=== PATIENT | female | born 1940 | race Caucasian/White ===

== ENCOUNTER → 2019-03-04 | Outpatient (CLI) | payer SELFPAY ==
[~2019-03-04] MED LIST: ASPIRIN PO; COUM1TAB18 PO; PERC2.5T PO
--- NOTE | 2019-03-04 12:43 | REP ---
Two-view chest: 03/04/2019. Indication: Dyspnea. COPD. Comparison: 02/16/2013. Findings: There is no air space consolidation. There are no pleural effusions or pneumothoraces. The cardiomediastinal silhouette is unremarkable. Hyperinflation and chronic interstitial fibrotic changes are present. Impression: No acute cardiopulmonary process. Electronically Signed by Kin Urbina DO 03/04/2019 12:34 P
[2019-03-04 12:47] LABS: HEMOGLOBIN 13.3 g/dl (12.0-15.5); MEAN CORPUSCULAR HEMOGLOBIN 29.6 pg (27.0-33.0); MEAN CORPUSCULAR HGB CONC 31.7 g/dl (32.0-36.5); MEAN CORPUSCULAR VOLUME 93.3 fl (80.0-96.0); PLATELET COUNT, AUTOMATED 327 10^3/uL (150-450)
[2019-03-04 14:09] LABS: ALBUMIN 3.5 GM/DL (3.2-5.2); ALT/SGPT 20 U/L (12-78); BILIRUBIN,TOTAL 0.8 MG/DL (0.2-1.0); BLOOD UREA NITROGEN 17 MG/DL (7-18); CARBON DIOXIDE LEVEL 25 MEQ/L (21-32); CHLORIDE LEVEL 114 MEQ/L (98-107); CHOLESTEROL LEVEL 125 MG/DL (<200); CHOLESTEROL RISK RATIO 2.272 (<5); CREATININE FOR GFR 0.92 MG/DL (0.55-1.30); GLOMERULAR FILTRATION RATE > 60.0 (>39); GLUCOSE, FASTING 94 MG/DL (70-100); HDL CHOLESTEROL 55 MG/DL (>40); LDL CHOLESTEROL 55 MG/DL (<100); NON-HDL-C 70 MG/DL; POTASSIUM SERUM 4.5 MEQ/L (3.5-5.1); SODIUM LEVEL 147 MEQ/L (136-145); TOTAL PROTEIN 6.2 GM/DL (6.4-8.2); TRIGLYCERIDES LEVEL 75 MG/DL (<150)
--- NOTE | 2019-03-05 07:08 | ECGEPIP ---
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
== END ==
LOC: M LAB 11:18
PROVIDERS: ATTEND Family Medicine
DX: J44.9 Chronic obstructive pulmonary disease, unspecified (principal); E03.9 Hypothyroidism, unspecified

== ENCOUNTER 2019-07-30 16:37 | Inpatient (IN) | payer MEDICARE, SELFPAY ==
[~2019-07-30] VITALS: Ht 170.2 cm; Wt 74.6 kg
--- NOTE | 2019-07-30 18:42 | REPVR ---
PROCEDURE INFORMATION: Exam: CT Head Without Contrast Exam date and time: 07/30/2019 6:20 PM Age: 79 years old Clinical indication: Pain; Headache; Additional info: CVA - nursing interventions must not delay CT TECHNIQUE: Imaging protocol: Computed tomography of the head without contrast. Radiation optimization: All CT scans at this facility use at least one of these dose optimization techniques: automated exposure control; mA and/or kV adjustment per patient size (includes targeted exams where dose is matched to clinical indication); or iterative reconstruction. Other technique: STROKE PROTOCOL was implemented. COMPARISON: No relevant prior studies available. FINDINGS: Brain: No intracranial mass, focal mass effect or midline shift. No acute intracranial hemorrhage. Mild decreased attenuation in periventricular/centrum semiovale white matter. No focal effacement of cortical sulci to indicate acute cortical infarct. Remote right perisylvian infarct with chronic volume loss and compensatory right lateral ventricle dilatation. Ventricles: Prominent ventricles and CSF spaces suggest parenchymal volume loss. Bones/joints: No calvarial fracture or destructive process. Sinuses: Visualized paranasal sinuses are unremarkable. Mastoid air cells: Mastoid air cells are normally aerated. Orbits: Visualized globes and orbits are unremarkable. Soft tissues: No focal extracranial soft tissue swelling. IMPRESSION: 1. No acute intracranial abnormality. 2. Atrophy, remote right perisylvian infarct and chronic microangiopathic change in supratentorial white matter. ASSESSMENT: ASPECTS ([place] Stroke Program Early CT Score) is 10 Electronically signed by: Solomon Ronquillo On 07/30/2019 18:42:00 PM
--- NOTE | 2019-07-30 19:09 | ECGEPIP ---
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
[2019-07-30] MEDS ORDERED: POTASSIUM CHLORIDE 10 MEQ SR TABLET PO ONE (19:15)
[2019-07-30 19:29] LABS: BASO % 0.2 % (0.0-1.0); EOS % 0.2 % (0.0-3.0); LYMPH # 1.1 10^3/uL (1.5-5.0); LYMPH % 8.6 % (24.0-44.0); MEAN CORPUSCULAR HEMOGLOBIN 17.1 pg (27.0-33.0); MEAN CORPUSCULAR HGB CONC 25.4 g/dl (32.0-36.5); MEAN CORPUSCULAR VOLUME 67.3 fl (80.0-96.0); MONO % 8.3 % (0.0-5.0); NEUTROPHILS # 10.2 10^3/uL (1.5-8.5); PLATELET COUNT, AUTOMATED 372 10^3/uL (150-450); RED BLOOD COUNT 2.05 10^6/uL (4.00-5.40); WHITE BLOOD COUNT 12.4 10^3/uL (4.0-10.0)
[2019-07-30 19:31] LABS: HEMATOCRIT 13.8 % (36.0-47.0); HEMOGLOBIN 3.5 g/dl (12.0-15.5)
[2019-07-30 19:33] LABS: INR 2.44; PROTHROMBIN TIME 26.3 SECONDS (11.8-14.0)
[2019-07-30 19:34] LABS: PARTIAL THROMBOPLASTIN TIME 34.4 SECONDS (25.0-38.4)
[2019-07-30 19:42] LABS: CK-MB VALUE MASS < 1.0 NG/ML (<3.6); CPK CREATINE PHOSPHOKINASE 51 U/L (26-192); MB/CK RELATIVE INDEX 1.96 (< OR =4); TROPONIN I < 0.02 NG/ML (< 0.10)
[2019-07-30 20:43] VITALS: BP 129/57
[2019-07-30] MEDS ORDERED: ATOR40TA75 PO (20:47)
[2019-07-30] MEDS ORDERED: ACET-683 PO (20:47)
[2019-07-30] MEDS ORDERED: BACL10TA8 PO (20:47)
[2019-07-30] MEDS ORDERED: XARE15TA PO (20:47)
[2019-07-30 20:59] VITALS: BP 123/77
[2019-07-30] MEDS ORDERED: PANTOPRAZOLE 40MG VIAL (C9113 PER 1) IV SCH (21:00)
[2019-07-30 21:30] VITALS: BP 127/75
--- NOTE | 2019-07-30 21:44 | HPEPDOC ---
General Date of Admission Date of Service: July 30, 2019 Chief Complaint The patient is a 79-year-old female admitted with a reason for visit of Gen Illness. Source: Patient Exam Limitations: No limitations Timing/Duration: Other (weeks) Severity: Moderate Associated Symptoms: Other (, left-sided weakness) History of Present Illness This is a 79 years old white female with past medical history of benign neoplasm of the heart. 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 As follows up at January neurology. Patient has been going to physical therapy but she has a progressive weakness of her left side of her body, not improving and physical therapy and today her daughter made her to come to emergency room and she was unable to help her at home. Patient denies any chest pain or shortness of breath, nausea, vomiting, dark stool, etc. Patient also recently had a implantable loop recorder placed during her admission in July 2023 cryptogenic a stroke for further workup of a stroke Patient had a recent telemedicine follow with Dr. Bergman on 07/11/2009. He recommended to continue all the current medications. For unknown reason. Patient's medical records state she is on Xarelto but I was informed by the ED physician that actually she is taking Coumadin for unknown reason. When I asked patient, she explained that she takes Coumadin because of her heart problem, but her agricultural economist does not suggest that and he is also wondering why patient is on anticoagulation. Patient was also found to have a hemoglobin of 3.5 with negative, negative guaiac stools. Patient's only complaint is generalized weakness and worsening weakness on left side. 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, bilateral cataracts status post extraction, hypertension, tobacco dependence, CVA Surgical History Atrial myxomatous exacerbation, left hip and leg surgery for fracture, status post implantable loop recorder for further workup of stroke Family History Mother had a history of cancer and grandmother had a history of stroke Social History * Smoker: current smoker Alcohol: Denies Drugs: denies A-FIB/CHADSVASC A-FIB History Current/History of A-Fib/PAF?: No Current PO Anticoag Therapy: Yes Review of Systems Constitutional: Reports: Weakness Eyes: Denies: Pain, Vision change, Conjunctivae inflammation, Eyelid inflammation, Redness, Other ENT: Denies: Head Aches, Ear Pain, Dysphagia, Sinus Congestion, Post Nasal Drip, Sore Throat, Epistaxis, Other Symptoms Skin: Denies: Rash, Lesions, Jaundice, Bruising, Itching, Dry, Breakdown, Nail Changes, Other Pulmonary: Denies: Dyspnea, Cough, Pleuritic Chest Pain, Other Symptoms Cardiovascular: Denies: Chest Pain, Palpitations, Orthopnea, Paroxysmal Noc. Dyspnea, Edema, Lt Headedness, Other Symptoms Gastrointestinal: Denies: Nausea, Vomiting, Abdominal Pain, Diarrhea, Constipation, Melena, Hematochezia, Other Symptoms Genitourinary: Denies: Dysuria, Frequency, Incontinence, Hematuria, Retention, Other Symptoms Hematologic: Denies: Bruising, Bleeding Excessively, Petecchia, Purpura, Enlarged Lymph Nodes, Other Hematologic Endocrine: Denies: Polydipsia, Polyphagia, Polyuria, Heat Intolerance, Cold Intolerance, Other Endocrine Sx Musculoskeletal: Denies: Neck Pain, Back Pain, Shoulder Pain, Arm Pain, Hand Pain, Leg Pain, Foot Pain, Joint Pain, Muscle Pain, Spasms, Other Symptoms Neurological: Denies: Weakness, Numbness, Incoordination, Change in speech, Confusion, Seizures, Other Symptoms Psych: Denies: Mood Normal, Anxiety, Depression, Memory Issues, Thoughts of Self Harm, Anger, Thoughts of Harming Other, Other Psych Physical Examination General Exam: Positive: Alert Eye Exam: Positive: PERRLA, Conjunctiva & lids normal ENT Exam: Positive: Atraumatic, Mucous membr. moist/pink Neck Exam: Positive: Supple Chest Exam: Positive: Clear to auscultation, Normal air movement Heart Exam: Positive: Rate Normal, Normal S1, Normal S2 Abdomen Exam: Positive: Normal bowel sounds, Soft Extremity Exam: Positive: Normal pulses Skin Exam: Positive: Nl turgor and temperature Neuro Exam: Positive: Normal Gait, Other (, decreased motor strength left upper extremity and left lower extremity) Psych Exam: Positive: Memory Intact, Oriented x 3 Vital Signs Vital Signs Date Time Temp Pulse Resp B/P (MAP) Pulse Ox O2 Delivery O2 Flow Rate FiO2 07/30/19 20:59 97.9 99 18 123/77 99 Room Air Laboratory Data Labs 24H Laboratory Tests 2 07/30/19 18:42: Immature Granulocyte % (Auto) 0.7, Neutrophils (%) (Auto) 82.0H, Lymphocytes (%) (Auto) 8.6L, Monocytes (%) (Auto) 8.3H, Eosinophils (%) (Auto) 0.2, Basophils (%) (Auto) 0.2, Neutrophils # (Auto) 10.2H, Lymphocytes # (Auto) 1.1L, Monocytes # (Auto) 1.0H, Eosinophils # (Auto) 0.0, Basophils # (Auto) 0.0, Nucleated Red Blood Cells % (auto) 0.6H, Prothrombin Time 26.3H, Prothromb Time International Ratio 2.44, Activated Partial Thromboplast Time 34.4, POC Glucose (Misc Panel) 106H, POC Sodium (Misc Panel) 142, POC Potassium (Misc Panel) 3.3L, POC Chloride (Misc Panel) 108, POC Total CO2 (Misc Panel) 19.0L, POC Blood Urea Nitrogen (Misc Panel 22, POC Ionized Calcium (Misc Panel) 4.7, POC Creatinine (Misc Panel) 1.0, POC Hematocrit (Misc Panel) < 15.0L, Total Creatine Kinase 51, Creatine Kinase MB < 1.0, Creatine Kinase MB Relative Index 1.96, Troponin I < 0.02 07/30/19 18:43: POC Lactate (Misc Panel) 1.59 CBC/BMP Laboratory Tests 07/30/19 18:42 Problems (1) Anemia Status: Acute Problem Text: Most likely acute on chronic anemia FOBT of the stool is negative in ED, but cannot rule out a GI bleed, most likely secondary to anticoagulation Patient's hemoglobin is 3.5, hematocrit 13.8 2 units of PRBC for ordered from the ED, I will check hemoglobin again after the transfusion and possibly require more to bring her hemoglobin more than 7 Will keep patient on clear liquid diet Hold on her by mouth meds, especially anticoagulants which there is a confusion whether she takes Xarelto are Coumadin, as her medical records stated to his arrival to the ED physician mentioned Coumadin with INR of 2.44 Will order all her old medical records from her PCP, Dr. Erazo In any case, we will hold anticoagulation and follow INR daily Will start patient also on Protonix 40 mg IV every 24 hours patient will probably benefit from GI workup, please call GI consult in a.m. DVT prophylaxis with the bilateral anti-thrombotic stockings Diet is clear liquid diet Activity is bed rest with bathroom privileges (2) Left-sided weakness Status: Chronic Problem Text: History of cryptogenic's CVA recently in July 2019. Patient had a CT of the head done in EDwhich does not show any new stroke or hemorrhage MRI of the brain was ordered, but secondary to implantable loop recorder timber management technician will clear it with the radiologist before performing MRI of the brain Physical therapy and occupational therapy consults have been called Hold statins and anticoagulation till Anemia has resolved (3) HTN (hypertension) Status: Chronic Problem Text: Patient. Blood pressures under well control, 129/57 on admission Currently on on no medications . We will follow clinically and on her meds if needed Plan / VTE VTE Prophylaxis Ordered?: Yes DILCIA MCDOWELL MD July 30, 2019 21:44
[2019-07-30 22:13] VITALS: BP 131/95
[2019-07-30 23:38] VITALS: BP 120/64
[2019-07-31] VITALS (14 sets, daily range): BP systolic 106–157; BP diastolic 54–84
--- NOTE | 2019-07-31 01:33 | REP ---
PORTABLE CHEST X-RAY, SINGLE VIEW: HISTORY: CVA. COMPARISON CHEST X-RAY: 03/04/2019 FINDINGS: A loop recorder is seen projecting in the left precordium. The lungs are well inflated and clear. Cardiomediastinal silhouette is unremarkable. Pulmonary vasculature is not increased. No infiltrate is seen. IMPRESSION: No acute disease seen. Electronically Signed by Josiah James MD 07/31/2019 08:24 A
[2019-07-31 02:49] LABS: HEMATOCRIT 21.5 % (36.0-47.0)
[2019-07-31 02:51] LABS: HEMOGLOBIN 6.5 g/dl (12.0-15.5)
[2019-07-31] MEDS ORDERED: DEXTROSE 50% 50 ML SYRINGE IV PRN (09:00)
[2019-07-31] MEDS ORDERED: GLUCAGON INJ 1MG VIAL SC PRN (09:00)
[2019-07-31] MEDS ORDERED: GLUCOSE 4GM CHEW TABLET PO PRN (09:00)
[2019-07-31] MEDS: PANTOPRAZOLE SODIUM 40 MG in D5W 50 ML IV SCH ×3 (10:24→20:23)
[2019-07-31 11:30] LABS: HEMATOCRIT 30.3 % (36.0-47.0); MEAN CORPUSCULAR HEMOGLOBIN 24.9 pg (27.0-33.0); MEAN CORPUSCULAR VOLUME 77.9 fl (80.0-96.0); RED BLOOD COUNT 3.89 10^6/uL (4.00-5.40); WHITE BLOOD COUNT 9.5 10^3/uL (4.0-10.0)
[2019-07-31 11:37] LABS: HEMOGLOBIN 9.7 g/dl (12.0-15.5)
[2019-07-31 11:38] LABS: PLATELET COUNT, AUTOMATED 253 10^3/uL (150-450)
[2019-07-31 11:43] LABS: INR 1.56; PROTHROMBIN TIME 18.4 SECONDS (11.8-14.0)
[2019-07-31 11:58] LABS: ALBUMIN 2.9 GM/DL (3.2-5.2); ALT/SGPT 15 U/L (12-78); BLOOD UREA NITROGEN 15 MG/DL (7-18); CALCIUM LEVEL 8.4 MG/DL (8.8-10.2); CARBON DIOXIDE LEVEL 21 MEQ/L (21-32); CHLORIDE LEVEL 114 MEQ/L (98-107); CREATININE FOR GFR 0.69 MG/DL (0.55-1.30); GLOMERULAR FILTRATION RATE > 60.0 (>39); GLUCOSE, FASTING 101 MG/DL (70-100); MAGNESIUM LEVEL 2.1 MG/DL (1.8-2.4); POTASSIUM SERUM 3.7 MEQ/L (3.5-5.1); SODIUM LEVEL 142 MEQ/L (136-145); TOTAL PROTEIN 5.9 GM/DL (6.4-8.2)
[2019-07-31] MEDS ORDERED: MIRALAX *UNIT DOSE* 17GM PACKET PO PRN (13:30)
[2019-07-31] MEDS ORDERED: SENOKOT S TAB PO PRN (13:30)
[2019-07-31] MEDS: SUCRALFATE SUSP 1GM/10ML UD PO SCH ×2 (13:57→19:04)
--- NOTE | 2019-07-31 18:52 | REPVR ---
PROCEDURE INFORMATION: Exam: MR Head Without Contrast Exam date and time: 07/31/2019 6:44 PM Age: 79 years old Clinical indication: Weakness, extremity; Left; Patient HX: PT states weakness that has turned into total paralysis on lt side, ; additional info: Increase in left sided wkness x 3 wks TECHNIQUE: Imaging protocol: MR of the head without contrast. COMPARISON: CT Head without contrast 07/30/2019 6:16 PM FINDINGS: Brain: A chronic right MCA territory infarct is present. Chronic hemosiderin deposition is noted in the right basal ganglia. There is no acute intracranial hemorrhage, cerebral edema, or midline shift. No restricted diffusion is present to suggest acute infarction. Age-related cerebral and cerebellar volume loss is present. Scattered increased T2 and FLAIR signal within the periventricular and subcortical white matter is present. This is nonspecific but likely related to chronic microangiopathic ischemic change. Ventricles: Mild ex vacuo dilation of the right lateral ventricle is present. Bones/joints: Unremarkable. Sinuses: A small mucous retention cyst is noted in the right maxillary sinus. There is no acute sinusitis. Mastoid air cells: Normal as visualized. No mastoid effusion. Orbits: The patient is likely status post bilateral cataract surgery. Soft tissues: Unremarkable. IMPRESSION: 1. No acute abnormality. 2. Chronic findings as discussed above. Electronically signed by: Elvin White On 07/31/2019 18:52:47 PM
[2019-07-31 19:52] LABS: HEMATOCRIT 31.3 % (36.0-47.0); HEMOGLOBIN 10.2 g/dl (12.0-15.5)
[2019-08-01] MEDS: PANTOPRAZOLE SODIUM 40 MG in D5W 50 ML IV SCH ×3 (00:41→10:49)
[2019-08-01] MEDS: SUCRALFATE SUSP 1GM/10ML UD PO SCH ×5 (00:41→20:07)
[2019-08-01 02:00] VITALS: BP 133/61
[2019-08-01 06:00] VITALS: BP 114/59
[2019-08-01 08:10] LABS: HEMATOCRIT 30.8 % (36.0-47.0); HEMOGLOBIN 9.7 g/dl (12.0-15.5)
[2019-08-01 08:17] LABS: INR 1.22; PROTHROMBIN TIME 15.1 SECONDS (11.8-14.0)
[2019-08-01] MEDS ORDERED: MOM 30ML SUSPENSION UDC PO PRN (08:45)
[2019-08-01] MEDS ORDERED: SENOKOT S TAB PO PRN (08:45)
[2019-08-01] MEDS ORDERED: MIRALAX *UNIT DOSE* 17GM PACKET PO PRN (08:45)
[2019-08-01 10:00] VITALS: BP 109/76
--- NOTE | 2019-08-01 12:30 | IPNPDOC ---
Date Seen The patient was seen on 08/01/19. Progress Note Chronic Anemia -Per Dr. White, GI astronomy professor, no need to acutely evaluate now because it is chronic. may restart anticoagulation and monitor h&h. -if overt GI bleed, re-consult of endoscopy. -check hemoccult stool x 3 VS, I&O, 24H, Fishbone Vital Signs/I&O Vital Signs Date Time Temp Pulse Resp B/P (MAP) Pulse Ox O2 Delivery O2 Flow Rate FiO2 08/01/19 10:00 98.9 73 16 109/76 (87) 98 Room Air 07/30/19 21:30 98 I&O- Last 24 Hours up to 6 AM 08/01/19 06:00 Intake Total 2505 ml Output Total 200 ml Balance 2305 ml Laboratory Data 24H LABS Laboratory Tests 2 08/01/19 07:29: Prothrombin Time 15.1H, Prothromb Time International Ratio 1.22 CBC/BMP Laboratory Tests 07/31/19 19:25 08/01/19 07:29 NATHALIE CHARLTON MD August 01, 2019 12:30
[2019-08-01] MEDS: RIVAROXABAN 15 MG TAB (XARELTO) PO SCH (13:00)
[2019-08-01 14:00] VITALS: BP 137/89
[2019-08-01 18:00] VITALS: BP 132/72
[2019-08-01 18:34] LABS: HEMATOCRIT 35.9 % (36.0-47.0); HEMOGLOBIN 11.3 g/dl (12.0-15.5)
--- NOTE | 2019-08-01 19:31 | IPN ---
DATE: 07/31/2019 The patient has no complaints of chest pain, pressure, tightness, shortness of breath, weakness, palpitations, or lightheadedness. She has been transfused a total of 4 units red blood cells (RBCs) with increase in hemoglobin from 3.5 to 9.7, hematocrit of 13.8 to 30.3. Patient denies any bright red blood per rectum, melena, or black tarry stools. She is off anticoagulation, INR is 1.5 currently, and has not had any bowel movement this morning. Temperature 97.3, pulse 71, respiratory rate 16, blood pressure 110/58, 98% on room air. Generally: Patient is awake, alert, oriented to person, place and time. Anicteric sclerae, no jaundice, patient is pale. No jugular venous distention (JVD) or thyromegaly. Lungs: Clear to auscultation. No wheezing, rales, or rhonchi. Heart: S1, S2, sinus rhythm. Abdomen: Soft, nontender, nondistended, positive bowel sounds. Extremities: No cyanosis or clubbing. LABORATORY DATA: White count 9.5, hemoglobin 9.7, hematocrit 30, platelet count 253, sodium 142, potassium 3.7, chloride 114, bicarbonate 21, BUN 15, creatinine 0.69, glucose of 101. No hemoccult stool available. CT head: No acute CVA. Atrophy with chronic microangiopathic changes and supratentorial white matter. Chest x-ray: No acute disease. 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 Patient had been transfused 4 units of red blood cells (RBCs), on clears diet with no overt gastrointestinal (GI) bleed, no bowel movement currently. IMPRESSION: 1. Chronic anemia. Rule out gastrointestinal (GI) bleed. Patient is currently on Protonix IV drip and Carafate. Anticoagulation has been discontinued. Current INR is 1.5. She is currently on a clear liquid diet. Asymptomatic after 4 units of red blood cells (RBCs) has been transfused. 2. History of cryptogenic CVA in July 2019. CT head was negative. Anticoagulation has been held secondary to severe anemia. 3. Hypertension. Currently controlled. Pressure is well maintained at 106-138 systolic with no complaints. 4. Prior history of smoking. Unclear whether the patient had prior pulmonary function tests (PFTs) and a chronic obstructive pulmonary disease (COPD) diagnosis. Currently stable with no acute exacerbation. 5. Deep venous thrombosis (DVT) prophylaxis with compression stockings. 6. Hyperlipidemia. On chronic Lipitor. 7. Chronic back pain. On baclofen. MTDD
[2019-08-01] MEDS: PANTOPRAZOLE 40MG TAB (PROTONIX) PO SCH (20:07)
[2019-08-01 22:00] VITALS: BP 132/69
[2019-08-02 02:00] VITALS: BP 127/66
[2019-08-02 05:48] LABS: HEMATOCRIT 31.2 % (36.0-47.0); HEMOGLOBIN 9.8 g/dl (12.0-15.5)
[2019-08-02 05:57] LABS: INR 1.6; PROTHROMBIN TIME 18.8 SECONDS (11.8-14.0)
[2019-08-02 06:00] VITALS: BP 114/59
[2019-08-02] MEDS: SUCRALFATE SUSP 1GM/10ML UD PO SCH ×4 (08:37→20:59)
[2019-08-02] MEDS: PANTOPRAZOLE 40MG TAB (PROTONIX) PO SCH ×2 (08:37→20:59)
[2019-08-02] MEDS: RIVAROXABAN 15 MG TAB (XARELTO) PO SCH (08:37)
[2019-08-02 10:00] VITALS: BP 112/58
[2019-08-02 12:11] LABS: HEMATOCRIT 33.7 % (36.0-47.0); HEMOGLOBIN 10.2 g/dl (12.0-15.5)
[2019-08-02 14:00] VITALS: BP 112/59
--- NOTE | 2019-08-02 16:06 | IPNPDOC ---
Date Seen The patient was seen on 08/02/19. Progress Note no brbpr, hematemesis, or black tarry stools.denies sob, cp, pressure, dizziness. PE: VITALS: pls see below Generally: Patient is awake, alert, oriented to person, place and time. Anicteric sclerae, no jaundice, No jugular venous distention (JVD) or thyromegaly.no pallor. sitting at the bedside with walker, working with 2 physical therapist trying to put her slippers Lungs: Clear to auscultation. No wheezing, rales, or rhonchi. Heart: S1, S2, sinus rhythm. Abdomen: Soft, nontender, nondistended, positive bowel sounds. Extremities: No cyanosis or clubbing. LABORATORY DATA: pls see below MRI Brain: no CVA CT head: No acute CVA. Atrophy with chronic microangiopathic changes and supratentorial white matter. Chest x-ray: No acute disease. 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 Patient had been transfused 4 units of red blood cells (RBCs), on clears diet with no overt gastrointestinal (GI) bleed, no bowel movement currently. IMPRESSION: Chronic blood loss aanemia with black stools at homedue to gi bleed. AC held on admission s/p iv protonix gtt, carafate, and clear liquids diet Per GI, Dr. White, no need for acute endoscopy, restart AC, and monitor H&H. s/p 4u rbc transfused. HD stable. H&H stable. now diet advanced to solid diet and h&h still being monitored q6hrs. History of cryptogenic CVA in July 2019. CT head was negative. MRI brain negative. resumed on AC. Hypertension. Currently controlled. Prior history of smoking. Unclear whether the patient had prior pulmonary function tests (PFTs) and a chronic obstructive pulmonary disease (COPD) diagnosis. Currently stable with no acute exacerbation. Deep venous thrombosis (DVT) prophylaxis with compression stockings. resumed on AC. Hyperlipidemia. On chronic Lipitor. Chronic back pain. On baclofen. VS, I&O, 24H, Fishbone Vital Signs/I&O Vital Signs Date Time Temp Pulse Resp B/P (MAP) Pulse Ox O2 Delivery O2 Flow Rate FiO2 08/02/19 14:00 98.7 74 17 112/59 (76) 97 Room Air 07/30/19 21:30 98 I&O- Last 24 Hours up to 6 AM 08/02/19 06:00 Intake Total 736.1 ml Output Total 1120 ml Balance -383.9 ml Laboratory Data 24H LABS Laboratory Tests 2 08/02/19 05:35: Prothrombin Time 18.8H, Prothromb Time International Ratio 1.60 08/02/19 15:14: Lab Scanned Report Transfusion Record CBC/BMP Laboratory Tests 08/01/19 17:48 08/02/19 05:35 08/02/19 11:58 Microbiology Microbiology 08/01/19 Stool Occult Blood (CORINNA) - Final, Complete NATHALIE CHARLTON MD August 02, 2019 16:06
[2019-08-02 18:00] VITALS: BP 102/55
[2019-08-02 18:31] LABS: HEMATOCRIT 33.4 % (36.0-47.0); HEMOGLOBIN 10.5 g/dl (12.0-15.5)
[2019-08-02 22:00] VITALS: BP 131/68
[2019-08-03 02:00] VITALS: BP 128/66
[2019-08-03 05:45] LABS: HEMATOCRIT 31.9 % (36.0-47.0); HEMOGLOBIN 9.8 g/dl (12.0-15.5)
[2019-08-03 05:57] LABS: INR 1.25; PROTHROMBIN TIME 15.4 SECONDS (11.8-14.0)
[2019-08-03 06:00] VITALS: BP 135/74
[2019-08-03] MEDS: SUCRALFATE SUSP 1GM/10ML UD PO SCH ×4 (08:54→20:03)
[2019-08-03] MEDS: PANTOPRAZOLE 40MG TAB (PROTONIX) PO SCH ×2 (08:54→20:03)
[2019-08-03] MEDS: RIVAROXABAN 15 MG TAB (XARELTO) PO SCH (08:54)
--- NOTE | 2019-08-03 09:41 | IPN ---
DATE: 08/01/2019 Patient denies any lightheadedness or dizziness. Hemoglobin has increased to 9.7 from 6.5 after 4 units of red blood cell (RBC) transfusion. Denies any bright red blood per rectum, melena or black tarry stools, hematemesis or coffee-ground emesis. Per Family Physician, Dr. White, since the patient had chronic anemia, she did not require any emergent endoscopy and recommended resumption of her anticoagulant and monitoring for decrease in hemoglobin and hematocrit or overt gastrointestinal (GI) bleed. Patient had a bowel movement today. Hemoccult stool is still pending. Temperature 97.7, pulse 82, respiratory rate 19, blood pressure 137/89, 99% on room air. Generally, awake, alert, oriented to person, place and time, answering questions appropriately. Heart: S1, S2, sinus rhythm. Abdomen is soft, nontender, nondistended. Extremities: No cyanosis or clubbing. LABORATORY DATA: Hemoglobin of 9.7, hematocrit of 30. Sodium 142, potassium 3.7, chloride 114, creatinine 0.69. ASSESSMENT AND PLAN: This is a 79-year-old female with history of benign atrial myxoma diagnosed in 2010, status post removal of myxoma in July 2011 without any issues, presented to the emergency room with symptomatic anemia, found to have a hemoglobin of 3 while she is on anticoagulation, 3.5 with subsequent blood transfusion of 4 units with increase to 9.7. The patient has no overt GI bleed during the hospital stay and per GI, can be resumed back on her anticoagulation with monitoring of her hemoglobin. CURRENT ISSUES: 1. Symptomatic anemia, most likely due to chronic anemia. Patient had been transfused 4 units of blood. Per GI, no need for acute evaluation with esophagogastroduodenoscopy (EGD) or colonoscopy as the patient had chronic anemia. May be resumed back on her anticoagulation and monitor hemoglobin and hematocrit. If overt GI bleed, re-consult for endoscopy. Check Hemoccult stools times three and monitor hemoglobin and hematocrit every 12 hours. 2. History of atrial myxoma. On chronic anticoagulation. May be resumed on her home anticoagulant, Eliquis. 3. History of hip fracture, status post repair. 4. Disposition: Monitor for the next 24-48 hours while resumed on Eliquis. If patient has heme stool with overt bleeding and decrease in hemoglobin, will need endoscopy and colonoscopy during the hospital stay. MTDD
--- NOTE | 2019-08-03 10:18 | IPNPDOC ---
Date Seen The patient was seen on 08/03/19. Progress Note Subjecitve: no sob, palpitations, or other cardiac ischemic symptoms. afebrile no cough, or other issues per RN. no bloody bm. "I feel fine." Patient denies any lightheadedness or dizziness. Denies any bright red blood per rectum, melena or black tarry stools, hematemesis or coffee-ground emesis. Objective: PE: Vitals: pls see below Generally, awake, alert, oriented to person, place and time, answering questions appropriately. Heart: S1, S2, sinus rhythm. Abdomen is soft, nontender, nondistended. Extremities: No cyanosis or clubbing. LABORATORY DATA: pls see below ASSESSMENT AND PLAN: This is a 79-year-old female with history of benign atrial myxoma diagnosed in 2010, status post removal of myxoma in July 2011 without any issues, presented to the emergency room with symptomatic anemia, found to have a hemoglobin of 3 while she is on anticoagulation, 3.5 with subsequent blood transfusion of 4 units with increase to 9.7. The patient has no overt GI bleed during the hospital stay and per GI, can be resumed back on her anticoagulation with monitoring of her hemoglobin. CURRENT ISSUES: 1. Symptomatic anemia, most likely due to chronic anemia. Patient had been transfused 4 units of blood. Per GI, Dr. White, no need for acute evaluation with esophagogastroduodenoscopy (EGD) or colonoscopy as the patient had chronic anemia. on anticoagulation without decrease in Hgb or overt GI bleed. if stable, and cleared by PT, may go home today. 2. History of atrial myxoma. On chronic anticoagulation. May be resumed on her home anticoagulant, Eliquis. 3. History of hip fracture, status post repair. 4. Disposition: if stable, and cleared by PT, may go home today. VS, I&O, 24H, Coni Vital Signs/I&O Vital Signs Date Time Temp Pulse Resp B/P (MAP) Pulse Ox O2 Delivery O2 Flow Rate FiO2 08/03/19 06:00 98.9 78 17 135/74 (94) 97 Room Air 07/30/19 21:30 98 I&O- Last 24 Hours up to 6 AM 08/03/19 05:59 Intake Total 1460 ml Output Total 800 ml Balance 660 ml Laboratory Data 24H LABS Laboratory Tests 2 5/29/20 15:14: Lab Scanned Report Transfusion Record 08/03/19 05:24: Prothrombin Time 15.4H, Prothromb Time International Ratio 1.25 CBC/BMP Laboratory Tests 08/02/19 11:58 08/02/19 18:19 08/03/19 00:06 08/03/19 05:24 Microbiology Microbiology 08/03/19 Stool Occult Blood (CORINNA) - Final, Complete 08/01/19 Stool Occult Blood (CORINNA) - Final, Complete NATHALIE CHARLTON MD August 03, 2019 10:18
[2019-08-03 14:00] VITALS: BP 120/60
[2019-08-03 18:09] LABS: HEMATOCRIT 34.6 % (36.0-47.0); HEMOGLOBIN 10.5 g/dl (12.0-15.5)
[2019-08-03 22:00] VITALS: BP 137/89
[2019-08-04 05:52] LABS: HEMATOCRIT 28.9 % (36.0-47.0); HEMOGLOBIN 8.9 g/dl (12.0-15.5)
[2019-08-04 05:59] LABS: INR 1.29; PROTHROMBIN TIME 15.8 SECONDS (11.8-14.0)
[2019-08-04 06:00] VITALS: BP 135/90
[2019-08-04] MEDS: PANTOPRAZOLE 40MG TAB (PROTONIX) PO SCH ×2 (08:04→20:36)
[2019-08-04] MEDS: RIVAROXABAN 15 MG TAB (XARELTO) PO SCH (08:04)
[2019-08-04] MEDS: SUCRALFATE SUSP 1GM/10ML UD PO SCH ×4 (08:04→20:36)
[2019-08-04] MEDS ORDERED: TAMSULOSIN 0.4 MG CAP PO ONE (09:00)
--- NOTE | 2019-08-04 09:29 | IPNPDOC ---
Date Seen The patient was seen on 08/04/19. Progress Note c/o urine retention requiring catheterization by RN. no brbp hematemesis, black tarry stools. "I feel ok." not cleared by PT. no cp, pressure, sob. denies palpitations PE: VITALS: pls see below Generally: Patient is awake, alert, oriented to person, place and time. Anicteric sclerae, no jaundice, No jugular venous distention (JVD) or thyromegaly.no pallor. supine getting catheterization Lungs: Clear to auscultation. No wheezing, rales, or rhonchi. Heart: S1, S2, sinus rhythm. Abdomen: Soft, nontender, nondistended, positive bowel sounds. Extremities: No cyanosis or clubbing. LABORATORY DATA: pls see below MRI Brain: no CVA CT head: No acute CVA. Atrophy with chronic microangiopathic changes and supratentorial white matter. Chest x-ray: No acute disease. 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 Patient had been transfused 4 units of red blood cells (RBCs), on clears diet with no overt gastrointestinal (GI) bleed, no bowel movement currently. IMPRESSION: Chronic blood loss anemia with black stools at home due to gi bleed. back on oral AC without overt gi bleed. Per GI, Dr. White, no need for acute endoscopy s/p 4u rbc transfused. HD stable. H&H stable. History of cryptogenic CVA in July 2019. CT head was negative. MRI brain negative. on AC. Hypertension. Currently controlled. Prior history of smoking. Unclear whether the patient had prior pulmonary function tests (PFTs) and a chronic obstructive pulmonary disease (COPD) diagnosis. Currently stable with no acute exacerbation. Deep venous thrombosis (DVT) prophylaxis with compression stockings. resumed on AC. Hyperlipidemia. On chronic Lipitor. Chronic back pain. On baclofen. urine retention. prn catheterization. trial of flomax, disposition: 1-2 days awaiting PT clearance. VS, I&O, 24H, Fishbone Vital Signs/I&O Vital Signs Date Time Temp Pulse Resp B/P (MAP) Pulse Ox O2 Delivery O2 Flow Rate FiO2 08/04/19 06:00 100.2 84 18 135/90 (105) 93 Room Air 07/30/19 21:30 98 I&O- Last 24 Hours up to 6 AM 08/04/19 06:00 Intake Total 1300 ml Output Total 800 ml Balance 500 ml Laboratory Data 24H LABS Laboratory Tests 2 08/04/19 05:35: Prothrombin Time 15.8H, Prothromb Time International Ratio 1.29 CBC/BMP Laboratory Tests 08/03/19 12:14 08/03/19 17:52 08/03/19 23:58 08/04/19 05:35 Microbiology Microbiology 08/03/19 Stool Occult Blood (CORINNA) - Final, Complete 08/01/19 Stool Occult Blood (CORINNA) - Final, Complete NATHALIE CHARLTON MD August 04, 2019 07:54
[2019-08-04 10:00] VITALS: BP 133/73
[2019-08-04 14:00] VITALS: BP 127/59
[2019-08-04] MEDS ORDERED: ACETAMINOPHEN TAB 650MG DOSE (2X325MG) PO PRN (18:00)
[2019-08-04 18:12] LABS: HEMATOCRIT 31.8 % (36.0-47.0); HEMOGLOBIN 9.5 g/dl (12.0-15.5)
[2019-08-04] MEDS ORDERED: ACETAMINOPHEN 500 MG TAB PO ONE (18:15)
[2019-08-04 22:00] VITALS: BP 135/68
[2019-08-05 06:00] VITALS: BP 133/67
[2019-08-05 06:32] LABS: HEMATOCRIT 29.5 % (36.0-47.0); HEMOGLOBIN 9.1 g/dl (12.0-15.5)
[2019-08-05 06:45] LABS: INR 1.24; PROTHROMBIN TIME 15.3 SECONDS (11.8-14.0)
[2019-08-05] MEDS: RIVAROXABAN 15 MG TAB (XARELTO) PO SCH (08:33)
[2019-08-05] MEDS: PANTOPRAZOLE 40MG TAB (PROTONIX) PO SCH (08:33)
[2019-08-05] MEDS: SUCRALFATE SUSP 1GM/10ML UD PO SCH ×2 (08:33→13:28)
[2019-08-05] MEDS ORDERED: FLOM0.4C39 PO (08:49)
[2019-08-05] MEDS ORDERED: PANT40TA3 PO (08:49)
[2019-08-05] MEDS ORDERED: SUCR1ORA PO (08:49)
[2019-08-05] MEDS ORDERED: TAMSULOSIN 0.4 MG CAP PO SCH (09:00)
[2019-08-05 10:00] VITALS: BP 116/58
--- NOTE | 2019-08-05 12:48 | DS.PDOC ---
Discharge Summary General Date of Admission July 30, 2019 at 21:20 Date of Discharge 08/05/19 Discharge Summary DISCHARGE TO: ACUTE REHAB UNIT. DISCHARGE DIAGNOSES: Symptomatic Anemia Chronic GI Bleed Suspected Upper GI Bleed Atrial Myxoma Debility/Deconditioning Recent hip fracture DISCHARGE MEDICATIONS: pls see below DISCHARGE INSTRUCTIONS: pcp fu [address] White 1 wk for colonoscopy re: chronic GI bleed HOSPITAL COURSE: This is a 79-year-old female with history of benign atrial myxoma diagnosed in 2010, status post removal of myxoma in July 2011 without any issues, presented to the emergency room with symptomatic anemia, found to have a hemoglobin of 3 while she is on anticoagulation, 3.5 with subsequent blood transfusion of 4 units with increase to 9.7. The patient had no overt GI bleed during the hospital stay and per GI business communications instructor, Dr. White, can be resumed back on her anticoagulation with monitoring of her hemoglobin, with outpatient fu at hospital discharge for colonoscopy. Symptomatic anemia -due to suspected UGI bleed, and chronic blood loss anemia. Patient had been transfused 4 units of blood. Per GI business communications instructor, Dr. White, no need for acute evaluation with esophagogastroduodenoscopy (EGD) or colonoscopy as the patient had chronic anemia. no overt GI bleed since blood transfusion, and did not need further blood transfusion. resumed back on oral anticoagulation. Atrial myxoma, resected, but requiring chronic oral AC, resumed. Debility: requires ARU admission. unable to perform ADLs. History of hip fracture, status post repair. DISCHARGE PHYSICAL EXAMINATION: VITALS: see below Generally, awake, alert, oriented to person, place and time, answering questions appropriately. no pallor or cyanosis. no conversational dyspnea or use of respiratory accessory muscles. lungs: CTAB AEBE. no wheezing or rales. Heart: S1, S2, sinus rhythm. Abdomen is soft, nontender, nondistended. Extremities: No cyanosis or clubbing. LABORATORY DATA: pls see below TIME SPENT ON DISCharge: 30 min Vital Signs/I&Os Vital Signs Date Time Temp Pulse Resp B/P (MAP) Pulse Ox O2 Delivery O2 Flow Rate FiO2 08/05/19 10:00 98.7 58 16 116/58 (77) 98 Room Air 07/30/19 21:30 98 I&O- Last 24 Hours up to 6 AM 08/05/19 06:00 Intake Total 1200 ml Output Total 600 ml Balance 600 ml Laboratory Data Labs 24H Laboratory Tests 2 08/05/19 06:22: Prothrombin Time 15.3H, Prothromb Time International Ratio 1.24 CBC/BMP Laboratory Tests 08/04/19 17:48 08/05/19 06:22 Microbiology Microbiology 08/04/19 Stool Occult Blood (CORINNA) - Final, Complete 08/03/19 Stool Occult Blood (CORINNA) - Final, Complete 08/01/19 Stool Occult Blood (CORINNA) - Final, Complete Discharge Medications Scheduled Atorvastatin Calcium (Atorvastatin Calcium) 40 Mg Tablet, 40 MG PO DAILY, (Reported) Baclofen (Baclofen) 10 Mg Tablet, 5 MG PO BID, (Reported) Pantoprazole Sodium (Pantoprazole Sodium) 40 Mg Tablet.dr, 40 MG PO BID Rivaroxaban (Xarelto) 15 Mg Tablet, 15 MG PO DAILY, (Reported) Sucralfate (Sucralfate) 1 Gm/10 Ml Oral.susp, 1 GM PO ACHS Tamsulosin HCl (Flomax) 0.4 Mg Capsule, 0.4 MG PO DAILY Scheduled PRN Acetaminophen (Acetaminophen) 500 Mg Tablet, 1,000 MG PO Q6H PRN for PAIN, (Reported) Allergies Coded Allergies: Penicillins (Verified Allergy, Unknown, hives, 07/30/19) Protein Milk (Verified Adverse Reaction, Unknown, upset stomach , 07/30/19) NATHALIE CHARLTON MD Aug 05, 2019 12:37
[2019-08-05 14:00] VITALS: BP 122/68
== END 2019-08-05 15:11 | DRG 812 ==
LOC: EDBD 16:37 → M ED 16:37 → M ED INP 21:20 → ENRESERV 21:43 → M PCU 23:01 → M MSPAV 07-31 22:57
PROVIDERS: ADMIT Internal Medicine; ATTEND General Practice
PROC: 30233N1 Transfusion of Nonautologous Red Blood Cells into Peripheral Vein, Percutaneous Approach (ICD-10-PCS; principal; 2019-07-30)
DX: D50.0 Iron deficiency anemia secondary to blood loss (chronic) (principal); I69.354 Hemiplegia and hemiparesis following cerebral infarction affecting left non-dominant side; K92.2 Gastrointestinal hemorrhage, unspecified; I10 Essential (primary) hypertension; D15.1 Benign neoplasm of heart; E78.5 Hyperlipidemia, unspecified; R53.81 Other malaise; M54.9 Dorsalgia, unspecified; Z98.41 Cataract extraction status, right eye; Z98.42 Cataract extraction status, left eye; Z79.01 Long term (current) use of anticoagulants; Z79.899 Other long term (current) drug therapy; Z88.0 Allergy status to penicillin; Z87.891 Personal history of nicotine dependence; Z91.011 Allergy to milk products; Z87.81 Personal history of (healed) traumatic fracture

== ENCOUNTER 2019-08-05 13:39 | Inpatient (IN) | payer MEDICARE ==
[~2019-08-05] VITALS: Ht 170.2 cm; Wt 76.8 kg
[~2019-08-05 13:39] MED LIST changes: +ACET-683 PO; +ATOR40TA75 PO; +BACL10TA8 PO; +FLOM0.4C39 PO; +PANT40TA3 PO; +SUCR1ORA PO; +XARE15TA PO
[2019-08-05 15:15] VITALS: BP 127/57
[2019-08-05] MEDS ORDERED: ACETAMINOPHEN 500 MG TAB PO PRN (16:00)
[2019-08-05] MEDS ORDERED: BISACODYL 10 MG SUPP PR PRN (16:00)
[2019-08-05] MEDS: SUCRALFATE 1 GM TAB PO SCH ×2 (17:06→20:59)
[2019-08-05] MEDS: REMEDY PHYTOPLEX Z-GUARD PASTE 113GM TUBE (FROM STOREROOM PRODUCT) TOP SCH ×2 (17:06→21:00)
[2019-08-05] MEDS: ATORVASTATIN 20 MG TAB PO SCH (17:06)
[2019-08-05 20:57] VITALS: BP 103/51
[2019-08-05] MEDS: PANTOPRAZOLE 40MG TAB (PROTONIX) PO SCH (20:59)
[2019-08-05] MEDS: SENNA 8.6 MG TAB (SENOKOT) PO SCH (20:59)
[2019-08-05] MEDS: BACLOFEN 5MG PER 1/2 TABLET PO SCH (20:59)
[2019-08-05] MEDS: DOCUSATE SODIUM 100 MG CAP PO SCH (21:00)
[2019-08-06 06:00] VITALS: BP 139/63
[2019-08-06 06:56] LABS: BASO # 0.1 10^3/uL (0.0-0.2); BASO % 0.7 % (0.0-1.0); EOS # 0.6 10^3/uL (0.0-0.5); EOS % 5.4 % (0.0-3.0); HEMOGLOBIN 8.7 g/dl (12.0-15.5); LYMPH # 1.8 10^3/uL (1.5-5.0); LYMPH % 15.4 % (24.0-44.0); MEAN CORPUSCULAR HEMOGLOBIN 24.2 pg (27.0-33.0); MEAN CORPUSCULAR VOLUME 80.6 fl (80.0-96.0); MONO # 1.2 10^3/uL (0.0-0.8); MONO % 10.5 % (0.0-5.0); NEUTROPHILS # 7.7 10^3/uL (1.5-8.5); NEUTROPHILS % 67.3 % (36.0-66.0); PLATELET COUNT, AUTOMATED 283 10^3/uL (150-450); WHITE BLOOD COUNT 11.5 10^3/uL (4.0-10.0)
[2019-08-06 07:19] LABS: ALBUMIN 2.2 GM/DL (3.2-5.2); ALT/SGPT 16 U/L (12-78); BILIRUBIN,TOTAL 1.3 MG/DL (0.2-1.0); BLOOD UREA NITROGEN 11 MG/DL (7-18); CALCIUM LEVEL 7.9 MG/DL (8.8-10.2); CARBON DIOXIDE LEVEL 24 MEQ/L (21-32); CHLORIDE LEVEL 115 MEQ/L (98-107); CREATININE FOR GFR 0.73 MG/DL (0.55-1.30); GLOMERULAR FILTRATION RATE > 60.0 (>39); GLUCOSE, FASTING 94 MG/DL (70-100); POTASSIUM SERUM 3.3 MEQ/L (3.5-5.1); SODIUM LEVEL 147 MEQ/L (136-145); TOTAL PROTEIN 4.6 GM/DL (6.4-8.2)
[2019-08-06] MEDS ORDERED: RIVAROXABAN 20 MG TAB (XARELTO) PO SCH (08:00)
[2019-08-06] MEDS: PANTOPRAZOLE 40MG TAB (PROTONIX) PO SCH ×2 (08:51→20:59)
[2019-08-06] MEDS: TAMSULOSIN 0.4 MG CAP PO SCH (08:51)
[2019-08-06] MEDS: BACLOFEN 5MG PER 1/2 TABLET PO SCH ×2 (08:51→20:59)
[2019-08-06] MEDS: REMEDY PHYTOPLEX Z-GUARD PASTE 113GM TUBE (FROM STOREROOM PRODUCT) TOP SCH ×3 (08:52→21:00)
[2019-08-06] MEDS: ATORVASTATIN 20 MG TAB PO SCH (08:52)
[2019-08-06] MEDS: RIVAROXABAN 15 MG TAB (XARELTO) PO SCH (08:52)
[2019-08-06] MEDS: SUCRALFATE 1 GM TAB PO SCH ×4 (08:52→20:59)
[2019-08-06] MEDS: DOCUSATE SODIUM 100 MG CAP PO SCH ×2 (08:52→21:00)
--- NOTE | 2019-08-06 12:16 | HPEPDOC ---
Jewel Stringer Note DATE OF ADMISSION: 08/05/19 DATE OF SERVICE: 08/06/19 TIME OF ADMISSION: Please refer to physician's admission order. SOURCE OF ADMISSION INFORMATION: [facility] record and patient CHIEF COMPLAINT: stroke with GI bleed HISTORY OF PRESENT ILLNESS: 79F pmh HTN, benign cardiac neoplasm, CVA with left sided paresis July 2019 with worsening left sided weakness and presented to [facility] ED on 07-30-19 where she was found to have a hemoglobin on 3.5. Patient denied vomiting blood or dark stools at home, but did have positive FOBT x3. She was placed on a clear liquid diet and received multiple blood transfusions. CTH was negative for new bleed and brain MRI on 07-31-19 showed, chronic right MCA territory infarct is present. Chronic hemosiderin deposition is noted in the right basal ganglia. Her case was discuss with GI who did not recommend scoping while in-house. There was confusion as to why patient had been on Coumadin and ultimately she was disch arged on Xarelto to ARU on 08/05/19 with significant deficits in ADLs and mobility. REVIEW OF SYSTEMS: The following is a completed review of systems and has been reviewed. Review of systems otherwise unremarkable. PAIN: Patient self reports no pain EYES: No recent vision changes EARS, NOSE, & THROAT: No throat pain, or dysphagia, or rhinorrhea CARDIOVASCULAR: Denies chest pain or palpitations PULMONARY: Denies shortness of breath GASTROINTESTINAL: Denies constipation/diarrhea GENITOURINARY: +retention MUSCULOSKELETAL: left sided weakness NEUROLOGICAL:left sided paresis HEMATOLOGICAL: +anemia SKIN: denies rash PSYCHIATRIC: Unremarkable All other review of systems found to be negative. PAST MEDICAL HISTORY: as per HPI PAST SURGICAL HISTORY: +loop recorder, left hip surgery, atrial myxomatous removal? ALLERGIES: Please see below. MEDICATIONS: Please see below. FAMILY HISTORY: Cancer, stroke SOCIAL HISTORY: +smoker, no etoh/illicit drugs DIET: low sodium, fluid restrict PHYSICAL EXAMINATION: VITAL SIGNS: Please see below. GENERAL: Pleasant and cooperative. No acute distress, +left sided facial droop HEENT: PERRL. Extraocular movements intact. Clear conjunctiva CARDIOVASCULAR: Regular rate and rhythm. No murmurs, rubs, or gallops LUNGS: Clear to auscultation bilaterally. No wheezes. No rhonchi ABDOMEN: Soft, nontender, nondistended. Positive bowel sounds. Normal active bowel sounds NEUROLOGICAL: Alert and oriented times three. Cranial nerves II through XII grossly intact. Sensation grossly intact +babinksi on left EXTREMITIES: 5\5 strength right upper extremity, 3/5 LUE 5\5 strength right lower extremity. 4/5 strength in left hip flexors, knee extension, 0/5 ankle DF/EHL SKIN: intact LABORATORY DATA: Please see below. IMAGING:Imaging documentation personally reviewed by record FUNCTIONAL STATUS: Premorbid: Independent with all activities of daily life as well as mobility On Admission: Min assist bed mobility, functional transfers, ambulation x 20 feet, Max assist lower body dressing, Mod assist toileting GOALS: Mod-I household distances, functional transfers, stairs, dressing, bathing, toileting ASSESSMENT:79-year-old F with past medical history of atrial myxoma, HTN who presents status post GI bleed with worsening left sided weakness in setting of recent right MCA infarct PLAN: 1. Rehab- PT/OT- advance gait and ALD training, c/u AFO, strengthen/stretch/maintain ROM all 4limbs, multipodus while in bed COMPENSATION/BENEFITS SPECIALIST- cog and swallow eval 2. Neuro: s/p right MCA infarct July 2019 with residual left sided weakness that has gotten worse causing gait and ADL impairment -c/u statin -will start prozac for motor recovery -+Loop recorder for cryptogenic stroke -c/u baclofen BID for tone 3. Cardiac: hx of atrial myxoma, unclear if she was on AC, however was d/c to ARU on Xarelto, will call cylinder block mechanic/PMD to discuss and confirm -hx of chronic diastolic CHF, fluid restrict, daily weights, medicine consulted to assist in overall management 4. Resp: encourage incentive spirometry, Duonebs prn, given hx of smoking -monitor for infection 5. GI: patient with GI bleed s/p 4 units rbcs, c/u Protonix BID and sucralfate, transfuse if Hgb <8 or if symptomatic. patient scheduled to see GI as outpatient for endoscopy 6. DVT ppx: on Xarelto, TEDs 7. Pain: tylneol prn 8. : recent urinary retention, c/u Flomax, will order UA/Ucx as infection may be possible etiology 9. Dispo: TBD POST ADMISSION PHYSICIAN EVALUATION: Medical and functional status: Description of medical status, medical assessment: As above. Rehabilitation diagnosis and current and prior cold morbid medical conditions as above. Risk of complications and plans to mitigate them as above. Description of functional status current status is as above. Prior status as above. Status compared to preadmission: There are no clinically significant differences between the patient's current status and the information described on the preadmission screening document. Treatment plan anticipated: Treatment plan is as described above. Required disciplines including physical therapy, occupational therapy, others as noted above Intensity of services:3 hours a day, 6 days a week. Special considerations: There are no specific special or safety considerations that would likely preclude immediate implementation of an intensive rehabilitation program or subsequently influence the plan of care. ATTESTATION: Considering all the information above, it is my best judgment that this patient requires intensive rehabilitation therapy as described above and an inpatient hospital environment due to the complexity of nursing, medical, and rehabilitation needs required by the patient. Furthermore, this patient can reasonably be expected to participate in an benefit from an inpatient rehabili tation stay with an interdisciplinary team approach to the delivery of rehabilitation care under the direction and supervision of rehabilitation physician. PROGNOSIS: good ESTIMATED LENGTH OF STAY:14-18 days. PROJECTED DISCHARGE DESTINATION: Home with family support and any durable medical equipment required to increase functional safety and mobility TIME SPENT COUNSELING AND COORDINATING INITIAL CARE: Greater than 70 minutes. Vital Signs Vital Sign - Last 24 Hours 08/05/19 08/05/19 08/06/19 15:15 20:57 06:00 Temp 97.3 99.5 96.7 Pulse 64 95 88 Resp 17 18 18 B/P (MAP) 127/57 (80) 103/51 (68) 139/63 (88) Pulse Ox 98 95 96 O2 Delivery Room Air Room Air Room Air Laboratory Data CBC/BMP Laboratory Tests 08/06/19 06:34 Labs 24H Laboratory Tests 2 08/06/19 06:34: Immature Granulocyte % (Auto) 0.7, Neutrophils (%) (Auto) 67.3H, Lymphocytes (%) (Auto) 15.4L, Monocytes (%) (Auto) 10.5H, Eosinophils (%) (Auto) 5.4H, Basophils (%) (Auto) 0.7, Neutrophils # (Auto) 7.7, Lymphocytes # (Auto) 1.8, Monocytes # (Auto) 1.2H, Eosinophils # (Auto) 0.6H, Basophils # (Auto) 0.1, Nucleated Red Blood Cells % (auto) 0.0, Anion Gap 8, Glomerular Filtration Rate > 60.0, Calcium Level 7.9L, Total Bilirubin 1.3H, Aspartate Amino Transf (AST/SGOT) 9, Alanine Aminotransferase (ALT/SGPT) 16, Alkaline Phosphatase 79, Total Protein 4.6L, Albumin 2.2L, Albumin/Globulin Ratio 0.9L Home Medications Scheduled Atorvastatin Calcium (Atorvastatin Calcium) 40 Mg Tablet, 40 MG PO DAILY, (Reported) Baclofen (Baclofen) 10 Mg Tablet, 5 MG PO BID, (Reported) Pantoprazole Sodium (Pantoprazole Sodium) 40 Mg Tablet.dr, 40 MG PO BID Rivaroxaban (Xarelto) 15 Mg Tablet, 15 MG PO DAILY, (Reported) Sucralfate (Sucralfate) 1 Gm/10 Ml Oral.susp, 1 GM PO ACHS Tamsulosin HCl (Flomax) 0.4 Mg Capsule, 0.4 MG PO DAILY Scheduled PRN Acetaminophen (Acetaminophen) 500 Mg Tablet, 1,000 MG PO Q6H PRN for PAIN, (Reported) Allergies Coded Allergies: Penicillins (Verified Allergy, Unknown, hives, 07/30/19) Protein Milk (Verified Adverse Reaction, Unknown, upset stomach , 07/30/19) A-FIB/CHADSVASC A-FIB History Current/History of A-Fib/PAF?: No PADMINI VENEGAS MD Aug 06, 2019 12:16
[2019-08-06] MEDS: FLUoxetine 20 MG CAP PO SCH (12:46)
[2019-08-06] MEDS: POTASSIUM CHLORIDE 10 MEQ SR TABLET PO SCH ×2 (12:46→17:15)
[2019-08-06 14:00] VITALS: BP 138/86
--- NOTE | 2019-08-06 14:31 | IPNPDOC ---
Date Seen The patient was seen on 08/06/19. Progress Note SUBJECTIVE: 79-year-old female with past medical history of atrial myxoma, chronic GI bleed, CVA and hypertension was admitted to [facility] for acute on chronic GI bleed. Patient presented with a hemoglobin of 3.5, received a total of 4 units of packed red blood cells, subsequent hemoglobin greater than 9 and has remained stable throughout hospitalization. Patient was admitted by gastroenterology, no procedures were performed, cleared for discharge with outpatient follow-up and colonoscopy. Patient with a by physical therapy and acute rehabilitation was recommended and transferred to acute rehabilitation unit yesterday. Patient seen in the morning, agitated that she still in the hospital, no other complaints. She denies any shortness of breath, chest pain, nausea, vomiting, diarrhea or constipation. 10 point review of system is negative except for above PHYSICAL EXAMINATION: VITAL SIGNS: Please see below. GENERAL: No distress HEENT: Normocephalic, atraumatic, moist mucous membranes NECK: Supple CARDIOVASCULAR EXAMINATION: S1, S2, no murmurs RESPIRATORY EXAMINATION: Clear to auscultation, no wheezing ABDOMINAL EXAMINATION: Soft, nontender, nondistended, positive bowel sounds EXTREMITIES: Range of motion intact SKIN: No rash NEUROLOGICAL EXAMINATION: Alert and oriented 3, no focal deficits PSYCHIATRIC EXAMINATION: Calm and cooperative LABORATORY DATA, IMAGING STUDIES, MICROBIOLOGY: Please see below. ASSESSMENT AND PLAN: 79-year-old female with multiple medical comorbidities who was initially admitted for acute on chronic GI bleed is now admitted to acute rehabilitation unit for therapy. PROBLEMS: 1. Physical deconditioning: Management as per primary team. 2. Atrial myxoma: Status post resection in 2011, continue to correlation was Xarelto. 3. Acute on chronic blood loss anemia: Patient is stable, continue PPI and Carafate. 4. CVA: Continue atorvastatin DVT prophylaxis: Xarelto GI prophylaxis: PPI/Carafate VS, I&O, 24H, Coni Vital Signs/I&O Vital Signs Date Time Temp Pulse Resp B/P (MAP) Pulse Ox O2 Delivery O2 Flow Rate FiO2 08/06/19 06:00 96.7 88 18 139/63 (88) 96 Room Air I&O- Last 24 Hours up to 6 AM 08/06/19 05:59 Intake Total 240 ml Output Total 0 ml Balance 240 ml Laboratory Data 24H LABS Laboratory Tests 2 08/06/19 06:34: Immature Granulocyte % (Auto) 0.7, Neutrophils (%) (Auto) 67.3H, Lymphocytes (%) (Auto) 15.4L, Monocytes (%) (Auto) 10.5H, Eosinophils (%) (Auto) 5.4H, Basophils (%) (Auto) 0.7, Neutrophils # (Auto) 7.7, Lymphocytes # (Auto) 1.8, Monocytes # (Auto) 1.2H, Eosinophils # (Auto) 0.6H, Basophils # (Auto) 0.1, Nucleated Red Blood Cells % (auto) 0.0, Anion Gap 8, Glomerular Filtration Rate > 60.0, Calcium Level 7.9L, Total Bilirubin 1.3H, Aspartate Amino Transf (AST/SGOT) 9, Alanine Aminotransferase (ALT/SGPT) 16, Alkaline Phosphatase 79, Total Protein 4.6L, Albumin 2.2L, Albumin/Globulin Ratio 0.9L CBC/BMP Laboratory Tests 08/06/19 06:34 RUSSEL MARROQUIN MD Aug 06, 2019 14:31
[2019-08-06] MEDS: IPRATROPIUM 0.5MG/ALBUTEROL 2.5MG INH SOL UD 3ML (DUONEB) NEB SCH (17:16)
[2019-08-06 20:00] VITALS: BP 135/65
[2019-08-06] MEDS: SENNA 8.6 MG TAB (SENOKOT) PO SCH (20:59)
[2019-08-07 06:00] VITALS: BP_SYST 148; BP_SYST 178; BP_DIAS 84
[2019-08-07] MEDS: IPRATROPIUM 0.5MG/ALBUTEROL 2.5MG INH SOL UD 3ML (DUONEB) NEB SCH ×4 (07:15→20:15)
[2019-08-07 08:13] LABS: BASO # 0.1 10^3/uL (0.0-0.2); BASO % 0.9 % (0.0-1.0); EOS # 0.5 10^3/uL (0.0-0.5); EOS % 5.3 % (0.0-3.0); HEMATOCRIT 30.4 % (36.0-47.0); HEMOGLOBIN 8.9 g/dl (12.0-15.5); LYMPH % 21.4 % (24.0-44.0); MEAN CORPUSCULAR HEMOGLOBIN 24.1 pg (27.0-33.0); MEAN CORPUSCULAR HGB CONC 29.3 g/dl (32.0-36.5); MEAN CORPUSCULAR VOLUME 82.2 fl (80.0-96.0); MONO # 0.8 10^3/uL (0.0-0.8); MONO % 8.2 % (0.0-5.0); NEUTROPHILS # 5.9 10^3/uL (1.5-8.5); NEUTROPHILS % 63.7 % (36.0-66.0); PLATELET COUNT, AUTOMATED 291 10^3/uL (150-450); WHITE BLOOD COUNT 9.2 10^3/uL (4.0-10.0)
[2019-08-07] MEDS: PANTOPRAZOLE 40MG TAB (PROTONIX) PO SCH ×2 (08:25→20:04)
[2019-08-07] MEDS: DOCUSATE SODIUM 100 MG CAP PO SCH ×2 (08:25→20:03)
[2019-08-07] MEDS: TAMSULOSIN 0.4 MG CAP PO SCH (08:25)
[2019-08-07] MEDS: FLUoxetine 20 MG CAP PO SCH (08:25)
[2019-08-07] MEDS: RIVAROXABAN 15 MG TAB (XARELTO) PO SCH (08:25)
[2019-08-07] MEDS: ATORVASTATIN 20 MG TAB PO SCH (08:25)
[2019-08-07] MEDS: SUCRALFATE 1 GM TAB PO SCH ×4 (08:25→20:04)
[2019-08-07] MEDS: BACLOFEN 5MG PER 1/2 TABLET PO SCH ×2 (08:25→20:03)
[2019-08-07] MEDS: REMEDY PHYTOPLEX Z-GUARD PASTE 113GM TUBE (FROM STOREROOM PRODUCT) TOP SCH ×3 (08:26→20:04)
[2019-08-07 08:29] LABS: BLOOD UREA NITROGEN 13 MG/DL (7-18); CALCIUM LEVEL 8.6 MG/DL (8.8-10.2); CARBON DIOXIDE LEVEL 24 MEQ/L (21-32); CHLORIDE LEVEL 114 MEQ/L (98-107); CREATININE FOR GFR 0.74 MG/DL (0.55-1.30); GLOMERULAR FILTRATION RATE > 60.0 (>39); GLUCOSE, FASTING 125 MG/DL (70-100); POTASSIUM SERUM 3.8 MEQ/L (3.5-5.1); SODIUM LEVEL 144 MEQ/L (136-145)
[2019-08-07] MEDS ORDERED: traMADol 50 MG TAB PO PRN (10:45)
[2019-08-07] MEDS ORDERED: PILL CUTTER 1 EACH XX PRN (11:00)
[2019-08-07] MEDS: ACETAMINOPHEN 500 MG TAB PO SCH ×3 (11:24→20:03)
[2019-08-07 14:00] VITALS: BP 147/80
--- NOTE | 2019-08-07 14:27 | IPNPDOC ---
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 REVIEW OF SYSTEMS: The following is a completed review of systems and has been reviewed. Review of systems otherwise unremarkable. PAIN: Patient self reports no pain EYES: No recent vision changes EARS, NOSE, & THROAT: No throat pain, or dysphagia, or rhinorrhea CARDIOVASCULAR: Denies chest pain or palpitations PULMONARY: Denies shortness of breath GASTROINTESTINAL: Denies constipation/diarrhea GENITOURINARY: +retention MUSCULOSKELETAL: left sided weakness NEUROLOGICAL:left sided paresis HEMATOLOGICAL: +anemia SKIN: denies rash PSYCHIATRIC: Unremarkable All other review of systems found to be negative. PHYSICAL EXAMINATION: VITAL SIGNS: Please see below. GENERAL: Pleasant and cooperative. No acute distress, +left sided facial droop HEENT: PERRL. Extraocular movements intact. Clear conjunctiva CARDIOVASCULAR: Regular rate and rhythm. No murmurs, rubs, or gallops LUNGS: Clear to auscultation bilaterally. No wheezes. No rhonchi ABDOMEN: Soft, nontender, nondistended. Positive bowel sounds. Normal active bowel sounds NEUROLOGICAL: Alert and oriented times three. Cranial nerves II through XII grossly intact. Sensation grossly intact +babinksi on left EXTREMITIES: 5\5 strength right upper extremity, 3/5 LUE 5\5 strength right lower extremity. 4/5 strength in left hip flexors, knee extension, 0/5 ankle DF/EHL SKIN: intact ASSESSMENT:79-year-old F with past medical history of atrial myxoma, HTN who presents status post GI bleed with worsening left sided weakness in setting of recent right MCA infarct PLAN: 1. Rehab- PT/OT- advance gait and ALD training, c/u AFO, strengthen/stretch/maintain ROM all 4limbs, multipodus while in bed PUBLIC ADDRESS ANNOUNCER- cog and swallow eval 2. Neuro: s/p right MCA infarct July 2019 with residual left sided weakness that has gotten worse causing gait and ADL impairment -c/u statin -c/u prozac for motor recovery -+Loop recorder for cryptogenic stroke -c/u baclofen BID for tone 3. Cardiac: hx of atrial myxoma, unclear if she was on AC, however was d/c to ARU on Xarelto, called her offc spec Dr. Thomas in [place] who last saw patient in 2013, patient does not recall who her offc spec is, nor is there a record with her former PCP, will call her pharmacy to attempt to better track her AC history -hx of chronic diastolic CHF, fluid restrict, daily weights, medicine consulted to assist in overall management 4. Resp: encourage incentive spirometry, Duonebs prn, given hx of smoking -monitor for infection 5. GI: patient with GI bleed s/p 4 units rbcs, c/u Protonix BID and sucralfate, transfuse if Hgb <8 or if symptomatic. patient scheduled to see GI as outpatient for endoscopy 6. DVT ppx: on Xarelto, TEDs 7. Pain: tylneol prn 8. : recent urinary retention, c/u Flomax, UA + nitrites, will start 3 day course of Levaquin while awaiting Ucx, BAcid as well 9. Dispo: TBD Allergies Coded Allergies: Penicillins (Verified Allergy, Unknown, hives, 07/30/19) Protein Milk (Verified Adverse Reaction, Unknown, upset stomach , 07/30/19) Vital Signs Vital Signs Date Time Temp Pulse Resp B/P (MAP) Pulse Ox O2 Delivery O2 Flow Rate FiO2 08/07/19 14:00 97.4 88 18 147/80 (102) 95 Room Air Laboratory Data CBC/BMP Laboratory Tests 08/07/19 07:43 Labs 24H Laboratory Tests 2 08/07/19 02:54: Urine Color YELLOW, Urine Appearance HAZY, Urine pH 5.0, Urine Specific [place] 1.008, Urine Protein NEGATIVE, Urine Glucose (UA) NEGATIVE, Urine Ketones NEGATIVE, Urine Blood NEGATIVE, Urine Nitrite POSITIVEH, Urine Bilirubin NEGATIVE, Urine Urobilinogen 0.2, Urine Leukocyte Esterase 2+H, Urine WBC (Auto) 16H, Urine RBC (Auto) 3, Urine Hyaline Casts (Auto) 0, Urine Bacteria (Auto) 1+H, Urine Squamous Epithelial Cells 0, Urine Mucus (Auto) SMALL, Urine Sperm (Auto) 08/07/19 07:43: Immature Granulocyte % (Auto) 0.5, Neutrophils (%) (Auto) 63.7, Lymphocytes (%) (Auto) 21.4L, Monocytes (%) (Auto) 8.2H, Eosinophils (%) (Auto) 5.3H, Basophils (%) (Auto) 0.9, Neutrophils # (Auto) 5.9, Lymphocytes # (Auto) 2.0, Monocytes # (Auto) 0.8, Eosinophils # (Auto) 0.5, Basophils # (Auto) 0.1, Nucleated Red Blood Cells % (auto) 0.0, Anion Gap 6L, Glomerular Filtration Rate > 60.0, Calcium Level 8.6L Microbiology Microbiology 08/07/19 Urine Culture, Received Pending Current Medications Current Medications Current Medications Medications (Trade) Dose Ordered Sig/Odell Route PRN Reason Start Time Stop Time Status Last Admin Dose Admin Acetaminophen (Tylenol Tab) 1,000 mg Q6HP PRN PO MILD PAIN (PS 1-4) 08/05/19 16:00 08/07/19 10:42 DC 08/06/19 21:01 Acetaminophen (Tylenol Tab) 1,000 mg TID PO 08/07/19 10:45 08/07/19 11:24 Albuterol/ Ipratropium (Duoneb (Ipr 0.5mg/Alb 2.5mg)) 3 ml RTID NEB 08/06/19 14:00 08/07/19 07:15 Atorvastatin Calcium (Lipitor) 40 mg DAILY PO 08/05/19 09:00 08/07/19 08:25 Baclofen (Lioresal) 5 mg BID PO 08/05/19 21:00 08/07/19 08:25 Bisacodyl (Dulcolax Suppository) 10 mg DAILYPRN PRN [place] CONSTIPATION 08/05/19 16:00 Docusate Sodium (Colace) 100 mg BID PO 08/05/19 21:00 08/07/19 08:25 Fluoxetine HCl (PROzac) 20 mg DAILY PO 08/06/19 09:00 08/07/19 08:25 Pantoprazole Sodium (Protonix) 40 mg BID PO 08/05/19 21:00 08/07/19 08:25 Potassium Chloride (Micro-K Extencaps) 40 meq Q4H PO 08/06/19 10:00 08/06/19 17:00 DC 08/06/19 17:15 Rivaroxaban (Xarelto) 15 mg DAILY@0800 PO 08/06/19 08:00 08/05/19 16:25 DC Rivaroxaban (Xarelto) 15 mg DAILY@0800 PO 08/06/19 08:00 08/07/19 08:25 Senna (Senokot) 1 tab QHS PO 08/05/19 21:00 08/06/19 20:59 Sucralfate (Carafate) 1 gm ACHS PO 08/05/19 17:30 08/07/19 11:24 Tamsulosin HCl (Flomax) 0.4 mg DAILY PO 08/06/19 09:00 08/07/19 08:25 Tramadol HCl (Ultram) 25 mg Q6HP PRN PO MODERATE PAIN (PS 5-7) 08/07/19 10:45 PADMINI VENEGAS MD Aug 07, 2019 14:27
[2019-08-07] MEDS: LACTOBACILLUS ACIDOPHILUS CAP (BACID) PO SCH ×2 (15:14→20:04)
[2019-08-07] MEDS: LevoFLOXacin 250 MG TABLET PO SCH (15:14)
[2019-08-07 20:00] VITALS: BP 150/82
[2019-08-07] MEDS: SENNA 8.6 MG TAB (SENOKOT) PO SCH (20:03)
[2019-08-08 06:00] VITALS: BP 161/68
[2019-08-08] MEDS: LevoFLOXacin 250 MG TABLET PO SCH (06:04)
[2019-08-08] MEDS: IPRATROPIUM 0.5MG/ALBUTEROL 2.5MG INH SOL UD 3ML (DUONEB) NEB SCH ×3 (07:16→19:27)
[2019-08-08] MEDS: SUCRALFATE 1 GM TAB PO SCH ×4 (07:30→20:23)
[2019-08-08] MEDS: DOCUSATE SODIUM 100 MG CAP PO SCH ×2 (09:00→20:23)
[2019-08-08] MEDS: REMEDY PHYTOPLEX Z-GUARD PASTE 113GM TUBE (FROM STOREROOM PRODUCT) TOP SCH ×3 (09:00→20:24)
[2019-08-08] MEDS: ACETAMINOPHEN 500 MG TAB PO SCH ×3 (09:00→20:24)
[2019-08-08] MEDS: LACTOBACILLUS ACIDOPHILUS CAP (BACID) PO SCH ×3 (09:53→20:23)
[2019-08-08] MEDS: FLUoxetine 20 MG CAP PO SCH (09:53)
[2019-08-08] MEDS: ATORVASTATIN 20 MG TAB PO SCH (09:53)
[2019-08-08] MEDS: PANTOPRAZOLE 40MG TAB (PROTONIX) PO SCH ×2 (09:53→20:23)
[2019-08-08] MEDS: BACLOFEN 5MG PER 1/2 TABLET PO SCH ×2 (09:53→20:23)
[2019-08-08] MEDS: RIVAROXABAN 15 MG TAB (XARELTO) PO SCH (09:54)
[2019-08-08] MEDS: TAMSULOSIN 0.4 MG CAP PO SCH (09:54)
[2019-08-08 14:00] VITALS: BP 150/74
--- NOTE | 2019-08-08 16:54 | IPNPDOC ---
PM&R Progress Note DATE OF SERVICE: Aug 08, 2019 Lan Manager Progress Note Subjective: Patient seen in her room and tried to use her left hand to boxing promoter an eating utensil. She was given a hand-sponge to work on gripping. REVIEW OF SYSTEMS: The following is a completed review of systems and has been reviewed. Review of systems otherwise unremarkable. PAIN: Patient self reports no pain EYES: No recent vision changes EARS, NOSE, & THROAT: No throat pain, or dysphagia, or rhinorrhea CARDIOVASCULAR: Denies chest pain or palpitations PULMONARY: Denies shortness of breath GASTROINTESTINAL: Denies constipation/diarrhea GENITOURINARY: +retention (improving) MUSCULOSKELETAL: left sided weakness NEUROLOGICAL:left sided paresis HEMATOLOGICAL: +anemia (stable) SKIN: denies rash PSYCHIATRIC: Unremarkable All other review of systems found to be negative. PHYSICAL EXAMINATION: VITAL SIGNS: Please see below. GENERAL: Pleasant and cooperative. No acute distress, +left sided facial droop HEENT: PERRL. Extraocular movements intact. Clear conjunctiva CARDIOVASCULAR: Regular rate and rhythm. No murmurs, rubs, or gallops LUNGS: Clear to auscultation bilaterally. No wheezes. No rhonchi ABDOMEN: Soft, nontender, nondistended. Positive bowel sounds. Normal active bowel sounds NEUROLOGICAL: Alert and oriented times three. Cranial nerves II through XII rowan ssly intact. Sensation grossly intact +babinksi on left EXTREMITIES: 5\5 strength right upper extremity, 3/5 LUE 5\5 strength right lower extremity. 4/5 strength in left hip flexors, knee extension, 0/5 ankle DF/EHL SKIN: intact ASSESSMENT:79-year-old F with past medical history of atrial myxoma, HTN who presents status post GI bleed with worsening left sided weakness in setting of recent right MCA infarct PLAN: 1. Rehab- PT/OT- advance gait and ALD training, c/u AFO, strengthen/stretch/maintain ROM all 4limbs, multipodus while in bed, patient encourgaed to use soft hand-sponge to work on boxing promoter and dexterity PULP OPERATOR- cog and swallow eval 2. Neuro: s/p right MCA infarct July 2019 with residual left sided weakness that has gotten worse causing gait and ADL impairment -c/u statin -c/u prozac for motor recovery -+Loop recorder for cryptogenic stroke -c/u baclofen BID for tone 3. Cardiac: hx of atrial myxoma, unclear if she was on AC, however was d/c to ARU on Xarelto, called her dipper clock and watch hands Dr. Thomas in [place] who last saw patient in 2013, however confirmed with her pharmacist that Dr. Thomas did prescribe Xarelto 15mg recently -hx of chronic diastolic CHF, fluid restrict, daily weights, medicine consulted to assist in overall management 4. Resp: encourage incentive spirometry, Duonebs prn, given hx of smoking -monitor for infection 5. GI: patient with GI bleed s/p 4 units rbcs, c/u Protonix BID and sucralfate, transfuse if Hgb <8 or if symptomatic. patient scheduled to see GI as outpatient for endoscopy 6. DVT ppx: on Xarelto, TEDs 7. Pain: tylneol prn 8. : recent urinary retention, c/u Flomax, UA + nitrites, c/u 3 day course of Levaquin while awaiting Ucx, BAcid as well 9. Dispo: TBD Allergies Coded Allergies: Penicillins (Verified Allergy, Unknown, hives, 07/30/19) Protein Milk (Verified Adverse Reaction, Unknown, upset stomach , 07/30/19) Vital Signs Vital Signs Date Time Temp Pulse Resp B/P (MAP) Pulse Ox O2 Delivery O2 Flow Rate FiO2 08/08/19 14:00 97.5 95 18 150/74 (99) 100 Room Air Microbiology Microbiology 08/07/19 Urine Culture, Received Pending Current Medications Current Medications Current Medications Medications (Trade) Dose Ordered Sig/Odell Route PRN Reason Start Time Stop Time Status Last Admin Dose Admin Acetaminophen (Tylenol Tab) 1,000 mg Q6HP PRN PO MILD PAIN (PS 1-4) 08/05/19 16:00 08/07/19 10:42 DC 08/06/19 21:01 Acetaminophen (Tylenol Tab) 1,000 mg TID PO 08/07/19 10:45 08/07/19 20:03 Albuterol/ Ipratropium (Duoneb (Ipr 0.5mg/Alb 2.5mg)) 3 ml RTID NEB 08/06/19 14:00 08/08/19 13:25 Atorvastatin Calcium (Lipitor) 40 mg DAILY PO 08/05/19 09:00 08/08/19 09:53 Baclofen (Lioresal) 5 mg BID PO 08/05/19 21:00 08/08/19 09:53 Bisacodyl (Dulcolax Suppository) 10 mg DAILYPRN PRN [place] CONSTIPATION 08/05/19 16:00 Docusate Sodium (Colace) 100 mg BID PO 08/05/19 21:00 08/07/19 20:03 Fluoxetine HCl (PROzac) 20 mg DAILY PO 08/06/19 09:00 08/08/19 09:53 Lactobacillus Acidophilus (Bacid) 1 ea TID PO 08/07/19 16:00 08/08/19 09:53 Levofloxacin (Levaquin) 250 mg DAILY@06 PO 08/07/19 06:00 08/09/19 06:01 08/08/19 06:04 Pantoprazole Sodium (Protonix) 40 mg BID PO 08/05/19 21:00 08/08/19 09:53 Potassium Chloride (Micro-K Extencaps) 40 meq Q4H PO 08/06/19 10:00 08/06/19 17:00 DC 08/06/19 17:15 Rivaroxaban (Xarelto) 15 mg DAILY@0800 PO 08/06/19 08:00 08/05/19 16:25 DC Rivaroxaban (Xarelto) 15 mg DAILY@0800 PO 08/06/19 08:00 08/08/19 09:54 Senna (Senokot) 1 tab QHS PO 08/05/19 21:00 08/07/19 20:03 Sucralfate (Carafate) 1 gm ACHS PO 08/05/19 17:30 08/08/19 12:34 Tamsulosin HCl (Flomax) 0.4 mg DAILY PO 08/06/19 09:00 08/08/19 09:54 Tramadol HCl (Ultram) 25 mg Q6HP PRN PO MODERATE PAIN (PS 5-7) 08/07/19 10:45 PADMINI VENEGAS MD Aug 08, 2019 16:54
[2019-08-08 20:00] VITALS: BP 140/72
[2019-08-08] MEDS: SENNA 8.6 MG TAB (SENOKOT) PO SCH (20:24)
[2019-08-09 04:00] VITALS: BP 141/82
[2019-08-09] MEDS: LevoFLOXacin 250 MG TABLET PO SCH (05:35)
[2019-08-09 07:01] LABS: BASO # 0.1 10^3/uL (0.0-0.2); BASO % 0.8 % (0.0-1.0); EOS # 0.3 10^3/uL (0.0-0.5); EOS % 3.9 % (0.0-3.0); HEMATOCRIT 28.9 % (36.0-47.0); HEMOGLOBIN 8.3 g/dl (12.0-15.5); LYMPH # 1.2 10^3/uL (1.5-5.0); LYMPH % 13.9 % (24.0-44.0); MEAN CORPUSCULAR HEMOGLOBIN 23.6 pg (27.0-33.0); MEAN CORPUSCULAR HGB CONC 28.7 g/dl (32.0-36.5); MEAN CORPUSCULAR VOLUME 82.1 fl (80.0-96.0); MONO # 0.8 10^3/uL (0.0-0.8); MONO % 9.9 % (0.0-5.0); NEUTROPHILS % 70.8 % (36.0-66.0); PLATELET COUNT, AUTOMATED 357 10^3/uL (150-450); RED BLOOD COUNT 3.52 10^6/uL (4.00-5.40); WHITE BLOOD COUNT 8.4 10^3/uL (4.0-10.0)
[2019-08-09 07:22] LABS: BLOOD UREA NITROGEN 11 MG/DL (7-18); CALCIUM LEVEL 8.4 MG/DL (8.8-10.2); CARBON DIOXIDE LEVEL 25 MEQ/L (21-32); CHLORIDE LEVEL 113 MEQ/L (98-107); CREATININE FOR GFR 0.66 MG/DL (0.55-1.30); GLOMERULAR FILTRATION RATE > 60.0 (>39); GLUCOSE, FASTING 90 MG/DL (70-100); POTASSIUM SERUM 4.6 MEQ/L (3.5-5.1); SODIUM LEVEL 146 MEQ/L (136-145)
[2019-08-09] MEDS: IPRATROPIUM 0.5MG/ALBUTEROL 2.5MG INH SOL UD 3ML (DUONEB) NEB SCH (07:38)
[2019-08-09] MEDS: FLUoxetine 20 MG CAP PO SCH (08:31)
[2019-08-09] MEDS: DOCUSATE SODIUM 100 MG CAP PO SCH ×2 (08:31→20:53)
[2019-08-09] MEDS: RIVAROXABAN 15 MG TAB (XARELTO) PO SCH (08:31)
[2019-08-09] MEDS: TAMSULOSIN 0.4 MG CAP PO SCH (08:31)
[2019-08-09] MEDS: BACLOFEN 5MG PER 1/2 TABLET PO SCH ×2 (08:32→20:53)
[2019-08-09] MEDS: LACTOBACILLUS ACIDOPHILUS CAP (BACID) PO SCH ×3 (08:32→20:53)
[2019-08-09] MEDS: ATORVASTATIN 20 MG TAB PO SCH (08:32)
[2019-08-09] MEDS: PANTOPRAZOLE 40MG TAB (PROTONIX) PO SCH ×2 (08:32→20:53)
[2019-08-09] MEDS: ACETAMINOPHEN 500 MG TAB PO SCH ×3 (08:32→20:54)
[2019-08-09] MEDS: SUCRALFATE 1 GM TAB PO SCH ×4 (08:32→20:53)
[2019-08-09] MEDS: REMEDY PHYTOPLEX Z-GUARD PASTE 113GM TUBE (FROM STOREROOM PRODUCT) TOP SCH ×3 (08:33→20:54)
[2019-08-09] MEDS: FERROUS SULFATE 325MG TAB PO SCH ×2 (11:15→20:53)
[2019-08-09 14:00] VITALS: BP 132/61
--- NOTE | 2019-08-09 15:05 | IPNPDOC ---
PM&R Progress Note DATE OF SERVICE: Aug 09, 2019 Halver Machine Operator Progress Note Subjective: Patient reporting she no longer has urinary retention, but now has difficulty holding onto her urine and was told the recently started flomax would be discon tinued. REVIEW OF SYSTEMS: The following is a completed review of systems and has been reviewed. Review of systems otherwise unremarkable. PAIN: Patient self reports no pain EYES: No recent vision changes EARS, NOSE, & THROAT: No throat pain, or dysphagia, or rhinorrhea CARDIOVASCULAR: Denies chest pain or palpitations PULMONARY: Denies shortness of breath GASTROINTESTINAL: Denies constipation/diarrhea GENITOURINARY: +retention (resolved) MUSCULOSKELETAL: left sided weakness NEUROLOGICAL:left sided paresis HEMATOLOGICAL: +anemia (stable) SKIN: denies rash PSYCHIATRIC: Unremarkable All other review of systems found to be negative. PHYSICAL EXAMINATION: VITAL SIGNS: Please see below. GENERAL: Pleasant and cooperative. No acute distress, +left sided facial droop HEENT: PERRL. Extraocular movements intact. Clear conjunctiva CARDIOVASCULAR: Regular rate and rhythm. No murmurs, rubs, or gallops LUNGS: Clear to auscultation bilaterally. No wheezes. No rhonchi ABDOMEN: Soft, nontender, nondistended. Positive bowel sounds. Normal active bowel sounds NEUROLOGICAL: Alert and oriented times three. Cranial nerves II through XII grossly intact. Sensation grossly intact +babinksi on left EXTREMITIES: 5\5 strength right upper extremity, 3/5 LUE 5\5 strength right lower extremity. 4/5 strength in left hip flexors, knee extension, 0/5 ankle DF/EHL SKIN: intact ASSESSMENT:79-year-old F with past medical history of atrial myxoma, HTN who presents status post GI bleed with worsening left sided weakness in setting of recent right MCA infarct PLAN: 1. 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 Neuro: s/p right MCA infarct July 2019 with residual left sided weakness that has gotten worse causing gait and ADL impairment -c/u statin -c/u prozac for motor recovery -+Loop recorder for cryptogenic stroke -c/u baclofen BID for tone 3. Cardiac: hx of atrial myxoma, unclear if she was on AC, however was d/c to ARU on Xarelto, called her flexible babysitter Dr. Thomas in [place] who last saw patient in 2013, however confirmed with her pharmacist that Dr. Thomas did prescribe Xarelto 15mg recently -hx of chronic diastolic CHF, fluid restrict, daily weights, medicine consulted to assist in overall management 4. Resp: encourage incentive spirometry, Duonebs prn, given hx of smoking -monitor for infection 5. GI: patient with GI bleed s/p 4 units rbcs, c/u Protonix BID and sucralfate, transfuse if Hgb <8 or if symptomatic. patient scheduled to see GI as outpatient for endoscopy 6. DVT ppx: on Xarelto, TEDs 7. Pain: tylneol prn 8. : recent urinary retention, +E coli UTI, finishing up 3 day course of levaquin, patient now complaining of incontinence, will d/c flomax 9. Dispo: TBD Allergies Coded Allergies: Penicillins (Verified Allergy, Unknown, hives, 07/30/19) Protein Milk (Verified Adverse Reaction, Unknown, upset stomach , 07/30/19) Vital Signs Vital Signs Date Time Temp Pulse Resp B/P (MAP) Pulse Ox O2 Delivery O2 Flow Rate FiO2 08/09/19 04:00 89.9 96 18 141/82 (101) 99 Room Air Laboratory Data CBC/BMP Laboratory Tests 08/09/19 06:26 Labs 24H Laboratory Tests 2 08/09/19 06:26: Immature Granulocyte % (Auto) 0.7, Neutrophils (%) (Auto) 70.8H, Lymphocytes (%) (Auto) 13.9L, Monocytes (%) (Auto) 9.9H, Eosinophils (%) (Auto) 3.9H, Basophils (%) (Auto) 0.8, Neutrophils # (Auto) 6.0, Lymphocytes # (Auto) 1.2L, Monocytes # (Auto) 0.8, Eosinophils # (Auto) 0.3, Basophils # (Auto) 0.1, Nucleated Red Blood Cells % (auto) 0.0, Anion Gap 8, Glomerular Filtration Rate > 60.0, Calcium Level 8.4L Microbiology Microbiology 08/07/19 Urine Culture - Final, Complete Escherichia Coli Current Medications Current Medications Current Medications Medications (Trade) Dose Ordered Sig/Odell Route PRN Reason Start Time Stop Time Status Last Admin Dose Admin Acetaminophen (Tylenol Tab) 1,000 mg Q6HP PRN PO MILD PAIN (PS 1-4) 08/05/19 16:00 08/07/19 10:42 DC 08/06/19 21:01 Acetaminophen (Tylenol Tab) 1,000 mg TID PO 08/07/19 10:45 08/07/19 20:03 Albuterol/ Ipratropium (Duoneb (Ipr 0.5mg/Alb 2.5mg)) 3 ml RTID NEB 08/06/19 14:00 08/09/19 13:11 DC 08/09/19 07:38 Atorvastatin Calcium (Lipitor) 40 mg DAILY PO 08/05/19 09:00 08/09/19 08:32 Baclofen (Lioresal) 5 mg BID PO 08/05/19 21:00 08/09/19 08:32 Bisacodyl (Dulcolax Suppository) 10 mg DAILYPRN PRN [place] CONSTIPATION 08/05/19 16:00 Docusate Sodium (Colace) 100 mg BID PO 08/05/19 21:00 08/09/19 08:31 Ferrous Sulfate (Ferrous Sulfate) 325 mg BID PO 08/09/19 09:00 08/09/19 11:15 Fluoxetine HCl (PROzac) 20 mg DAILY PO 08/06/19 09:00 08/09/19 08:31 Lactobacillus Acidophilus (Bacid) 1 ea TID PO 08/07/19 16:00 08/09/19 08:32 Levofloxacin (Levaquin) 250 mg DAILY@06 PO 08/07/19 06:00 08/09/19 06:01 DC 08/09/19 05:35 Pantoprazole Sodium (Protonix) 40 mg BID PO 08/05/19 21:00 08/09/19 08:32 Potassium Chloride (Micro-K Extencaps) 40 meq Q4H PO 08/06/19 10:00 08/06/19 17:00 DC 08/06/19 17:15 Rivaroxaban (Xarelto) 15 mg DAILY@0800 PO 08/06/19 08:00 08/05/19 16:25 DC Rivaroxaban (Xarelto) 15 mg DAILY@0800 PO 08/06/19 08:00 08/09/19 08:31 Senna (Senokot) 1 tab QHS PO 08/05/19 21:00 08/08/19 20:24 Sucralfate (Carafate) 1 gm ACHS PO 08/05/19 17:30 08/09/19 11:15 Tamsulosin HCl (Flomax) 0.4 mg DAILY PO 08/06/19 09:00 08/09/19 13:11 DC 08/09/19 08:31 Tramadol HCl (Ultram) 25 mg Q6HP PRN PO MODERATE PAIN (PS 5-7) 08/07/19 10:45 08/09/19 13:11 PADMINI SALDIVAR MD Aug 09, 2019 15:05
[2019-08-09 20:00] VITALS: BP 140/63
[2019-08-09] MEDS: SENNA 8.6 MG TAB (SENOKOT) PO SCH (20:53)
[2019-08-10 06:00] VITALS: BP 147/93
[2019-08-10] MEDS: BACLOFEN 5MG PER 1/2 TABLET PO SCH ×2 (08:17→20:57)
[2019-08-10] MEDS: ATORVASTATIN 20 MG TAB PO SCH (08:17)
[2019-08-10] MEDS: PANTOPRAZOLE 40MG TAB (PROTONIX) PO SCH ×2 (08:17→20:57)
[2019-08-10] MEDS: LACTOBACILLUS ACIDOPHILUS CAP (BACID) PO SCH ×3 (08:17→20:57)
[2019-08-10] MEDS: RIVAROXABAN 15 MG TAB (XARELTO) PO SCH (08:17)
[2019-08-10] MEDS: ACETAMINOPHEN 500 MG TAB PO SCH ×4 (08:17→20:57)
[2019-08-10] MEDS: FLUoxetine 20 MG CAP PO SCH (08:17)
[2019-08-10] MEDS: FERROUS SULFATE 325MG TAB PO SCH ×2 (08:17→20:57)
[2019-08-10] MEDS: SUCRALFATE 1 GM TAB PO SCH ×4 (08:17→20:57)
[2019-08-10] MEDS: REMEDY PHYTOPLEX Z-GUARD PASTE 113GM TUBE (FROM STOREROOM PRODUCT) TOP SCH ×3 (08:18→20:57)
[2019-08-10] MEDS: DOCUSATE SODIUM 100 MG CAP PO SCH ×2 (08:18→20:57)
[2019-08-10 14:00] VITALS: BP 143/70
[2019-08-10 20:00] VITALS: BP 124/58
[2019-08-10] MEDS: SENNA 8.6 MG TAB (SENOKOT) PO SCH (20:57)
[2019-08-11 05:20] VITALS: BP 143/65
[2019-08-11] MEDS: ATORVASTATIN 20 MG TAB PO SCH (07:17)
[2019-08-11] MEDS: SUCRALFATE 1 GM TAB PO SCH ×4 (07:17→20:22)
[2019-08-11] MEDS: PANTOPRAZOLE 40MG TAB (PROTONIX) PO SCH ×2 (07:17→20:21)
[2019-08-11] MEDS: DOCUSATE SODIUM 100 MG CAP PO SCH ×2 (07:18→20:22)
[2019-08-11] MEDS: FLUoxetine 20 MG CAP PO SCH (07:18)
[2019-08-11] MEDS: ACETAMINOPHEN 500 MG TAB PO SCH ×3 (07:18→20:22)
[2019-08-11] MEDS: LACTOBACILLUS ACIDOPHILUS CAP (BACID) PO SCH ×3 (07:18→20:22)
[2019-08-11] MEDS: BACLOFEN 5MG PER 1/2 TABLET PO SCH ×2 (07:18→20:21)
[2019-08-11] MEDS: REMEDY PHYTOPLEX Z-GUARD PASTE 113GM TUBE (FROM STOREROOM PRODUCT) TOP SCH ×3 (07:18→20:22)
[2019-08-11] MEDS: RIVAROXABAN 15 MG TAB (XARELTO) PO SCH (07:18)
[2019-08-11] MEDS: FERROUS SULFATE 325MG TAB PO SCH ×2 (07:18→20:22)
[2019-08-11 12:40] VITALS: BP 132/61
[2019-08-11 14:00] VITALS: BP 137/75
[2019-08-11 19:58] VITALS: BP 155/68
[2019-08-11] MEDS: SENNA 8.6 MG TAB (SENOKOT) PO SCH (20:22)
[2019-08-12 06:00] VITALS: BP 162/70
[2019-08-12 06:50] LABS: BASO # 0.1 10^3/uL (0.0-0.2); BASO % 1.3 % (0.0-1.0); EOS # 0.4 10^3/uL (0.0-0.5); EOS % 4.2 % (0.0-3.0); HEMOGLOBIN 8.8 g/dl (12.0-15.5); LYMPH # 1.2 10^3/uL (1.5-5.0); LYMPH % 14.6 % (24.0-44.0); MEAN CORPUSCULAR HEMOGLOBIN 24.5 pg (27.0-33.0); MEAN CORPUSCULAR HGB CONC 29.3 g/dl (32.0-36.5); MEAN CORPUSCULAR VOLUME 83.6 fl (80.0-96.0); MONO # 1.1 10^3/uL (0.0-0.8); MONO % 13.1 % (0.0-5.0); NEUTROPHILS # 5.6 10^3/uL (1.5-8.5); NEUTROPHILS % 65.6 % (36.0-66.0); PLATELET COUNT, AUTOMATED 497 10^3/uL (150-450); RED BLOOD COUNT 3.59 10^6/uL (4.00-5.40); WHITE BLOOD COUNT 8.5 10^3/uL (4.0-10.0)
[2019-08-12 07:14] LABS: BLOOD UREA NITROGEN 12 MG/DL (7-18); CALCIUM LEVEL 8.6 MG/DL (8.8-10.2); CARBON DIOXIDE LEVEL 25 MEQ/L (21-32); CHLORIDE LEVEL 114 MEQ/L (98-107); CREATININE FOR GFR 0.82 MG/DL (0.55-1.30); GLOMERULAR FILTRATION RATE > 60.0 (>39); GLUCOSE, FASTING 91 MG/DL (70-100); POTASSIUM SERUM 4.5 MEQ/L (3.5-5.1); SODIUM LEVEL 144 MEQ/L (136-145)
[2019-08-12] MEDS: SUCRALFATE 1 GM TAB PO SCH ×4 (07:21→21:49)
[2019-08-12] MEDS: RIVAROXABAN 15 MG TAB (XARELTO) PO SCH (07:21)
[2019-08-12] MEDS: BACLOFEN 5MG PER 1/2 TABLET PO SCH ×2 (07:52→21:49)
[2019-08-12] MEDS: FLUoxetine 20 MG CAP PO SCH (07:53)
[2019-08-12] MEDS: ATORVASTATIN 20 MG TAB PO SCH (07:53)
[2019-08-12] MEDS: FERROUS SULFATE 325MG TAB PO SCH ×2 (07:53→21:49)
[2019-08-12] MEDS: DOCUSATE SODIUM 100 MG CAP PO SCH ×2 (07:53→21:49)
[2019-08-12] MEDS: LACTOBACILLUS ACIDOPHILUS CAP (BACID) PO SCH ×3 (07:53→21:49)
[2019-08-12] MEDS: ACETAMINOPHEN 500 MG TAB PO SCH ×3 (07:53→21:49)
[2019-08-12] MEDS: PANTOPRAZOLE 40MG TAB (PROTONIX) PO SCH ×2 (07:53→21:49)
[2019-08-12] MEDS: REMEDY PHYTOPLEX Z-GUARD PASTE 113GM TUBE (FROM STOREROOM PRODUCT) TOP SCH ×3 (07:55→21:53)
[2019-08-12] MEDS: METOPROLOL TART 25 MG TABLET PO SCH ×2 (11:07→21:52)
[2019-08-12 11:27] VITALS: BP 135/76
--- NOTE | 2019-08-12 12:13 | IPNPDOC ---
PM&R Progress Note DATE OF SERVICE: Aug 12, 2019 Driver Material Handler Progress Note Subjective: Patient seen in OT working on strenghtneing her left arm, reporting she is feeling well overall. REVIEW OF SYSTEMS: The following is a completed review of systems and has been reviewed. Review of systems otherwise unremarkable. PAIN: Patient self reports no pain EYES: No recent vision changes EARS, NOSE, & THROAT: No throat pain, or dysphagia, or rhinorrhea CARDIOVASCULAR: Denies chest pain or palpitations PULMONARY: Denies shortness of breath GASTROINTESTINAL: Denies constipation/diarrhea GENITOURINARY: +retention (resolved) MUSCULOSKELETAL: left sided weakness NEUROLOGICAL:left sided paresis HEMATOLOGICAL: +anemia (stable) SKIN: denies rash PSYCHIATRIC: Unremarkable All other review of systems found to be negative. PHYSICAL EXAMINATION: VITAL SIGNS: Please see below. GENERAL: Pleasant and cooperative. No acute distress, +left sided facial droop HEENT: PERRL. Extraocular movements intact. Clear conjunctiva CARDIOVASCULAR: Regular rate and rhythm. No murmurs, rubs, or gallops LUNGS: Clear to auscultation bilaterally. No wheezes. No rhonchi ABDOMEN: Soft, nontender, nondistended. Positive bowel sounds. Normal active bowel sounds NEUROLOGICAL: Alert and oriented times three. Cranial nerves II through XII grossly intact. Sensation grossly intact +babinksi on left EXTREMITIES: 5\5 strength right upper extremity, 3/5 LUE 5\5 strength right lower extremity. 4/5 strength in left hip flexors, knee extension, 0/5 ankle DF/EHL SKIN: intact ASSESSMENT:79-year-old F with past medical history of atrial myxoma, HTN who presents status post GI bleed with worsening left sided weakness in setting of recent right MCA infarct PLAN: 1. 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 Neuro: s/p right MCA infarct July 2019 with residual left sided weakness that has gotten worse causing gait and ADL impairment -c/u statin -c/u prozac for motor recovery -+Loop recorder for cryptogenic stroke -c/u baclofen BID for tone 3. Cardiac: hx of atrial myxoma, called her satellite dish installer Dr. Thomas in [place] who last saw patient in 2013, however confirmed with her pharmacist that Dr. Thomas did prescribe Xarelto 15mg recently -hx of chronic diastolic CHF, fluid restrict, daily weights, medicine consulted to assist in overall management 4. Resp: encourage incentive spirometry, Duonebs prn, given hx of smoking -monitor for infection 5. GI: patient with GI bleed s/p 4 units rbcs, c/u Protonix BID and sucralfate, transfuse if Hgb <8 or if symptomatic. patient scheduled to see GI as outpatient for endoscopy 6. DVT ppx: on Xarelto, TEDs 7. Pain: tylneol prn 8. : recent urinary retention, +E coli UTI, finishing up 3 day course of levaquin, d/c'd flomax 9. Dispo: TBD Allergies Coded Allergies: Penicillins (Verified Allergy, Unknown, hives, 07/30/19) Protein Milk (Verified Adverse Reaction, Unknown, upset stomach , 07/30/19) Vital Signs Vital Signs Date Time Temp Pulse Resp B/P (MAP) Pulse Ox O2 Delivery O2 Flow Rate FiO2 08/12/19 11:27 74 17 135/76 (95) 08/12/19 06:00 96.8 95 Room Air Laboratory Data CBC/BMP Laboratory Tests 08/12/19 06:24 Labs 24H Laboratory Tests 2 08/12/19 06:24: Immature Granulocyte % (Auto) 1.2, Neutrophils (%) (Auto) 65.6, Lymphocytes (%) (Auto) 14.6L, Monocytes (%) (Auto) 13.1H, Eosinophils (%) (Auto) 4.2H, Basophils (%) (Auto) 1.3H, Neutrophils # (Auto) 5.6, Lymphocytes # (Auto) 1.2L, Monocytes # (Auto) 1.1H, Eosinophils # (Auto) 0.4, Basophils # (Auto) 0.1, Nucleated Red Blood Cells % (auto) 0.0, Anion Gap 5L, Glomerular Filtration Rate > 60.0, Calcium Level 8.6L Microbiology Microbiology 08/07/19 Urine Culture - Final, Complete Escherichia Coli Current Medications Current Medications Current Medications Medications (Trade) Dose Ordered Sig/Odell Route PRN Reason Start Time Stop Time Status Last Admin Dose Admin Acetaminophen (Tylenol Tab) 1,000 mg Q6HP PRN PO MILD PAIN (PS 1-4) 08/05/19 16:00 08/07/19 10:42 DC 08/06/19 21:01 Acetaminophen (Tylenol Tab) 1,000 mg TID PO 08/07/19 10:45 08/12/19 07:53 Albuterol/ Ipratropium (Duoneb (Ipr 0.5mg/Alb 2.5mg)) 3 ml RTID NEB 08/06/19 14:00 08/09/19 13:11 DC 08/09/19 07:38 Atorvastatin Calcium (Lipitor) 40 mg DAILY PO 08/05/19 09:00 08/12/19 07:53 Baclofen (Lioresal) 5 mg BID PO 08/05/19 21:00 08/12/19 07:52 Bisacodyl (Dulcolax Suppository) 10 mg DAILYPRN PRN [place] CONSTIPATION 08/05/19 16:00 Docusate Sodium (Colace) 100 mg BID PO 08/05/19 21:00 08/12/19 07:53 Ferrous Sulfate (Ferrous Sulfate) 325 mg BID PO 08/09/19 09:00 08/12/19 07:53 Fluoxetine HCl (PROzac) 20 mg DAILY PO 08/06/19 09:00 08/12/19 07:53 Lactobacillus Acidophilus (Bacid) 1 ea TID PO 08/07/19 16:00 08/12/19 07:53 Levofloxacin (Levaquin) 250 mg DAILY@06 PO 08/07/19 06:00 08/09/19 06:01 DC 08/09/19 05:35 Metoprolol Tartrate (Lopressor) 25 mg BID PO 08/12/19 09:00 08/12/19 11:07 Pantoprazole Sodium (Protonix) 40 mg BID PO 08/05/19 21:00 08/12/19 07:53 Potassium Chloride (Micro-K Extencaps) 40 meq Q4H PO 08/06/19 10:00 08/06/19 17:00 DC 08/06/19 17:15 Rivaroxaban (Xarelto) 15 mg DAILY@0800 PO 08/06/19 08:00 08/05/19 16:25 DC Rivaroxaban (Xarelto) 15 mg DAILY@0800 PO 08/06/19 08:00 08/12/19 07:21 Senna (Senokot) 1 tab QHS PO 08/05/19 21:00 08/11/19 20:22 Sucralfate (Carafate) 1 gm ACHS PO 08/05/19 17:30 08/12/19 11:06 Tamsulosin HCl (Flomax) 0.4 mg DAILY PO 08/06/19 09:00 08/09/19 13:11 DC 08/09/19 08:31 Tramadol HCl (Ultram) 25 mg Q6HP PRN PO MODERATE PAIN (PS 5-7) 08/07/19 10:45 08/09/19 13:11 PADMINI SALDIVAR MD Aug 12, 2019 12:13
[2019-08-12 14:00] VITALS: BP 140/76
[2019-08-12 21:00] VITALS: BP 150/77
[2019-08-12] MEDS: SENNA 8.6 MG TAB (SENOKOT) PO SCH (21:49)
[2019-08-13 05:50] VITALS: BP 150/70
[2019-08-13] MEDS: ACETAMINOPHEN 500 MG TAB PO SCH ×3 (09:00→21:00)
[2019-08-13] MEDS: DOCUSATE SODIUM 100 MG CAP PO SCH ×2 (09:00→21:05)
[2019-08-13] MEDS: REMEDY PHYTOPLEX Z-GUARD PASTE 113GM TUBE (FROM STOREROOM PRODUCT) TOP SCH ×3 (09:00→21:06)
[2019-08-13] MEDS: SUCRALFATE 1 GM TAB PO SCH ×4 (09:35→21:05)
[2019-08-13] MEDS: PANTOPRAZOLE 40MG TAB (PROTONIX) PO SCH ×2 (09:35→21:05)
[2019-08-13] MEDS: FLUoxetine 20 MG CAP PO SCH (09:35)
[2019-08-13] MEDS: FERROUS SULFATE 325MG TAB PO SCH ×2 (09:35→21:05)
[2019-08-13] MEDS: BACLOFEN 5MG PER 1/2 TABLET PO SCH ×2 (09:35→21:04)
[2019-08-13] MEDS: LACTOBACILLUS ACIDOPHILUS CAP (BACID) PO SCH ×3 (09:35→21:05)
[2019-08-13] MEDS: RIVAROXABAN 15 MG TAB (XARELTO) PO SCH (09:36)
[2019-08-13] MEDS: METOPROLOL TART 25 MG TABLET PO SCH ×2 (09:36→21:04)
[2019-08-13] MEDS: ATORVASTATIN 20 MG TAB PO SCH (09:36)
[2019-08-13] MEDS: amLODIPine 5 MG TAB PO SCH (12:02)
[2019-08-13 14:00] VITALS: BP 119/57
--- NOTE | 2019-08-13 15:28 | IPNPDOC ---
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 Review of systems otherwise unremarkable. PAIN: Patient self reports no pain EYES: No recent vision changes EARS, NOSE, & THROAT: No throat pain, or dysphagia, or rhinorrhea CARDIOVASCULAR: Denies chest pain or palpitations PULMONARY: Denies shortness of breath GASTROINTESTINAL: Denies constipation/diarrhea GENITOURINARY: +retention (resolved) MUSCULOSKELETAL: left sided weakness NEUROLOGICAL:left sided paresis HEMATOLOGICAL: +anemia (stable) SKIN: denies rash PSYCHIATRIC: Unremarkable All other review of systems found to be negative. PHYSICAL EXAMINATION: VITAL SIGNS: Please see below. GENERAL: Pleasant and cooperative. No acute distress, +left sided facial droop HEENT: PERRL. Extraocular movements intact. Clear conjunctiva CARDIOVASCULAR: Regular rate and rhythm. No murmurs, rubs, or gallops LUNGS: Clear to auscultation bilaterally. No wheezes. No rhonchi ABDOMEN: Soft, nontender, nondistended. Positive bowel sounds. Normal active bowel sounds NEUROLOGICAL: Alert and oriented times three. Cranial nerves II through XII grossly intact. Sensation grossly intact +babinksi on left EXTREMITIES: 5\5 strength right upper extremity, 3/5 LUE 5\5 strength right lower extremity. 4/5 strength in left hip flexors, knee extension, 0/5 ankle DF/EHL SKIN: intact ASSESSMENT:79-year-old F with past medical history of atrial myxoma, HTN who presents status post GI bleed with worsening left sided weakness in setting of recent right MCA infarct PLAN: 1. 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 Neuro: s/p right MCA infarct July 2019 with residual left sided weakness that has gotten worse causing gait and ADL impairment -c/u statin -c/u prozac for motor recovery -+Loop recorder for cryptogenic stroke -c/u baclofen BID for tone 3. Cardiac: hx of atrial myxoma, called her data assistant Dr. Thomas in [place] who last saw patient in 2013, however confirmed with her pharmacist that Dr. Thomas did prescribe Xarelto 15mg recently -hx of chronic diastolic CHF, fluid restrict, daily weights, medicine consulted to assist in overall management -HTN will add amlodipine and c/u added metoprolol for elevate BPs 4. Resp: encourage incentive spirometry, Duonebs prn, given hx of smoking -monitor for infection 5. GI: patient with GI bleed s/p 4 units rbcs, c/u Protonix BID and sucralfate, transfuse if Hgb <8 or if symptomatic. patient scheduled to see GI as outpatient for endoscopy 6. DVT ppx: on Xarelto, TEDs 7. Pain: tylneol prn 8. : recent urinary retention, +E coli UTI, finishing up 3 day course of levaquin, d/c'd flomax 9. Dispo: TBD Allergies Coded Allergies: Penicillins (Verified Allergy, Unknown, hives, 07/30/19) Protein Milk (Verified Adverse Reaction, Unknown, upset stomach , 07/30/19) Vital Signs Vital Signs Date Time Temp Pulse Resp B/P (MAP) Pulse Ox O2 Delivery O2 Flow Rate FiO2 08/13/19 14:00 98.4 65 20 119/57 (77) 95 Room Air Microbiology Microbiology 08/07/19 Urine Culture - Final, Complete Escherichia Coli Current Medications Current Medications Current Medications Medications (Trade) Dose Ordered Sig/Odell Route PRN Reason Start Time Stop Time Status Last Admin Dose Admin Acetaminophen (Tylenol Tab) 1,000 mg Q6HP PRN PO MILD PAIN (PS 1-4) 08/05/19 16:00 08/07/19 10:42 DC 08/06/19 21:01 Acetaminophen (Tylenol Tab) 1,000 mg TID PO 08/07/19 10:45 08/12/19 21:49 Albuterol/ Ipratropium (Duoneb (Ipr 0.5mg/Alb 2.5mg)) 3 ml RTID NEB 08/06/19 14:00 08/09/19 13:11 DC 08/09/19 07:38 Amlodipine Besylate (Norvasc) 5 mg DAILY PO 08/13/19 11:00 08/13/19 12:02 Atorvastatin Calcium (Lipitor) 40 mg DAILY PO 08/05/19 09:00 08/13/19 09:36 Baclofen (Lioresal) 5 mg BID PO 08/05/19 21:00 08/13/19 09:35 Bisacodyl (Dulcolax Suppository) 10 mg DAILYPRN PRN [place] CONSTIPATION 08/05/19 16:00 Docusate Sodium (Colace) 100 mg BID PO 08/05/19 21:00 08/12/19 21:49 Ferrous Sulfate (Ferrous Sulfate) 325 mg BID PO 08/09/19 09:00 08/13/19 09:35 Fluoxetine HCl (PROzac) 20 mg DAILY PO 08/06/19 09:00 08/13/19 09:35 Lactobacillus Acidophilus (Bacid) 1 ea TID PO 08/07/19 16:00 08/13/19 09:35 Levofloxacin (Levaquin) 250 mg DAILY@06 PO 08/07/19 06:00 08/09/19 06:01 DC 08/09/19 05:35 Metoprolol Tartrate (Lopressor) 25 mg BID PO 08/12/19 09:00 08/13/19 09:36 Pantoprazole Sodium (Protonix) 40 mg BID PO 08/05/19 21:00 08/13/19 09:35 Potassium Chloride (Micro-K Extencaps) 40 meq Q4H PO 08/06/19 10:00 08/06/19 17:00 DC 08/06/19 17:15 Rivaroxaban (Xarelto) 15 mg DAILY@0800 PO 08/06/19 08:00 08/05/19 16:25 DC Rivaroxaban (Xarelto) 15 mg DAILY@0800 PO 08/06/19 08:00 08/13/19 09:36 Senna (Senokot) 1 tab QHS PO 08/05/19 21:00 08/12/19 21:49 Sucralfate (Carafate) 1 gm ACHS PO 08/05/19 17:30 08/13/19 12:00 Tamsulosin HCl (Flomax) 0.4 mg DAILY PO 08/06/19 09:00 08/09/19 13:11 DC 08/09/19 08:31 Tramadol HCl (Ultram) 25 mg Q6HP PRN PO MODERATE PAIN (PS 5-7) 08/07/19 10:45 08/09/19 13:11 PADMINI SALDIVAR MD Aug 13, 2019 15:28
[2019-08-13 21:00] VITALS: BP 150/73
[2019-08-13] MEDS: SENNA 8.6 MG TAB (SENOKOT) PO SCH (21:04)
[2019-08-14 06:00] VITALS: BP 130/63
[2019-08-14] MEDS: ACETAMINOPHEN 500 MG TAB PO SCH ×3 (09:00→21:00)
[2019-08-14] MEDS: REMEDY PHYTOPLEX Z-GUARD PASTE 113GM TUBE (FROM STOREROOM PRODUCT) TOP SCH ×3 (09:00→21:43)
[2019-08-14] MEDS: DOCUSATE SODIUM 100 MG CAP PO SCH ×2 (09:00→21:42)
[2019-08-14] MEDS: BACLOFEN 5MG PER 1/2 TABLET PO SCH ×2 (09:20→21:42)
[2019-08-14] MEDS: PANTOPRAZOLE 40MG TAB (PROTONIX) PO SCH ×2 (09:20→21:42)
[2019-08-14] MEDS: METOPROLOL TART 25 MG TABLET PO SCH ×2 (09:20→21:42)
[2019-08-14] MEDS: SUCRALFATE 1 GM TAB PO SCH ×4 (09:20→21:42)
[2019-08-14] MEDS: LACTOBACILLUS ACIDOPHILUS CAP (BACID) PO SCH ×3 (09:20→21:42)
[2019-08-14] MEDS: ATORVASTATIN 20 MG TAB PO SCH (09:21)
[2019-08-14] MEDS: FLUoxetine 20 MG CAP PO SCH (09:21)
[2019-08-14] MEDS: FERROUS SULFATE 325MG TAB PO SCH ×2 (09:21→21:42)
[2019-08-14] MEDS: amLODIPine 5 MG TAB PO SCH (09:21)
[2019-08-14] MEDS: RIVAROXABAN 15 MG TAB (XARELTO) PO SCH (09:21)
[2019-08-14 11:43] LABS: BASO # 0.1 10^3/uL (0.0-0.2); BASO % 1.1 % (0.0-1.0); EOS # 0.3 10^3/uL (0.0-0.5); EOS % 2.7 % (0.0-3.0); HEMATOCRIT 34.5 % (36.0-47.0); HEMOGLOBIN 10.1 g/dl (12.0-15.5); LYMPH # 1.6 10^3/uL (1.5-5.0); LYMPH % 13.3 % (24.0-44.0); MEAN CORPUSCULAR HEMOGLOBIN 24.7 pg (27.0-33.0); MEAN CORPUSCULAR HGB CONC 29.3 g/dl (32.0-36.5); MEAN CORPUSCULAR VOLUME 84.4 fl (80.0-96.0); MONO # 1.4 10^3/uL (0.0-0.8); MONO % 11.4 % (0.0-5.0); NEUTROPHILS # 8.6 10^3/uL (1.5-8.5); NEUTROPHILS % 70.4 % (36.0-66.0); PLATELET COUNT, AUTOMATED 706 10^3/uL (150-450); RED BLOOD COUNT 4.09 10^6/uL (4.00-5.40); WHITE BLOOD COUNT 12.2 10^3/uL (4.0-10.0)
[2019-08-14 12:22] LABS: BLOOD UREA NITROGEN 13 MG/DL (7-18); CALCIUM LEVEL 8.5 MG/DL (8.8-10.2); CARBON DIOXIDE LEVEL 22 MEQ/L (21-32); CHLORIDE LEVEL 111 MEQ/L (98-107); CREATININE FOR GFR 0.84 MG/DL (0.55-1.30); GLOMERULAR FILTRATION RATE > 60.0 (>39); GLUCOSE, FASTING 95 MG/DL (70-100); POTASSIUM SERUM 4.2 MEQ/L (3.5-5.1); SODIUM LEVEL 140 MEQ/L (136-145)
[2019-08-14 12:38] VITALS: BP 160/70
[2019-08-14 14:00] VITALS: BP 130/60
[2019-08-14] MEDS: SENNA 8.6 MG TAB (SENOKOT) PO SCH (21:42)
[2019-08-15 06:00] VITALS: BP 135/85
[2019-08-15] MEDS: REMEDY PHYTOPLEX Z-GUARD PASTE 113GM TUBE (FROM STOREROOM PRODUCT) TOP SCH ×3 (09:00→20:47)
[2019-08-15] MEDS: FERROUS SULFATE 325MG TAB PO SCH ×2 (09:29→20:52)
[2019-08-15] MEDS: PANTOPRAZOLE 40MG TAB (PROTONIX) PO SCH ×2 (09:29→20:52)
[2019-08-15] MEDS: RIVAROXABAN 15 MG TAB (XARELTO) PO SCH (09:29)
[2019-08-15] MEDS: SUCRALFATE 1 GM TAB PO SCH ×4 (09:29→20:52)
[2019-08-15] MEDS: LACTOBACILLUS ACIDOPHILUS CAP (BACID) PO SCH ×3 (09:29→20:51)
[2019-08-15] MEDS: ATORVASTATIN 20 MG TAB PO SCH (09:30)
[2019-08-15] MEDS: METOPROLOL TART 25 MG TABLET PO SCH ×2 (09:30→20:52)
[2019-08-15] MEDS: FLUoxetine 20 MG CAP PO SCH (09:30)
[2019-08-15] MEDS: amLODIPine 5 MG TAB PO SCH (09:30)
[2019-08-15] MEDS: BACLOFEN 5MG PER 1/2 TABLET PO SCH ×2 (09:31→20:52)
[2019-08-15] MEDS: DOCUSATE SODIUM 100 MG CAP PO SCH ×2 (09:31→20:52)
[2019-08-15] MEDS: ACETAMINOPHEN 500 MG TAB PO SCH ×3 (09:31→20:52)
[2019-08-15 14:00] VITALS: BP 113/55
[2019-08-15 20:00] VITALS: BP 130/70
[2019-08-15] MEDS: SENNA 8.6 MG TAB (SENOKOT) PO SCH (20:52)
[2019-08-16 06:00] VITALS: BP 140/60
[2019-08-16] MEDS: DOCUSATE SODIUM 100 MG CAP PO SCH ×2 (07:37→21:17)
[2019-08-16] MEDS: LACTOBACILLUS ACIDOPHILUS CAP (BACID) PO SCH ×3 (07:38→21:17)
[2019-08-16] MEDS: ACETAMINOPHEN 500 MG TAB PO SCH ×3 (07:38→21:17)
[2019-08-16] MEDS: ATORVASTATIN 20 MG TAB PO SCH (07:38)
[2019-08-16] MEDS: REMEDY PHYTOPLEX Z-GUARD PASTE 113GM TUBE (FROM STOREROOM PRODUCT) TOP SCH ×3 (07:38→21:18)
[2019-08-16] MEDS: amLODIPine 5 MG TAB PO SCH (07:38)
[2019-08-16] MEDS: SUCRALFATE 1 GM TAB PO SCH ×4 (07:39→21:17)
[2019-08-16] MEDS: PANTOPRAZOLE 40MG TAB (PROTONIX) PO SCH ×2 (07:39→21:16)
[2019-08-16] MEDS: FERROUS SULFATE 325MG TAB PO SCH ×2 (07:39→21:17)
[2019-08-16] MEDS: METOPROLOL TART 25 MG TABLET PO SCH ×2 (07:39→21:18)
[2019-08-16] MEDS: FLUoxetine 20 MG CAP PO SCH (07:39)
[2019-08-16] MEDS: RIVAROXABAN 15 MG TAB (XARELTO) PO SCH (07:39)
[2019-08-16] MEDS: BACLOFEN 5MG PER 1/2 TABLET PO SCH ×2 (07:39→21:17)
[2019-08-16 07:45] LABS: BASO # 0.1 10^3/uL (0.0-0.2); BASO % 1.1 % (0.0-1.0); EOS # 0.4 10^3/uL (0.0-0.5); EOS % 3.9 % (0.0-3.0); HEMOGLOBIN 10.1 g/dl (12.0-15.5); LYMPH # 1.8 10^3/uL (1.5-5.0); LYMPH % 16.8 % (24.0-44.0); MEAN CORPUSCULAR HEMOGLOBIN 24.6 pg (27.0-33.0); MEAN CORPUSCULAR HGB CONC 28.9 g/dl (32.0-36.5); MEAN CORPUSCULAR VOLUME 85.2 fl (80.0-96.0); MONO # 1.1 10^3/uL (0.0-0.8); MONO % 9.6 % (0.0-5.0); NEUTROPHILS # 7.4 10^3/uL (1.5-8.5); NEUTROPHILS % 67.6 % (36.0-66.0); PLATELET COUNT, AUTOMATED 730 10^3/uL (150-450); RED BLOOD COUNT 4.11 10^6/uL (4.00-5.40); WHITE BLOOD COUNT 10.9 10^3/uL (4.0-10.0)
[2019-08-16 08:04] LABS: BLOOD UREA NITROGEN 16 MG/DL (7-18); CALCIUM LEVEL 8.4 MG/DL (8.8-10.2); CARBON DIOXIDE LEVEL 23 MEQ/L (21-32); CHLORIDE LEVEL 116 MEQ/L (98-107); CREATININE FOR GFR 0.85 MG/DL (0.55-1.30); GLOMERULAR FILTRATION RATE > 60.0 (>39); GLUCOSE, FASTING 115 MG/DL (70-100); POTASSIUM SERUM 4.5 MEQ/L (3.5-5.1); SODIUM LEVEL 147 MEQ/L (136-145)
[2019-08-16 14:00] VITALS: BP 126/60
[2019-08-16 21:00] VITALS: BP 160/72
[2019-08-16] MEDS: SENNA 8.6 MG TAB (SENOKOT) PO SCH (21:17)
[2019-08-17 06:00] VITALS: BP 161/76
[2019-08-17] MEDS: PANTOPRAZOLE 40MG TAB (PROTONIX) PO SCH ×2 (08:05→20:46)
[2019-08-17] MEDS: SUCRALFATE 1 GM TAB PO SCH ×4 (08:05→20:45)
[2019-08-17] MEDS: RIVAROXABAN 15 MG TAB (XARELTO) PO SCH (08:05)
[2019-08-17] MEDS: ATORVASTATIN 20 MG TAB PO SCH (08:05)
[2019-08-17] MEDS: BACLOFEN 5MG PER 1/2 TABLET PO SCH ×2 (08:05→20:46)
[2019-08-17] MEDS: DOCUSATE SODIUM 100 MG CAP PO SCH ×2 (08:05→20:44)
[2019-08-17] MEDS: LACTOBACILLUS ACIDOPHILUS CAP (BACID) PO SCH ×3 (08:05→20:45)
[2019-08-17] MEDS: FERROUS SULFATE 325MG TAB PO SCH ×2 (08:05→20:46)
[2019-08-17] MEDS: FLUoxetine 20 MG CAP PO SCH (08:05)
[2019-08-17] MEDS: METOPROLOL TART 25 MG TABLET PO SCH ×2 (08:06→20:46)
[2019-08-17] MEDS: amLODIPine 5 MG TAB PO SCH (08:06)
[2019-08-17] MEDS: REMEDY PHYTOPLEX Z-GUARD PASTE 113GM TUBE (FROM STOREROOM PRODUCT) TOP SCH ×3 (08:06→20:46)
[2019-08-17] MEDS: ACETAMINOPHEN 500 MG TAB PO SCH ×3 (08:06→20:46)
[2019-08-17 14:00] VITALS: BP 110/61
[2019-08-17 20:30] VITALS: BP 144/70
[2019-08-17] MEDS: SENNA 8.6 MG TAB (SENOKOT) PO SCH (20:46)
[2019-08-18 06:00] VITALS: BP 146/69
[2019-08-18] MEDS: LACTOBACILLUS ACIDOPHILUS CAP (BACID) PO SCH ×3 (08:40→21:30)
[2019-08-18] MEDS: BACLOFEN 5MG PER 1/2 TABLET PO SCH ×2 (08:40→21:30)
[2019-08-18] MEDS: FLUoxetine 20 MG CAP PO SCH (08:40)
[2019-08-18] MEDS: ATORVASTATIN 20 MG TAB PO SCH (08:40)
[2019-08-18] MEDS: PANTOPRAZOLE 40MG TAB (PROTONIX) PO SCH ×2 (08:41→21:30)
[2019-08-18] MEDS: FERROUS SULFATE 325MG TAB PO SCH ×2 (08:41→21:30)
[2019-08-18] MEDS: DOCUSATE SODIUM 100 MG CAP PO SCH ×2 (08:41→21:30)
[2019-08-18] MEDS: METOPROLOL TART 25 MG TABLET PO SCH ×2 (08:41→21:30)
[2019-08-18] MEDS: ACETAMINOPHEN 500 MG TAB PO SCH ×3 (08:41→21:30)
[2019-08-18] MEDS: amLODIPine 5 MG TAB PO SCH (08:42)
[2019-08-18] MEDS: SUCRALFATE 1 GM TAB PO SCH ×4 (08:42→21:30)
[2019-08-18] MEDS: RIVAROXABAN 15 MG TAB (XARELTO) PO SCH (08:44)
[2019-08-18] MEDS: REMEDY PHYTOPLEX Z-GUARD PASTE 113GM TUBE (FROM STOREROOM PRODUCT) TOP SCH ×3 (08:48→21:30)
[2019-08-18 14:00] VITALS: BP 122/58
[2019-08-18 20:00] VITALS: BP 119/76
[2019-08-18] MEDS: SENNA 8.6 MG TAB (SENOKOT) PO SCH (21:30)
[2019-08-19 06:00] VITALS: BP 144/67
[2019-08-19] MEDS: ACETAMINOPHEN 500 MG TAB PO SCH ×3 (09:00→20:56)
[2019-08-19] MEDS: DOCUSATE SODIUM 100 MG CAP PO SCH ×2 (09:00→20:54)
[2019-08-19] MEDS: BACLOFEN 5MG PER 1/2 TABLET PO SCH ×2 (09:19→20:54)
[2019-08-19] MEDS: FERROUS SULFATE 325MG TAB PO SCH ×2 (09:19→20:55)
[2019-08-19] MEDS: FLUoxetine 20 MG CAP PO SCH (09:19)
[2019-08-19] MEDS: SUCRALFATE 1 GM TAB PO SCH ×4 (09:19→20:54)
[2019-08-19] MEDS: amLODIPine 5 MG TAB PO SCH (09:19)
[2019-08-19] MEDS: ATORVASTATIN 20 MG TAB PO SCH (09:19)
[2019-08-19] MEDS: METOPROLOL TART 25 MG TABLET PO SCH ×2 (09:19→20:55)
[2019-08-19] MEDS: LACTOBACILLUS ACIDOPHILUS CAP (BACID) PO SCH ×3 (09:20→20:54)
[2019-08-19] MEDS: PANTOPRAZOLE 40MG TAB (PROTONIX) PO SCH ×2 (09:20→20:54)
[2019-08-19] MEDS: RIVAROXABAN 15 MG TAB (XARELTO) PO SCH (09:22)
[2019-08-19] MEDS: REMEDY PHYTOPLEX Z-GUARD PASTE 113GM TUBE (FROM STOREROOM PRODUCT) TOP SCH ×3 (09:22→20:56)
[2019-08-19 12:47] LABS: BASO # 0.1 10^3/uL (0.0-0.2); BASO % 0.9 % (0.0-1.0); EOS # 0.4 10^3/uL (0.0-0.5); HEMATOCRIT 36.7 % (36.0-47.0); HEMOGLOBIN 10.5 g/dl (12.0-15.5); LYMPH # 1.5 10^3/uL (1.5-5.0); LYMPH % 11.9 % (24.0-44.0); MEAN CORPUSCULAR HEMOGLOBIN 25.3 pg (27.0-33.0); MEAN CORPUSCULAR HGB CONC 28.6 g/dl (32.0-36.5); MEAN CORPUSCULAR VOLUME 88.4 fl (80.0-96.0); MONO % 8.2 % (0.0-5.0); NEUTROPHILS # 9.6 10^3/uL (1.5-8.5); NEUTROPHILS % 75.1 % (36.0-66.0); PLATELET COUNT, AUTOMATED 729 10^3/uL (150-450); RED BLOOD COUNT 4.15 10^6/uL (4.00-5.40); WHITE BLOOD COUNT 12.7 10^3/uL (4.0-10.0)
[2019-08-19 13:11] LABS: BLOOD UREA NITROGEN 18 MG/DL (7-18); CARBON DIOXIDE LEVEL 23 MEQ/L (21-32); CHLORIDE LEVEL 111 MEQ/L (98-107); GLOMERULAR FILTRATION RATE > 60.0 (>39); GLUCOSE, FASTING 100 MG/DL (70-100); POTASSIUM SERUM 4.1 MEQ/L (3.5-5.1); SODIUM LEVEL 143 MEQ/L (136-145)
[2019-08-19 14:00] VITALS: BP 125/58
--- NOTE | 2019-08-19 15:44 | IPNPDOC ---
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 REVIEW OF SYSTEMS: The following is a completed review of systems and has been reviewed. Review of systems otherwise unremarkable. PAIN: Patient self reports no pain EYES: No recent vision changes EARS, NOSE, & THROAT: No throat pain, or dysphagia, or rhinorrhea CARDIOVASCULAR: Denies chest pain or palpitations PULMONARY: Denies shortness of breath GASTROINTESTINAL: Denies constipation/diarrhea GENITOURINARY: +retention (resolved) MUSCULOSKELETAL: left sided weakness NEUROLOGICAL:left sided paresis HEMATOLOGICAL: +anemia (stable) SKIN: denies rash PSYCHIATRIC: Unremarkable All other review of systems found to be negative. PHYSICAL EXAMINATION: VITAL SIGNS: Please see below. GENERAL: Pleasant and cooperative. No acute distress, +left sided facial droop HEENT: PERRL. Extraocular movements intact. Clear conjunctiva CARDIOVASCULAR: Regular rate and rhythm. No murmurs, rubs, or gallops LUNGS: Clear to auscultation bilaterally. No wheezes. No rhonchi ABDOMEN: Soft, nontender, nondistended. Positive bowel sounds. Normal active bowel sounds NEUROLOGICAL: Alert and oriented times three. Cranial nerves II through XII grossly intact. Sensation grossly intact +babinksi on left EXTREMITIES: 5\5 strength right upper extremity, 3/5 LUE 5\5 strength right lower extremity. 4/5 strength in left hip flexors, knee extension, 0/5 ankle DF/EHL SKIN: intact ASSESSMENT:79-year-old F with past medical history of atrial myxoma, HTN who presents status post GI bleed with worsening left sided weakness in setting of recent right MCA infarct PLAN: 1. 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 Neuro: s/p right MCA infarct July 2019 with residual left sided weakness that has gotten worse causing gait and ADL impairment -c/u statin -c/u prozac for motor recovery -+Loop recorder for cryptogenic stroke -c/u baclofen BID for tone 3. Cardiac: hx of atrial myxoma, called her vice president marketing & development Dr. Thomas in [place] who last saw patient in 2013, however confirmed with her pharmacist that Dr. Thomas did prescribe Xarelto 15mg recently -hx of chronic diastolic CHF, fluid restrict, daily weights, medicine consulted to assist in overall management -HTN , c/u amlodipine and metoprolol for elevate BPs 4. Resp: encourage incentive spirometry, Duonebs prn, given hx of smoking -monitor for infection 5. GI: patient with GI bleed s/p 4 units rbcs, c/u Protonix BID and sucralfate, transfuse if Hgb <8 or if symptomatic. patient scheduled to see GI as outpatient for endoscopy 6. DVT ppx: on Xarelto, TEDs 7. Pain: tylneol prn 8. : recent urinary retention, +E coli UTI, finishing up 3 day course of levaquin, d/c'd flomax 9. Dispo: TBD Allergies Coded Allergies: Penicillins (Verified Allergy, Unknown, hives, 07/30/19) Protein Milk (Verified Adverse Reaction, Unknown, upset stomach , 07/30/19) Vital Signs Vital Signs Date Time Temp Pulse Resp B/P (MAP) Pulse Ox O2 Delivery O2 Flow Rate FiO2 08/19/19 14:00 99.0 63 16 125/58 (80) 96 Room Air Laboratory Data CBC/BMP Laboratory Tests 08/19/19 12:31 Labs 24H Laboratory Tests 2 08/19/19 12:31: Immature Granulocyte % (Auto) 0.9, Neutrophils (%) (Auto) 75.1H, Lymphocytes (%) (Auto) 11.9L, Monocytes (%) (Auto) 8.2H, Eosinophils (%) (Auto) 3.0, Basophils (%) (Auto) 0.9, Neutrophils # (Auto) 9.6H, Lymphocytes # (Auto) 1.5, Monocytes # (Auto) 1.0H, Eosinophils # (Auto) 0.4, Basophils # (Auto) 0.1, Nucleated Red Blood Cells % (auto) 0.0, Anion Gap 9, Glomerular Filtration Rate > 60.0, Calcium Level 9.0 Current Medications Current Medications Current Medications Medications (Trade) Dose Ordered Sig/Odell Route PRN Reason Start Time Stop Time Status Last Admin Dose Admin Acetaminophen (Tylenol Tab) 1,000 mg Q6HP PRN PO MILD PAIN (PS 1-4) 08/05/19 16:00 08/07/19 10:42 DC 08/06/19 21:01 Acetaminophen (Tylenol Tab) 1,000 mg TID PO 08/07/19 10:45 08/19/19 15:33 Albuterol/ Ipratropium (Duoneb (Ipr 0.5mg/Alb 2.5mg)) 3 ml RTID NEB 08/06/19 14:00 08/09/19 13:11 DC 08/09/19 07:38 Amlodipine Besylate (Norvasc) 5 mg DAILY PO 08/13/19 11:00 08/19/19 09:19 Atorvastatin Calcium (Lipitor) 40 mg DAILY PO 08/05/19 09:00 08/19/19 09:19 Baclofen (Lioresal) 5 mg BID PO 08/05/19 21:00 08/19/19 09:19 Bisacodyl (Dulcolax Suppository) 10 mg DAILYPRN PRN [place] CONSTIPATION 08/05/19 16:00 Docusate Sodium (Colace) 100 mg BID PO 08/05/19 21:00 08/18/19 21:30 Ferrous Sulfate (Ferrous Sulfate) 325 mg BID PO 08/09/19 09:00 08/19/19 09:19 Fluoxetine HCl (PROzac) 20 mg DAILY PO 08/06/19 09:00 08/19/19 09:19 Lactobacillus Acidophilus (Bacid) 1 ea TID PO 08/07/19 16:00 08/19/19 15:32 Levofloxacin (Levaquin) 250 mg DAILY@06 PO 08/07/19 06:00 08/09/19 06:01 DC 08/09/19 05:35 Metoprolol Tartrate (Lopressor) 25 mg BID PO 08/12/19 09:00 08/19/19 09:19 Miscellaneous (Unresolved Clarification Entry) SEE LABEL COMMENTS DAILY XX 08/18/19 09:00 08/18/19 11:35 DC Pantoprazole Sodium (Protonix) 40 mg BID PO 08/05/19 21:00 08/19/19 09:20 Potassium Chloride (Micro-K Extencaps) 40 meq Q4H PO 08/06/19 10:00 08/06/19 17:00 DC 08/06/19 17:15 Rivaroxaban (Xarelto) 15 mg DAILY@0800 PO 08/06/19 08:00 08/05/19 16:25 DC Rivaroxaban (Xarelto) 15 mg DAILY@0800 PO 08/06/19 08:00 08/19/19 09:22 Senna (Senokot) 1 tab QHS PO 08/05/19 21:00 08/18/19 21:30 Sucralfate (Carafate) 1 gm ACHS PO 08/05/19 17:30 08/19/19 12:04 Tamsulosin HCl (Flomax) 0.4 mg DAILY PO 08/06/19 09:00 08/09/19 13:11 DC 08/09/19 08:31 Tramadol HCl (Ultram) 25 mg Q6HP PRN PO MODERATE PAIN (PS 5-7) 08/07/19 10:45 08/09/19 13:11 PADMINI SALDIVAR MD Aug 19, 2019 15:44
--- NOTE | 2019-08-19 15:46 | IPNPDOC ---
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 REVIEW OF SYSTEMS: The following is a completed review of systems and has been reviewed. Review of systems otherwise unremarkable. PAIN: Patient self reports no pain EYES: No recent vision changes EARS, NOSE, & THROAT: No throat pain, or dysphagia, or rhinorrhea CARDIOVASCULAR: Denies chest pain or palpitations PULMONARY: Denies shortness of breath GASTROINTESTINAL: Denies constipation/diarrhea GENITOURINARY: +retention (resolved) MUSCULOSKELETAL: left sided weakness NEUROLOGICAL:left sided paresis HEMATOLOGICAL: +anemia (stable) SKIN: denies rash PSYCHIATRIC: Unremarkable All other review of systems found to be negative. PHYSICAL EXAMINATION: VITAL SIGNS: Please see below. GENERAL: Pleasant and cooperative. No acute distress, +left sided facial droop HEENT: PERRL. Extraocular movements intact. Clear conjunctiva CARDIOVASCULAR: Regular rate and rhythm. No murmurs, rubs, or gallops LUNGS: Clear to auscultation bilaterally. No wheezes. No rhonchi ABDOMEN: Soft, nontender, nondistended. Positive bowel sounds. Normal active bowel sounds NEUROLOGICAL: Alert and oriented times three. Cranial nerves II through XII grossly intact. Sensation grossly intact +babinksi on left EXTREMITIES: 5\5 strength right upper extremity, 3/5 LUE 5\5 strength right lower extremity. 4/5 strength in left hip flexors, knee extension, 0/5 ankle DF/EHL SKIN: intact ASSESSMENT:79-year-old F with past medical history of atrial myxoma, HTN who presents status post GI bleed with worsening left sided weakness in setting of recent right MCA infarct PLAN: 1. 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 Neuro: s/p right MCA infarct July 2019 with residual left sided weakness that has gotten worse causing gait and ADL impairment -c/u statin -c/u prozac for motor recovery -+Loop recorder for cryptogenic stroke -c/u baclofen BID for tone 3. Cardiac: hx of atrial myxoma, called her green prize packer Dr. Thomas in [place] who last saw patient in 2013, however confirmed with her pharmacist that Dr. Thomas did prescribe Xarelto 15mg recently -hx of chronic diastolic CHF, fluid restrict, daily weights, medicine consulted to assist in overall management -HTN , c/u amlodipine and metoprolol for elevate BPs 4. Resp: encourage incentive spirometry, Duonebs prn, given hx of smoking -monitor for infection 5. GI: patient with GI bleed s/p 4 units rbcs, c/u Protonix BID and sucralfate, transfuse if Hgb <8 or if symptomatic. patient scheduled to see GI as outpatient for endoscopy 6. DVT ppx: on Xarelto, TEDs 7. Pain: tylneol prn 8. : recent urinary retention, +E coli UTI, s/p day course of levaquin and repeat UA negative, d/c'd flomax 9. Leukocytosis- repeat UA negative, no cough, no fever, patient clinically appears well 10. Dispo: 08-20-19 to home, progressing towards goals, family training today Allergies Coded Allergies: Penicillins (Verified Allergy, Unknown, hives, 07/30/19) Protein Milk (Verified Adverse Reaction, Unknown, upset stomach , 07/30/19) Vital Signs Vital Signs Date Time Temp Pulse Resp B/P (MAP) Pulse Ox O2 Delivery O2 Flow Rate FiO2 08/19/19 14:00 99.0 63 16 125/58 (80) 96 Room Air Laboratory Data CBC/BMP Laboratory Tests 08/19/19 12:31 Labs 24H Laboratory Tests 2 08/19/19 12:31: Immature Granulocyte % (Auto) 0.9, Neutrophils (%) (Auto) 75.1H, Lymphocytes (%) (Auto) 11.9L, Monocytes (%) (Auto) 8.2H, Eosinophils (%) (Auto) 3.0, Basophils (%) (Auto) 0.9, Neutrophils # (Auto) 9.6H, Lymphocytes # (Auto) 1.5, Monocytes # (Auto) 1.0H, Eosinophils # (Auto) 0.4, Basophils # (Auto) 0.1, Nucleated Red Blood Cells % (auto) 0.0, Anion Gap 9, Glomerular Filtration Rate > 60.0, C alcium Level 9.0 Current Medications Current Medications Current Medications Medications (Trade) Dose Ordered Sig/Odell Route PRN Reason Start Time Stop Time Status Last Admin Dose Admin Acetaminophen (Tylenol Tab) 1,000 mg Q6HP PRN PO MILD PAIN (PS 1-4) 08/05/19 16:00 08/07/19 10:42 DC 08/06/19 21:01 Acetaminophen (Tylenol Tab) 1,000 mg TID PO 08/07/19 10:45 08/19/19 15:33 Albuterol/ Ipratropium (Duoneb (Ipr 0.5mg/Alb 2.5mg)) 3 ml RTID NEB 08/06/19 14:00 08/09/19 13:11 DC 08/09/19 07:38 Amlodipine Besylate (Norvasc) 5 mg DAILY PO 08/13/19 11:00 08/19/19 09:19 Atorvastatin Calcium (Lipitor) 40 mg DAILY PO 08/05/19 09:00 08/19/19 09:19 Baclofen (Lioresal) 5 mg BID PO 08/05/19 21:00 08/19/19 09:19 Bisacodyl (Dulcolax Suppository) 10 mg DAILYPRN PRN [place] CONSTIPATION 08/05/19 16:00 Docusate Sodium (Colace) 100 mg BID PO 08/05/19 21:00 08/18/19 21:30 Ferrous Sulfate (Ferrous Sulfate) 325 mg BID PO 08/09/19 09:00 08/19/19 09:19 Fluoxetine HCl (PROzac) 20 mg DAILY PO 08/06/19 09:00 08/19/19 09:19 Lactobacillus Acidophilus (Bacid) 1 ea TID PO 08/07/19 16:00 08/19/19 15:32 Levofloxacin (Levaquin) 250 mg DAILY@06 PO 08/07/19 06:00 08/09/19 06:01 DC 08/09/19 05:35 Metoprolol Tartrate (Lopressor) 25 mg BID PO 08/12/19 09:00 08/19/19 09:19 Miscellaneous (Unresolved Clarification Entry) SEE LABEL COMMENTS DAILY XX 08/18/19 09:00 08/18/19 11:35 DC Pantoprazole Sodium (Protonix) 40 mg BID PO 08/05/19 21:00 08/19/19 09:20 Potassium Chloride (Micro-K Extencaps) 40 meq Q4H PO 08/06/19 10:00 08/06/19 17:00 DC 08/06/19 17:15 Rivaroxaban (Xarelto) 15 mg DAILY@0800 PO 08/06/19 08:00 08/05/19 16:25 DC Rivaroxaban (Xarelto) 15 mg DAILY@0800 PO 08/06/19 08:00 08/19/19 09:22 Senna (Senokot) 1 tab QHS PO 08/05/19 21:00 08/18/19 21:30 Sucralfate (Carafate) 1 gm ACHS PO 08/05/19 17:30 08/19/19 12:04 Tamsulosin HCl (Flomax) 0.4 mg DAILY PO 08/06/19 09:00 08/09/19 13:11 DC 08/09/19 08:31 Tramadol HCl (Ultram) 25 mg Q6HP PRN PO MODERATE PAIN (PS 5-7) 08/07/19 10:45 08/09/19 13:11 PADMINI SALDIVAR MD Aug 19, 2019 15:46
[2019-08-19 20:00] VITALS: BP 135/77
[2019-08-19] MEDS: SENNA 8.6 MG TAB (SENOKOT) PO SCH (20:56)
[2019-08-20 06:00] VITALS: BP 133/64
[2019-08-20] MEDS: ACETAMINOPHEN 500 MG TAB PO SCH (08:25)
[2019-08-20] MEDS: SUCRALFATE 1 GM TAB PO SCH (08:25)
[2019-08-20] MEDS: FLUoxetine 20 MG CAP PO SCH (08:25)
[2019-08-20] MEDS: FERROUS SULFATE 325MG TAB PO SCH (08:25)
[2019-08-20] MEDS: RIVAROXABAN 15 MG TAB (XARELTO) PO SCH (08:25)
[2019-08-20] MEDS: ATORVASTATIN 20 MG TAB PO SCH (08:25)
[2019-08-20] MEDS: DOCUSATE SODIUM 100 MG CAP PO SCH (08:25)
[2019-08-20 08:26] VITALS: BP 112/66
[2019-08-20] MEDS: PANTOPRAZOLE 40MG TAB (PROTONIX) PO SCH (08:26)
[2019-08-20] MEDS: BACLOFEN 5MG PER 1/2 TABLET PO SCH (08:26)
[2019-08-20] MEDS: LACTOBACILLUS ACIDOPHILUS CAP (BACID) PO SCH (08:26)
[2019-08-20] MEDS: METOPROLOL TART 25 MG TABLET PO SCH (08:26)
[2019-08-20] MEDS: amLODIPine 5 MG TAB PO SCH (08:26)
[2019-08-20] MEDS: REMEDY PHYTOPLEX Z-GUARD PASTE 113GM TUBE (FROM STOREROOM PRODUCT) TOP SCH (08:27)
[2019-08-20] MEDS ORDERED: ATOR40TA75 PO (10:30)
[2019-08-20] MEDS ORDERED: FLUO20CA22 PO (10:30)
[2019-08-20] MEDS ORDERED: METO1TAB87 PO (10:30)
[2019-08-20] MEDS ORDERED: BACL10TA8 PO (10:30)
[2019-08-20] MEDS ORDERED: SUCR1TA PO (10:30)
[2019-08-20] MEDS ORDERED: RISATAB3 PO (10:30)
[2019-08-20] MEDS ORDERED: AMLO5TAB6 PO (10:30)
[2019-08-20] MEDS ORDERED: FERR325T18 PO (10:30)
[2019-08-20] MEDS ORDERED: XARE15TA PO (10:30)
[2019-08-20] MEDS ORDERED: PANT40TA3 PO (10:30)
== END 2019-08-20 11:30 | disposition home health service (06) | DRG 57 ==
LOC: M PM&R 15:15
PROVIDERS: ADMIT Physical Medicine & Rehabilitation; ATTEND Physical Medicine & Rehabilitation
DX: I69.354 Hemiplegia and hemiparesis following cerebral infarction affecting left non-dominant side (principal); I50.32 Chronic diastolic (congestive) heart failure; N39.0 Urinary tract infection, site not specified; D64.9 Anemia, unspecified; I11.0 Hypertensive heart disease with heart failure; R33.9 Retention of urine, unspecified; B96.20 Unspecified Escherichia coli [E. coli] as the cause of diseases classified elsewhere; F17.200 Nicotine dependence, unspecified, uncomplicated; R26.89 Other abnormalities of gait and mobility; D15.1 Benign neoplasm of heart; Z66 Do not resuscitate; Z74.09 Other reduced mobility; Z79.01 Long term (current) use of anticoagulants; Z79.899 Other long term (current) drug therapy; Z88.0 Allergy status to penicillin; Z91.011 Allergy to milk products

== ENCOUNTER → 2019-10-07 | Outpatient (CLI) | payer MEDICARE ==
[~2019-10-07] MED LIST changes: +AMLO1TAB24 PO; +BACL10TA2 PO; +D31000TA2 PO; +FERR325T18 PO; +FLUO20CA22 PO; +MACR100C43 PO; +METO1TAB87 PO; +OS-CTAB3 PO; +PANT40TA29 PO; -PANT40TA3 PO; +RISATAB3 PO; +SUCR1TA PO; +VITA50005 PO
[2019-11-10 03:14] LABS: BASO # 0.1 10^3/uL (0.0-0.2); BASO % 0.8 % (0.0-1.0); EOS # 0.1 10^3/uL (0.0-0.5); EOS % 2.1 % (0.0-3.0); HEMATOCRIT 38.5 % (36.0-47.0); HEMOGLOBIN 11.8 g/dl (12.0-15.5); LYMPH # 1.3 10^3/uL (1.5-5.0); LYMPH % 21.4 % (24.0-44.0); MEAN CORPUSCULAR HEMOGLOBIN 28.1 pg (27.0-33.0); MEAN CORPUSCULAR HGB CONC 30.6 g/dl (32.0-36.5); MEAN CORPUSCULAR VOLUME 91.7 fl (80.0-96.0); MONO # 0.7 10^3/uL (0.0-0.8); NEUTROPHILS % 64.4 % (36.0-66.0); PLATELET COUNT, AUTOMATED 350 10^3/uL (150-450); WHITE BLOOD COUNT 6.2 10^3/uL (4.0-10.0)
[2019-11-26 12:45] LABS: PERCENT SATURATION 16.5 % (13.2-45.0)
== END ==
LOC: M LAB 13:40
PROVIDERS: ATTEND Physician Assistant Medical
DX: D50.9 Iron deficiency anemia, unspecified (principal)

== ENCOUNTER → 2019-12-23 | Outpatient (CLI) | payer MEDICARE ==
[2019-12-23 12:23] LABS: BLOOD UREA NITROGEN 22 MG/DL (7-18); CALCIUM LEVEL 9.2 MG/DL (8.8-10.2); CARBON DIOXIDE LEVEL 25 MEQ/L (21-32); CHLORIDE LEVEL 115 MEQ/L (98-107); CREATININE FOR GFR 0.84 MG/DL (0.55-1.30); GLOMERULAR FILTRATION RATE > 60.0 (>39); GLUCOSE, FASTING 93 MG/DL (70-100); POTASSIUM SERUM 4.1 MEQ/L (3.5-5.1); SODIUM LEVEL 144 MEQ/L (136-145); TOTAL 25(OH) VITAMIN D 10.9 NG/ML (30.0-100.0)
== END ==
LOC: M LAB 10:53
PROVIDERS: ATTEND Internal Medicine Endocrinology, Diabetes & Metabolism
DX: M81.0 Age-related osteoporosis without current pathological fracture (principal); E55.9 Vitamin D deficiency, unspecified

== ENCOUNTER → 2019-12-30 | Outpatient (REF) | payer MEDICARE | LOC: M LAB REF 16:53 | PROVIDERS: ATTEND Physician Assistant Medical | DX: R32 Unspecified urinary incontinence (principal); N39.0 Urinary tract infection, site not specified ==

== ENCOUNTER → 2020-01-08 | Outpatient (CLI) | payer MEDICARE | LOC: M LABSMTC 10:16 | PROVIDERS: ATTEND Anesthesiology | DX: Z01.818 Encounter for other preprocedural examination (principal) | CPT/HCPCS: C9803; U0003 ==

== ENCOUNTER 2020-01-13 08:47 | Day surgery (SDC) | payer MEDICARE ==
[~2020-01-13] VITALS: Ht 162.6 cm; Wt 74.4 kg
[~2020-01-13 08:47] MED LIST changes: +NS 1,000 ML IV ONE
[2020-01-13] MEDS ORDERED: propofoL 500 MG/50 ML VIAL As Ordered ONE (09:28)
[2020-01-13] MEDS ORDERED: LIDOCAINE 2% 100MG/5ML SDV (FOR ANES.) As Ordered ONE (09:30)
--- NOTE | 2020-01-13 10:46 | ROOR ---
Patient Name: Laura Oquendo Procedure Date: 01/13/2020 9:52 AM Date of : 1940 Age: 79 Room: [facility] Gender: Female Note Status: Finalized Procedure: Colonoscopy Indications: Gastrointestinal occult blood loss, Acute post hemorrhagic anemia Providers: David Mayorga MD Referring MD: Betty Armstrong MD Requesting Provider: Medicines: Monitored Anesthesia Care Complications: No immediate complications. Procedure: Pre-Anesthesia Assessment: - Prior to the procedure, a History and Physical was performed, and patient medications and allergies were reviewed. The patient is competent. The risks and benefits of the procedure and the sedation options and risks were discussed with the patient. All questions were answered and informed consent was obtained. Patient identification and proposed procedure were verified by the physician, the nurse and the anesthesiologist in the procedure room. Mental Status Examination: alert and oriented. Airway Examination: normal oropharyngeal airway and neck mobility. Respiratory Examination: clear to auscultation. CV Examination: normal. Prophylactic Antibiotics: The patient does not require prophylactic antibiotics. Prior Anticoagulants: The patient has taken Xarelto (rivaroxaban), last dose was 1 day prior to procedure. ASA Grade Assessment: II - A patient with mild systemic disease. After reviewing the risks and benefits, the patient was deemed in satisfactory condition to undergo the procedure. The anesthesia plan was to use monitored anesthesia care (MAC). Immediately prior to administration of medications, the patient was re-assessed for adequacy to receive sedatives. The heart rate, respiratory rate, oxygen saturations, blood pressure, adequacy of pulmonary ventilation, and response to care were monitored throughout the procedure. The physical status of the patient was re-assessed after the procedure. The Colonoscope was introduced through the anus and advanced to the terminal ileum, with identification of the appendiceal orifice and IC valve. The colonoscopy was performed without difficulty. The patient tolerated the procedure well. The quality of the bowel preparation was good. The terminal ileum, ileocecal valve, appendiceal orifice, and rectum were photographed. Scope insertion time was 3 minutes. Scope withdrawal time was 9 minutes. The total duration of the procedure was 12 minutes. Findings: The perianal and digital rectal examinations were normal. The terminal ileum appeared normal. A frond-like/villous, infiltrative and ulcerated partially obstructing large mass was found in the ascending colon. The mass was partially circumferential (involving two-thirds of the lumen circumference). The mass measured five cm in length. No bleeding was present. This was biopsied with a cold forceps for histology. Verification of patient identification for the specimen was done by the physician and nurse using the patient's name, date and medical record number. Estimated blood loss was minimal. Three sessile polyps were found in the recto-sigmoid colon, descending colon and transverse colon. The polyps were 5 to 10 mm in size. These polyps were removed with a hot snare. Resection and retrieval were complete. A few small and large-mouthed diverticula were found from sigmoid to transverse colon. There was no evidence of diverticular bleeding. Non-bleeding external and internal hemorrhoids were found during retroflexion. The hemorrhoids were medium-sized. Impression: - The examined portion of the ileum was normal. 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 Biopsied. - Three 5 to 10 mm polyps at the recto-sigmoid colon, in the descending colon and in the transverse colon, removed with a hot snare. Resected and retrieved. - Moderate diverticulosis from sigmoid to transverse colon. There was no evidence of diverticular bleeding. - Non-bleeding external and internal hemorrhoids. Recommendation: - Patient has a contact number available for emergencies. The signs and symptoms of potential delayed complications were discussed with the patient. Return to normal activities tomorrow. Written discharge instructions were provided to the patient. - High fiber diet. - Continue present medications. - Await pathology results. - Resume Xarelto (rivaroxaban) at prior dose tomorrow. Refer to primary physician for further adjustment of therapy. - Await pathology results. - Refer to an oncologist at the next available appointment. - Perform a CT scan (computed tomography) of chest with contrast, abdomen with contrast and pelvis with contrast at appointment to be scheduled. - Telephone GI clinic for pathology results in 2 weeks. - Return to primary care physician. David Mayorga MD David Mayorga MD 01/13/2020 10:45:24 AM Electronically signed by David Mayorga MD Number of Addenda: 0 Note Initiated On: 01/13/2020 9:52 AM Estimated Blood Loss: Estimated blood loss was minimal.
[2020-01-13 11:10] VITALS: BP 128/60
--- NOTE | 2020-01-13 11:11 | ROOR ---
Patient Name: Laura Oquendo Procedure Date: 01/13/2020 9:52 AM Date of : 1940 Age: 79 Room: [facility] Gender: Female Note Status: Finalized Procedure: Upper GI endoscopy Indications: Acute post hemorrhagic anemia Providers: David Mayorga MD Referring MD: Betty Armstrong MD Requesting Provider: Medicines: Monitored Anesthesia Care Complications: No immediate complications. Procedure: Pre-Anesthesia Assessment: - Prior to the procedure, a History and Physical was performed, and patient medications and allergies were reviewed. The patient is competent. The risks and benefits of the procedure and the sedation options and risks were discussed with the patient. All questions were answered and informed consent was obtained. Patient identification and proposed procedure were verified by the physician, the nurse and the anesthesiologist in the procedure room. Mental Status Examination: alert and oriented. Airway Examination: normal oropharyngeal airway and neck mobility. Respiratory Examination: clear to auscultation. CV Examination: normal. Prophylactic Antibiotics: The patient does not require prophylactic antibiotics. Prior Anticoagulants: The patient has taken Xarelto (rivaroxaban), last dose was 1 day prior to procedure. ASA Grade Assessment: II - A patient with mild systemic disease. After reviewing the risks and benefits, the patient was deemed in satisfactory condition to undergo the procedure. The anesthesia plan was to use monitored anesthesia care (MAC). Immediately prior to administration of medications, the patient was re-assessed for adequacy to receive sedatives. The heart rate, respiratory rate, oxygen saturations, blood pressure, adequacy of pulmonary ventilation, and response to care were monitored throughout the procedure. The physical status of the patient was re-assessed after the procedure. The Endoscope was introduced through the mouth, and advanced to the third part of duodenum. The upper GI endoscopy was accomplished without difficulty. The patient tolerated the procedure well. Findings: The Z-line was regular and was found 38 cm from the incisors. A small hiatal hernia was present. Scattered mild inflammation characterized by erythema and granularity was found in the gastric antrum. Biopsies were taken with a cold forceps for histology. Biopsies were taken with a cold forceps for Helicobacter pylori testing. Verification of patient identification for the specimen was done by the physician and nurse using the patient's name, date and medical record number. Estimated blood loss was minimal. The ampulla, duodenal bulb, second portion of the duodenum and third portion of the duodenum were normal. Impression: - Z-line regular, 38 cm from the incisors. - Small hiatal hernia. - Gastritis. Biopsied. - Normal ampulla, duodenal bulb, second portion of the duodenum and third portion of the duodenum. Recommendation: - Patient has a contact number available for emergencies. The signs and symptoms of potential delayed complications were discussed with the patient. Return to normal activities tomorrow. Written discharge instructions were provided to the patient. - High fiber diet. - Continue present medications. - Follow an antireflux regimen. - Await pathology results. - Telephone GI clinic for pathology results in 2 weeks. - Follow the recommendations as per the other procedure note. - Return to primary care physician. David Mayorga MD David Mayorga MD 01/13/2020 11:10:52 AM Electronically signed by David Mayorga MD Number of Addenda: 0 Note Initiated On: 01/13/2020 9:52 AM Estimated Blood Loss: Estimated blood loss was minimal.
== END 2020-01-13 11:17 | disposition home or self-care (01) ==
LOC: M OPP 08:47
PROVIDERS: ATTEND Internal Medicine Gastroenterology
DX: D49.0 Neoplasm of unspecified behavior of digestive system (principal); K63.5 Polyp of colon; K64.8 Other hemorrhoids; K56.690 Other partial intestinal obstruction; C18.9 Malignant neoplasm of colon, unspecified; R19.5 Other fecal abnormalities; D62 Acute posthemorrhagic anemia; K57.30 Diverticulosis of large intestine without perforation or abscess without bleeding; K44.9 Diaphragmatic hernia without obstruction or gangrene; K29.70 Gastritis, unspecified, without bleeding; Z79.899 Other long term (current) drug therapy; Z88.0 Allergy status to penicillin; Z91.011 Allergy to milk products; Z86.018 Personal history of other benign neoplasm; Z86.73 Personal history of transient ischemic attack (TIA), and cerebral infarction without residual deficits; Z87.891 Personal history of nicotine dependence

== ENCOUNTER → 2020-01-22 | Outpatient (CLI) | payer MEDICARE ==
[~2020-01-22] MED LIST changes: +GASTROGRAFIN SOLUTION 30ML (Q9963) As Ordered ONE; +ISOVUE-370 76% 100ML VIAL As Ordered ONE; -NS 1,000 ML IV ONE
[2020-01-22 13:47] LABS: BASO # 0.1 10^3/uL (0.0-0.2); BASO % 0.4 % (0.0-1.0); EOS # 0.1 10^3/uL (0.0-0.5); EOS % 0.6 % (0.0-3.0); HEMOGLOBIN 12.1 g/dl (12.0-15.5); LYMPH # 1.4 10^3/uL (1.5-5.0); LYMPH % 11.8 % (24.0-44.0); MEAN CORPUSCULAR HEMOGLOBIN 28.6 pg (27.0-33.0); MEAN CORPUSCULAR VOLUME 92.2 fl (80.0-96.0); MONO # 0.8 10^3/uL (0.0-0.8); MONO % 6.5 % (0.0-5.0); NEUTROPHILS # 9.4 10^3/uL (1.5-8.5); NEUTROPHILS % 80.1 % (36.0-66.0); PLATELET COUNT, AUTOMATED 339 10^3/uL (150-450); RED BLOOD COUNT 4.23 10^6/uL (4.00-5.40); WHITE BLOOD COUNT 11.8 10^3/uL (4.0-10.0)
[2020-01-22 14:10] LABS: ALBUMIN 3.3 GM/DL (3.2-5.2); BILIRUBIN,DIRECT 0.2 MG/DL (0.0-0.2); CREATININE FOR GFR 1.24 MG/DL (0.55-1.30); GLOMERULAR FILTRATION RATE 44.7 (>39)
--- NOTE | 2020-01-22 14:55 | REP ---
INDICATION: MALIGNANT NEOPLASM OF ASCENDING COLON. COMPARISON: None TECHNIQUE: 100 cc Isovue 370 and oral bowel preparatory contrast administration FINDINGS: The liver, spleen, pancreas, adrenal glands, and right kidney are within normal limits. There is left renal cortical scarring. The abdominal aorta and para-aortic regions are within normal limits. There is no free fluid or free air. There is no evidence of an intraabdominal mass or adenopathy. There is cholelithiasis. There is abnormal air density within the uterus, probably endometrial cavity. An endometrial cavitary lesion cannot be ruled out. Bone window technique throughout the examination shows bones of a demineralized with chronic spinal, hip, sacroiliac joint degenerative changes. IMPRESSION: 1. Chronic left renal scarring. 2. Abnormal appearing uterus, as described above, and for which pelvic ultrasonography is recommended. 3. Cholelithiasis <Electronically signed by Escobar Fair > 01/22/20 [id number]
--- NOTE | 2020-01-22 15:12 | REP ---
INDICATION: MALIGNANT NEOPLASM OF ASCENDING COLON. COMPARISON: 01/31/2013 the latest prior TECHNIQUE: 100 cc Isovue 370 FINDINGS: There is no mediastinal or hilar adenopathy. There are no pleural or pericardial effusions. The imaged osseous structures are within normal limits for the patient's age. Evaluation of the lung osman shows a new ground-glass opacity in the left lower lobe which measures 1.1 cm. There are no other significant changes from the prior exam. There is biapical pleuroparenchymal scarring status quo and there is cylindrical bronchiectasis also unchanged. IMPRESSION: 1. New left lower lobe ground-glass opacity, as described above. According to the revised Fleischner society criteria this is most consistent with a category 4A lesion and for which a 3 month follow-up is recommended. This is due to the fact the patient has a history of a malignant colonic neoplasm. 2. Other findings and chronic lung field changes as described above. <Electronically signed by Escobar Fair > 01/22/20 [id number]
== END ==
LOC: M RAD 12:32
PROVIDERS: ATTEND Internal Medicine Gastroenterology
DX: C18.2 Malignant neoplasm of ascending colon (principal); R91.8 Other nonspecific abnormal finding of lung field; K80.20 Calculus of gallbladder without cholecystitis without obstruction
CPT/HCPCS: 36415; 71260; 74177; 80076; 82378; 82565; 84520; 85025; Q9963; Q9967

== ENCOUNTER → 2020-01-28 | Outpatient (CLI) | payer MEDICARE ==
[~2020-01-28] MED LIST changes: -GASTROGRAFIN SOLUTION 30ML (Q9963) As Ordered ONE; -ISOVUE-370 76% 100ML VIAL As Ordered ONE
[2020-01-28 15:40] LABS: BLOOD UREA NITROGEN 14 MG/DL (7-18); CALCIUM LEVEL 9.3 MG/DL (8.8-10.2); CARBON DIOXIDE LEVEL 28 MEQ/L (21-32); CHLORIDE LEVEL 110 MEQ/L (98-107); CREATININE FOR GFR 0.86 MG/DL (0.55-1.30); GLOMERULAR FILTRATION RATE > 60.0 (>39); GLUCOSE, FASTING 92 MG/DL (70-100); POTASSIUM SERUM 3.3 MEQ/L (3.5-5.1); SODIUM LEVEL 144 MEQ/L (136-145)
[2020-01-28 15:50] LABS: TOTAL 25(OH) VITAMIN D 33.7 NG/ML (30.0-100.0)
== END ==
LOC: M LAB 14:00
PROVIDERS: ATTEND Internal Medicine Endocrinology, Diabetes & Metabolism
DX: M81.0 Age-related osteoporosis without current pathological fracture (principal); E55.9 Vitamin D deficiency, unspecified

== ENCOUNTER 2020-02-03 15:36 | Outpatient (CLI) | payer MEDICARE ==
[~2020-02-03] VITALS: Ht 162.6 cm; Wt 74.8 kg
[~2020-02-03 15:36] MED LIST changes: +ZOLEDRONIC ACID 5 MG in IV 1 EA IV ONE
[2020-02-03 16:26] VITALS: BP 116/57
[2020-02-05] MEDS ORDERED: SUCR1TAB56 PO (09:24)
== END 2020-02-03 16:30 | disposition home or self-care (01) ==
LOC: M INFU 15:36
PROVIDERS: ATTEND Internal Medicine Endocrinology, Diabetes & Metabolism
DX: M81.0 Age-related osteoporosis without current pathological fracture (principal); Z88.0 Allergy status to penicillin
CPT/HCPCS: 96365; J3489

== ENCOUNTER → 2020-02-07 | Outpatient (CLI) | payer MEDICARE ==
[~2020-02-07] MED LIST changes: +SUCR1TAB56 PO; -ZOLEDRONIC ACID 5 MG in IV 1 EA IV ONE
== END ==
LOC: M LABSMTC 12:30
PROVIDERS: ATTEND Anesthesiology
DX: Z20.828 Contact with and (suspected) exposure to other viral communicable diseases (principal)

== ENCOUNTER 2020-02-12 08:15 | Inpatient (IN) | payer MEDICARE ==
[~2020-02-12] VITALS: Ht 170.2 cm; Wt 70.2 kg
[2020-02-12] VITALS (8 sets, daily range): BP systolic 115–128; BP diastolic 61–81; O2SAT 98
[~2020-02-12 08:15] MED LIST changes: +ALVIMOPAN 12 MG CAPSULE (ENTEREG) PO ONE; +HEPARIN SOD (PORCINE) 5000UNITS/ML 1ML VIAL/SYRINGE SQ ONE; +LR 1,000 ML IV ONE; +LevoFLOXacin IV 500 MG in IV 1 EA IV ONE; +metroNIDAZOLE 500 MG in IV 1 EA IV ONE
[2020-02-12] MEDS ORDERED: BUPIVACAINE HCL 0.25% 30ML VIAL As Ordered ONE (09:57)
[2020-02-12] MEDS ORDERED: BUPIVACAINE LIPOSOME/PF 1.3% 20ML VIAL (13.3MG/ML)(EXPAREL)(C9290 PER1MG) As Ordered ONE (09:57)
[2020-02-12] MEDS ORDERED: LIDOCAINE 1% SDV 30ML VIAL As Ordered ONE (09:57)
[2020-02-12] MEDS ORDERED: BUPIVACAINE HCL 0.25% 10ML VIAL As Ordered ONE ×2 (09:57→09:58)
[2020-02-12] MEDS ORDERED: MIDAZOLAM INJ 2MG/2ML VIAL (J2250 PER 1MG) As Ordered ONE (10:30)
[2020-02-12] MEDS ORDERED: dexameTHASONE 4 MG/ML 1ML VIAL (J1100 PER 1MG) As Ordered ONE (10:30)
[2020-02-12] MEDS ORDERED: ROCURONIUM BROMIDE 50 MG/5 ML VIAL As Ordered ONE (10:30)
[2020-02-12] MEDS ORDERED: ONDANSETRON 4MG/2ML VIAL As Ordered ONE (10:30)
[2020-02-12] MEDS ORDERED: METOCLOPRAMIDE INJ 10MG/2ML VIAL (J2765 PER 1) As Ordered ONE (10:30)
[2020-02-12] MEDS ORDERED: SUGAMMADEX SODIUM 500 MG/5 ML VIAL (BRIDION) As Ordered ONE (10:30)
[2020-02-12] MEDS ORDERED: fentaNYL 250 MCG/5 ML INJECTION (J3010) As Ordered ONE (10:30)
[2020-02-12] MEDS ORDERED: propofoL 200 MG/20 ML VIAL As Ordered ONE (10:30)
[2020-02-12] MEDS ORDERED: LIDOCAINE 2% 100MG/5ML SDV (FOR ANES.) As Ordered ONE (10:30)
[2020-02-12] MEDS ORDERED: METOPROLOL 5 MG/5 ML VIAL As Ordered ONE (10:33)
[2020-02-12] MEDS ORDERED: ACETAMINOPHEN 1000MG 100ML IV BTL (OFIRMEV) (J0131 PER 10MG) As Ordered ONE (10:57)
[2020-02-12] MEDS ORDERED: HYDROmorphone HCL 2 MG/ML 1ML VIAL (J1170) As Ordered ONE (12:50)
[2020-02-12] MEDS: LR 1,000 ML IV SCH (14:41)
[2020-02-12] MEDS ORDERED: KETOROLAC 30 MG/ML 1ML VIAL IV PRN (14:45)
[2020-02-12] MEDS ORDERED: ONDANSETRON 4MG/2ML VIAL IV PRN (14:45)
[2020-02-12] MEDS ORDERED: PERCOCET 5MG/325MG TAB PO PRN (14:45)
[2020-02-12] MEDS ORDERED: MORPHINE 2 MG/ML 1ML VIAL (J2270) IV PRN (14:45)
--- NOTE | 2020-02-12 15:44 | ROOPDOC ---
[facility] Report Of Operation Report of Operation DATE OF PROCEDURE: 02/12/20 PREPROCEDURE DIAGNOSES: ascending colon malignancy. POSTPROCEDURE DIAGNOSES: ascending colon malignancy. PROCEDURE: Robotic assisted Laparoscopic Right hemicolectomy. SURGEON: Virgil Barajas MD RAGS LABORER: Marifer Montana NP assisted me with placement of ports, management of the instruments and robotic arms on the field when I was at the surgeon's console, extraction of the specimen and closure of all ports. ANESTHESIA: Gen. endotracheal anesthesia. ESTIMATED BLOOD LOSS: Approximately 40 mL. COMPLICATIONS: None. SPECIMEN: right colon. PROCEDURE NOTE: Patient is a 79-year-old female with iron deficiency anemia found to have adenocarcinoma on her descending colon, here today for right colectomy after negative metastatic workup DESCRIPTION OF PROCEDURE: The patient was brought to the operating room and placed supine on the operating table. Levaquin 500 mg IV and metronidazole 500 mg IV were administered prior to incision for prophylaxis. After induction of general endotracheal anesthesia, she was placed supine with both arms tucked on her sides with the pressure points padded. She received 5000 units of heparin preoperatively subcutaneously for DVT prophylaxis as well as compression boots and SHARITA stockings in both lower extremities. A Yancey catheter was inserted.Time- outs were performed using both preinduction and pre-incision safety checklists to verify correct patient, procedure, site, and additional critical information prior to beginning the procedure. A Veress needle was introduced into the abdominal cavity at the patient's lperiumbilical area. Intra-abdominal placement confirmed with saline drop technique . and pneumoperitoneum to a pressure of 15 mmHg was achieved. Under direct visualization with the laparoscope an 8 mm robotic trocar was placed at the infraumbilical area. The area underneath the insertion point was inspected for injury, none was found. She was positioned on a 10 Trendelenburg position, tilted towards the left side to create space over the right lower and right upper quadrant area. 3 other working ports were arranged in a oblique configuration from the left upper quadrant area to the suprapubic area with a 12 mm stapler port position at the suprapubic area at about her prior Pfannenstiel incision. A 5 mm assist port was placed at the LLQ area. The [employer] robot tower was maneuvered in place over the patient's right side. The trochars were docked onto the robot arms. A 30 8 mm robotic laparoscopic port was used for the procedure along with a forced bipolar forceps, tips up fenestrated forceps and a Synchroseal energy device.. I scrubbed and perform the surgery at the surgeon's console while my orthodontic assistant remained on the field to manage the robot arms and instruments. The right colon looks distended. The location of the tumors noted just above the cecum with puckering and thickening of the wall and slight adhesion to the small bowel/terminal ileal mesentery. There are a few omental adhesions to the right side of the colon. The liver appears smooth contour, no noticeable masses found. The peritoneum likewise has no nodularities or peritoneal studding. The mesentery is bulky. The small bowel was retracted away from the center and right side of the abdomen. I started with a medial to lateral approach opening up the peritoneum along the anticipated line of the ileocecal vessels by tenting the cecum anteriorly to locate the ileocecal vessels. I then went underneath the ileocecal vessels to lift the right colon mesentery off the duodenum proceeding superiorly and to the right upper quadrant towards the hepatic flexure. The ileocolic vessel was circumferentially dissected sweeping the fat and mesentery centrally. This was clipped 3 times and then divided. I then continued blunt dissection lifting the right colon mesentery away from the duodenum and retroperitoneal structures. Once I reached underneath the transverse colon and hepatic flexure, a piece of cottonoid was left in place for later identification. The omentum was dissected free of the transverse colon starting at the midline going towards the hepatic flexure. With the colon being pulled inferiorly the gastrocolic ligament as well as the attachments of the transverse colon and hepatic flexure to the retroperitoneum was divided to release the hepatic flexure aided by and identification of the cottonoid that was left in place. I then proceeded laterally freeing up the attachments of the hepatic flexure and ascending colon and cecum to the lateral abdominal wall along the white line of Toldt. Also proceeded freeing up the lateral as well as the retroperitoneal attachments of the terminal ileum. I then came back from the divided ileocolic vessels and proceeded taking the mesentery towards the terminal ileum. The chosen site roughly about 7 or 8 cm from the terminal ileum and clear to mesentery of this. This was then divided with a 45 mm taper over the blue load. I then came back towards the mesenteriy towards the transverse colon dividing this with the Synchroseal proceeding to the transverse colon. The rest of the omental attachments, gastrocolic attachments of the mesentery of the transverse colon was cleared off and this was divided with another 45 mm stapler with blue load. I used ICG given intravenously to check for adequate perfusion at the site of resection of the transverse colon. The edge of the staple load was reinforced with a single stitch of 3-0 Vicryl. The left over attachments of the right colon to the retroperitoneum and the right upper quadrant was then released. The right colon was placed temporarily above the liver. Area of dissection was then irrigated and checked for hemostasis. I had to free up further the distal ileum from the lateral and retroperi toneal attachments to get it to reach over the lower epigastric area and aligned this with the transverse colon. The attachments of the omentum was further released along were the anastomosis is going to occur. The stump of the distal ileum and the transverse colon was aligned for an isoperistaltic [id number] anastomosis. A single stitch of 3-0 silk was used the left of the transverse colon and distal ileum together. Enterotomies were made with a pair of laparoscopic scissors. A 45 mm stapler was then used to create the [id number] anastomosis. The anastomoses were checked for bleeding and adequacy. This appears healthy. The enteral colotomy was then closed with a 12 inch to hold the lump which I ran from the inferior most portion of the anastomosis going towards the superior most portion of the anastomosis in a continuous Jhonatan fashion and coming back inferiorly for second layer of anastomosis in a continuous Lembert fashion. The closure of the enteral colotomy was checked under water seems to be adequate. I evaluated the mesenteric defect and this is quite wide and not amenable to closure. I scrubbed back in. The 12 mm port was removed and then sewn incision roughly about 4 cm was created along the suprapubic port for extraction. An Edenilson wound protector was placed. The right colon was retrieved and extracted without difficulty. The incision was then closed in 2 layers with 2-0 Vicryl at the level of the peritoneum and posterior sheath and 0 stratafix to close the anterior fascia. The abdomen was deflated. The ports were removed. Rest of the incisions was closed with 4-0 Monocryl in subsequent fashion. The skin incision over the extraction site was closed with 4-0 Monocryl in a running subcuticular fashion. Dermabond was used for postoperative dressing. Patient tolerated the procedure well. She was promptly awakened, extubated and brought to recovery room in stable condition. VIRGIL BARAJAS MD Feb 12, 2020 15:44
[2020-02-12] MEDS ORDERED: NALOXONE INJ 0.4MG/1ML VIAL (J2310 PER 1MG) IV STA ×2 (16:49→16:58)
[2020-02-12] MEDS: HEPARIN SOD (PORCINE) 5000UNITS/ML 1ML VIAL/SYRINGE SC SCH (21:17)
[2020-02-12] MEDS: FERROUS SULFATE 325MG TAB PO SCH (21:17)
[2020-02-12] MEDS: ALVIMOPAN 12 MG CAPSULE (ENTEREG) PO SCH (21:18)
[2020-02-12] MEDS: CALCIUM/VITAMIN D 500 MG TAB PO SCH (21:18)
[2020-02-12] MEDS: PANTOPRAZOLE 40MG TAB (PROTONIX) PO SCH (21:18)
[2020-02-12] MEDS: BACLOFEN 10 MG TAB PO SCH (21:19)
[2020-02-12] MEDS: METOPROLOL TART 25 MG TABLET PO SCH (21:20)
[2020-02-13] MEDS: LR 1,000 ML IV SCH ×2 (01:26→08:48)
[2020-02-13 02:00] VITALS: BP 124/69
[2020-02-13] MEDS: HEPARIN SOD (PORCINE) 5000UNITS/ML 1ML VIAL/SYRINGE SC SCH ×3 (05:22→22:32)
[2020-02-13 06:00] VITALS: BP 117/68; O2SAT 95
[2020-02-13 06:30] LABS: BASO % 0.3 % (0.0-1.0); HEMATOCRIT 31.9 % (36.0-47.0); HEMOGLOBIN 9.2 g/dl (12.0-15.5); LYMPH # 1.6 10^3/uL (1.5-5.0); MEAN CORPUSCULAR HEMOGLOBIN 26.8 pg (27.0-33.0); MEAN CORPUSCULAR HGB CONC 28.8 g/dl (32.0-36.5); MONO % 10.5 % (0.0-5.0); NEUTROPHILS # 6.6 10^3/uL (1.5-8.5); NEUTROPHILS % 71.6 % (36.0-66.0); PLATELET COUNT, AUTOMATED 428 10^3/uL (150-450); RED BLOOD COUNT 3.43 10^6/uL (4.00-5.40); WHITE BLOOD COUNT 9.3 10^3/uL (4.0-10.0)
[2020-02-13 06:58] LABS: BLOOD UREA NITROGEN 9 MG/DL (7-18); CALCIUM LEVEL 7.8 MG/DL (8.8-10.2); CARBON DIOXIDE LEVEL 22 MEQ/L (21-32); CHLORIDE LEVEL 117 MEQ/L (98-107); CREATININE FOR GFR 0.78 MG/DL (0.55-1.30); GLOMERULAR FILTRATION RATE > 60.0 (>39); GLUCOSE, FASTING 94 MG/DL (70-100); POTASSIUM SERUM 4.3 MEQ/L (3.5-5.1); SODIUM LEVEL 145 MEQ/L (136-145)
[2020-02-13] MEDS: FERROUS SULFATE 325MG TAB PO SCH ×2 (08:47→22:33)
[2020-02-13] MEDS: ATORVASTATIN 20 MG TAB PO SCH (08:47)
[2020-02-13] MEDS: ALVIMOPAN 12 MG CAPSULE (ENTEREG) PO SCH ×2 (08:47→22:32)
[2020-02-13] MEDS: PANTOPRAZOLE 40MG TAB (PROTONIX) PO SCH ×2 (08:47→22:32)
[2020-02-13] MEDS: CALCIUM/VITAMIN D 500 MG TAB PO SCH ×2 (08:47→22:32)
[2020-02-13] MEDS: VITAMIN D 1,000 INTERNATIONAL UNITS TABLET PO SCH (08:47)
[2020-02-13] MEDS: amLODIPine 5 MG TAB PO SCH (08:48)
[2020-02-13] MEDS: FLUoxetine 20 MG CAP PO SCH (08:48)
[2020-02-13] MEDS: METOPROLOL TART 25 MG TABLET PO SCH ×2 (08:48→22:34)
[2020-02-13] MEDS: BACLOFEN 10 MG TAB PO SCH ×2 (08:48→22:33)
[2020-02-13] MEDS ORDERED: PREVNAR 13 VACCINE SYRINGE IM ONE (09:00)
--- NOTE | 2020-02-13 09:07 | IPNPDOC ---
Text Note Date of Service The patient was seen on 02/13/20. NOTE Patient is postop day 1 following robotic-assisted laparoscopic right colectomy for ascending colon malignancy. Perioperatively she was slow to wake up and needed a couple doses of Narcan after she got into the room for decreased respiratory rate to about 8 which woke her up. Overnight she was stable. She was wide awake this morning when I saw her. She reports minimal discomfort over the right side of her abdomen. She denies any nausea, vomiting, bloating. No flatus yet. No other events postoperatively. Vital signs stable. MAXIMUM TEMPERATURE 99 80 15 117/68 95% at 2 L nasal cannula 1 On examination Patient sitting up on the bed, awake, alert, oriented Looks comfortable No jugular venous distention Lung sounds clear anteriorly, slightly decreased both basal areas, no wheezing Heart rate 80s Abdomen is mildly distended, soft. Port site incisions are clean dry and intact. Extraction site with mild bruising. Minimally tender on palpation at the incision also at the right lower quadrant, no guarding Impression and plan Postop day 1 robotic-assisted laparoscopic right colectomy for ascending colon malignancy Overall doing well. I'll advance her diet. Saline lock IV fluid. We will engage physical therapy early to get her mobilized. PHIL Yancey today. Continue to hold her Xarelto for now Heparin 5000 units every 8 hours for DVT prophylaxis VS,Kiranbone, I+O VS, Fishbone, I+O Laboratory Tests 02/13/20 05:20 Vital Signs Date Time Temp Pulse Resp B/P (MAP) Pulse Ox O2 Delivery O2 Flow Rate FiO2 02/13/20 06:00 99.0 80 15 117/68 (84) 94 Nasal Cannula 2.0 I&O- Last 24 Hours up to 6 AM 02/13/20 06:00 Intake Total 6950 ml Output Total 740 ml Balance 6210 ml MYLES DUNBAR MD Feb 13, 2020 09:07
[2020-02-13 10:00] VITALS: BP 110/66
[2020-02-13] MEDS: ACETAMINOPHEN TAB 650MG DOSE (2X325MG) PO PRN (10:05)
[2020-02-13 14:00] VITALS: BP 103/63
[2020-02-13 18:00] VITALS: BP 126/78
[2020-02-13 22:00] VITALS: BP 137/68
[2020-02-14] VITALS (7 sets, daily range): BP systolic 94–142; BP diastolic 54–68; O2SAT 92
[2020-02-14] MEDS: HEPARIN SOD (PORCINE) 5000UNITS/ML 1ML VIAL/SYRINGE SC SCH ×3 (05:02→21:01)
[2020-02-14 06:14] LABS: BASO % 0.5 % (0.0-1.0); EOS # 0.1 10^3/uL (0.0-0.5); EOS % 1.1 % (0.0-3.0); HEMATOCRIT 31.2 % (36.0-47.0); HEMOGLOBIN 9.4 g/dl (12.0-15.5); LYMPH % 25.2 % (24.0-44.0); MEAN CORPUSCULAR HEMOGLOBIN 27.3 pg (27.0-33.0); MEAN CORPUSCULAR HGB CONC 30.1 g/dl (32.0-36.5); MEAN CORPUSCULAR VOLUME 90.7 fl (80.0-96.0); MONO # 0.9 10^3/uL (0.0-0.8); MONO % 11.5 % (0.0-5.0); NEUTROPHILS # 4.9 10^3/uL (1.5-8.5); NEUTROPHILS % 61.4 % (36.0-66.0); PLATELET COUNT, AUTOMATED 398 10^3/uL (150-450); RED BLOOD COUNT 3.44 10^6/uL (4.00-5.40); WHITE BLOOD COUNT 7.9 10^3/uL (4.0-10.0)
[2020-02-14 06:37] LABS: BLOOD UREA NITROGEN 7 MG/DL (7-18); CALCIUM LEVEL 8.5 MG/DL (8.8-10.2); CARBON DIOXIDE LEVEL 25 MEQ/L (21-32); CHLORIDE LEVEL 113 MEQ/L (98-107); CREATININE FOR GFR 0.92 MG/DL (0.55-1.30); GLOMERULAR FILTRATION RATE > 60.0 (>39); GLUCOSE, FASTING 90 MG/DL (70-100); POTASSIUM SERUM 3.7 MEQ/L (3.5-5.1); SODIUM LEVEL 143 MEQ/L (136-145)
[2020-02-14] MEDS: PANTOPRAZOLE 40MG TAB (PROTONIX) PO SCH ×2 (07:58→21:00)
[2020-02-14] MEDS: ALVIMOPAN 12 MG CAPSULE (ENTEREG) PO SCH ×2 (07:58→21:01)
[2020-02-14] MEDS: BACLOFEN 10 MG TAB PO SCH ×2 (07:59→21:00)
[2020-02-14] MEDS: VITAMIN D 1,000 INTERNATIONAL UNITS TABLET PO SCH (07:59)
[2020-02-14] MEDS: CALCIUM/VITAMIN D 500 MG TAB PO SCH ×2 (07:59→21:00)
[2020-02-14] MEDS: FLUoxetine 20 MG CAP PO SCH (07:59)
[2020-02-14] MEDS: ATORVASTATIN 20 MG TAB PO SCH (07:59)
[2020-02-14] MEDS: FERROUS SULFATE 325MG TAB PO SCH ×2 (07:59→21:00)
[2020-02-14] MEDS: amLODIPine 5 MG TAB PO SCH (08:00)
[2020-02-14] MEDS: METOPROLOL TART 25 MG TABLET PO SCH ×2 (08:00→21:00)
[2020-02-14] MEDS: ACETAMINOPHEN TAB 650MG DOSE (2X325MG) PO PRN (08:00)
--- NOTE | 2020-02-14 11:08 | IPNPDOC ---
Text Note Date of Service The patient was seen on 02/14/20. NOTE No acute events overnight. Patient reports she slept well. She has been tole rating solid food since yesterday. She does not report a lot of flatus but this had documented at least 2 small bowel movements. She denies any nausea, vomiting or bloating. She worked with physical therapy yesterday. She has had low-grade fever being documented intermittently. Last one was 100 at 6:00 this morning. She denies any shortness of breath though she does drop to 87% on room air and comes up accordingly above 92% when she takes deep breaths. She denies any severe abdominal discomfort. Vital signs MAXIMUM TEMPERATURE 100.3 at 10 AM yesterday 100 at 6 AM today 55 21 142/68 90% at 2 L nasal cannula On examination She was laying in the bed, had recurrent pain when I entered her room and was eating some Cheerios. She appears comfortable. In no acute distress. No obvious jugular venous distention Lung sounds are clear to auscultation bilaterally mildly decreased both basal areas without wheezing or crackles Regular heart rate and rhythm Abdomen does not appear to be distended. Port site incisions are covered with Dermabond and clean dry and intact including the extraction site at the suprapubic area. No active drainage. Mild tenderness over the right lower quadrant area without rebound or guarding. No significant extremity edema Impression and plan She is now postop day 2 following robotic assisted right colectomy for ascending colon malignancy. 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 We will continue to watch her especially given the 2 episodes that her temperature was noted to be done 100 or slightly above this. Most likely secondary to atelectasis. Her sats drops which is regular breathing and increases appropriately with deep breathing. Instructed her to continue and persist on doing incentive spirometers. She will continue to work with physical therapy and they recommended outpatient physical therapy. 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 I'll continue to hold her Xarelto and keep her on heparin subcutaneous for DVT prophylaxis. VS,Fishbone, I+O VS, Fishbone, I+O Laboratory Tests 02/14/20 05:22 Vital Signs Date Time Temp Pulse Resp B/P (MAP) Pulse Ox O2 Delivery O2 Flow Rate FiO2 02/14/20 10:00 97.6 77 14 94/63 (73) 95 Room Air 02/14/20 06:00 2.0 I&O- Last 24 Hours up to 6 AM 02/14/20 06:00 Intake Total 820 ml Output Total 450 ml Balance 370 ml MYLES DUNBAR MD Feb 14, 2020 11:08
[2020-02-15 02:00] VITALS: BP 115/65
[2020-02-15] MEDS: HEPARIN SOD (PORCINE) 5000UNITS/ML 1ML VIAL/SYRINGE SC SCH (05:49)
[2020-02-15 06:00] VITALS: BP 116/65
[2020-02-15 07:09] LABS: BASO % 0.4 % (0.0-1.0); EOS # 0.3 10^3/uL (0.0-0.5); EOS % 3.2 % (0.0-3.0); HEMATOCRIT 32.1 % (36.0-47.0); HEMOGLOBIN 9.9 g/dl (12.0-15.5); MEAN CORPUSCULAR HEMOGLOBIN 27.9 pg (27.0-33.0); MEAN CORPUSCULAR HGB CONC 30.8 g/dl (32.0-36.5); MEAN CORPUSCULAR VOLUME 90.4 fl (80.0-96.0); MONO % 12.8 % (0.0-5.0); NEUTROPHILS # 4.4 10^3/uL (1.5-8.5); NEUTROPHILS % 57.1 % (36.0-66.0); PLATELET COUNT, AUTOMATED 347 10^3/uL (150-450); RED BLOOD COUNT 3.55 10^6/uL (4.00-5.40); WHITE BLOOD COUNT 7.7 10^3/uL (4.0-10.0)
[2020-02-15 07:28] LABS: BLOOD UREA NITROGEN 7 MG/DL (7-18); CALCIUM LEVEL 8.8 MG/DL (8.8-10.2); CARBON DIOXIDE LEVEL 25 MEQ/L (21-32); CHLORIDE LEVEL 114 MEQ/L (98-107); CREATININE FOR GFR 0.78 MG/DL (0.55-1.30); GLOMERULAR FILTRATION RATE > 60.0 (>39); GLUCOSE, FASTING 89 MG/DL (70-100); POTASSIUM SERUM 3.4 MEQ/L (3.5-5.1); SODIUM LEVEL 146 MEQ/L (136-145)
[2020-02-15] MEDS: ALVIMOPAN 12 MG CAPSULE (ENTEREG) PO SCH (09:54)
[2020-02-15] MEDS: VITAMIN D 1,000 INTERNATIONAL UNITS TABLET PO SCH (09:54)
[2020-02-15] MEDS: FLUoxetine 20 MG CAP PO SCH (09:55)
[2020-02-15] MEDS: PANTOPRAZOLE 40MG TAB (PROTONIX) PO SCH ×2 (09:55→21:47)
[2020-02-15] MEDS: amLODIPine 5 MG TAB PO SCH (09:55)
[2020-02-15] MEDS: FERROUS SULFATE 325MG TAB PO SCH ×2 (09:55→21:48)
[2020-02-15] MEDS: CALCIUM/VITAMIN D 500 MG TAB PO SCH ×2 (09:55→21:47)
[2020-02-15] MEDS: METOPROLOL TART 25 MG TABLET PO SCH ×2 (09:55→21:00)
[2020-02-15] MEDS: ATORVASTATIN 20 MG TAB PO SCH (09:56)
[2020-02-15] MEDS: BACLOFEN 10 MG TAB PO SCH ×2 (09:56→21:47)
[2020-02-15 10:00] VITALS: BP 113/63
--- NOTE | 2020-02-15 13:37 | IPN ---
PROGRESS NOTE DATE: 02/15/2020 HISTORY: Patient is now postoperative day #3 from a robotic-assisted right hemicolectomy by Dr. Barajas for a right colon cancer. She has been doing well and is tolerating a low-residue diet without difficulty. She denies any significant pain and has no nausea or vomiting. Vital signs show that she has been afebrile over the past 24 hours. Pulse is in the 60s and 70s, and her blood pressure is normal. Room air oxygen saturations are normal. Intake and output show that yesterday she had 720 mL recorded in with several incontinent voids and several bowel movements recorded. PHYSICAL EXAMINATION: Patient is lying quietly in the hospital bed. She is alert and seems oriented. Skin is warm and dry. Abdomen is mildly obese. She has several healing trocar sites sealed with skin glue. There is a larger incision in the suprapubic area, which also appears to be healing well. She has bowel sounds present, and there is no undue tenderness. LABORATORY STUDIES: Today show a white count of 8, hemoglobin 10, hematocrit 32, and a platelet count of 347,000. Differential count is normal. Chemistries show a sodium 146, potassium 3.4, chloride 114, CO2 of 25, BUN of 7, creatinine 0.8, and a glucose of 89. IMPRESSION: Patient is doing very well now, 3 days postoperative from her right hemicolectomy. I reviewed the physical therapy note from yesterday, and this would suggest that the therapist felt she was somewhat unsteady on her feet ad that further therapy would be appropriate. PLAN: I will wait to see how the therapist interprets her activity level today. She can continue her regular diet. She will continue her medications, though I have stopped several that were not apparently needed at this point, including Entereg, morphine, and Toradol. I will also stop her subcutaneous heparin in anticipation of restarting her Xarelto as early as tomorrow. BUDDY
[2020-02-15 18:00] VITALS: BP 114/59
[2020-02-15 21:33] VITALS: BP 124/64
[2020-02-15 23:13] VITALS: O2SAT 94
[2020-02-16] VITALS (7 sets, daily range): BP systolic 114–126; BP diastolic 53–64; O2SAT 95
[2020-02-16] MEDS: FERROUS SULFATE 325MG TAB PO SCH ×2 (08:41→20:50)
[2020-02-16] MEDS: FLUoxetine 20 MG CAP PO SCH (08:41)
[2020-02-16] MEDS: CALCIUM/VITAMIN D 500 MG TAB PO SCH ×2 (08:41→20:50)
[2020-02-16] MEDS: VITAMIN D 1,000 INTERNATIONAL UNITS TABLET PO SCH (08:41)
[2020-02-16] MEDS: ATORVASTATIN 20 MG TAB PO SCH (08:42)
[2020-02-16] MEDS: amLODIPine 5 MG TAB PO SCH (08:42)
[2020-02-16] MEDS: PANTOPRAZOLE 40MG TAB (PROTONIX) PO SCH ×2 (08:42→20:50)
[2020-02-16] MEDS: METOPROLOL TART 25 MG TABLET PO SCH ×2 (08:42→20:49)
[2020-02-16] MEDS: BACLOFEN 10 MG TAB PO SCH ×2 (08:42→20:49)
--- NOTE | 2020-02-16 20:45 | IPN ---
PROGRESS NOTE DATE: 02/16/2020 HISTORY: Patient is now postoperative day #4 from a robotic assisted right hemicolectomy for carcinoma. She has been tolerating a diet well and reports bowel function. She denies any significant abdominal pain currently. Physical therapy apparently did not see her yesterday. On Monday, they had thought she was somewhat unsteady. VITAL SIGNS: Show that the patient has been afebrile over the past 24 hours. Her pulse is in the 60s generally. Blood pressure is good and her room air oxygen saturation is in the mid 90s. Intake and output shows 2300 in yesterday with 125 of urine recorded but several incontinent voids and several bowel movements. PHYSICAL EXAMINATION: Patient is lying quietly in the hospital bed. She is alert and appears oriented. She seems comfortable. Heart exam shows a regular rate and rhythm. Lungs are clear. The abdomen is flat. She has bowel sounds present. Her incisions are sealed with Dermabond and her wounds look clean and appear to be healing. The abdomen is soft without any undue tenderness. IMPRESSION: Patient is doing very well postoperative day #4 from her right hemicolectomy. PLAN: I discussed with the patient when she thinks she would feel comfortable going home and when the resources would be available and she thinks tomorrow. I will request a home safety evaluation from physical therapy today in anticipation of possible discharge tomorrow. She will continue with her regular diet.
[2020-02-17] MEDS: ACETAMINOPHEN TAB 650MG DOSE (2X325MG) PO PRN (00:22)
[2020-02-17 02:00] VITALS: BP 120/60
[2020-02-17 06:00] VITALS: BP 121/62
[2020-02-17] MEDS: BACLOFEN 10 MG TAB PO SCH (08:49)
[2020-02-17] MEDS: CALCIUM/VITAMIN D 500 MG TAB PO SCH (08:49)
[2020-02-17] MEDS: FERROUS SULFATE 325MG TAB PO SCH (08:49)
[2020-02-17] MEDS: FLUoxetine 20 MG CAP PO SCH (08:49)
[2020-02-17] MEDS: PANTOPRAZOLE 40MG TAB (PROTONIX) PO SCH (08:49)
[2020-02-17] MEDS: VITAMIN D 1,000 INTERNATIONAL UNITS TABLET PO SCH (08:50)
[2020-02-17] MEDS: ATORVASTATIN 20 MG TAB PO SCH (08:52)
[2020-02-17] MEDS: METOPROLOL TART 25 MG TABLET PO SCH (09:00)
[2020-02-17 09:18] VITALS: BP 120/74
[2020-02-17] MEDS: amLODIPine 5 MG TAB PO SCH (09:18)
--- NOTE | 2020-02-17 09:46 | DS.PDOC ---
Discharge Summary General Date of Admission Feb 12, 2020 at 08:15 Date of Discharge 02/17/2020 Attending Physician: MYLES DUNBAR MD Discharge Summary PROCEDURES PERFORMED DURING STAY: Robotic-assisted laparoscopic right hemicolectomy. ADMITTING DIAGNOSES: 1. Ascending colon malignancy 2. History of CVA, mild residual right sided weakness. DISCHARGE DIAGNOSES: 1. Moderately differentiated adenocarcinoma, ascending colon ([id number]) 2. History of CVA, mild residual right-sided weakness. COMPLICATIONS/CHIEF COMPLAINT: Ascending Colon Cancer. HISTORY OF PRESENT ILLNESS: Patient is brought in for a planned right colectomy with robotic and laparoscopic assistance. She was found to have a mass at the ascending colon on colonoscopy as workup for her anemia. She has never had a prior colonoscopy done.. HOSPITAL COURSE: Patient underwent robotic-assisted laparoscopic right hemicolectomy. She was stable intraoperatively. Perioperatively she was slow to wake up from general anesthesia. When she reached the floor she had to be given 2 doses of Narcan when her respiratory rate was dropping down to 6 or 8 which she responded appropriately. She was started on clear liquids the night and was advanced to a low residue diet the following day. Her perioperative course was relatively uneventful. She did have a low-grade fever at postoperative day 1 which went away by itself. The engage physical therapy to help her get back to baseline. This. PT is cleared to go home at postoperative day 4. He was tolerating regular diet and has been having bowel function. She denies any severe pain nausea or vomiting in the immediate perioperative period. Her pathology came out as T3 N1a. Her Xarelto was resumed the day prior to discharge. DISCHARGE MEDICATIONS: Please see below. ALLERGIES: Please see below. PHYSICAL EXAMINATION ON DISCHARGE: VITAL SIGNS: Please see below. GENERAL: Patient sitting up on the chair and looks very comfortable HEENT: Mild pale palpebral conjunctiva. No slurred speech. Lips and mucosa are moist. NECK: Supple, no jugular venous distention CARDIOVASCULAR EXAMINATION: Regular heart rate and rhythm without murmurs RESPIRATORY EXAMINATION: Clear breath sounds auscultation bilaterally, normal respirations ABDOMINAL EXAMINATION: Soft, nondistended. Port sites are covered with Dermabond. Extraction site is is short and so incision also covered with Dermabond. No drainage or erythema. Nontender on palpation EXTREMITIES: No significant extremity edema SKIN: Warm and dry NEUROLOGICAL EXAMINATION: Awake, alert and oriented, slight weakness over the right side of her upper and lower extremity which is baseline LABORATORY DATA: Please see below. IMAGING: None PROGNOSIS: Good ACTIVITY: As tolerated. DIET: As tolerated DISCHARGE PLAN: Patient will follow-up with me in a couple weeks. I will arrange for an outpatient referral to the [facility] given her pathology which puts her at stage IIIa for moderately differentiated adenocarcinoma of her descending colon. Metastatic workup is negative. Patient also instructed to ar range follow-up with her primary care doctor for possible adjustment of her BP medications DISPOSITION: . DISCHARGE INSTRUCTIONS: 1. As above 2. Follow-up with me in 2 weeks 3. Referral to [facility]. ITEMS TO FOLLOWUP ON ON OUTPATIENT: 1. Referral to [facility]. DISCHARGE CONDITION: Stable. TIME SPENT ON DISCHARGE: Greater than 30 minutes. Vital Signs/I&Os Vital Signs Date Time Temp Pulse Resp B/P (MAP) Pulse Ox O2 Delivery O2 Flow Rate FiO2 02/17/20 09:18 55 120/74 02/17/20 06:00 98.0 20 94 02/16/20 20:52 Room Air 02/14/20 06:00 2.0 I&O- Last 24 Hours up to 6 AM 02/17/20 05:59 Intake Total 810 ml Output Total 0 ml Balance 810 ml Discharge Medications Scheduled Amlodipine Besylate (Amlodipine Besylate) 5 Mg Tablet, 5 MG PO DAILY Atorvastatin Calcium (Atorvastatin Calcium) 40 Mg Tablet, 40 MG PO DAILY Baclofen (Baclofen) 10 Mg Tablet, 10 MG PO BID, (Reported) Calcium Carbonate/Vitamin D3 (Os-Jean [place] 500-Vit D3 200 Caplet) 1 Each Tablet, 1 TAB PO BID, (Reported) Cholecalciferol (Vitamin D3) (Vitamin D3) 1,000 Unit Tablet, 5,000 UNITS PO DAILY, (Reported) Ergocalciferol (Vitamin D2) (Vitamin D2) 50,000 Units Cap, 50,000 UNITS PO QWEEK, (Reported) Ferrous Sulfate (Ferrous Sulfate) 325 Mg Tablet, 325 MG PO BID Fluoxetine Hcl (Fluoxetine HCl) 20 Mg Capsule, 20 MG PO DAILY Metoprolol Tartrate (Metoprolol Tartrate) 25 Mg Tablet, 25 MG PO BID Pantoprazole Sodium (Pantoprazole Sodium) 40 Mg Tablet.dr, 40 MG PO BID Rivaroxaban (Xarelto) 15 Mg Tablet, 15 MG PO DAILY Scheduled PRN Acetaminophen (Acetaminophen) 500 Mg Tablet, 1,000 MG PO Q6H PRN for PAIN, (Reported) Allergies Coded Allergies: Penicillins (Verified Allergy, Unknown, hives, 02/12/20) Protein Milk (Verified Adverse Reaction, Unknown, upset stomach , 02/12/20) MYLES DUNBAR MD Feb 17, 2020 09:46
[2020-02-17 10:00] VITALS: BP 120/65
[2020-02-17] MEDS ORDERED: RIVAROXABAN 15 MG TAB (XARELTO) PO SCH (18:00)
== END 2020-02-17 14:00 | disposition home or self-care (01) | DRG 330 ==
LOC: M OR 08:15 → M MSPAV 16:24
PROVIDERS: ADMIT Surgery; ATTEND Surgery
PROC: 07B Lymphatic and Hemic Systems, Excision (ICD-10-PCS; 2020-02-12)
PROC: 8E0W4CZ Robotic Assisted Procedure of Trunk Region, Percutaneous Endoscopic Approach (ICD-10-PCS; 2020-02-12)
PROC: 0DBF4ZZ Excision of Right Large Intestine, Percutaneous Endoscopic Approach (ICD-10-PCS; principal; 2020-02-12 09:45)
DX: C18.2 Malignant neoplasm of ascending colon (principal); C77.2 Secondary and unspecified malignant neoplasm of intra-abdominal lymph nodes; I69.351 Hemiplegia and hemiparesis following cerebral infarction affecting right dominant side; Z79.01 Long term (current) use of anticoagulants; Z79.899 Other long term (current) drug therapy; Z88.0 Allergy status to penicillin; Z91.011 Allergy to milk products

== ENCOUNTER → 2020-04-01 | Outpatient (CLI) | payer MEDICARE ==
[~2020-04-01] MED LIST changes: -ALVIMOPAN 12 MG CAPSULE (ENTEREG) PO ONE; -HEPARIN SOD (PORCINE) 5000UNITS/ML 1ML VIAL/SYRINGE SQ ONE; +LIDOCAINE 1% MDV 20ML VIAL As Ordered ONE; -LR 1,000 ML IV ONE; -LevoFLOXacin IV 500 MG in IV 1 EA IV ONE; +MIDAZOLAM INJ 2MG/2ML VIAL (J2250 PER 1MG) As Ordered ONE; +VANCOMYCIN 500MG/10ML VIAL As Ordered ONE; +diphenhydrAMINE 50MG/ML VIAL (J1200) As Ordered ONE; +fentaNYL 100 MCG/2 ML INJECTION (J3010) As Ordered ONE; -metroNIDAZOLE 500 MG in IV 1 EA IV ONE
--- NOTE | 2020-04-01 14:50 | IRHP ---
[facility] IR Pre-Procedure H & P General Date of Service: Apr 01, 2020 Procedure: Same Day Surgery Interval History and Physical I have seen the patient and reviewed last H & P performed within 30 days. There is no significant interval change. History of Present Illness Chief Complaint The patient is a 79-year-old female admitted with a reason for visit of Colon Ca. PRE-PROCEDURE DIAGNOSIS: colon cancer HEART: normal rate LUNGS: normal breathing at rest ASA Classification ASA Classification: III-Severe systemic dis. Mallampati Score: II NPO: Yes Problems with prior sedation: No Obstructive Sleep Apnea: No Plan moderate sedation Allergies Coded Allergies: Penicillins (Verified Allergy, Unknown, hives, 02/12/20) Protein Milk (Verified Adverse Reaction, Unknown, upset stomach , 02/12/20) Home Medications Scheduled Amlodipine Besylate (Amlodipine Besylate), 5 MG PO DAILY Atorvastatin Calcium (Atorvastatin Calcium), 40 MG PO DAILY Baclofen (Baclofen), 10 MG PO BID, (Reported) Calcium Carbonate/Vitamin D3 (Os-Jean [place] 500-Vit D3 200 Caplet), 1 TAB PO BID, (Reported) Cholecalciferol (Vitamin D3) (Vitamin D3), 5,000 UNITS PO DAILY, (Reported) Ferrous Sulfate (Ferrous Sulfate), 325 MG PO BID Fluoxetine Hcl (Fluoxetine HCl), 20 MG PO DAILY Metoprolol Tartrate (Metoprolol Tartrate), 25 MG PO BID Pantoprazole Sodium (Pantoprazole Sodium), 40 MG PO BID Rivaroxaban (Xarelto), 15 MG PO DAILY Scheduled PRN Acetaminophen (Acetaminophen), 1,000 MG PO Q6H PRN for PAIN, (Reported) VS, I&O, 24H, Fishbone Vital Signs/I&O Vital Signs Date Time Temp Pulse Resp B/P (MAP) Pulse Ox O2 Delivery O2 Flow Rate FiO2 04/01/20 13:40 98.8 48 18 98 Room Air JESICA MORA MD Apr 01, 2020 14:50
[2020-04-01 15:50] VITALS: BP 164/77
--- NOTE | 2020-04-02 14:33 | POST-OPPD ---
Postoperative Procedure Note Date Of Procedure: Apr 01, 2020 Time Of Procedure: 16:00 IR Ultrasound and fluoroscopy guided port placement. IR Ultrasound of the neck. IR Moderate sedation. Clinical indication: Colon cancer. Physician: Dr. Quan. Procedure: The patient was advised of the benefits, risks, and alternatives of the procedure and informed consent was obtained. A time-out was performed with verification of the patient's name, MRN, site of procedure and type of procedure to be performed. The patient was positioned in the supine position on the angiographic table. The site was prepped and draped in the usual sterile fashion. Moderate sedation was not required. The physician spent 45 minutes of continuous face to face time with the patient. Ultrasound of the neck reveals a patent and compressible right internal jugular vein. A central sterile tech radiograph reveals a device. Patient states she has a loop recorder. The neck and anterior chest wall were anesthetized with lidocaine. The right internal jugular vein was accessed using a microintroducer needle under ultrasound guidance, via a lateral approach. An 018 wire was advanced into the superior vena cava, the needle was removed and a microsheath was placed. An Amplatz wire was then passed into the inferior vena cava. An incision at the internal jugular vein access site and anterior chest wall were made using a scalpel. An incision was made at the anterior chest wall. A small pocket was created using a combination of blunt and sharp dissection. A tunneling device was then used to pass the catheter from the pocket to the neck puncture site. An 8- Yi Angio dynamics Smart power port was then positioned in the pocket. The catheter was then measured and cut. The introducer sheath was exchanged for a peel-away sheath. The catheter was passed through the peel-away sheath into the internal jugular vein and the peel-away sheath was removed. The port tip was positioned at the cavoatrial junction. The port was then accessed with a Ga needle. The port flushes and aspirates well. The puncture site in the neck was closed. The chest wall incision was then closed with 2-0 Vicryl and 4-0 Monocryl. Glue and Steri- Strips were applied. A sterile dressing was then applied. The patient tolerated the procedure well and was returned to the PRU in stable condition. Estimated blood loss: <5 ml. Complications: None. Conclusion: 1. Successful placement of an 8-Yi Angio dynamics Smart power port via the right internal jugular vein. The port is ready for immediate use. 2. Patient to follow up in IR clinic in 2 weeks. Thank you for this referral. JESICA QUAN MD Apr 02, 2020 14:33
== END ==
LOC: M IRPRO 12:26
PROVIDERS: ATTEND Radiology Diagnostic Radiology
DX: C18.9 Malignant neoplasm of colon, unspecified (principal)
CPT/HCPCS: 36561; C1769; C1788; C1894; J1642; J1644; J2250; J3010; J3370

== ENCOUNTER → 2020-04-14 | Outpatient (POV) | payer MEDICARE ==
[~2020-04-14] MED LIST changes: -LIDOCAINE 1% MDV 20ML VIAL As Ordered ONE; -MIDAZOLAM INJ 2MG/2ML VIAL (J2250 PER 1MG) As Ordered ONE; -VANCOMYCIN 500MG/10ML VIAL As Ordered ONE; -diphenhydrAMINE 50MG/ML VIAL (J1200) As Ordered ONE; -fentaNYL 100 MCG/2 ML INJECTION (J3010) As Ordered ONE
--- NOTE | 2020-04-15 12:17 | IRPN ---
[facility] IR Progress Note IR Progress Note DATE: Apr 14, 2020 Patient agreed to this telephone follow-up. I spent 5 minutes talking to the patient. FOLLOW-UP: Status post port placement. Patient states no issues with the port site. No pain, swelling, redness or discharge. The port has not been used yet. ON EXAMINATION: No video on patient side. IMPRESSION: Doing well status post port placement. No further follow-up scheduled unless initiated by patient and/or referring provider. Thank you for this referral Allergies Coded Allergies: Penicillins (Verified Allergy, Unknown, hives, 02/12/20) Protein Milk (Verified Adverse Reaction, Unknown, upset stomach , 02/12/20) JESICA MORA MD Apr 15, 2020 12:17
== END ==
LOC: M TMIRPOV 09:16
PROVIDERS: ATTEND Radiology Diagnostic Radiology
DX: Z45.2 Encounter for adjustment and management of vascular access device (principal)

== ENCOUNTER 2020-04-24 13:51 | Emergency (ER) | payer MEDICARE ==
[~2020-04-24] VITALS: Ht 170.2 cm; Wt 69.5 kg
[2020-04-24] MEDS ORDERED: NS 1,000 ML IV ONE (14:30)
--- OUTSIDE RECORDS SUMMARY | 2020-04-24 14:32 | CCD | Continuity of Care Document ---
Author Author Laura OLIVAS M.D. Organization Unknown Address [address] [place] [address] Phone [phone] Care Team Providers Care Preflight Inspector Name Role Phone [facility] G[facility] - Gastroenterology AUTM [facility] AUTM [phone] Jaye Beck MD AUTM [phone] David Mayorga AUTM [phone] Ben Harrison AUTM [phone] Virgil Barajas MD AUTM [phone] Problems Description No Information Available Social History Type Date Description Comments Sex Unknown Tobacco Use Start: Unknown Never Used Smokeless Tobacco ETOH Use Denies alcohol use Tobacco Use Start: Unknown End: Patient is a former smoker 20+ years 1/4- 1/2 ppd Recreational Drug Use Denies Drug Use Smoking Status Reviewed: 02/20/20 Patient is a former smoker 20 + years 1/4- 1/2 ppd Exercise Type/Frequency Exercises regularly Tattoo/Piercing None Sun Exposure Minimum amount of sun exposure Sun Exposure Has experienced blistering from sunburns Sun Exposure History of sunburns during child [place] Sun Exposure Does not use sunscreen Seat Belt/Car Seat Always uses seat belt Smoke Alarms Yes Smoke Alarms Carbon Monoxide Detector: Yes Allergies, Adverse Reactions, Alerts Active Allergies Reaction Severity Comments Date Penicillins Hives 09/05/2019 Lactose Abdominal pain 09/05/2019 Medications Active Medications SIG Qnty Indications Ordering Provide r Date Tylenol Extra Strength 500mg Table ts two tabs by mouth every 6 hours as needed for pain/fever Unknown 02/17/2020 Fluoxetine HCL 20mg Capsules 1 by mouth every day 90caps Betty Olivas M.D. 020 Amlodipine Besylate 5mg Tablets take one tablet by mouth every day for blood pressure 90tabs Betty Morton M.D. Ferrous Sulfate 325(65Fe) mg Table ts Take One Tablet By Mouth Twice A Day 180tabs Betty Olivas M.D. Metoprolol Tartrate 25mg Tablets take one tablet by mouth twice a day 180tabs Betty Olivas M.D. Atorvastatin Calcium 40mg Tablets take one tablet by mouth every day for cholesterol 90tabs Betty Lerner ms, M.D. Baclofen 10mg Tablets take 1 tablet by mouth twice a day 60tabs Betty Olivas M.D. Pantoprazole Sodium 40mg Tablets D R take one tablet by mouth twice a day 180tabs Betty Olivas M.D. Xarelto 15mg Tablets 1 by mouth every day 90tabs Betty Olivas M.D. Vitamin D3 5000Unit Tablets 1 by mouth every day Unknown Vitamin D3 Ultra Potency 1.25mg (58441 Ut) Tablets take one capsule by mouth once a week x 12 weeks Jaye Beck MD Calcium 500 MG one po bid Unknown History Medications Macrobid 100mg Capsules 1 by mouth twice a day 14caps N39.0 Betty Olivas M.D. 020 - 02/05/2020 Immunizations CPT Code Status Date Vaccine Lot # [id number] Given 12/09/2019 Influenza Virus Vaccine, Quadrivalent,age 3 and up,multidose vial [id number] Given 12/09/2019 Influenza Virus Vaccine, Quadrivalent,age 3 and up,multidose vial [id number] Vital Signs Date Vital Result Comment 02/20/2020 2:01pm BP Systolic 138 mmHg BP Diastolic 75 mmHg Heart Rate 55 /min Body Temperature 96.5 F Respiratory Rate 15 /min Height 67.0 inches 5'7" Weight 163.38 lb O2 % BldC Oximetry 97 % Peak Expiratory Flow Rate 338 Estimated Peak Flow Rate Tatums Body Weight 135 lb BMI (Body Mass Index) 25.6 kg/m2 02/05/2020 2:43pm BP Systolic 80 mmHg BP Diastolic 40 mmHg BP Systolic Recheck 90 mmHg BP Diastolic Recheck 43 mmHg Heart Rate 69 /min Body Temperature 97.6 F Respiratory Rate 17 /min Height 67.0 inches 5'7" Weight 164.00 lb stated wt O2 % BldC Oximetry 95 % Peak Expiratory Flow Rate 338 Estimated Peak Flow Rate Tatums Body Weight 135 lb BMI (Body Mass Index) 25.7 kg/m2 Results Test Acquired Date Facility Test Result H/L Range Note CBC With Differential 04/16/2020 [place] [address] [phone] White Blood Count 6.9 10 Normal 4.0-10.0 Red Blood Count 4.99 10 Normal 4.00-5.40 Hemoglobin 14.0 g/dL Normal 12.0-15.5 Hematocrit 43.8 % Normal 36.0-47.0 Mean Corpuscular Volume 87.8 fl Normal 80.0-96.0 Mean Corpuscular Hemoglobin 28.1 pg Normal 27.0-33.0 Mean Corpuscular HGB Conc 32.0 g/dL Normal 32.0-36.5 Red Cell Distribution Width 14.4 % Normal 11.5-14.5 Platelet Count, Automated 255 10 Normal 150-450 Neutrophils % 59.8 % Normal 36.0-66.0 Lymph % 27.1 % Normal 24.0-44.0 Routt % 7.1 % High 0.0-5.0 Eos % 5.1 % High 0.0-3.0 Baso % 0.6 % Normal 0.0-1.0 Immature Granulocyte % 0.3 % Normal 0-3.0 Nucleated Red Blood Cell % 0.0 % Normal 0-0 Neutrophils # 4.1 10 Normal 1.5-8.5 Lymph # 1.9 10 Normal 1.5-5.0 Routt # 0.5 10 Normal 0.0-0.8 Eos # 0.4 10 Normal 0.0-0.5 Baso # 0.0 10 Normal 0.0-0.2 Comprehensive Metabolic Profil 04/16/[address] [place], [place] [id number] [phone] Glucose, Fasting 135 mg/dL High 70-100 Blood Urea Nitrogen 18 mg/dL Normal 7-18 Creatinine For GFR 0.88 mg/dL Normal 0.55-1.30 Glomerular Filtration Rate > 60.0 Normal >39 1 Sodium Level 143 mEq/L Normal 136-145 Potassium Serum 3.4 mEq/L Low 3.5-5.1 Chloride Level 110 mEq/L High 98-107 Carbon Dioxide Level 26 mEq/L Normal 21-32 Anion Gap 7 mEq/L Low 8-16 Calcium Level 8.6 mg/dL Low 8.8-10.2 Ast/Sgot 22 U/L Normal 7-37 Alt/SGPT 53 U/L Normal 12-78 Alkaline Phosphatase 85 U/L Normal 45-117 Bilirubin,Total 1.0 mg/dL Normal 0.2-1.0 Total Protein 6.4 GM/DL Normal 6.4-8.2 Albumin 3.3 GM/DL Normal 3.2-5.2 Albumin/Globulin Ratio 1.1 Low 1.2-2.2 CBC With Differential 04/09/2020 [place] [address] [phone] White Blood Count 6.8 10 Normal 4.0-10.0 Red Blood Count 5.08 10 Normal 4.00-5.40 Hemoglobin 14.0 g/dL Normal 12.0-15.5 Hematocrit 45.1 % Normal 36.0-47.0 Mean Corpuscular Volume 88.8 fl Normal 80.0-96.0 Mean Corpuscular Hemoglobin 27.6 pg Normal 27.0-33.0 Mean Corpuscular HGB Conc 31.0 g/dL Low 32.0-36.5 Red Cell Distribution Width 14.6 % High 11.5-14.5 Platelet Count, Automated 262 10 Normal 150-450 Neutrophils % 59.3 % Normal 36.0-66.0 Lymph % 27.6 % Normal 24.0-44.0 Routt % 8.3 % High 0.0-5.0 Eos % 3.7 % High 0.0-3.0 Baso % 0.7 % Normal 0.0-1.0 Immature Granulocyte % 0.4 % Normal 0-3.0 Nucleated Red Blood Cell % 0.0 % Normal 0-0 Neutrophils # 4.1 10 Normal 1.5-8.5 Lymph # 1.9 10 Normal 1.5-5.0 Routt # 0.6 10 Normal 0.0-0.8 Eos # 0.3 10 Normal 0.0-0.5 Baso # 0.1 10 Normal 0.0-0.2 Comprehensive Metabolic Profil 04/09/2020 Patient [facility] [place] [address] [phone] Glucose, Fasting 90 mg/dL Normal 70-100 Blood Urea Nitrogen 16 mg/dL Normal 7-18 Creatinine For GFR 0.81 mg/dL Normal 0.55-1.30 Glomerular Filtration Rate > 60.0 Normal >39 2 Sodium Level 143 mEq/L Normal 136-145 Potassium Serum 3.9 mEq/L Normal 3.5-5.1 Chloride Level 110 mEq/L High 98-107 Carbon Dioxide Level 27 mEq/L Normal 21-32 Anion Gap 6 mEq/L Low 8-16 Calcium Level 9.4 mg/dL Normal 8.8-10.2 Ast/Sgot 13 U/L Normal 7-37 Alt/SGPT 27 U/L Normal 12-78 Alkaline Phosphatase 75 U/L Normal 45-117 Bilirubin,Total 1.0 mg/dL Normal 0.2-1.0 Total Protein 6.5 GM/DL Normal 6.4-8.2 Albumin 3.4 GM/DL Normal 3.2-5.2 Albumin/Globulin Ratio 1.1 Low 1.2-2.2 Laboratory test finding 04/09/2020 [place] [address] [phone] Carcinoembryonic Antigen 1.9 NG/ML Normal <2.5 3 PT & Aptt 03/20/2020 [place] [address] [phone] Prothrombin Time 20.0 seconds High 12.5-14.3 Inr 1.66 Normal 4 Partial Thromboplastin Time 38.6 seconds High 24.2-38.5 CBC With Differential 03/20/2020 [place] [address] [phone] White Blood Count 6.5 10 Normal 4.0-10.0 Red Blood Count 4.88 10 Normal 4.00-5.40 Hemoglobin 13.3 g/dL Normal 12.0-15.5 Hematocrit 43.6 % Normal 36.0-47.0 Mean Corpuscular Volume 89.3 fl Normal 80.0-96.0 Mean Corpuscular Hemoglobin 27.3 pg Normal 27.0-33.0 Mean Corpuscular HGB Conc 30.5 g/dL Low 32.0-36.5 Red Cell Distribution Width 14.3 % Normal 11.5-14.5 Platelet Count, Automated 272 10 Normal 150-450 Neutrophils % 50.9 % Normal 36.0-66.0 Lymph % 30.7 % Normal 24.0-44.0 Routt % 13.4 % High 0.0-5.0 Eos % 3.5 % High 0.0-3.0 Baso % 0.9 % Normal 0.0-1.0 Immature Granulocyte % 0.6 % Normal 0-3.0 Nucleated Red Blood Cell % 0.6 % High 0-0 Neutrophils # 3.3 10 Normal 1.5-8.5 Lymph # 2.0 10 Normal 1.5-5.0 Routt # 0.9 10 High 0.0-0.8 Eos # 0.2 10 Normal 0.0-0.5 Baso # 0.1 10 Normal 0.0-0.2 Comprehensive Metabolic Profil 03/20/2020 Patient S [place] [id number] [phone] Glucose, Fasting 87 mg/dL Normal 70-100 Blood Urea Nitrogen 15 mg/dL Normal 7-18 Creatinine For GFR 1.00 mg/dL Normal 0.55-1.30 Glomerular Filtration Rate 57.2 Normal >39 5 Sodium Level 144 mEq/L Normal 136-145 Potassium Serum 4.0 mEq/L Normal 3.5-5.1 Chloride Level 110 mEq/L High 98-107 Carbon Dioxide Level 30 mEq/L Normal 21-32 Anion Gap 4 mEq/L Low 8-16 Calcium Level 8.9 mg/dL Normal 8.8-10.2 Ast/Sgot 16 U/L Normal 7-37 Alt/SGPT 25 U/L Normal 12-78 Alkaline Phosphatase 92 U/L Normal 45-117 Bilirubin,Total 1.1 mg/dL High 0.2-1.0 Total Protein 6.2 GM/DL Low 6.4-8.2 Albumin 3.4 GM/DL Normal 3.2-5.2 Albumin/Globulin Ratio 1.2 Normal 1.2-2.2 Total Iron Binding Capacit 03/20/2020 [place] [address] [phone] Iron (Fe) 57 g/dL Normal 50-170 Total Iron Binding Capacity 301 g/dL Normal 250-450 Percent Saturation 18.9 % Normal 13.2-45.0 Laboratory test finding 03/20/2020 [place] [address] [phone] Carcinoembryonic Antigen 1.6 NG/ML Normal <2.5 6 Vitamin B12 & Folate 03/20/2020 [place] [address] [phone] Vitamin B12 Level 415 pg/mL Normal 7 Folate 10.9 NG/ML Normal 8 Laboratory test finding 03/20/2020 Patient Service Center [place] [id number] [phone] Ferritin 24 NG/ML Normal 8-252 Laboratory test finding 01/28/2020 [place] [address] [phone] Total 25(Oh) Vitamin D 33.7 NG/ML Normal 30.0-100. 0 Basic Metabolic Profile 01/28/2020 [place] [address] [phone] Glucose, Fasting 92 mg/dL Normal 70-100 Blood Urea Nitrogen 14 mg/dL Normal 7-18 Creatinine For GFR 0.86 mg/dL Normal 0.55-1.30 Glomerular Filtration Rate > 60.0 Normal >39 9 Sodium Level 144 mEq/L Normal 136-145 Potassium Serum 3.3 mEq/L Low 3.5-5.1 Chloride Level 110 mEq/L High 98-107 Carbon Dioxide Level 28 mEq/L Normal 21-32 Anion Gap 6 mEq/L Low 8-16 Calcium Level 9.3 mg/dL Normal 8.8-10.2 CBC With Differential 01/22/2020 [place] [address] [phone] White Blood Count 11.8 10 High 4.0-10.0 Red Blood Count 4.23 10 Normal 4.00-5.40 Hemoglobin 12.1 g/dL Normal 12.0-15.5 Hematocrit 39.0 % Normal 36.0-47.0 Mean Corpuscular Volume 92.2 fl Normal 80.0-96.0 Mean Corpuscular Hemoglobin 28.6 pg Normal 27.0-33.0 Mean Corpuscular HGB Conc 31.0 g/dL Low 32.0-36.5 Red Cell Distribution Width 13.8 % Normal 11.5-14.5 Platelet Count, Automated 339 10 Normal 150-450 Neutrophils % 80.1 % High 36.0-66.0 Lymph % 11.8 % Low 24.0-44.0 Routt % 6.5 % High 0.0-5.0 Eos % 0.6 % Normal 0.0-3.0 Baso % 0.4 % Normal 0.0-1.0 Immature Granulocyte % 0.6 % Normal 0-3.0 Nucleated Red Blood Cell % 0.0 % Normal 0-0 Neutrophils # 9.4 10 High 1.5-8.5 Lymph # 1.4 10 Low 1.5-5.0 Routt # 0.8 10 Normal 0.0-0.8 Eos # 0.1 10 Normal 0.0-0.5 Baso # 0.1 10 Normal 0.0-0.2 Liver Profile 01/22/2020 [place] [address] [phone] Ast/Sgot 13 U/L Normal 7-37 Alt/SGPT 19 U/L Normal 12-78 Alkaline Phosphatase 100 U/L Normal 45-117 Bilirubin,Total 1.0 mg/dL Normal 0.2-1.0 Bilirubin,Direct 0.2 mg/dL Normal 0.0-0.2 Total Protein 6.0 GM/DL Low 6.4-8.2 Albumin 3.3 GM/DL Normal 3.2-5.2 Albumin/Globulin Ratio 1.2 Normal 1.2-2.2 Laboratory test finding 01/22/2020 [place] [address] [phone] Blood Urea Nitrogen 18 mg/dL Normal 7-18 Creatinine With GFR 01/22/2020 [place] [address] [phone] Creatinine For GFR 1.24 mg/dL Normal 0.55-1.30 Glomerular Filtration Rate 44.7 Normal >39 1 0 Laboratory test finding 01/22/2020 [place] [address] [phone] Carcinoembryonic Antigen 1.4 NG/ML Normal <2.5 11 Laboratory test finding 12/30/2019 [facility] [phone] Urine Culture FULL REPORT IN L <SEE NOTE> Normal 12 Ua Routine 12/30/2019 [facility] [address] [place] [address] [phone] Ua Specific [place] 1.030 Ua PH 5 Ua Color yellow Ua Appera hazy Ua WBC 2+ Ua Protein 1+ Ua Glucose neg. Ua Ketones neg. Ua Bilirubin 1+ Ua Urobilinogen trace Ua Nitrite positive Ua Occult Blood neg. Basic Metabolic Profile 12/23/2019 [place] [address] [phone] Glucose, Fasting 93 mg/dL Normal 70-100 Blood Urea Nitrogen 22 mg/dL High 7-18 Creatinine For GFR 0.84 mg/dL Normal 0.55-1.30 Glomerular Filtration Rate > 60.0 Normal >39 1 3 Sodium Level 144 mEq/L Normal 136-145 Potassium Serum 4.1 mEq/L Normal 3.5-5.1 Chloride Level 115 mEq/L High 98-107 Carbon Dioxide Level 25 mEq/L Normal 21-32 Anion Gap 4 mEq/L Low 8-16 Calcium Level 9.2 mg/dL Normal 8.8-10.2 Laboratory test finding 12/23/2019 [place] [address] [phone] Total 25(Oh) Vitamin D 10.9 NG/ML Low 30.0-100. 0 1 Units are mL/min/1.73 m2 Chronic Kidney Disease Staging per NKF: Stage I & II GFR >=60 Normal to Mildly Decreased Stage III GFR 30-59 Moderately Decreased Stage IV GFR 15-29 Severely Decreased Stage V GFR <15 Very Little GFR Left ESRD GFR <15 on PROCESS VALIDATION ENGINEER 2 Units are mL/min/1.73 m2 Chronic Kidney Disease Staging per NKF: Stage I & II GFR >=60 Normal to Mildly Decreased Stage III GFR 30-59 Moderately Decreased Stage IV GFR 15-29 Severely Decreased Stage V GFR <15 Very Little GFR Left ESRD GFR <15 on PROCESS VALIDATION ENGINEER 3 THE CEA ASSAY IS PERFORMED O N THE [employer] BY CHEMILUMINESCENCE AND SHOULD NOT BE COMPARED INTERCHANGEABLY WITH OTHER METHODS. IT SHOULD NOT BE USED ALONE A SCREENING TEST OR DIAGNOSIS FOR THE PRESENCE OR ABSENCE OF MALIGNANT DISEASE. PREDICTIONS OF DISEASE RECURRENCE SHOULD NOT BE BASED SOLELY ON VALUES OBTAINED FROM SERIAL PATIENT SERUM VALUES. 4 THERAPUTIC HUMAN INR VALUES INDICATIONS NORMAL RANGES PROPHYLAXIS/TREATMENT OF: VENOUS THROMBOSIS 2.0-3.0 PULMONARY EMBOLISM 2.0-3.0 PREVENTION OF SYSTEMIC EMBOLISM FROM: TISSUE HEART VALVES 2.0-3.0 ACUTE MYOCARDIAL INFARCTION 2.0-3.0 VALVULAR HEART DISEASE 2.0-3.0 ATRIAL FIBRILLATION 2.0-3.0 MECHANICAL VALVES(HIGH RISK) 2.5-3.5 RECURRENT MYOCARDIAL INFARCTION 2.5-3.5 5 Units are mL/min/1.73 m2 Chronic Kidney Disease Staging per NKF: Stage I & II GFR >=60 Normal to Mildly Decreased Stage III GFR 30-59 Moderately Decreased Stage IV GFR 15-29 Severely Decreased Stage V GFR <15 Very Little GFR Left ESRD GFR <15 on PROCESS VALIDATION ENGINEER 6 THE CEA ASSAY IS PERFORMED O N THE [employer] BY CHEMILUMINESCENCE AND SHOULD NOT BE COMPARED INTERCHANGEABLY WITH OTHER METHODS. IT SHOULD NOT BE USED ALONE A SCREENING TEST OR DIAGNOSIS FOR THE PRESENCE OR ABSENCE OF MALIGNANT DISEASE. PREDICTIONS OF DISEASE RECURRENCE SHOULD NOT BE BASED SOLELY ON VALUES OBTAINED FROM SERIAL PATIENT SERUM VALUES. 7 VITAMIN B12 NORMAL RANGE NORMAL 247 - 911 PG/ML INDETERMINATE 211 - 246 PG/ML DEFICIENT LESS THAN 211 PG/ML 8 FOLATE NORMAL RANGE NORMAL GREATER THAN 5.4 NG/ML INDETERMINATE 3.4-5.4 NG/ML DEFICIENT LESS THAN 3.4 NG/ML 9 Units are mL/min/1.73 m2 Chronic Kidney Disease Staging per NKF: Stage I & II GFR >=60 Normal to Mildly Decreased Stage III GFR 30-59 Moderately Decreased Stage IV GFR 15-29 Severely Decreased Stage V GFR <15 Very Little GFR Left ESRD GFR <15 on PROCESS VALIDATION ENGINEER 10 Units are mL/min/1.73 m2 Chronic Kidney Disease Staging per NKF: Stage I & II GFR >=60 Normal to Mildly Decreased Stage III GFR 30-59 Moderately Decreased Stage IV GFR 15-29 Severely Decreased Stage V GFR <15 Very Little GFR Left ESRD GFR <15 on PROCESS VALIDATION ENGINEER 11 THE CEA ASSAY IS PERFORMED O N THE [employer] BY CHEMILUMINESCENCE AND SHOULD NOT BE COMPARED INTERCHANGEABLY WITH OTHER METHODS. IT SHOULD NOT BE USED ALONE A SCREENING TEST OR DIAGNOSIS FOR THE PRESENCE OR ABSENCE OF MALIGNANT DISEASE. PREDICTIONS OF DISEASE RECURRENCE SHOULD NOT BE BASED SOLELY ON VALUES OBTAINED FROM SERIAL PATIENT SERUM VALUES. 12 FULL REPORT IN LAB NOTES (eC W and [facility]). SPECIMEN APPEARS CONTAMINATED 13 Units are mL/min/1.73 m2 Chronic Kidney Disease Staging per NKF: Stage I & II GFR >=60 Normal to Mildly Decreased Stage III GFR 30-59 Moderately Decreased Stage IV GFR 15-29 Severely Decreased Stage V GFR <15 Very Little GFR Left ESRD GFR <15 on PROCESS VALIDATION ENGINEER Procedures Description No Information Available Medical Devices Description No Information Available Encounters Type Date Location Provider Dx Diagnosis Office Visit 02/20/2020 1:45p Main Office Bruna Koroma PA C18.2 Malignant neoplasm of ascending colon I10 Essential (primary) hyperten angel E78.2 Mixed hyperlipidemia D50.9 Iron deficiency anemia, unsp ecified Office Visit 02/05/2020 2:15p Main Office Bruna Koroma PA Z01.818 Encounter for other preprocedural examination C18.2 Malignant neoplasm of ascend ing colon D50.9 Iron deficiency anemia, unsp ecified I10 Essential (primary) hyperten angel E78.2 Mixed hyperlipidemia K21.9 Gastro-esophageal reflux dis ease without esophagitis Office Visit 12/30/2019 3:15p Main Office Bruna Koroma PA N39.0 Urinary tract infection, site not specified M72.2 Plantar fascial fibromatosis Office Visit 12/09/2019 1:15p Main Office Bruna Koroma PA Z00.00 Encntr for general adult medical exam w/o abnormal findings I10 Essential (primary) hyperten angel I63.9 Cerebral infarction, unspeci fied E78.2 Mixed hyperlipidemia D50.9 Iron deficiency anemia, unsp ecified M81.8 Other osteoporosis without c urrent pathological fracture Assessments Date Code Description Provider 02/20/2020 C18.2 Malignant neoplasm of ascending colon Petrancosta Bruna Derick, PA 02/20/2020 I10 Essential (primary) hypertension Petrancosta, Bruna [place], PA 02/20/2020 E78.2 Mixed hyperlipidemia Petrancosta , Bruna [place], PA 02/20/2020 D50.9 Iron deficiency anemia, unspecif ied Petrancosta, Bruna Derick, PA 02/05/2020 Z01.818 Encounter for other preprocedura l examination Petrancosta Bruna Derick, PA 02/05/2020 C18.2 Malignant neoplasm of ascending colon Petrancosta, Bruna [place], PA 02/05/2020 D50.9 Iron deficiency anemia, unspecif ied Petrancosta, Bruna [place], PA 02/05/2020 I10 Essential (primary) hypertension Petrancosta, Bruna [place], PA 02/05/2020 E78.2 Mixed hyperlipidemia Petrancosta , Bruna [place], PA 02/05/2020 K21.9 Gastro-esophageal reflux disease without esophagitis Petrancosta Bruna [place], PA 12/30/2019 N39.0 Urinary tract infection, site no t specified Petrancosta, Bruna [place], PA 12/30/2019 M72.2 Plantar fascial fibromatosis Pet rancosta, Bruna [place], PA 12/09/2019 Z00.00 Encounter for genera l adult medical examination without abnormal findings Betty Olivas M.D. 12/09/2019 Z00.00 Encounter for genera l adult medical examination without abnormal findings Petrancosta, Bruna [place], PA 12/09/2019 I10 Essential (primary) hypertension Betty Olivas M.D. 12/09/2019 I10 Essential (primary) hypertension Petrancosta, Bruna Derick, PA 12/09/2019 I63.9 Cerebral infarction, unspecified Betty Olivas M.D. 12/09/2019 I63.9 Cerebral infarction, unspecified Petrancosta, Bruna Derick, PA 12/09/2019 E78.2 Mixed hyperlipidemia Forrest Olivas M.D. 12/09/2019 E78.2 Mixed hyperlipidemia Bruna Koroma PA 12/09/2019 D50.9 Iron deficiency anemia, unspecif ied Betty Olivas M.D. 12/09/2019 D50.9 Iron deficiency anemia, unspecif ied Bruna Koroma PA 12/09/2019 M81.8 Other osteoporosis without curre nt pathological fracture Betty Olivas M.D. 12/09/2019 M81.8 Other osteoporosis without curre nt pathological fracture Bruna Koroma PA 12/09/2019 Z23 Encounter for immunization Betty Mullins ams, M.D. Plan of Treatment Future Appointment(s):* 08/26/2020 10:45 am - Bruna Koroma PA at Main Office Functional Status Functional Condition Comment Date Status Partial upper dentures Active Requires assistance with dressing Active Standard walker is used to ambulate Active Requires assistance with bathing Active Manual wheelchair is used to ambulate uses only to get in and ou t of house Active Independent with ambulating Acti ve Loop recorder Active Independent with feeding Active Independent with grooming Active Independent with standing Active Independent with toileting Activ e Dependent with all IADL's Active Mental Status Mental Condition Comment Date Status None Active Referrals Refer to Reason for Referral Status Appt Virgil Barajas MD pt had colectomy w/dr keyla ma in hosp recently but needs official referral for insurance purposes to continue follow up Closed 03/10/2020 [address] [facility] [address] [place] [address] [phone] Ben Harrison fascitis Closed 02/10/2020 [address] [place] [address] [phone] Jaye Beck MD treatment of osteoporosis. oral meds contraindicated due to hx of GI bleed Closed 12/30/2019 [facility] [address] [place] [address] [phone]
--- OUTSIDE RECORDS SUMMARY | 2020-04-24 14:32 | CCD | Continuity of Care Document ---
Author Author Laura OLIVAS M.D. Organization Unknown Address [address] [place] [address] Phone [phone] Care Team Providers Care Club Waiter/Waitress Name Role Phone [facility] Gastro - Gastroenterology AUTM [facility] AUTM [phone] Jaye Beck MD AUTM [phone] David Mayorga AUTM [phone] Ben Harrison AUTM [phone] Virgil Barajas MD AUTM [phone] Problems Description No Information Available Social History [...] by mouth every day for cholesterol 90tabs Betyt Lerner ms, M.D. Baclofen 10mg Tablets take 1 tablet by mouth twice a day 60tabs Betty Olivas M.D. Pantoprazole Sodium 40mg Tablets D R take one tablet by mouth twice a day 180tabs Betty Olivas M.D. Xarelto 15mg Tablets 1 by mouth every day 90tabs Betty Olivas M.D. Vitamin D3 5000Unit Tablets 1 by mouth every day Unknown Vitamin D3 Ultra Potency 1.25mg (77963 Ut) Tablets take one capsule by mouth once a week x 12 weeks Jaye Beck MD Calcium 500 MG one po bid Unknown History Medications Macrobid 100mg Capsules 1 by mouth twice a day 14caps N39.0 Betty Olivas M.D. 020 - 02/05/2020 Immunizations CPT Code Status Date Vaccine Lot # [id number] Given 12/09/2019 Influenza Virus Vaccine, Quadrivalent,age 3 and up,multidose vial [id number] Given 12/09/2019 Influenza Virus Vaccine, Quadrivalent,age 3 and up,multidose vial [id number] Vital Signs Date Vital Result Comment 02/20/2020 2:01pm BP Systolic 138 mmHg BP Diastolic 75 mmHg Heart Rate 55 /min Body Temperature 96.5 F Respiratory Rate 15 /min Height 67.0 inches 5'7" Weight 163.38 lb O2 % BldC Oximetry 97 % Peak Expiratory Flow Rate 338 Estimated Peak Flow Rate [place] Body Weight 135 lb BMI (Body Mass [...] Flow Rate 338 Estimated Peak Flow Rate [place] Body Weight 135 lb BMI (Body Mass Index) 25.7 kg/m2 Results Test Acquired Date Facility Test Result H/L Range Note CBC With Differential 04/16/2020 [place] [address] [phone] White Blood Count 6.9 10 Normal 4.0-10.0 [...] 36.0-66.0 Lymph % 27.1 % Normal 24.0-44.0 Callaway % 7.1 % High 0.0-5.0 Eos % 5.1 % High 0.0-3.0 Baso % 0.6 % Normal 0.0-1.0 Immature Granulocyte % 0.3 % Normal 0-3.0 Nucleated Red Blood Cell % 0.0 % Normal 0-0 Neutrophils # 4.1 10 Normal 1.5-8.5 Lymph # 1.9 10 Normal 1.5-5.0 Callaway # 0.5 10 Normal 0.0-0.8 Eos # 0.4 10 Normal 0.0-0.5 Baso # 0.0 10 Normal 0.0-0.2 Comprehensive Metabolic Profil 04/16/2020 Patient [address] [place], [place] [id number] [phone] Glucose, Fasting 135 mg/dL High 70-100 Blood [...] CBC With Differential 04/09/2020 [place] [address] [phone] White Blood Count 6.8 10 Normal 4.0-10.0 [...] 36.0-66.0 Lymph % 27.6 % Normal 24.0-44.0 Callaway % 8.3 % High 0.0-5.0 Eos % 3.7 % High 0.0-3.0 Baso % 0.7 % Normal 0.0-1.0 Immature Granulocyte % 0.4 % Normal 0-3.0 Nucleated Red Blood Cell % 0.0 % Normal 0-0 Neutrophils # 4.1 10 Normal 1.5-8.5 Lymph # 1.9 10 Normal 1.5-5.0 Callaway # 0.6 10 Normal 0.0-0.8 Eos # 0.3 10 Normal 0.0-0.5 Baso # 0.1 10 Normal 0.0-0.2 Comprehensive Metabolic Profil 04/09/2020 [facility] [place] [address] [phone] Glucose, Fasting 90 mg/dL Normal 70-100 Blood [...] 1.2-2.2 Laboratory test finding 04/09/2020 [place] [address] [phone] Carcinoembryonic Antigen 1.9 NG/ML Normal <2.5 3 PT & Aptt 03/20/2020 [place] [address] [phone] Prothrombin Time 20.0 seconds High 12.5-14.3 Inr 1.66 Normal 4 Partial Thromboplastin Time 38.6 seconds High 24.2-38.5 CBC With Differential 03/20/2020 [place] [address] [phone] White Blood Count 6.5 10 Normal 4.0-10.0 [...] 36.0-66.0 Lymph % 30.7 % Normal 24.0-44.0 Callaway % 13.4 % High 0.0-5.0 Eos % 3.5 % High 0.0-3.0 Baso % 0.9 % Normal 0.0-1.0 Immature Granulocyte % 0.6 % Normal 0-3.0 Nucleated Red Blood Cell % 0.6 % High 0-0 Neutrophils # 3.3 10 Normal 1.5-8.5 Lymph # 2.0 10 Normal 1.5-5.0 Callaway # 0.9 10 High 0.0-0.8 Eos # 0.2 10 Normal 0.0-0.5 Baso # 0.1 10 Normal 0.0-0.2 Comprehensive Metabolic Profil 03/20/2020 Patient S [place] [id number] [phone] Glucose, Fasting 87 mg/dL Normal 70-100 Blood [...] Binding Capacit 03/20/2020 [place] [address] [phone] Iron (Fe) 57 g/dL Normal 50-170 Total Iron Binding Capacity 301 g/dL Normal 250-450 Percent Saturation 18.9 % Normal 13.2-45.0 Laboratory test finding 03/20/2020 [place] [address] [phone] Carcinoembryonic Antigen 1.6 NG/ML Normal <2.5 6 Vitamin B12 & Folate 03/20/2020 [place] [address] [phone] Vitamin B12 Level 415 pg/mL Normal 7 Folate 10.9 NG/ML Normal 8 Laboratory test finding 03/20/2020 Patient Service Center [place] [id number] [phone] Ferritin 24 NG/ML Normal 8-252 Laboratory test finding 01/28/2020 [place] [address] [phone] Total 25(Oh) Vitamin D 33.7 NG/ML Normal 30.0-100. 0 Basic Metabolic Profile 01/28/2020 [place] [address] [phone] Glucose, Fasting 92 mg/dL Normal 70-100 Blood [...] With Differential 01/22/2020 [place] [address] [phone] White Blood Count 11.8 10 High 4.0-10.0 [...] 36.0-66.0 Lymph % 11.8 % Low 24.0-44.0 Callaway % 6.5 % High 0.0-5.0 Eos % 0.6 % Normal 0.0-3.0 Baso % 0.4 % Normal 0.0-1.0 Immature Granulocyte % 0.6 % Normal 0-3.0 Nucleated Red Blood Cell % 0.0 % Normal 0-0 Neutrophils # 9.4 10 High 1.5-8.5 Lymph # 1.4 10 Low 1.5-5.0 Callaway # 0.8 10 Normal 0.0-0.8 Eos # 0.1 10 Normal 0.0-0.5 Baso # 0.1 10 Normal 0.0-0.2 Liver Profile 01/22/2020 [place] [address] [phone] Ast/Sgot 13 U/L Normal 7-37 Alt/SGPT 19 U/L Normal 12-78 Alkaline Phosphatase 100 U/L Normal 45-117 Bilirubin,Total 1.0 mg/dL Normal 0.2-1.0 Bilirubin,Direct 0.2 mg/dL Normal 0.0-0.2 Total Protein 6.0 GM/DL Low 6.4-8.2 Albumin 3.3 GM/DL Normal 3.2-5.2 Albumin/Globulin Ratio 1.2 Normal 1.2-2.2 Laboratory test finding 01/22/2020 [place] [address] [phone] Blood Urea Nitrogen 18 mg/dL Normal 7-18 Creatinine With GFR 01/22/2020 [place] [address] [phone] Creatinine For GFR 1.24 mg/dL Normal 0.55-1.30 Glomerular Filtration Rate 44.7 Normal >39 1 0 Laboratory test finding 01/22/2020 [place] [address] [phone] Carcinoembryonic Antigen 1.4 NG/ML Normal <2.5 11 Laboratory test finding 12/30/2019 [facility] [phone] Urine Culture FULL REPORT IN L <SEE NOTE> Normal 12 Ua Routine 12/30/2019 [facility] [address] [place] [address] [phone] Ua Specific [place] 1.030 Ua PH 5 Ua Color yellow Ua Appera hazy Ua WBC 2+ Ua Protein 1+ Ua Glucose neg. Ua Ketones neg. Ua Bilirubin 1+ Ua Urobilinogen trace Ua Nitrite positive Ua Occult Blood neg. Basic Metabolic Profile 12/23/2019 [place] [address] [phone] Glucose, Fasting 93 mg/dL Normal 70-100 Blood [...] 8.8-10.2 Laboratory test finding 12/23/2019 [place] [address] [phone] Total 25(Oh) Vitamin D 10.9 NG/ML Low 30.0-100. 0 1 Units are mL/min/1.73 m2 Chronic Kidney Disease Staging per NKF: Stage I & II GFR >=60 Normal to Mildly Decreased Stage III GFR 30-59 Moderately Decreased Stage IV GFR 15-29 Severely Decreased Stage V GFR <15 Very Little GFR Left ESRD GFR <15 on MECHANIC 2 Units are mL/min/1.73 m2 Chronic Kidney Disease Staging per NKF: Stage I & II GFR >=60 Normal to Mildly Decreased Stage III GFR 30-59 Moderately Decreased Stage IV GFR 15-29 Severely Decreased Stage V GFR <15 Very Little GFR Left ESRD GFR <15 on MECHANIC 3 THE CEA ASSAY IS PERFORMED O N THE VideologyAUR BY CHEMILUMINESCENCE AND SHOULD NOT BE COMPARED [...] Little GFR Left ESRD GFR <15 on MECHANIC 6 THE CEA ASSAY IS PERFORMED O N THE [employer] CENTAUR BY CHEMILUMINESCENCE AND SHOULD NOT BE [...] Little GFR Left ESRD GFR <15 on MECHANIC 10 Units are mL/min/1.73 m2 Chronic Kidney Disease Staging per NKF: Stage I & II GFR >=60 Normal to Mildly Decreased Stage III GFR 30-59 Moderately Decreased Stage IV GFR 15-29 Severely Decreased Stage V GFR <15 Very Little GFR Left ESRD GFR <15 on MECHANIC 11 THE CEA ASSAY IS PERFORMED O N THE VideologyAUR BY CHEMILUMINESCENCE AND SHOULD NOT BE COMPARED [...] Little GFR Left ESRD GFR <15 on MECHANIC Procedures Description No Information Available Medical Devices [...] 02/20/2020 I10 Essential (primary) hypertension Petrancosta, Bruna [place], [place] 02/20/2020 E78.2 Mixed hyperlipidemia Petrancosta , [place]una [place], [place] 02/20/2020 D50.9 Iron deficiency anemia, unspecif ied Petrancosta, Bruna [place], [place] 02/05/2020 Z01.818 Encounter for other preprocedura l examination Petrancosta Bruna [place]ick, PA 02/05/2020 C18.2 Malignant neoplasm of ascending colon Petrancosta, Bruna [place], [place] 02/05/2020 D50.9 Iron deficiency anemia, unspecif ied Petrancosta, [place]una [place], [place] 02/05/2020 I10 Essential (primary) hypertension Petrancosta, Bruna [place], PA 02/05/2020 E78.2 Mixed hyperlipidemia Petrancosta , [place]una [place], [place] 02/05/2020 K21.9 Gastro-esophageal reflux disease without esophagitis Petrancosta [place]una [place], [place] 12/30/2019 N39.0 Urinary tract infection, site no t specified Petrancosta, Bruna [place], [place] 12/30/2019 M72.2 Plantar fascial fibromatosis Pet rancosta, Bruna [place], PA 12/09/2019 Z00.00 Encounter for genera l adult medical examination without abnormal findings Betty Olivas M.D. 12/09/2019 Z00.00 Encounter for genera l adult medical examination without abnormal findings Petrancosta, Bruna [place], PA 12/09/2019 I10 Essential (primary) hypertension Betty [...] to continue follow up Closed 03/10/2020 [address] [facility] [address] [place] [address] [phone] Ben Harrison fascitis Closed 02/10/2020 [address] [place] [address] [phone] Jaye Beck MD treatment of osteoporosis. oral meds contraindicated due to hx of GI bleed Closed 12/30/2019 [facility] [address] [place] [address] [phone]
--- OUTSIDE RECORDS SUMMARY | 2020-04-24 14:33 | CCD | Continuity of Care Document ---
Author Author Laura EVERETT PA Organization Unknown Address [address] [place] [address] Phone [phone] Care Team Providers Care Sound Installation Worker Name Role Phone [facility] Gastro - Gastroenterology AUTM [facility] AUTM [phone] Jaye Beck MD AUTM [phone] David Mayorga AUTM [phone] Ben Harrison AUTM [phone] Virgil Barajas MD AUTM [phone] Problems Description No Information Available Social History [...] 1 by mouth every day 90caps Betty Armstrong M.D. 020 Amlodipine Besylate 5mg Tablets take one tablet by mouth every day for blood pressure 90tabs Betty Morton M.D. Ferrous Sulfate 325(65Fe) mg Table ts 1 by mouth twice a day 180tabs Betty Armstrong M.D. Metoprolol Tartrate 25mg Tablets take one tablet by mouth twice a day 180tabs Betty Armstrong M.D. Atorvastatin Calcium 40mg Tablets take one tablet by mouth every day for cholesterol 90tabs Betty Lerner ms, M.D. Baclofen 10mg Tablets take 1 tablet by mouth twice a day 60tabs Betty Armstrong M.D. Pantoprazole Sodium 40mg Tablets D R take one tablet by mouth twice a day 180tabs Betty Armstrong M.D. Xarelto 15mg Tablets 1 by mouth every day 90tabs Betty Armstrong M.D. Vitamin D3 5000Unit Tablets 1 by mouth every day Unknown Vitamin D3 Ultra Potency 1.25mg (83826 Ut) Tablets take one capsule by mouth once a week x 12 weeks Jaye Beck MD Calcium 500 MG one po bid Unknown History Medications Macrobid 100mg Capsules 1 by mouth twice a day 14caps N39.0 Betty Armstrong M.D. 020 - 02/05/2020 Immunizations CPT Code Status Date Vaccine Lot # [id number] Given 12/09/2019 Influenza Virus Vaccine, Quadrivalent,age 3 and up,multidose vial [id number] Given 12/09/2019 Influenza Virus Vaccine, Quadrivalent,age 3 and up,multidose vial [id number] Vital Signs Date Vital Result Comment 02/20/2020 2:01pm BP Systolic 138 mmHg BP Diastolic 75 mmHg Heart Rate 55 /min Body Temperature 96.5 F Respiratory Rate 15 /min Height 67.0 inches 5'7" Weight 163.38 lb O2 % BldC Oximetry 97 % Peak Expiratory Flow Rate 338 Estimated Peak Flow Rate [place] Body Weight 135 lb BMI (Body Mass [...] Flow Rate 338 Estimated Peak Flow Rate [place] Body Weight 135 lb BMI (Body Mass Index) 25.7 kg/m2 Results Test Acquired Date Facility Test Result H/L Range Note Basic Metabolic Profile 01/28/2020 [place] [address] [phone] Glucose, Fasting 92 mg/dL Normal 70-100 Blood Urea Nitrogen 14 mg/dL Normal 7-18 Creatinine For GFR 0.86 mg/dL Normal 0.55-1.30 Glomerular Filtration Rate > 60.0 Normal >39 1 Sodium Level 144 mEq/L Normal 136-145 Potassium Serum 3.3 mEq/L Low 3.5-5.1 Chloride Level 110 mEq/L High 98-107 Carbon Dioxide Level 28 mEq/L Normal 21-32 Anion Gap 6 mEq/L Low 8-16 Calcium Level 9.3 mg/dL Normal 8.8-10.2 Laboratory test finding 01/28/2020 Patient Service [place], [place] [id number] [phone] Total 25(Oh) Vitamin D 33.7 NG/ML Normal 30.0-100. 0 CBC With Differential 01/22/2020 Patient Service nter [place], [place] [id number] [phone] White Blood Count 11.8 10 High 4.0-10.0 [...] 36.0-66.0 Lymph % 11.8 % Low 24.0-44.0 Hunt % 6.5 % High 0.0-5.0 Eos % 0.6 % Normal 0.0-3.0 Baso % 0.4 % Normal 0.0-1.0 Immature Granulocyte % 0.6 % Normal 0-3.0 Nucleated Red Blood Cell % 0.0 % Normal 0-0 Neutrophils # 9.4 10 High 1.5-8.5 Lymph # 1.4 10 Low 1.5-5.0 Hunt # 0.8 10 Normal 0.0-0.8 Eos # 0.1 10 Normal 0.0-0.5 Baso # 0.1 10 Normal 0.0-0.2 Liver Profile 01/22/2020 [place] [address] [phone] Ast/Sgot 13 U/L Normal 7-37 Alt/SGPT 19 U/L Normal 12-78 Alkaline Phosphatase 100 U/L Normal 45-117 Bilirubin,Total 1.0 mg/dL Normal 0.2-1.0 Bilirubin,Direct 0.2 mg/dL Normal 0.0-0.2 Total Protein 6.0 GM/DL Low 6.4-8.2 Albumin 3.3 GM/DL Normal 3.2-5.2 Albumin/Globulin Ratio 1.2 Normal 1.2-2.2 Laboratory test finding 01/22/2020 [place] [address] [phone] Blood Urea Nitrogen 18 mg/dL Normal 7-18 Creatinine With GFR 01/22/2020 [place] [address] [phone] Creatinine For GFR 1.24 mg/dL Normal 0.55-1.30 Glomerular Filtration Rate 44.7 Normal >39 2 Laboratory test finding 01/22/2020 [place] [address] [phone] Carcinoembryonic Antigen 1.4 NG/ML Normal <2.5 3 Laboratory test finding 12/30/2019 [facility] [phone] Urine Culture FULL REPORT IN L <SEE NOTE> Normal 4 Ua Routine 12/30/2019 [facility] [address] [place] [address] [phone] Ua Specific [place] 1.030 Ua PH 5 Ua Color yellow Ua Appera hazy Ua WBC 2+ Ua Protein 1+ Ua Glucose neg. Ua Ketones neg. Ua Bilirubin 1+ Ua Urobilinogen trace Ua Nitrite positive Ua Occult Blood neg. Basic Metabolic Profile 12/23/2019 [place] [address] [phone] Glucose, Fasting 93 mg/dL Normal 70-100 Blood Urea Nitrogen 22 mg/dL High 7-18 Creatinine For GFR 0.84 mg/dL Normal 0.55-1.30 Glomerular Filtration Rate > 60.0 Normal >39 5 Sodium Level 144 mEq/L Normal 136-145 Potassium Serum 4.1 mEq/L Normal 3.5-5.1 Chloride Level 115 mEq/L High 98-107 Carbon Dioxide Level 25 mEq/L Normal 21-32 Anion Gap 4 mEq/L Low 8-16 Calcium Level 9.2 mg/dL Normal 8.8-10.2 Laboratory test finding 12/23/2019 [place] [address] [phone] Total 25(Oh) Vitamin D 10.9 NG/ML Low 30.0-100. 0 Total Iron Binding Capacit 10/07/2019 [place] [address] [phone] Iron (Fe) 42 g/dL Low 50-170 Total Iron Binding Capacity 255 g/dL Normal 250-450 Percent Saturation 16.5 % Normal 13.2-45.0 Laboratory test finding 10/07/2019 [place] [address] [phone] Ferritin 18 NG/ML Normal 8-252 CBC With Differential 10/07/2019 [facility] [phone] White Blood Count 6.2 10 Normal 4.0-10.0 Red Blood Count 4.20 10 Normal 4.00-5.40 Hemoglobin 11.8 g/dL Low 12.0-15.5 Hematocrit 38.5 % Normal 36.0-47.0 Mean Corpuscular Volume 91.7 fl Normal 80.0-96.0 Mean Corpuscular Hemoglobin 28.1 pg Normal 27.0-33.0 Mean Corpuscular HGB Conc 30.6 g/dL Low 32.0-36.5 Red Cell Distribution Width 15.1 % High 11.5-14.5 Platelet Count, Automated 350 10 Normal 150-450 Neutrophils % 64.4 % Normal 36.0-66.0 Lymph % 21.4 % Low 24.0-44.0 Hunt % 11.0 % High 0.0-5.0 Eos % 2.1 % Normal 0.0-3.0 Baso % 0.8 % Normal 0.0-1.0 Immature Granulocyte % 0.3 % Normal 0-3.0 Nucleated Red Blood Cell % 0.0 % Normal 0-0 Neutrophils # 4.0 10 Normal 1.5-8.5 Lymph # 1.3 10 Low 1.5-5.0 Hunt # 0.7 10 Normal 0.0-0.8 Eos # 0.1 10 Normal 0.0-0.5 Baso # 0.1 10 Normal 0.0-0.2 1 Units are mL/min/1.73 m2 Chronic Kidney Disease Staging per NKF: Stage I & II GFR >=60 Normal to Mildly Decreased Stage III GFR 30-59 Moderately Decreased Stage IV GFR 15-29 Severely Decreased Stage V GFR <15 Very Little GFR Left ESRD GFR <15 on EQUIPMENT MAINTENANCE ENGINEER 2 Units are mL/min/1.73 m2 Chronic Kidney Disease Staging per NKF: Stage I & II GFR >=60 Normal to Mildly Decreased Stage III GFR 30-59 Moderately Decreased Stage IV GFR 15-29 Severely Decreased Stage V GFR <15 Very Little GFR Left ESRD GFR <15 on EQUIPMENT MAINTENANCE ENGINEER 3 THE CEA ASSAY IS PERFORMED O N THE Embrace+AUR BY CHEMILUMINESCENCE AND SHOULD NOT BE COMPARED INTERCHANGEABLY WITH OTHER METHODS. IT SHOULD NOT BE USED ALONE A SCREENING TEST OR DIAGNOSIS FOR THE PRESENCE OR ABSENCE OF MALIGNANT DISEASE. PREDICTIONS OF DISEASE RECURRENCE SHOULD NOT BE BASED SOLELY ON VALUES OBTAINED FROM SERIAL PATIENT SERUM VALUES. 4 FULL REPORT IN LAB NOTES (eC W and Med[facility]). SPECIMEN APPEARS CONTAMINATED 5 Units are mL/min/1.73 m2 Chronic Kidney Disease Staging per NKF: Stage I & II GFR >=60 Normal to Mildly Decreased Stage III GFR 30-59 Moderately Decreased Stage IV GFR 15-29 Severely Decreased Stage V GFR <15 Very Little GFR Left ESRD GFR <15 on EQUIPMENT MAINTENANCE ENGINEER Procedures Description No Information Available Medical Devices Description No Information Available Encounters Type Date Location Provider Dx Diagnosis Office Visit 02/20/2020 1:45p Main Office Bruna Everett PA C18.2 Malignant neoplasm of ascending colon I10 Essential (primary) hyperten angel E78.2 Mixed hyperlipidemia D50.9 Iron deficiency anemia, unsp ecified Office Visit 02/05/2020 2:15p Main Office Bruna Everett PA Z01.818 Encounter for other preprocedural examination C18.2 Malignant neoplasm of ascend ing colon D50.9 Iron deficiency anemia, unsp ecified I10 Essential (primary) hyperten angel E78.2 Mixed hyperlipidemia K21.9 Gastro-esophageal reflux dis ease without esophagitis Office Visit 12/30/2019 3:15p Main Office Bruna Everett PA N39.0 Urinary tract infection, site not specified M72.2 Plantar fascial fibromatosis Office Visit 12/09/2019 1:15p Main Office Bruna Everett PA Z00.00 Encntr for general adult medical exam w/o abnormal findings I10 Essential (primary) hyperten angel I63.9 Cerebral infarction, unspeci fied E78.2 Mixed hyperlipidemia D50.9 Iron deficiency anemia, unsp ecified M81.8 Other osteoporosis without c urrent pathological fracture Office Visit 09/05/2019 2:30p Main Office Bruna Everett PA I10 Essential (primary) hypertension I63.9 Cerebral infarction, unspeci fied E78.2 Mixed hyperlipidemia D50.9 Iron deficiency anemia, unsp ecified N95.8 Other specified menopausal a nd perimenopausal disorders F43.23 Adjustment disorder with mix ed anxiety and depressed mood Z13.89 Encounter for screening for other disorder Assessments Date Code Description Provider 02/20/2020 C18.2 Malignant neoplasm of ascending colon Bruna Everett PA 02/20/2020 I10 Essential (primary) hypertension Bruna Everett PA 02/20/2020 E78.2 Mixed hyperlipidemia Bruna Everett PA 02/20/2020 D50.9 Iron deficiency anemia, unspecif ied Petrancosta, Bruna [place], PA 02/05/2020 Z01.818 Encounter for other preprocedura l examination Petrancosta, Bruna [place], PA 02/05/2020 C18.2 Malignant neoplasm of ascending colon Petrancosta, Bruna [place], PA 02/05/2020 D50.9 Iron deficiency anemia, unspecif ied Petrancosta, Bruna [place], PA 02/05/2020 I10 Essential (primary) hypertension Petrancosta, Bruna [place], PA 02/05/2020 E78.2 Mixed hyperlipidemia Petrancosta , Bruna [place], PA 02/05/2020 K21.9 Gastro-esophageal reflux disease without esophagitis Petrjaylynosta, Bruna [place], PA 12/30/2019 N39.0 Urinary tract infection, site no t specified Petrjaylynosta, Bruna [place], PA 12/30/2019 M72.2 Plantar fascial fibromatosis Pet rancosta Bruna [place], PA 12/09/2019 Z00.00 Encounter for genera l adult medical examination without abnormal findings Betty Armstrong M.D. 12/09/2019 Z00.00 Encounter for genera l adult medical examination without abnormal findings Marnieosta, Bruna [place], PA 12/09/2019 I10 Essential (primary) hypertension Betty Armstrong M.D. 12/09/2019 I10 Essential (primary) hypertension Petrancosta, Bruna [place], PA 12/09/2019 I63.9 Cerebral infarction, unspecified Betty Armstrong M.D. 12/09/2019 I63.9 Cerebral infarction, unspecified Petrancosta, Bruna [place], PA 12/09/2019 E78.2 Mixed hyperlipidemia Forrest Armstrong M.D. 12/09/2019 E78.2 Mixed hyperlipidemia Petrancosta , Bruna [place], PA 12/09/2019 D50.9 Iron deficiency anemia, unspecif ied Betty Armstrong M.D. 12/09/2019 D50.9 Iron deficiency anemia, unspecif ied Petrancosta, Bruna [place], PA 12/09/2019 M81.8 Other osteoporosis without curre nt pathological fracture Betty Armstrong M.D. 12/09/2019 M81.8 Other osteoporosis without curre nt pathological fracture Bruna Everett PA 12/09/2019 Z23 Encounter for immunization Betty Mullins ams, M.D. 09/05/2019 I10 Essential (primary) hypertension Bruna Everett PA 09/05/2019 I63.9 Cerebral infarction, unspecified Bruna Everett PA 09/05/2019 E78.2 Mixed hyperlipidemia Bruna Everett PA 09/05/2019 D50.9 Iron deficiency anemia, unspecif ied Bruna Everett PA 09/05/2019 N95.8 Other specified menopausal and p erimenopausal disorders Bruna Everett PA 09/05/2019 F43.23 Adjustment disorder with mixed a nxiety and depressed mood Bruna Everett PA 09/05/2019 Z13.89 Encounter for screening for othe r disorder Bruna Everett PA Plan of Treatment Future Appointment(s):* 08/26/2020 10:45 am - Bruna Everett PA at Main Office Functional Status Functional [...] Refer to Reason for Referral Status Appt Date Virgil Barajas MD pt had colectomy w/dr keyla ma in hosp recently but needs official referral for insurance purposes to continue follow up [address] [place] [address] [phone] Ben Harrison fascitis Closed 02/10/2020 [address] [place] [address] [phone] Jaye Beck MD treatment of osteoporosis. oral meds contraindicated due to hx of GI bleed Closed 12/30/2019 [facility] [address] [facility] [address] [phone] [facility] abrupt onset anemia post hospital admission Cl osed 10/25/2019 [address] [place] [address] [phone]
--- OUTSIDE RECORDS SUMMARY | 2020-04-24 14:33 | CCD | Continuity of Care Document ---
Author Author Laura OLIVAS M.D. Organization Unknown Address [address] [place] [address] Phone [phone] Care Team Providers Care Paper Hanger Name Role Phone [facility] Gastro - Gastroenterology AUTM [facility] AUTM [phone] Jaye Beck MD AUTM [phone] David Mayorga AUTM [phone] Ben Harrison AUTM [phone] Virgil Barajas MD AUTM [phone] Problems Description No Information Available Social History [...] day Unknown Vitamin D3 Ultra Potency 1.25mg (08998 Ut) Tablets take one capsule by mouth once a week x 12 weeks Jaye Beck MD Calcium 500 MG one po bid Unknown History Medications Macrobid 100mg Capsules 1 by mouth twice a day 14caps N39.0 Betty Olivas M.D. 020 - 02/05/2020 Immunizations CPT Code Status Date Vaccine Lot # [id number] Given 12/09/2019 Influenza Virus Vaccine, Quadrivalent,age 3 and up,multidose vial [id number] Given 12/09/2019 Influenza Virus Vaccine, Quadrivalent,age 3 and up,multidose vial [id number] Vital Signs Date Vital Result Comment 02/20/2020 2:01pm BP Systolic 138 mmHg BP Diastolic 75 mmHg Heart Rate 55 /min Body Temperature 96.5 F Respiratory Rate 15 /min Height 67.0 inches 5'7" Weight 163.38 lb O2 % BldC Oximetry 97 % Peak Expiratory Flow Rate 338 Estimated Peak Flow Rate [place] Body Weight 135 lb BMI (Body Mass [...] Flow Rate 338 Estimated Peak Flow Rate [place] Body Weight 135 lb BMI (Body Mass Index) 25.7 kg/m2 Results Test Acquired Date Facility Test Result H/L Range Note CBC With Differential 04/09/2020 [place] [address] [phone] White Blood Count 6.8 10 Normal 4.0-10.0 [...] 36.0-66.0 Lymph % 27.6 % Normal 24.0-44.0 [place] % 8.3 % High 0.0-5.0 Eos % 3.7 % High 0.0-3.0 Baso % 0.7 % Normal 0.0-1.0 Immature Granulocyte % 0.4 % Normal 0-3.0 Nucleated Red Blood Cell % 0.0 % Normal 0-0 Neutrophils # 4.1 10 Normal 1.5-8.5 Lymph # 1.9 10 Normal 1.5-5.0 [place] # 0.6 10 Normal 0.0-0.8 Eos # 0.3 10 Normal 0.0-0.5 Baso # 0.1 10 Normal 0.0-0.2 Comprehensive Metabolic Profil 04/09/2020 Patient S ervice [place], [place] [id number] [phone] Glucose, Fasting 90 mg/dL Normal 70-100 Blood [...] 1.2-2.2 Laboratory test finding 04/09/2020 [place] [address] [phone] Carcinoembryonic Antigen 1.9 NG/ML Normal <2.5 2 PT & Aptt 03/20/2020 [place] [address] [phone] Prothrombin Time 20.0 seconds High 12.5-14.3 Inr 1.66 Normal 3 Partial Thromboplastin Time 38.6 seconds High 24.2-38.5 CBC With Differential 03/20/2020 [place] [address] [phone] White Blood Count 6.5 10 Normal 4.0-10.0 [...] 36.0-66.0 Lymph % 30.7 % Normal 24.0-44.0 [place] % 13.4 % High 0.0-5.0 Eos % 3.5 % High 0.0-3.0 Baso % 0.9 % Normal 0.0-1.0 Immature Granulocyte % 0.6 % Normal 0-3.0 Nucleated Red Blood Cell % 0.6 % High 0-0 Neutrophils # 3.3 10 Normal 1.5-8.5 Lymph # 2.0 10 Normal 1.5-5.0 [place] # 0.9 10 High 0.0-0.8 Eos # 0.2 10 Normal 0.0-0.5 Baso # 0.1 10 Normal 0.0-0.2 Comprehensive Metabolic Profil 03/20/2020 [place] [address] [phone] Glucose, Fasting 87 mg/dL Normal 70-100 Blood Urea Nitrogen 15 mg/dL Normal 7-18 Creatinine For GFR 1.00 mg/dL Normal 0.55-1.30 Glomerular Filtration Rate 57.2 Normal >39 4 Sodium Level 144 mEq/L Normal 136-145 Potassium [...] 1.2-2.2 Total Iron Binding Capacit 03/20/2020 [place] [address] [phone] Iron (Fe) 57 g/dL Normal 50-170 Total Iron Binding Capacity 301 g/dL Normal 250-450 Percent Saturation 18.9 % Normal 13.2-45.0 Laboratory test finding 03/20/2020 [place] [address] [phone] Carcinoembryonic Antigen 1.6 NG/ML Normal <2.5 5 Vitamin B12 & Folate 03/20/[address] [facility] [place] [address] [phone] Vitamin B12 Level 415 pg/mL Normal 6 Folate 10.9 NG/ML Normal 7 Laboratory test finding 03/20/2020 [place] [address] [phone] Ferritin 24 NG/ML Normal 8-252 Laboratory test finding 01/28/2020 [place] [address] [phone] Total 25(Oh) Vitamin D 33.7 NG/ML Normal 30.0-100. 0 Basic Metabolic Profile 01/28/2020 Patient Service [place] [id number] [phone] Glucose, Fasting 92 mg/dL Normal 70-100 Blood Urea Nitrogen 14 mg/dL Normal 7-18 Creatinine For GFR 0.86 mg/dL Normal 0.55-1.30 Glomerular Filtration Rate > 60.0 Normal >39 8 Sodium Level 144 mEq/L Normal 136-145 Potassium Serum 3.3 mEq/L Low 3.5-5.1 Chloride Level 110 mEq/L High 98-107 Carbon Dioxide Level 28 mEq/L Normal 21-32 Anion Gap 6 mEq/L Low 8-16 Calcium Level 9.3 mg/dL Normal 8.8-10.2 CBC With Differential 01/22/2020 [place] [address] [phone] White Blood Count 11.8 10 High 4.0-10.0 [...] 36.0-66.0 Lymph % 11.8 % Low 24.0-44.0 [place] % 6.5 % High 0.0-5.0 Eos % 0.6 % Normal 0.0-3.0 Baso % 0.4 % Normal 0.0-1.0 Immature Granulocyte % 0.6 % Normal 0-3.0 Nucleated Red Blood Cell % 0.0 % Normal 0-0 Neutrophils # 9.4 10 High 1.5-8.5 Lymph # 1.4 10 Low 1.5-5.0 [place] # 0.8 10 Normal 0.0-0.8 Eos # 0.1 10 Normal 0.0-0.5 Baso # 0.1 10 Normal 0.0-0.2 Liver Profile 01/22/2020 [place] [address] [phone] Ast/Sgot 13 U/L Normal 7-37 Alt/SGPT 19 U/L Normal 12-78 Alkaline Phosphatase 100 U/L Normal 45-117 Bilirubin,Total 1.0 mg/dL Normal 0.2-1.0 Bilirubin,Direct 0.2 mg/dL Normal 0.0-0.2 Total Protein 6.0 GM/DL Low 6.4-8.2 Albumin 3.3 GM/DL Normal 3.2-5.2 Albumin/Globulin Ratio 1.2 Normal 1.2-2.2 Laboratory test finding 01/22/2020 [place] [address] [phone] Blood Urea Nitrogen 18 mg/dL Normal 7-18 Creatinine With GFR 01/22/2020 [place] [address] [phone] Creatinine For GFR 1.24 mg/dL Normal 0.55-1.30 Glomerular Filtration Rate 44.7 Normal >39 9 Laboratory test finding 01/22/2020 [place] [address] [phone] Carcinoembryonic Antigen 1.4 NG/ML Normal <2.5 10 Laboratory test finding 12/30/2019 [facility] [phone] Urine Culture FULL REPORT IN L <SEE NOTE> Normal 11 Ua Routine 12/30/2019 [facility] [address] [place] [address] [phone] Ua Specific [place] 1.030 Ua PH 5 Ua Color yellow Ua Appera hazy Ua WBC 2+ Ua Protein 1+ Ua Glucose neg. Ua Ketones neg. Ua Bilirubin 1+ Ua Urobilinogen trace Ua Nitrite positive Ua Occult Blood neg. Basic Metabolic Profile 12/23/2019 [place] [address] [phone] Glucose, Fasting 93 mg/dL Normal 70-100 Blood Urea Nitrogen 22 mg/dL High 7-18 Creatinine For GFR 0.84 mg/dL Normal 0.55-1.30 Glomerular Filtration Rate > 60.0 Normal >39 1 2 Sodium Level 144 mEq/L Normal 136-145 Potassium Serum 4.1 mEq/L Normal 3.5-5.1 Chloride Level 115 mEq/L High 98-107 Carbon Dioxide Level 25 mEq/L Normal 21-32 Anion Gap 4 mEq/L Low 8-16 Calcium Level 9.2 mg/dL Normal 8.8-10.2 Laboratory test finding 12/23/2019 [place] [address] [phone] Total 25(Oh) Vitamin D 10.9 NG/ML Low 30.0-100. 0 1 Units are mL/min/1.73 m2 Chronic Kidney Disease Staging per NKF: Stage I & II GFR >=60 Normal to Mildly Decreased Stage III GFR 30-59 Moderately Decreased Stage IV GFR 15-29 Severely Decreased Stage V GFR <15 Very Little GFR Left ESRD GFR <15 on PUMP ROOM OPERATOR 2 THE CEA ASSAY IS PERFORMED O N THE [employer] BY CHEMILUMINESCENCE AND SHOULD NOT BE COMPARED INTERCHANGEABLY WITH OTHER METHODS. IT SHOULD NOT BE USED ALONE A SCREENING TEST OR DIAGNOSIS FOR THE PRESENCE OR ABSENCE OF MALIGNANT DISEASE. PREDICTIONS OF DISEASE RECURRENCE SHOULD NOT BE BASED SOLELY ON VALUES OBTAINED FROM SERIAL PATIENT SERUM VALUES. 3 THERAPUTIC HUMAN INR VALUES INDICATIONS NORMAL RANGES PROPHYLAXIS/TREATMENT OF: VENOUS THROMBOSIS 2.0-3.0 PULMONARY EMBOLISM 2.0-3.0 PREVENTION OF SYSTEMIC EMBOLISM FROM: TISSUE HEART VALVES 2.0-3.0 ACUTE MYOCARDIAL INFARCTION 2.0-3.0 VALVULAR HEART DISEASE 2.0-3.0 ATRIAL FIBRILLATION 2.0-3.0 MECHANICAL VALVES(HIGH RISK) 2.5-3.5 RECURRENT MYOCARDIAL INFARCTION 2.5-3.5 4 Units are mL/min/1.73 m2 Chronic Kidney Disease Staging per NKF: Stage I & II GFR >=60 Normal to Mildly Decreased Stage III GFR 30-59 Moderately Decreased Stage IV GFR 15-29 Severely Decreased Stage V GFR <15 Very Little GFR Left ESRD GFR <15 on PUMP ROOM OPERATOR 5 THE CEA ASSAY IS PERFORMED O N THE [employer] BY CHEMILUMINESCENCE AND SHOULD NOT BE COMPARED INTERCHANGEABLY WITH OTHER METHODS. IT SHOULD NOT BE USED ALONE A SCREENING TEST OR DIAGNOSIS FOR THE PRESENCE OR ABSENCE OF MALIGNANT DISEASE. PREDICTIONS OF DISEASE RECURRENCE SHOULD NOT BE BASED SOLELY ON VALUES OBTAINED FROM SERIAL PATIENT SERUM VALUES. 6 VITAMIN B12 NORMAL RANGE NORMAL 247 - 911 PG/ML INDETERMINATE 211 - 246 PG/ML DEFICIENT LESS THAN 211 PG/ML 7 FOLATE NORMAL RANGE NORMAL GREATER THAN 5.4 NG/ML INDETERMINATE 3.4-5.4 NG/ML DEFICIENT LESS THAN 3.4 NG/ML 8 Units are mL/min/1.73 m2 Chronic Kidney Disease Staging per NKF: Stage I & II GFR >=60 Normal to Mildly Decreased Stage III GFR 30-59 Moderately Decreased Stage IV GFR 15-29 Severely Decreased Stage V GFR <15 Very Little GFR Left ESRD GFR <15 on PUMP ROOM OPERATOR 9 Units are mL/min/1.73 m2 Chronic Kidney Disease Staging per NKF: Stage I & II GFR >=60 Normal to Mildly Decreased Stage III GFR 30-59 Moderately Decreased Stage IV GFR 15-29 Severely Decreased Stage V GFR <15 Very Little GFR Left ESRD GFR <15 on PUMP ROOM OPERATOR 10 THE CEA ASSAY IS PERFORMED O N THE [employer] CENT[employer]UR BY CHEMILUMINESCENCE AND SHOULD NOT BE COMPARED INTERCHANGEABLY WITH OTHER METHODS. IT SHOULD NOT BE USED ALONE A SCREENING TEST OR DIAGNOSIS FOR THE PRESENCE OR ABSENCE OF MALIGNANT DISEASE. PREDICTIONS OF DISEASE RECURRENCE SHOULD NOT BE BASED SOLELY ON VALUES OBTAINED FROM SERIAL PATIENT SERUM VALUES. 11 FULL REPORT IN LAB NOTES (eC W and Med[facility]). SPECIMEN APPEARS CONTAMINATED 12 Units are mL/min/1.73 m2 Chronic Kidney Disease Staging per NKF: Stage I & II GFR >=60 Normal to Mildly Decreased Stage III GFR 30-59 Moderately Decreased Stage IV GFR 15-29 Severely Decreased Stage V GFR <15 Very Little GFR Left ESRD GFR <15 on PUMP ROOM OPERATOR Procedures Description No Information Available Medical Devices [...] C18.2 Malignant neoplasm of ascending colon Bruna Koroma PA 02/20/2020 I10 Essential (primary) hypertension Bruna Koroma PA 02/20/2020 E78.2 Mixed hyperlipidemia Bruna Koroma PA 02/20/2020 D50.9 Iron deficiency anemia, unspecif ied Bruna Koroma PA 02/05/2020 Z01.818 Encounter for other preprocedura l examination Bruna Koroma PA 02/05/2020 C18.2 Malignant neoplasm of ascending colon Bruna Koroma PA 02/05/2020 D50.9 Iron deficiency anemia, unspecif ied Petrancosta, Bruna Derick, PA 02/05/2020 I10 Essential (primary) hypertension Petrancosta, Bruna Derick, PA 02/05/2020 E78.2 Mixed hyperlipidemia Petrancosta , Bruna Derick, PA 02/05/2020 K21.9 Gastro-esophageal reflux disease without esophagitis Marnieosta Bruna Derick, PA 12/30/2019 N39.0 Urinary tract infection, site no t specified Marnieosta Bruna Derick, PA 12/30/2019 M72.2 Plantar fascial fibromatosis Pet rancosta Bruna Derick, PA 12/09/2019 Z00.00 Encounter for genera l adult medical examination without abnormal findings Betty Olivas M.D. 12/09/2019 Z00.00 Encounter for genera l adult medical examination without abnormal findings Bruna Koroma PA 12/09/2019 I10 Essential (primary) hypertension Betty Olivas M.D. 12/09/2019 I10 Essential (primary) hypertension MarnieostBruna olvera PA 12/09/2019 I63.9 Cerebral infarction, unspecified Betty Olivas M.D. 12/09/2019 I63.9 Cerebral infarction, unspecified Bruna Koroma PA 12/09/2019 E78.2 Mixed hyperlipidemia Forrest Olivas [...] to continue follow up Closed 03/10/2020 [address] [facility] 1 [facility] [address] [phone] Ben Harrison fascitis Closed 02/10/2020 [address] [place] [address] [phone] Jaye Beck MD treatment of osteoporosis. oral meds contraindicated due to hx of GI bleed Closed 12/30/2019 [facility] [address] [facility] [address] [phone]
--- OUTSIDE RECORDS SUMMARY | 2020-04-24 14:33 | CCD | Continuity of Care Document ---
Author Author Laura HARRISON DPM Organization Unknown Address [address] [place] [address], [address] [place] [address] Phone [phone] Care Team Providers Care Engraving Operator Name Role Phone Bruna Koroma AUTM Problems Description No Information Available Social History Type Date Description Comments Sex Unknown ETOH Use Denies alcohol use Tobacco Use Start: Unknown End: Unknown Patient is a former smoker smoked 1/2ppd for 20 years quit July 2018 when had the stroke Allergies, Adverse Reactions, Alerts Active Allergies Reaction Severity Comments Date Penicillin V 02/10/2020 Lactose 02/10/2020 Medications Active Medications SIG Qnty Indications Ordering Provide r Date Baclofen 10mg Tablets Take One Tablet By Mouth Twice A Day as Needed Unknown Nitrofurantoin Monohydrate/Macrocrystals 100mg Capsules Take One Capsule By Mouth Twice A Day Unk nown Vitamin D (Ergocalciferol) 1.25mg (49160 Ut) Capsules Take One Capsule By Mouth Once Weekly With Dinner For 12 Weeks Unknown Pantoprazole Sodium 40mg Tablets D R Take One Tablet By Mouth Twice A Day Unknown Xarelto 15mg Tablets Take One Tablet By Mouth Every Day Unknown Atorvastatin Calcium 40mg Tablets Take One Tablet By Mouth Every Day For Cholesterol Unknow n Fluoxetine HCL 20mg Capsules Take One Capsule By Mouth Every Day Unknown Amlodipine Besylate 5mg Tablets Take One Tablet By Mouth Every Day For Blood Pressure Unk nown Ferrous Sulfate 325(65Fe) mg Table ts Take One Tablet By Mouth Twice A Day Unknown Metoprolol Tartrate 25mg Tablets Take One Tablet By Mouth Twice A Day Unknown Paroxetine HCL 20mg Tablets Take One Tablet By Mouth Every Day Unknown Baclofen 5mg Tablets Take One Tablet By Mouth Twice A Day Unknown Immunizations Description No Information Available Vital Signs Date Vital Result Comment 02/10/2020 8:05am Height 67 inches 5'7" Weight 163.00 lb BP Systolic 111 mmHg BP Diastolic 65 mmHg Heart Rate 53 /min BMI (Body Mass Index) 25.5 kg/m2 Results Description No Information Available Procedures Date Code Description Status 02/10/2020 22812 Debridement 6-10 Nails Electric Completed Medical Devices Description No Information Available Encounters Type Date Location Provider Dx Diagnosis Office Visit 02/10/2020 9:15a [place] [facility] Ben Harrison DPM M21.272 Flexion deformity, left ankle and toes I73.89 Other specified peripheral v ascular diseases B35.1 Tinea unguium Assessments Date Code Description Provider 02/10/2020 M21.272 Flexion deformity, left ankle an d toes Bne Harrison DPM 02/10/2020 I73.89 Other specified peripheral vascu lar diseases Ben Harrison DPM 02/10/2020 B35.1 Tinea unguium Ben Harrison DPM Plan of Treatment Future Appointment(s):* 04/20/2020 10:00 am - Ben Harrison DPM at [facility] Functional Status Description No Information Available Mental Status Description No Information Available Referrals Description No Information Available
--- OUTSIDE RECORDS SUMMARY | 2020-04-24 14:33 | CCD ---
Continuity of Care Document (CCD) Created on: 04/10/2020 Laura Oquendo External Reference #: [id number] : [id number] Sex: Female Author Author Laura OLIVAS M.D. Organization Unknown Address [address] [place] [address] Phone [phone] Care Team Providers Care Sample Maker Name Role Phone [facility] Gastro - Gastroenterology AUTM [facility] AUTM [phone] Jaye Beck MD AUTM [phone] David Mayorga AUTM [phone] Ben Harrsion AUTM [phone] Virgil Barajas MD AUTM [phone] Problems Description No Information Available Social History [...] day Unknown Vitamin D3 Ultra Potency 1.25mg (09863 Ut) Tablets take one capsule by mouth once a week x 12 weeks Jaye Beck MD Calcium 500 MG one po bid Unknown History Medications Macrobid 100mg Capsules 1 by mouth twice a day 14caps N39.0 Betty Olivas M.D. 020 - 02/05/2020 Immunizations CPT Code Status Date Vaccine Lot # [id number] Given 12/09/2019 Influenza Virus Vaccine, Quadrivalent,age 3 and up,multidose vial [id number] Given 12/09/2019 Influenza Virus Vaccine, Quadrivalent,age 3 and up,multidose vial [id number] Vital Signs Date Vital Result Comment 02/20/2020 2:01pm BP Systolic 138 mmHg BP Diastolic 75 mmHg Heart Rate 55 /min Body Temperature 96.5 F Respiratory Rate 15 /min Height 67.0 inches 5'7" Weight 163.38 lb O2 % BldC Oximetry 97 % Peak Expiratory Flow Rate 338 Estimated Peak Flow Rate [place] Body Weight 135 lb BMI (Body Mass [...] Flow Rate 338 Estimated Peak Flow Rate [place] Body Weight 135 lb BMI (Body Mass Index) 25.7 kg/m2 Results Test Acquired Date Facility Test Result H/L Range Note CBC With Differential 04/09/2020 [place] [address] [phone] White Blood Count 6.8 10 Normal 4.0-10.0 [...] 36.0-66.0 Lymph % 27.6 % Normal 24.0-44.0 Wallace % 8.3 % High 0.0-5.0 Eos % 3.7 % High 0.0-3.0 Baso % 0.7 % Normal 0.0-1.0 Immature Granulocyte % 0.4 % Normal 0-3.0 Nucleated Red Blood Cell % 0.0 % Normal 0-0 Neutrophils # 4.1 10 Normal 1.5-8.5 Lymph # 1.9 10 Normal 1.5-5.0 Wallace # 0.6 10 Normal 0.0-0.8 Eos # 0.3 10 Normal 0.0-0.5 Baso # 0.1 10 Normal 0.0-0.2 Comprehensive Metabolic Profil 04/09/2020 Patient S ervice [place], [place] [id number] [phone] Glucose, Fasting 90 mg/dL Normal 70-100 Blood [...] 1.2-2.2 Laboratory test finding 04/09/2020 [place] [address] [phone] Carcinoembryonic Antigen 1.9 NG/ML Normal <2.5 2 PT & Aptt 03/20/2020 [place] [address] [phone] Prothrombin Time 20.0 seconds High 12.5-14.3 Inr 1.66 Normal 3 Partial Thromboplastin Time 38.6 seconds High 24.2-38.5 CBC With Differential 03/20/2020 Patient [place] [address] [phone] White Blood Count 6.5 10 Normal 4.0-10.0 [...] 36.0-66.0 Lymph % 30.7 % Normal 24.0-44.0 Wallace % 13.4 % High 0.0-5.0 Eos % 3.5 % High 0.0-3.0 Baso % 0.9 % Normal 0.0-1.0 Immature Granulocyte % 0.6 % Normal 0-3.0 Nucleated Red Blood Cell % 0.6 % High 0-0 Neutrophils # 3.3 10 Normal 1.5-8.5 Lymph # 2.0 10 Normal 1.5-5.0 Wallace # 0.9 10 High 0.0-0.8 Eos # 0.2 10 Normal 0.0-0.5 Baso # 0.1 10 Normal 0.0-0.2 Comprehensive Metabolic Profil 03/20/[address] [place] [address] [phone] Glucose, Fasting 87 mg/dL Normal 70-100 Blood [...] 1.2-2.2 Total Iron Binding Capacit 03/20/2020 [place] [address] [phone] Iron (Fe) 57 g/dL Normal 50-170 Total Iron Binding Capacity 301 g/dL Normal 250-450 Percent Saturation 18.9 % Normal 13.2-45.0 Laboratory test finding 03/20/2020 [place] [address] [phone] Carcinoembryonic Antigen 1.6 NG/ML Normal <2.5 5 Vitamin B12 & Folate 03/20/2020 Patient Service [facility] [place] [address] [phone] Vitamin B12 Level 415 pg/mL Normal 6 Folate 10.9 NG/ML Normal 7 Laboratory test finding 03/20/2020 [place] [address] [phone] Ferritin 24 NG/ML Normal 8-252 Laboratory test finding 01/28/2020 [place] [address] [phone] Total 25(Oh) Vitamin D 33.7 NG/ML Normal 30.0-100. 0 Basic Metabolic Profile 01/28/2020 Patient Service [place] [id number] [phone] Glucose, Fasting 92 mg/dL Normal 70-100 Blood [...] With Differential 01/22/2020 [place] [address] [phone] White Blood Count 11.8 10 High 4.0-10.0 [...] 36.0-66.0 Lymph % 11.8 % Low 24.0-44.0 Wallace % 6.5 % High 0.0-5.0 Eos % 0.6 % Normal 0.0-3.0 Baso % 0.4 % Normal 0.0-1.0 Immature Granulocyte % 0.6 % Normal 0-3.0 Nucleated Red Blood Cell % 0.0 % Normal 0-0 Neutrophils # 9.4 10 High 1.5-8.5 Lymph # 1.4 10 Low 1.5-5.0 Wallace # 0.8 10 Normal 0.0-0.8 Eos # 0.1 10 Normal 0.0-0.5 Baso # 0.1 10 Normal 0.0-0.2 Liver Profile 01/22/2020 [place] [address] [phone] Ast/Sgot 13 U/L Normal 7-37 Alt/SGPT 19 U/L Normal 12-78 Alkaline Phosphatase 100 U/L Normal 45-117 Bilirubin,Total 1.0 mg/dL Normal 0.2-1.0 Bilirubin,Direct 0.2 mg/dL Normal 0.0-0.2 Total Protein 6.0 GM/DL Low 6.4-8.2 Albumin 3.3 GM/DL Normal 3.2-5.2 Albumin/Globulin Ratio 1.2 Normal 1.2-2.2 Laboratory test finding 01/22/2020 [place] [address] [phone] Blood Urea Nitrogen 18 mg/dL Normal 7-18 Creatinine With GFR 01/22/2020 [place] [address] [phone] Creatinine For GFR 1.24 mg/dL Normal 0.55-1.30 Glomerular Filtration Rate 44.7 Normal >39 9 Laboratory test finding 01/22/2020 [place] [address] [phone] Carcinoembryonic Antigen 1.4 NG/ML Normal <2.5 10 Laboratory test finding 12/30/2019 [facility] [phone] Urine Culture FULL REPORT IN L <SEE NOTE> Normal 11 Ua Routine 12/30/2019 [facility] [address] [place] [address] [phone] Ua Specific [place] 1.030 Ua PH 5 Ua Color yellow Ua Appera hazy Ua WBC 2+ Ua Protein 1+ Ua Glucose neg. Ua Ketones neg. Ua Bilirubin 1+ Ua Urobilinogen trace Ua Nitrite positive Ua Occult Blood neg. Basic Metabolic Profile 12/23/2019 [place] [address] [phone] Glucose, Fasting 93 mg/dL Normal 70-100 Blood [...] 8.8-10.2 Laboratory test finding 12/23/2019 [place] [address] [phone] Total 25(Oh) Vitamin D 10.9 NG/ML Low 30.0-100. 0 1 Units are mL/min/1.73 m2 Chronic Kidney Disease Staging per NKF: Stage I & II GFR >=60 Normal to Mildly Decreased Stage III GFR 30-59 Moderately Decreased Stage IV GFR 15-29 Severely Decreased Stage V GFR <15 Very Little GFR Left ESRD GFR <15 on PROJECT RESERVOIR ENGINEER 2 THE CEA ASSAY IS PERFORMED O N THE [employer] BY CHEMILUMINESCENCE AND SHOULD NOT BE COMPARED [...] Little GFR Left ESRD GFR <15 on PROJECT RESERVOIR ENGINEER 5 THE CEA ASSAY IS PERFORMED O N THE [employer] CENT[place]UR BY CHEMILUMINESCENCE AND SHOULD NOT BE [...] Little GFR Left ESRD GFR <15 on PROJECT RESERVOIR ENGINEER 9 Units are mL/min/1.73 m2 Chronic Kidney Disease Staging per NKF: Stage I & II GFR >=60 Normal to Mildly Decreased Stage III GFR 30-59 Moderately Decreased Stage IV GFR 15-29 Severely Decreased Stage V GFR <15 Very Little GFR Left ESRD GFR <15 on PROJECT RESERVOIR ENGINEER 10 THE CEA ASSAY IS PERFORMED O N THE [employer] [place]ENT[place] BY CHEMILUMINESCENCE AND SHOULD NOT BE [...] Little GFR Left ESRD GFR <15 on PROJECT RESERVOIR ENGINEER Procedures Description No Information Available Medical [...] Bruna Koroma PA 12/09/2019 E78.2 Mixed hyperlipidemia Forerst Olivas M.D. 12/09/2019 E78.2 Mixed hyperlipidemia Bruna [...] to continue follow up Closed 03/10/2020 [address] [facility] 1 [facility] [address] [phone] Ben Harrison fascitis Closed 02/10/2020 [address] [place] [address] [phone] Jaye Beck MD treatment of osteoporosis. oral meds contraindicated due to hx of GI bleed Closed 12/30/2019 [facility] [address] [facility] [address] [phone]
--- OUTSIDE RECORDS SUMMARY | 2020-04-24 14:33 | CCD | Continuity of Care Document ---
Author Author BETTINA AMADO, Laura BUENO Organization Unknown Address [address] [place] [address] [address] [place] [address] Phone [phone] Care Team Providers Care Histology Tech Name Role Phone Bruna Koroma AUTM Betty Armstrong M.D. AUTM [phone] David Mayorga M.D. AUTM Problems Active Problems Provider Date Essential hypertension David Mayorga M.D. Onset: 10/05 Social History Type Date Description Comments Sex Unknown ETOH Use Denies alcohol use Tobacco Use Start: Unknown End: Unknown Patient is a former smoker 10 a day x40 50 years Recreational Drug Use Denies Drug Use Allergies, Adverse Reactions, Alerts Active Allergies Reaction Severity Comments Date Penicillin V 10/25/2019 Milk Nausea 01/23/2020 Medications Active Medications SIG Qnty Indications Ordering Provide r Date Acidophilus Probiotic 0.5mg Tablet s 1 three times a day Unknown OS-Jean Paul [id number] Chewtabs 1 twice a day Unknown Fluoxetine HCL 20mg Capsules 1 every day 90caps Unknown Vitamin D 125mcg (5000 Ut) Capsule s 1 every day Unknown Vitamin D (Ergocalciferol) 1.25mg (59411 Ut) Capsules Take One Capsule By Mouth Once Weekly With Dinner For 12 Weeks Unknown Tylenol 325mg Tablets 1tab po prn Unknown Sucralfate 1gm Tablets 1tab p o qid Unknown Xarelto 15mg Tablets 1tab po qd Unknown Pantoprazole Sodium 40mg Tablets D R 1tab po bid Unknown Atorvastatin Calcium 40mg Tablets 1tab po qd Unknown Metoprolol Tartrate 25mg Tablets 1tab po qd Unknown Ferrous Sulfate 325(65Fe) mg Table ts 1tab po bid Unknown Amlodipine Besylate 5mg Tablets 1tab po qd Unknown Baclofen 10mg Tablets 1tab po bid Unknown History Medications Neomycin Sulfate 500mg Tablets 2 by mouth @ 2 & 10p day before surgery, 2 by mouth @ 6am morning of surgery 6tabs Virgil Barajas MD 02/05/2020 - 03/10/2020 Flagyl 500mg Tablets 1 tab by mouth @ 2p & 10p day before surg 1 tab by mouth @ 6am morning of surg 3tabs Virgil Barajas MD 02/05/2020 - 03/10/2020 Clenpiq 10-3.5-12mg-GM -GM/160ML S olution follow pre-procedure instructions. start day before procedure. (if not covered by insurance please fill gavilyte script). 320ml Beto Mayorga M.D. 12/10/2019 - 01/23/2020 Gavilyte-N With Flavor Pack 420gm Solution Rec drink the liquid as per the pre-procedur e instructions. ( fill this script only if clenpiq is not covered by insurance). 4000ml David Mayorga M.D. 12/10/2019 - 01/28/[address] take 4 tablets together as per bowel preparation instructions. 4tabs David Mayorga M.D. 12/10/2019 - 01/23/2020 Immunizations Description No Information Available Vital Signs Date Vital Result Comment 03/10/2020 10:41am BP Systolic 125 mmHg BP Diastolic 58 mmHg Height 67 inches 5'7" Weight 163.38 lb BMI (Body Mass Index) 25.6 kg/m2 [place] Body Weight 135 lb Weight 74.107 kg BSA (Body Surface Area) 1.86 m2 01/28/2020 2:48pm BP Systolic 120 mmHg BP Diastolic 58 mmHg Height 67 inches 5'7" Weight 164.00 lb BMI (Body Mass Index) 25.7 kg/m2 [place] Body Weight 135 lb Weight 74.390 kg BSA (Body Surface Area) 1.86 m2 Results Test Acquired Date Facility Test Result H/L Range Note CBC With Differential 01/22/2020 [facility] Main Lab [address], [place] [id number] [phone] White Blood Count 11.8 10 High 4.0-10.0 [...] 36.0-66.0 Lymph % 11.8 % Low 24.0-44.0 [place] % 6.5 % High 0.0-5.0 Eos % 0.6 % Normal 0.0-3.0 Baso % 0.4 % Normal 0.0-1.0 Immature Granulocyte % 0.6 % Normal 0-3.0 Nucleated Red Blood Cell % 0.0 % Normal 0-0 Neutrophils # 9.4 10 High 1.5-8.5 Lymph # 1.4 10 Low 1.5-5.0 [place] # 0.8 10 Normal 0.0-0.8 Eos # 0.1 10 Normal 0.0-0.5 Baso # 0.1 10 Normal 0.0-0.2 Laboratory test finding 01/22/2020 [facility] Main Lab [address] [place] [address] [phone] Carcinoembryonic Antigen 1.4 NG/ML Normal <2.5 1 BUN & Creatinine ([facility]) 01/22/2020 [facility] Main Lab [address] [place] [address] [phone] Blood Urea Nitrogen 18 mg/dL Normal 7-18 Creatinine With GFR 01/22/2020 [facility] Main Lab [address] [place] [address] [phone] Creatinine For GFR 1.24 mg/dL Normal 0.55-1.30 Glomerular Filtration Rate 44.7 Normal >39 2 Liver Profile 01/22/2020 [facility] Main Lab [address] [place] [address] [phone] Ast/Sgot 13 U/L Normal 7-37 Alt/SGPT 19 U/L Normal 12-78 Alkaline Phosphatase 100 U/L Normal 45-117 Bilirubin,Total 1.0 mg/dL Normal 0.2-1.0 Bilirubin,Direct 0.2 mg/dL Normal 0.0-0.2 Total Protein 6.0 GM/DL Low 6.4-8.2 Albumin 3.3 GM/DL Normal 3.2-5.2 Albumin/Globulin Ratio 1.2 Normal 1.2-2.2 Laboratory test finding 01/13/2020 [facility] Main Lab [address] [place] [address] [phone] Pathology Request For Service (SEE NOTE) 3 1 THE CEA ASSAY IS PERFORMED O N THE [employer] BY CHEMILUMINESCENCE AND SHOULD NOT BE COMPARED INTERCHANGEABLY WITH OTHER METHODS. IT SHOULD NOT BE USED ALONE A SCREENING TEST OR DIAGNOSIS FOR THE PRESENCE OR ABSENCE OF MALIGNANT DISEASE. PREDICTIONS OF DISEASE RECURRENCE SHOULD NOT BE BASED SOLELY ON VALUES OBTAINED FROM SERIAL PATIENT SERUM VALUES. 2 Units are mL/min/1.73 m2 Chronic Kidney Disease Staging per NKF: Stage I & II GFR >=60 Normal to Mildly Decreased Stage III GFR 30-59 Moderately Decreased Stage IV GFR 15-29 Severely Decreased Stage V GFR <15 Very Little GFR Left ESRD GFR <15 on [employer] AP[employer]ISER 3 FINAL DIAGNOSIS A - Stomach, biopsy: Fragments of gastric mucosa with reactive gastropathy. No evidence for H. pylori-like organisms on H&E stain. B - Colon, ascending mass, biopsy: Adenocarcinoma, moderately differentiated. -4/TR C - Colon, polyps, snare polypectomy: Fragments of tubular adenoma. 01/15/2020726 CLINICAL DIAGNOSIS New onset anemia, blood in stool 01/14/2020 - 716 GROSS DIAGNOSIS A - Received in formalin labeled "gastric biopsy R/O H. pylori" is one fragment of mccormick tissue 0.2 x 0.2 x 0.2 cm. All in one. B - Received in formalin labeled "ascending colon mass" and are multiple fragments of mccormick tissue 0.5 x 0.5 x 0.3 cm. in aggregate. All in one. C - Received in formalin labeled "snare colon polyps" and are multiple fragments of mccormick tissue 0.6 x 0.5 x 0.3 cm. in aggregate. All in one. -SV 01/14/2020 - 0717 Signed INÉS PERKINS MD 01/15/2020 1405 Procedures Date Code Description Status 02/12/2020 44432 Laparoscopic Hemicolectomy W/ An astomosis Completed 01/13/2020 02124 Colonoscopy W/ Poly Completed 01/13/2020 42364 Colonoscopy Flexible Proximal To Splenic Flexure W/Biopsy Single/ Completed 01/13/2020 71774 Endoscopy Upper GI Biopsy Comple david Medical Devices Description No Information Available Encounters Type Date Location Provider Dx Diagnosis Office Visit 01/28/2020 3:00p [facility] Patrick Barajas MD C18.2 Malignant neoplasm of ascend ing colon Office Visit 01/23/2020 9:45a [facility] Patrick Barajas MD C18.2 Malignant neoplasm of ascend ing colon Office Visit 10/25/2019 8:30a [facility] Wayne Mayorga M.D. D62 Acute posthemorrhagic anemia K62.5 Hemorrhage of anus and rectu m Assessments Date Code Description Provider 03/10/2020 C18.2 Malignant neoplasm of ascending colon Virgil Barajas MD 02/12/2020 C18.2 Malignant neoplasm of ascending colon Virgil Barajas MD 01/28/2020 C18.2 Malignant neoplasm of ascending colon Virgil Barajas MD 01/23/2020 C18.2 Malignant neoplasm of ascending colon Virgil Barajas MD 01/17/2020 C18.2 Malignant neoplasm of ascending colon David Mayorga M.D. 01/13/2020 C18.2 Malignant neoplasm of ascending colon David Mayorga M.D. 01/13/2020 D62 Acute posthemorrhagic anemia Ashleigh Mayorga M.D. 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 01/13/2020 K29.70 Gastritis, unspecified, without bleeding David Mayorga M.D. 01/13/2020 K44.9 Diaphragmatic hernia without obs truction or gangrene David Mayorga M.D. 01/13/2020 K57.30 Diverticulosis of la rge intestine without perforation or abscess without bleeding David Mayorga M.D. 01/13/2020 K64.8 Other hemorrhoids David alcaraz M.D. 01/13/2020 D12.3 Benign neoplasm of transverse co jairon Mayorga M.D. 01/13/2020 D12.4 Benign neoplasm of descending co jairon Mayorga M.D. 10/25/2019 D62 Acute posthemorrhagic anemia Ashleigh Mayorga M.D. 10/25/2019 K62.5 Hemorrhage of anus and rectum Kim Mayorga M.D. Plan of Treatment No Information Available Functional Status Description No Information Available Mental Status Description No Information Available Referrals Refer to Dr Reason for Referral Status Appt Date Virgil Barajas MD ASCEDNDING COLON CANCER Closed 1 03/24/[address] [place] [address] [phone] [facility] M.D. 79 year old female patient w ith Ascending colon cancer. Please evaluate for further management ( Staging CT scans and CEA level are ordered from GI clinic). thank you. Created [facility] [address] [place] [address] [phone] Virgil Barajas MD 79 year old female patient w ith Ascending colon cancer. Please evaluate for further management ( Staging CT scans and CEA level are ordered from GI clinic). thank you. Closed [address] [place] [address] [phone] David Mayorga M.D. abrupt onset anemia post hospital admission Scheduled 10/25/[address] [place] [address] [phone]
--- OUTSIDE RECORDS SUMMARY | 2020-04-24 14:33 | CCD | Continuity of Care Document ---
Author Author Laura OLIVAS M.D. Organization Unknown Address [address] [place] [address] Phone [phone] Care Team Providers Care Carpenter'S Assistant Name Role Phone [facility] - Gastroenterology AUTM [phone] [facility] AUTM [phone] Jaye Beck MD AUTM [phone] David Mayorga AUTM [phone] Ben Harrison AUTM [phone] Virgil Barajas MD AUTM [phone] Problems Description No Information Available Social History [...] day Unknown Vitamin D3 Ultra Potency 1.25mg (44209 Ut) Tablets take one capsule by mouth once a week x 12 weeks Jaye Beck MD Calcium 500 MG one po bid Unknown History Medications Macrobid 100mg Capsules 1 by mouth twice a day 14caps N39.0 Betty Olivas M.D. 020 - 02/05/2020 Immunizations CPT Code Status Date Vaccine Lot # [id number] Given 12/09/2019 Influenza Virus Vaccine, Quadrivalent,age 3 and up,multidose vial [id number] Given 12/09/2019 Influenza Virus Vaccine, Quadrivalent,age 3 and up,multidose vial [id number] Vital Signs Date Vital Result Comment 02/20/2020 2:01pm BP Systolic 138 mmHg BP Diastolic 75 mmHg Heart Rate 55 /min Body Temperature 96.5 F Respiratory Rate 15 /min Height 67.0 inches 5'7" Weight 163.38 lb O2 % BldC Oximetry 97 % Peak Expiratory Flow Rate 338 Estimated Peak Flow Rate [place] Body Weight 135 lb BMI (Body Mass [...] Flow Rate 338 Estimated Peak Flow Rate [place] Body Weight 135 lb BMI (Body Mass Index) 25.7 kg/m2 Results Test Acquired Date Facility Test Result H/L Range Note PT & Aptt 03/20/2020 [facility] [place] [address] [phone] Prothrombin Time 20.0 seconds High 12.5-14.3 Inr 1.66 Normal 1 Partial Thromboplastin Time 38.6 seconds High 24.2-38.5 CBC With Differential 03/20/2020 Patient [facility] Ce [facility]ter [facility] [place] [address] [phone] White Blood Count 6.5 10 Normal 4.0-10.0 [...] 36.0-66.0 Lymph % 30.7 % Normal 24.0-44.0 [place] % 13.4 % High 0.0-5.0 Eos % 3.5 % High 0.0-3.0 Baso % 0.9 % Normal 0.0-1.0 Immature Granulocyte % 0.6 % Normal 0-3.0 Nucleated Red Blood Cell % 0.6 % High 0-0 Neutrophils # 3.3 10 Normal 1.5-8.5 Lymph # 2.0 10 Normal 1.5-5.0 [place] # 0.9 10 High 0.0-0.8 Eos # 0.2 10 Normal 0.0-0.5 Baso # 0.1 10 Normal 0.0-0.2 Comprehensive Metabolic Profil 03/20/2020 [place] [address] [phone] Glucose, Fasting 87 mg/dL Normal 70-100 Blood Urea Nitrogen 15 mg/dL Normal 7-18 Creatinine For GFR 1.00 mg/dL Normal 0.55-1.30 Glomerular Filtration Rate 57.2 Normal >39 2 Sodium Level 144 mEq/L Normal 136-145 [...] Binding Capacit 03/20/2020 [place] [address] [phone] Iron (Fe) 57 g/dL Normal 50-170 Total Iron Binding Capacity 301 g/dL Normal 250-450 Percent Saturation 18.9 % Normal 13.2-45.0 Laboratory test finding 03/20/2020 [place] [address] [phone] Carcinoembryonic Antigen 1.6 NG/ML Normal <2.5 3 Vitamin B12 & Folate 03/20/2020 [place] [address] [phone] Vitamin B12 Level 415 pg/mL Normal 4 Folate 10.9 NG/ML Normal 5 Laboratory test finding 03/20/2020 [facility] [place] [address] [phone] Ferritin 24 NG/ML Normal 8-252 Basic Metabolic Profile 01/28/2020 [place] [address] [phone] Glucose, Fasting 92 mg/dL Normal 70-100 Blood Urea Nitrogen 14 mg/dL Normal 7-18 Creatinine For GFR 0.86 mg/dL Normal 0.55-1.30 Glomerular Filtration Rate > 60.0 Normal >39 6 Sodium Level 144 mEq/L Normal 136-145 Potassium Serum 3.3 mEq/L Low 3.5-5.1 Chloride Level 110 mEq/L High 98-107 Carbon Dioxide Level 28 mEq/L Normal 21-32 Anion Gap 6 mEq/L Low 8-16 Calcium Level 9.3 mg/dL Normal 8.8-10.2 Laboratory test finding 01/28/2020 [place] [address] [phone] Total 25(Oh) Vitamin D 33.7 NG/ML Normal 30.0-100. 0 Laboratory test finding 01/22/2020 Patient Service [place] [id number] [phone] Carcinoembryonic Antigen 1.4 NG/ML Normal <2.5 7 Creatinine With GFR 01/22/2020 [place] [address] [phone] Creatinine For GFR 1.24 mg/dL Normal 0.55-1.30 Glomerular Filtration Rate 44.7 Normal >39 8 Laboratory test finding 01/22/2020 Patient Service [place] [id number] [phone] Blood Urea Nitrogen 18 mg/dL Normal 7-18 Liver Profile 01/22/2020 [place] [address] [phone] Ast/Sgot 13 U/L Normal 7-37 Alt/SGPT 19 U/L Normal 12-78 Alkaline Phosphatase 100 U/L Normal 45-117 Bilirubin,Total 1.0 mg/dL Normal 0.2-1.0 Bilirubin,Direct 0.2 mg/dL Normal 0.0-0.2 Total Protein 6.0 GM/DL Low 6.4-8.2 Albumin 3.3 GM/DL Normal 3.2-5.2 Albumin/Globulin Ratio 1.2 Normal 1.2-2.2 CBC With Differential 01/22/2020 Patient Service [place], [place] [id number] [phone] White Blood Count 11.8 10 High 4.0-10.0 [...] 36.0-66.0 Lymph % 11.8 % Low 24.0-44.0 [place] % 6.5 % High 0.0-5.0 Eos % 0.6 % Normal 0.0-3.0 Baso % 0.4 % Normal 0.0-1.0 Immature Granulocyte % 0.6 % Normal 0-3.0 Nucleated Red Blood Cell % 0.0 % Normal 0-0 Neutrophils # 9.4 10 High 1.5-8.5 Lymph # 1.4 10 Low 1.5-5.0 [place] # 0.8 10 Normal 0.0-0.8 Eos # 0.1 10 Normal 0.0-0.5 Baso # 0.1 10 Normal 0.0-0.2 Laboratory test finding 12/30/2019 [facility] [phone] Urine Culture FULL REPORT IN L <SEE NOTE> Normal 9 Ua Routine 12/30/2019 [facility] [address] [place], [place] [address] [phone] Ua Specific [place] 1.030 Ua PH 5 Ua Color yellow Ua Appera hazy Ua WBC 2+ Ua Protein 1+ Ua Glucose neg. Ua Ketones neg. Ua Bilirubin 1+ Ua Urobilinogen trace Ua Nitrite positive Ua Occult Blood neg. Basic Metabolic Profile 12/23/2019 [place] [address] [phone] Glucose, Fasting 93 mg/dL Normal 70-100 Blood Urea Nitrogen 22 mg/dL High 7-18 Creatinine For GFR 0.84 mg/dL Normal 0.55-1.30 Glomerular Filtration Rate > 60.0 Normal >39 1 0 Sodium Level 144 mEq/L Normal 136-145 Potassium Serum 4.1 mEq/L Normal 3.5-5.1 Chloride Level 115 mEq/L High 98-107 Carbon Dioxide Level 25 mEq/L Normal 21-32 Anion Gap 4 mEq/L Low 8-16 Calcium Level 9.2 mg/dL Normal 8.8-10.2 Laboratory test finding 12/23/2019 [facility] [place] [address] [phone] Total 25(Oh) Vitamin D 10.9 NG/ML Low 30.0-100. 0 Total Iron Binding Capacit 10/07/2019 [place] [address] [phone] Iron (Fe) 42 g/dL Low 50-170 Total Iron Binding Capacity 255 g/dL Normal 250-450 Percent Saturation 16.5 % Normal 13.2-45.0 Laboratory test finding 10/07/2019 [facility] [place] [address] [phone] Ferritin 18 NG/ML Normal 8-252 CBC With Differential 10/07/2019 [facility] [phone] White Blood Count 6.2 10 Normal 4.0-10.0 [...] 36.0-66.0 Lymph % 21.4 % Low 24.0-44.0 [place] % 11.0 % High 0.0-5.0 Eos % 2.1 % Normal 0.0-3.0 Baso % 0.8 % Normal 0.0-1.0 Immature Granulocyte % 0.3 % Normal 0-3.0 Nucleated Red Blood Cell % 0.0 % Normal 0-0 Neutrophils # 4.0 10 Normal 1.5-8.5 Lymph # 1.3 10 Low 1.5-5.0 [place] # 0.7 10 Normal 0.0-0.8 Eos # 0.1 10 Normal 0.0-0.5 Baso # 0.1 10 Normal 0.0-0.2 1 THERAPUTIC HUMAN INR VALUES INDICATIONS NORMAL RANGES PROPHYLAXIS/TREATMENT OF: VENOUS THROMBOSIS 2.0-3.0 PULMONARY EMBOLISM 2.0-3.0 PREVENTION OF SYSTEMIC EMBOLISM FROM: TISSUE HEART VALVES 2.0-3.0 ACUTE MYOCARDIAL INFARCTION 2.0-3.0 VALVULAR HEART DISEASE 2.0-3.0 ATRIAL FIBRILLATION 2.0-3.0 MECHANICAL VALVES(HIGH RISK) 2.5-3.5 RECURRENT MYOCARDIAL INFARCTION 2.5-3.5 2 Units are mL/min/1.73 m2 Chronic Kidney Disease Staging per NKF: Stage I & II GFR >=60 Normal to Mildly Decreased Stage III GFR 30-59 Moderately Decreased Stage IV GFR 15-29 Severely Decreased Stage V GFR <15 Very Little GFR Left ESRD GFR <15 on [employer]GER 3 THE CEA ASSAY IS PERFORMED O N THE [employer] BY CHEMILUMINESCENCE AND SHOULD NOT BE COMPARED INTERCHANGEABLY WITH OTHER METHODS. IT SHOULD NOT BE USED ALONE A SCREENING TEST OR DIAGNOSIS FOR THE PRESENCE OR ABSENCE OF MALIGNANT DISEASE. PREDICTIONS OF DISEASE RECURRENCE SHOULD NOT BE BASED SOLELY ON VALUES OBTAINED FROM SERIAL PATIENT SERUM VALUES. 4 VITAMIN B12 NORMAL RANGE NORMAL 247 - 911 PG/ML INDETERMINATE 211 - 246 PG/ML DEFICIENT LESS THAN 211 PG/ML 5 FOLATE NORMAL RANGE NORMAL GREATER THAN 5.4 NG/ML INDETERMINATE 3.4-5.4 NG/ML DEFICIENT LESS THAN 3.4 NG/ML 6 Units are mL/min/1.73 m2 Chronic Kidney Disease Staging per NKF: Stage I & II GFR >=60 Normal to Mildly Decreased Stage III GFR 30-59 Moderately Decreased Stage IV GFR 15-29 Severely Decreased Stage V GFR <15 Very Little GFR Left ESRD GFR <15 on [employer]GER 7 THE CEA ASSAY IS PERFORMED O N THE [employer] BY CHEMILUMINESCENCE AND SHOULD NOT BE COMPARED INTERCHANGEABLY WITH OTHER METHODS. IT SHOULD NOT BE USED ALONE A SCREENING TEST OR DIAGNOSIS FOR THE PRESENCE OR ABSENCE OF MALIGNANT DISEASE. PREDICTIONS OF DISEASE RECURRENCE SHOULD NOT BE BASED SOLELY ON VALUES OBTAINED FROM SERIAL PATIENT SERUM VALUES. 8 Units are mL/min/1.73 m2 Chronic Kidney Disease Staging per NKF: Stage I & II GFR >=60 Normal to Mildly Decreased Stage III GFR 30-59 Moderately Decreased Stage IV GFR 15-29 Severely Decreased Stage V GFR <15 Very Little GFR Left ESRD GFR <15 on [employer]GER 9 FULL REPORT IN LAB NOTES (eC W and Medent). SPECIMEN APPEARS CONTAMINATED 10 Units are mL/min/1.73 m2 Chronic Kidney Disease Staging per NKF: Stage I & II GFR >=60 Normal to Mildly Decreased Stage III GFR 30-59 Moderately Decreased Stage IV GFR 15-29 Severely Decreased Stage V GFR <15 Very Little GFR Left ESRD GFR <15 on [employer] MANAGER Procedures Description No Information Available Medical Devices [...] 02/20/2020 C18.2 Malignant neoplasm of ascending colon Petrancosta, Bruna [place], PA 02/20/2020 I10 Essential (primary) hypertension Petrancosta, Bruna [place], [place] 02/20/2020 E78.2 Mixed hyperlipidemia Petrancosta , Bruna [place], [place] 02/20/2020 D50.9 Iron deficiency anemia, unspecif ied Petrancosta, Bruna [place], [place] 02/05/2020 Z01.818 Encounter for other preprocedura l examination Petrjaylynosta, Bruna [place], PA 02/05/2020 C18.2 Malignant neoplasm of ascending colon Petrancosta, Bruna [place], PA 02/05/2020 D50.9 Iron deficiency anemia, unspecif ied Petrancosta, Bruna [place], PA 02/05/2020 I10 Essential (primary) hypertension Petrancosta, Bruna [place], PA 02/05/2020 E78.2 Mixed hyperlipidemia Petrancosta , Bruna [place], PA 02/05/2020 K21.9 Gastro-esophageal reflux disease without esophagitis Petrancosta Bruna [place], PA 12/30/2019 N39.0 Urinary tract infection, site no t specified Petrancosta, Bruna [place], PA 12/30/2019 M72.2 Plantar fascial fibromatosis Pet rancosta, Bruna [place], [place] 12/09/2019 Z00.00 Encounter for genera l adult medical examination without abnormal findings Betty Olivas M.D. 12/09/2019 Z00.00 Encounter for genera l adult medical examination without abnormal findings Petrancosta, Bruna [place], PA 12/09/2019 I10 Essential (primary) hypertension Betty Olivas M.D. 12/09/2019 I10 Essential (primary) hypertension Petrancosta, Bruna [place], PA 12/09/2019 I63.9 Cerebral infarction, unspecified Betty Olivas M.D. 12/09/2019 I63.9 Cerebral infarction, unspecified Petrancosta, Bruna Derick PA 12/09/2019 E78.2 Mixed hyperlipidemia Forrest Olivas [...] for insurance purposes to continue follow up Scheduled 03/10/2020 826 [facility] [address] [phone] Ben Harrison fascitis Closed 02/10/2020 [address] [place] [address] [phone] Jaye Beck MD treatment of osteoporosis. oral meds contraindicated due to hx of GI bleed Closed 12/30/2019 [facility] [address] [facility] [address] [phone]
--- OUTSIDE RECORDS SUMMARY | 2020-04-24 14:33 | CCD ---
Continuity of Care Document (CCD) Created on: 03/25/2020 Laura Oquendo External Reference #: [id number] : [id number] Sex: Female Author Author Laura OLIVAS M.D. Organization Unknown Address [address] [place] [address] Phone [phone] Care Team Providers Care Acquisition Professional Name Role Phone [facility] AUTM [facility] AUTM [phone] Jaye Beck MD AUTM [phone] David Mayorga AUTM [phone] Ben Harrison AUTM [phone] Virgil Barajas MD AUTM [phone] Problems Description No Information Available Social History [...] day Unknown Vitamin D3 Ultra Potency 1.25mg (15190 Ut) Tablets take one capsule by mouth once a week x 12 weeks Jaye Beck MD Calcium 500 MG one po bid Unknown History Medications Macrobid 100mg Capsules 1 by mouth twice a day 14caps N39.0 Betty Olivas M.D. 020 - 02/05/2020 Immunizations CPT Code Status Date Vaccine Lot # [id number] Given 12/09/2019 Influenza Virus Vaccine, Quadrivalent,age 3 and up,multidose vial [id number] Given 12/09/2019 Influenza Virus Vaccine, Quadrivalent,age 3 and up,multidose vial [id number] Vital Signs Date Vital Result Comment 02/20/2020 2:01pm BP Systolic 138 mmHg BP Diastolic 75 mmHg Heart Rate 55 /min Body Temperature 96.5 F Respiratory Rate 15 /min Height 67.0 inches 5'7" Weight 163.38 lb O2 % BldC Oximetry 97 % Peak Expiratory Flow Rate 338 Estimated Peak Flow Rate [place] Body Weight 135 lb BMI (Body Mass [...] Flow Rate 338 Estimated Peak Flow Rate [place] Body Weight 135 lb BMI (Body Mass Index) 25.7 kg/m2 Results Test Acquired Date Facility Test Result H/L Range Note PT & Aptt 03/20/[address] [facility] [place] [address] [phone] Prothrombin Time 20.0 seconds High 12.5-14.3 Inr 1.66 Normal 1 Partial Thromboplastin Time 38.6 seconds High 24.2-38.5 CBC With Differential 03/20/[address] [facility] [place] [address] [phone] White Blood Count 6.5 10 Normal 4.0-10.0 [...] 36.0-66.0 Lymph % 30.7 % Normal 24.0-44.0 [place] % 13.4 % High 0.0-5.0 Eos % 3.5 % High 0.0-3.0 Baso % 0.9 % Normal 0.0-1.0 Immature Granulocyte % 0.6 % Normal 0-3.0 Nucleated Red Blood Cell % 0.6 % High 0-0 Neutrophils # 3.3 10 Normal 1.5-8.5 Lymph # 2.0 10 Normal 1.5-5.0 [place] # 0.9 10 High 0.0-0.8 Eos # 0.2 10 Normal 0.0-0.5 Baso # 0.1 10 Normal 0.0-0.2 Comprehensive Metabolic Profil 03/20/2020 [place] [address] [phone] Glucose, Fasting 87 mg/dL Normal 70-100 Blood [...] Binding Capacit 03/20/2020 [place] [address] [phone] Iron (Fe) 57 g/dL Normal 50-170 Total Iron Binding Capacity 301 g/dL Normal 250-450 Percent Saturation 18.9 % Normal 13.2-45.0 Laboratory test finding 03/20/2020 [place] [address] [phone] Carcinoembryonic Antigen 1.6 NG/ML Normal <2.5 3 Vitamin B12 & Folate 03/20/2020 [place] [address] [phone] Vitamin B12 Level 415 pg/mL Normal 4 Folate 10.9 NG/ML Normal 5 Laboratory test finding 03/20/2020 [place] [address] [phone] Ferritin 24 NG/ML Normal 8-252 Basic Metabolic Profile 01/28/2020 [place] [address] [phone] Glucose, Fasting 92 mg/dL Normal 70-100 Blood [...] 8.8-10.2 Laboratory test finding 01/28/2020 [place] [address] [phone] Total 25(Oh) Vitamin D 33.7 NG/ML Normal 30.0-100. 0 Laboratory test finding 01/22/2020 Patient Service [place] [id number] [phone] Carcinoembryonic Antigen 1.4 NG/ML Normal <2.5 7 Creatinine With GFR 01/22/2020 [place] [address] [phone] Creatinine For GFR 1.24 mg/dL Normal 0.55-1.30 Glomerular Filtration Rate 44.7 Normal >39 8 Laboratory test finding 01/22/2020 Patient Service [place] [id number] [phone] Blood Urea Nitrogen 18 mg/dL Normal 7-18 Liver Profile 01/22/2020 [place] [address] [phone] Ast/Sgot 13 U/L Normal 7-37 Alt/SGPT 19 U/L Normal 12-78 Alkaline Phosphatase 100 U/L Normal 45-117 Bilirubin,Total 1.0 mg/dL Normal 0.2-1.0 Bilirubin,Direct 0.2 mg/dL Normal 0.0-0.2 Total Protein 6.0 GM/DL Low 6.4-8.2 Albumin 3.3 GM/DL Normal 3.2-5.2 Albumin/Globulin Ratio 1.2 Normal 1.2-2.2 CBC With Differential 01/22/2020 Patient Service [place], [place] [address] [phone] White Blood Count 11.8 10 High 4.0-10.0 [...] 36.0-66.0 Lymph % 11.8 % Low 24.0-44.0 [place] % 6.5 % High 0.0-5.0 Eos % 0.6 % Normal 0.0-3.0 Baso % 0.4 % Normal 0.0-1.0 Immature Granulocyte % 0.6 % Normal 0-3.0 Nucleated Red Blood Cell % 0.0 % Normal 0-0 Neutrophils # 9.4 10 High 1.5-8.5 Lymph # 1.4 10 Low 1.5-5.0 [place] # 0.8 10 Normal 0.0-0.8 Eos # 0.1 10 Normal 0.0-0.5 Baso # 0.1 10 Normal 0.0-0.2 Laboratory test finding [facility] [phone] Urine Culture FULL REPORT IN L <SEE NOTE> Normal 9 Ua Routine 12/30/2019 [facility] [address] [place], [place] [address] [phone] Ua Specific [place] 1.030 Ua PH 5 Ua Color yellow Ua Appera hazy Ua WBC 2+ Ua Protein 1+ Ua Glucose neg. Ua Ketones neg. Ua Bilirubin 1+ Ua Urobilinogen trace Ua Nitrite positive Ua Occult Blood neg. Basic Metabolic Profile 12/23/2019 [place] [address] [phone] Glucose, Fasting 93 mg/dL Normal 70-100 Blood [...] Laboratory test finding 12/23/2019 [place] [address] [phone] Total 25(Oh) Vitamin D 10.9 NG/ML Low 30.0-100. 0 Total Iron Binding Capacit 10/07/2019 [place] [address] [phone] Iron (Fe) 42 g/dL Low 50-170 Total Iron Binding Capacity 255 g/dL Normal 250-450 Percent Saturation 16.5 % Normal 13.2-45.0 Laboratory test finding 10/07/2019 [place] [address] [phone] Ferritin 18 NG/ML Normal 8-252 CBC With Differential 10/07/2019 [facility] [phone] White Blood Count 6.2 10 Normal 4.0-10.0 [...] 36.0-66.0 Lymph % 21.4 % Low 24.0-44.0 [place] % 11.0 % High 0.0-5.0 Eos % 2.1 % Normal 0.0-3.0 Baso % 0.8 % Normal 0.0-1.0 Immature Granulocyte % 0.3 % Normal 0-3.0 Nucleated Red Blood Cell % 0.0 % Normal 0-0 Neutrophils # 4.0 10 Normal 1.5-8.5 Lymph # 1.3 10 Low 1.5-5.0 [place] # 0.7 10 Normal 0.0-0.8 Eos # [...] Little GFR Left ESRD GFR <15 on FINANCIAL PROJECT MANAGER 3 THE CEA ASSAY IS PERFORMED O N THE [employer] BY CHEMILUMINESCENCE AND SHOULD NOT BE COMPARED [...] Little GFR Left ESRD GFR <15 on FINANCIAL PROJECT MANAGER 7 THE CEA ASSAY IS PERFORMED O N THE [place] [employer] BY CHEMILUMINESCENCE AND SHOULD NOT BE COMPARED [...] Little GFR Left ESRD GFR <15 on FINANCIAL PROJECT MANAGER 9 FULL REPORT IN LAB NOTES (eC W and Medent). SPECIMEN APPEARS CONTAMINATED 10 Units are mL/min/1.73 m2 Chronic Kidney Disease Staging per NKF: Stage I & II GFR >=60 Normal to Mildly Decreased Stage III GFR 30-59 Moderately Decreased Stage IV GFR 15-29 Severely Decreased Stage V GFR <15 Very Little GFR Left ESRD GFR <15 on FINANCIAL PROJECT MANAGER Procedures Description No Information Available Medical [...] 02/20/2020 I10 Essential (primary) hypertension Petrancosta, Bruna Harper, PA 02/20/2020 E78.2 Mixed hyperlipidemia Petrancosta , Bruna Harper, PA 02/20/2020 D50.9 Iron deficiency anemia, unspecif ied Petrancosta, Bruna Harper, PA 02/05/2020 Z01.818 Encounter for other preprocedura l examination Petrjaylynosta, Bruna Derick, PA 02/05/2020 C18.2 Malignant neoplasm of ascending colon Petrancosta, Bruna Harper, PA 02/05/2020 D50.9 Iron deficiency anemia, unspecif ied Petrancosta, Bruna Harper, PA 02/05/2020 I10 Essential (primary) hypertension Petrancosta, Bruna Derick, PA 02/05/2020 E78.2 Mixed hyperlipidemia Petrancosta , Bruna Harper, PA 02/05/2020 K21.9 Gastro-esophageal reflux disease without esophagitis Petrancosta Bruna Harper, PA 12/30/2019 N39.0 Urinary tract infection, site no t specified Petrancosta, Bruna Harper, PA 12/30/2019 M72.2 Plantar fascial fibromatosis Pet rancosta, Bruna Harper, PA 12/09/2019 Z00.00 Encounter for genera l adult medical examination without abnormal findings Betty Olivas M.D. 12/09/2019 Z00.00 Encounter for genera l adult medical examination without abnormal findings Petrancosta, Bruna Harper, PA 12/09/2019 I10 Essential (primary) hypertension Betty [...] to continue follow up Scheduled 03/10/2020 [address] [facility] [address] [phone] Ben Harrison fascitis Closed 02/10/2020 [address] [place] [address] [phone] Jaye Beck MD treatment of osteoporosis. oral meds contraindicated due to hx of GI bleed Closed 12/30/2019 [facility] [address] [facility] [address] [phone]
--- OUTSIDE RECORDS SUMMARY | 2020-04-24 14:34 | CCD | Continuity of Care Document ---
Author Author Laura EVERETT PA Organization Unknown Address [address] [place] [address] Phone [phone] Care Team Providers Care Refinery Operator Name Role Phone [facility] AUTM [phone] [facility] AUTM [phone] Jaye Beck MD AUTM [phone] David Mayorga AUTM [phone] Ben Harrison AUTM [phone] Problems Description No Information Available Social History Type Date Description Comments Sex Unknown Tobacco Use Start: Unknown Never Used Smokeless Tobacco ETOH Use Denies alcohol use Tobacco Use Start: Unknown End: Patient is a former smoker 20+ years 1/4- 1/2 ppd Recreational Drug Use Denies Drug Use Smoking Status Reviewed: 02/05/20 Patient is a former smoker 20 + [...] SIG Qnty Indications Ordering Provide r Date Fluoxetine HCL 20mg Capsules 1 by mouth every day 90esdrass Betty Armstrong M.D. 020 Amlodipine Besylate 5mg [...] mouth every day 90tabs Betty Armstrong M.D. Tylenol 325mg Capsules one tabs by mouth every 4-6 hour daily as needed for pain Unknown Vitamin D3 5000Unit Tablets 1 by mouth every day Unknown Vitamin D3 Ultra Potency 1.25mg (27880 Ut) Tablets take one capsule by mouth once a week x 12 weeks Jaye Beck MD Calcium 500 MG one po bid Unknown History Medications Macrobid 100mg Capsules 1 by mouth twice a day 14caps N39.0 Betty Armstrong M.D. 020 - 02/05/2020 Immunizations CPT Code Status Date Vaccine Lot # [id number] Given 12/09/2019 Influenza Virus Vaccine, Quadrivalent,age 3 and up,multidose vial [id number] Given 12/09/2019 Influenza Virus Vaccine, Quadrivalent,age 3 and up,multidose vial [id number] Vital Signs Date Vital Result Comment 02/05/2020 2:43pm BP Systolic 80 mmHg BP Diastolic 40 mmHg BP Systolic Recheck 90 mmHg BP Diastolic Recheck 43 mmHg Heart Rate 69 /min Body Temperature 97.6 F Respiratory Rate 17 /min Height 67.0 inches 5'7" Weight 164.00 lb stated wt O2 % BldC Oximetry 95 % Peak Expiratory Flow Rate 338 Estimated Peak Flow Rate [place] Body Weight 135 lb BMI (Body Mass Index) 25.7 kg/m2 12/30/2019 3:07pm BP Systolic 111 mmHg BP Diastolic 65 mmHg Heart Rate 53 /min Body Temperature 97.3 F Respiratory Rate 16 /min Height 67.0 inches 5'7" Weight 163.00 lb Peak Expiratory Flow Rate 338 Estimated Peak Flow Rate [place] Body Weight 135 lb BMI (Body Mass Index) 25.5 kg/m2 Results Test Acquired Date Facility Test Result H/L Range Note Basic Metabolic Profile 01/28/2020 Patient Service [place], [place] [id number] [phone] Glucose, Fasting 92 mg/dL Normal 70-100 Blood [...] 8.8-10.2 Laboratory test finding 01/28/2020 Patient Service [place], [place] [address]11 [phone] Total 25(Oh) Vitamin D 33.7 NG/ML Normal 30.0-100. 0 CBC With Differential 01/22/2020 Patient Service nter [place], [place] [address] [phone] White Blood Count 11.8 10 High 4.0-10.0 [...] 36.0-66.0 Lymph % 11.8 % Low 24.0-44.0 Mineral % 6.5 % High 0.0-5.0 Eos % 0.6 % Normal 0.0-3.0 Baso % 0.4 % Normal 0.0-1.0 Immature Granulocyte % 0.6 % Normal 0-3.0 Nucleated Red Blood Cell % 0.0 % Normal 0-0 Neutrophils # 9.4 10 High 1.5-8.5 Lymph # 1.4 10 Low 1.5-5.0 Mineral # 0.8 10 Normal 0.0-0.8 Eos # 0.1 10 Normal 0.0-0.5 Baso # 0.1 10 Normal 0.0-0.2 Liver Profile 01/22/2020 [place] [address] [phone] Ast/Sgot 13 U/L Normal 7-37 Alt/SGPT 19 U/L Normal 12-78 Alkaline Phosphatase 100 U/L Normal 45-117 Bilirubin,Total 1.0 mg/dL Normal 0.2-1.0 Bilirubin,Direct 0.2 mg/dL Normal 0.0-0.2 Total Protein 6.0 GM/DL Low 6.4-8.2 Albumin 3.3 GM/DL Normal 3.2-5.2 Albumin/Globulin Ratio 1.2 Normal 1.2-2.2 Laboratory test finding 01/22/2020 Patient Service [place] [id number] [phone] Blood Urea Nitrogen 18 mg/dL Normal 7-18 Creatinine With GFR 01/22/2020 [place] [address] [phone] Creatinine For GFR 1.24 mg/dL Normal 0.55-1.30 Glomerular Filtration Rate 44.7 Normal >39 2 Laboratory test finding 01/22/2020 [place] [address] [phone] Carcinoembryonic Antigen 1.4 NG/ML Normal <2.5 3 Laboratory test finding [facility]30[facility] [phone] Urine Culture FULL REPORT IN L <SEE NOTE> Normal 4 Ua Routine 12/30/2019 [facility] [address] [place] [address] [phone] Ua Specific [place] 1.030 Ua PH 5 Ua Color yellow Ua Appera hazy Ua WBC 2+ Ua Protein 1+ Ua Glucose neg. Ua Ketones neg. Ua Bilirubin 1+ Ua Urobilinogen trace Ua Nitrite positive Ua Occult Blood neg. Basic Metabolic Profile 12/23/2019 [place] [address] [phone] Glucose, Fasting 93 mg/dL Normal 70-100 Blood [...] Laboratory test finding 12/23/2019 [place] [address] [phone] Total 25(Oh) Vitamin D 10.9 NG/ML Low 30.0-100. 0 Total Iron Binding Capacit 10/07/2019 Patient Servi ce Center [place], [place] [address] [phone] Iron (Fe) 42 g/dL Low 50-170 Total Iron Binding Capacity 255 g/dL Normal 250-450 Percent Saturation 16.5 % Normal 13.2-45.0 Laboratory test finding 10/07/2019 [place] [address] [phone] Ferritin 18 NG/ML Normal 8-252 CBC With Differential 10/07/2019 [facility] [phone] White Blood Count 6.2 10 Normal 4.0-10.0 [...] 36.0-66.0 Lymph % 21.4 % Low 24.0-44.0 Mineral % 11.0 % High 0.0-5.0 Eos % 2.1 % Normal 0.0-3.0 Baso % 0.8 % Normal 0.0-1.0 Immature Granulocyte % 0.3 % Normal 0-3.0 Nucleated Red Blood Cell % 0.0 % Normal 0-0 Neutrophils # 4.0 10 Normal 1.5-8.5 Lymph # 1.3 10 Low 1.5-5.0 Mineral # 0.7 10 Normal 0.0-0.8 Eos # 0.1 10 Normal 0.0-0.5 Baso # 0.1 10 Normal 0.0-0.2 1 Units are mL/min/1.73 m2 Chronic Kidney Disease Staging per NKF: Stage I & II GFR >=60 Normal to Mildly Decreased Stage III GFR 30-59 Moderately Decreased Stage IV GFR 15-29 Severely Decreased Stage V GFR <15 Very Little GFR Left ESRD GFR <15 on ASSISTANT WOMEN'S SOCCER COACH 2 Units are mL/min/1.73 m2 Chronic Kidney Disease Staging per NKF: Stage I & II GFR >=60 Normal to Mildly Decreased Stage III GFR 30-59 Moderately Decreased Stage IV GFR 15-29 Severely Decreased Stage V GFR <15 Very Little GFR Left ESRD GFR <15 on ASSISTANT WOMEN'S SOCCER COACH 3 THE CEA ASSAY IS PERFORMED O N THE [employer] BY CHEMILUMINESCENCE AND SHOULD NOT BE COMPARED [...] Little GFR Left ESRD GFR <15 on ASSISTANT WOMEN'S SOCCER COACH Procedures Description No Information Available Medical Devices Description No Information Available Encounters Type Date Location Provider Dx Diagnosis Office Visit 02/05/2020 2:15p Main Office Bruna [...] other disorder Assessments Date Code Description Provider 02/05/2020 Z01.818 Encounter for other preprocedura l examination Bruna Everett PA 02/05/2020 C18.2 Malignant neoplasm of ascending colon Bruna Everett PA 02/05/2020 D50.9 Iron deficiency anemia, unspecif ied Bruna Everett PA 02/05/2020 I10 Essential (primary) hypertension Bruna Everett PA 02/05/2020 E78.2 Mixed hyperlipidemia Bruna Everett PA 02/05/2020 K21.9 Gastro-esophageal reflux disease without esophagitis Bruna Everett PA 12/30/2019 N39.0 Urinary tract infection, site no t specified Petrancosta Bruna Derick, PA 12/30/2019 M72.2 Plantar fascial fibromatosis Pet rancostaBruna, PA 12/09/2019 Z00.00 Encounter for genera l adult medical examination without abnormal findings Betty Armstrong M.D. 12/09/2019 Z00.00 Encounter for genera l adult medical examination without abnormal findings Petrancsarbjita, Brunaaaron Sepulveda, PA 12/09/2019 I10 Essential (primary) hypertension Betty Armstrong M.D. 12/09/2019 I10 Essential (primary) hypertension Petrancosta Brunaaaron Sepulveda PA 12/09/2019 I63.9 Cerebral infarction, unspecified Betty Armstrong M.D. 12/09/2019 I63.9 Cerebral infarction, unspecified Petrjaylynosta, Bruna Derick PA 12/09/2019 E78.2 Mixed hyperlipidemia Forrest Armstrong M.D. 12/09/2019 E78.2 Mixed hyperlipidemia Petrancosta , Bruna Derick, PA 12/09/2019 D50.9 Iron deficiency anemia, unspecif ied Betty Armstrong M.D. 12/09/2019 D50.9 Iron deficiency anemia, unspecif ied Sanchezancosta, Bruna Derick PA 12/09/2019 M81.8 Other osteoporosis without curre nt pathological fracture Betty Armstrong M.D. 12/09/2019 M81.8 Other osteoporosis without curre nt pathological fracture Dontrella Bruna Derick PA 12/09/2019 Z23 Encounter for immunization Betty Mullins ams, M.D. 09/05/2019 I10 Essential (primary) hypertension Petrancosta, Bruna Derick, PA 09/05/2019 I63.9 Cerebral infarction, unspecified Petrancosta, Bruna Wharton, PA 09/05/2019 E78.2 Mixed hyperlipidemia Petrancosta , Bruna Derick, PA 09/05/2019 D50.9 Iron deficiency anemia, unspecif ied Petrancosta, Bruna DerickSOUMYA 09/05/2019 N95.8 Other specified menopausal and p erimenopausal disorders Bruna Everett PA 09/05/2019 F43.23 Adjustment disorder with mixed a nxiety and depressed mood Bruna Everett PA 09/05/2019 Z13.89 Encounter for screening for othe r disorder Bruna Everett PA Plan of Treatment 02/05/2020 - Bruna Everett PA* Z01.818 Encounter for other preprocedural examination* Comments:* 79 yo with history of hyperlipidiemia, GERD, hypertension and iron deficiency anemia secondary to neoplasm of the ascending colonEKG attempted today but we were unable to get an accurate tracing. Will call cardiology office to get most recent EKG. No acute cardiopulmonary symptomsShe was given instructions for holding the xarelto prior to surgeryIn overall good health and cleared to proceed with planned procedure * C18.2 Malignant neoplasm of ascending colon * D50.9 Iron deficiency anemia, unspecified* Comments:* continue iron daily * I10 Essential (primary) hypertension* Comments:* low BP today, asymptomaticmonitor at home, adequate hydration encouraged * E78.2 Mixed hyperlipidemia* Comments:* continue lipitor * K21.9 Gastro-esophageal reflux disease without esophagitis* Comments:* continue protonixok to stop sucralfateEGD reviewed Functional Status Functional Condition Comment Date Status [...] to Reason for Referral Status Appt Date Ben Harrison Closed 02/10/2020 [address] [place] [address] [phone] Jaye Beck MD treatment of osteoporosis. oral meds contraindicated due to hx of GI bleed Closed 12/30/2019 [facility] [address] [facility] [address] [phone] [facility] abrupt onset anemia post hospital admission Cl osed 10/25/2019 [address] [place] [address] [phone]
--- OUTSIDE RECORDS SUMMARY | 2020-04-24 14:34 | CCD | Continuity of Care Document ---
Author Author Laura EVERETT PA Organization Unknown Address [address] [place] [address] Phone [phone] Care Team Providers Care Saw Operator Name Role Phone Religion Gastro - Gastroenterology AUTM [facility] AUTM [phone] Jaye Beck MD AUTM [phone] David Mayorga AUTM [phone] Ben Harrison AUTM [phone] Problems Description No Information Available Social History [...] day Unknown Vitamin D3 Ultra Potency 1.25mg (02677 Ut) Tablets take one capsule by mouth once a week x 12 weeks Jaye Beck MD Calcium 500 MG one po bid Unknown History Medications Macrobid 100mg Capsules 1 by mouth twice a day 14caps N39.0 Betty Armstrong M.D. 020 - 02/05/2020 Immunizations CPT Code Status Date Vaccine Lot # [id number] Given 12/09/2019 Influenza Virus Vaccine, Quadrivalent,age 3 and up,multidose vial [id number] Given 12/09/2019 Influenza Virus Vaccine, Quadrivalent,age 3 and up,multidose vial [id number] Vital Signs Date Vital Result Comment 02/05/2020 2:43pm BP Systolic 80 mmHg BP Diastolic 40 mmHg BP Systolic Recheck 90 mmHg BP Diastolic Recheck 43 mmHg Heart Rate 69 /min Body Temperature 97.6 F Respiratory Rate 17 /min Height 67.0 inches 5'7" Weight 164.00 lb stated wt O2 % BldC Oximetry 95 % Peak Expiratory Flow Rate 338 Estimated Peak Flow Rate [place] Body Weight 135 lb BMI (Body Mass Index) 25.7 kg/m2 12/30/2019 3:07pm BP Systolic 111 mmHg BP Diastolic 65 mmHg Heart Rate 53 /min Body Temperature 97.3 F Respiratory Rate 16 /min Height 67.0 inches 5'7" Weight 163.00 lb Peak Expiratory Flow Rate 338 Estimated Peak Flow Rate [place] Body Weight 135 lb BMI (Body Mass Index) 25.5 kg/m2 Results Test Acquired Date Facility Test Result H/L Range Note Basic Metabolic Profile 01/28/2020 Patient Service [place], [place] [id number] [phone] Glucose, Fasting 92 mg/dL Normal 70-100 Blood [...] 8.8-10.2 Laboratory test finding 01/28/2020 Patient Service [place], [place] [id number] [phone] Total 25(Oh) Vitamin D 33.7 NG/ML Normal 30.0-100. 0 CBC With Differential 01/22/2020 Patient Service nter [place], [place] [address]2569 [phone] White Blood Count 11.8 10 High 4.0-10.0 [...] 36.0-66.0 Lymph % 11.8 % Low 24.0-44.0 [place] % 6.5 % High 0.0-5.0 Eos % 0.6 % Normal 0.0-3.0 Baso % 0.4 % Normal 0.0-1.0 Immature Granulocyte % 0.6 % Normal 0-3.0 Nucleated Red Blood Cell % 0.0 % Normal 0-0 Neutrophils # 9.4 10 High 1.5-8.5 Lymph # 1.4 10 Low 1.5-5.0 [place] # 0.8 10 Normal 0.0-0.8 Eos # 0.1 10 Normal 0.0-0.5 Baso # 0.1 10 Normal 0.0-0.2 Liver Profile 01/22/2020 [place] [address] [phone] Ast/Sgot 13 U/L Normal 7-37 Alt/SGPT 19 U/L Normal 12-78 Alkaline Phosphatase 100 U/L Normal 45-117 Bilirubin,Total 1.0 mg/dL Normal 0.2-1.0 Bilirubin,Direct 0.2 mg/dL Normal 0.0-0.2 Total Protein 6.0 GM/DL Low 6.4-8.2 Albumin 3.3 GM/DL Normal 3.2-5.2 Albumin/Globulin Ratio 1.2 Normal 1.2-2.2 Laboratory test finding 01/22/2020 Patient Service [place] [id number] [phone] Blood Urea Nitrogen 18 mg/dL Normal 7-18 Creatinine With GFR 01/22/2020 [place] [address] [phone] Creatinine For GFR 1.24 mg/dL Normal 0.55-1.30 Glomerular Filtration Rate 44.7 Normal >39 2 Laboratory test finding 01/22/2020 [place] [address] [phone] Carcinoembryonic Antigen 1.4 NG/ML Normal <2.5 3 Laboratory test finding 12/30[facility] [phone] Urine Culture FULL REPORT IN L <SEE NOTE> Normal 4 Ua Routine 12/30/2019 [facility] [address] [place] [address] [phone] Ua Specific [place] 1.030 Ua PH 5 Ua Color yellow Ua Appera hazy Ua WBC 2+ Ua Protein 1+ Ua Glucose neg. Ua Ketones neg. Ua Bilirubin 1+ Ua Urobilinogen trace Ua Nitrite positive Ua Occult Blood neg. Basic Metabolic Profile 12/23/2019 [place] [address] [phone] Glucose, Fasting 93 mg/dL Normal 70-100 Blood [...] Laboratory test finding 12/23/2019 [place] [address] [phone] Total 25(Oh) Vitamin D 10.9 NG/ML Low 30.0-100. 0 Total Iron Binding Capacit 10/07/2019 Patient Servi ce Center [place], [place] [address]68 [phone] Iron (Fe) 42 g/dL Low 50-170 Total Iron Binding Capacity 255 g/dL Normal 250-450 Percent Saturation 16.5 % Normal 13.2-45.0 Laboratory test finding 10/07/2019 [place] [address] [phone] Ferritin 18 NG/ML Normal 8-252 CBC With Differential 10/07/2019 [facility] [phone] White Blood Count 6.2 10 Normal 4.0-10.0 [...] 36.0-66.0 Lymph % 21.4 % Low 24.0-44.0 [place] % 11.0 % High 0.0-5.0 Eos % 2.1 % Normal 0.0-3.0 Baso % 0.8 % Normal 0.0-1.0 Immature Granulocyte % 0.3 % Normal 0-3.0 Nucleated Red Blood Cell % 0.0 % Normal 0-0 Neutrophils # 4.0 10 Normal 1.5-8.5 Lymph # 1.3 10 Low 1.5-5.0 [place] # 0.7 10 Normal 0.0-0.8 Eos # 0.1 10 Normal 0.0-0.5 Baso # 0.1 10 Normal 0.0-0.2 1 Units are mL/min/1.73 m2 Chronic Kidney Disease Staging per NKF: Stage I & II GFR >=60 Normal to Mildly Decreased Stage III GFR 30-59 Moderately Decreased Stage IV GFR 15-29 Severely Decreased Stage V GFR <15 Very Little GFR Left ESRD GFR <15 on SURGEON CHIEF 2 Units are mL/min/1.73 m2 Chronic Kidney Disease Staging per NKF: Stage I & II GFR >=60 Normal to Mildly Decreased Stage III GFR 30-59 Moderately Decreased Stage IV GFR 15-29 Severely Decreased Stage V GFR <15 Very Little GFR Left ESRD GFR <15 on SURGEON CHIEF 3 THE CEA ASSAY IS PERFORMED O N THE [place] BY CHEMILUMINESCENCE AND SHOULD NOT BE COMPARED [...] Little GFR Left ESRD GFR <15 on SURGEON CHIEF Procedures Description No Information Available Medical Devices [...] 09/05/2019 I63.9 Cerebral infarction, unspecified Petrancosta, Bruna [place], PA 09/05/2019 E78.2 Mixed hyperlipidemia Petrancosta , [...] for Referral Status Appt Date Ben Harrison Scheduled 02/10/2020 [address] [place] [address] [phone] Jaye Beck MD treatment of osteoporosis. oral meds contraindicated due to hx of GI bleed Closed 12/30/2019 [facility] [address] [facility] [address] [phone] Religion Gastro abrupt onset anemia post hospital admission Cl osed 10/25/2019 [address] [place] [address] [phone]
--- OUTSIDE RECORDS SUMMARY | 2020-04-24 14:34 | CCD ---
Continuity of Care Document (CCD) Created on: 02/10/2020 Laura Oquendo External Reference #: [id number] : [id number] Sex: Female Author Author Laura HARRISON DPM Organization Unknown Address [address] [place] [address], [address] [place] [address] Phone [phone] Care Team Providers Care Medical Claims Assistant Name Role Phone Bruna Koroma AUTM [phone] Problems Description No Information Available Social History [...] Day Unk nown Vitamin D (Ergocalciferol) 1.25mg (00708 Ut) Capsules Take One Capsule By Mouth [...] kg/m2 Results Description No Information Available Procedures Description No Information Available Medical Devices Description No Information Available Encounters Description No Information Available Assessments Description No Information Available Plan of Treatment Future Appointment(s):* 04/20/2020 10:00 am - Ben Harrison DPM at [facility] Functional Status Description No Information Available Mental Status Description No Information Available Referrals Description No Information Available
--- OUTSIDE RECORDS SUMMARY | 2020-04-24 14:34 | CCD | Summary of Care ---
Author Author [facility] Organization [facility] Address Unknown Phone Unavailable Care Team Providers Care Rock Climbing Instructor Name Role Phone Rowena Erazo MD PCP Encounter Details Care Team Description Date Type Department 02/17/2020 [facility] Anatomical Encounter Pathology at [place] [address] [place] [address] Allergies Comments Active Allergy Reactions Severity Noted Date Latex Rash Low 07/04/2018 No Fluid Milk Nausea And High 07/09/2018 Vomiting Penicillins 07/04/2018 documented as of this encounter (statuses as of 02/18/2020) Medications End Date Status Medication Sig Dispensed Refills Start Date Active Sennosides (SENNA) 8.6 MG Take 2 60 each 0 TABS tablet tablets by 9 mouth nightly Active Rivaroxaban 15 MG Oral Take 15 mg by 0 Tablet (Xarelto) mouth daily Active Baclofen 10 MG Oral Take 5 mg by 0 Tablet (LIORESAL) mouth Three times daily Active Aspirin 81 MG Oral Tablet Take 81 mg by 0 mouth daily documented as of this encounter (statuses as of 02/18/2020) Active Problems Problem Noted Date 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 Status post placement of implantable loop recorder 0 07/12/2019 Other skin changes 07/19/2018 Erythema 07/19/2018 Impaired mobility and ADLs 07/10/2018 Urinary and bowel incontinence 07/10/2018 Oropharyngeal dysphagia 07/10/2018 Spasticity 07/10/2018 Left-sided neglect 07/10/2018 Cigarette smoker 07/10/2018 Acute left hemiparesis 07/09/2018 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 07/04/2018 Benign essential hypertension 04/21/2011 documented as of this encounter (statuses as of 02/18/2020) Resolved Problems Problem Noted Date Resolved Date 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 Never 07/04/2018 How many drinks containing alcohol do you have on No t asked a typical day when you are drinking? How often do you have six or more drinks on one Not asked occasion? Sex Assigned at Date Recorded Not on file documented as of this encounter Last Filed Vital Signs Not on filedocumented in this encounter Plan of Treatment Care Team Description Date Type Specialty Keira Bergman MD [address] [address] 03/03/2020 Office Visit Cardiology Date/Time Name Type Priority Associated Diag noses 02/17/2020 9:30 AM EST Surgical pathology Pathology and Routine consult Cytology Order Schedule Name Type Priority Associated Diag noses Once for 1 Occurrences starting 02/17/20 20 until 02/17/2020 Surgical pathology Pathology and Routine consult Cytology Health Maintenance Due Date Last Done Comments MMR Vaccines (1 of - 1943 Standard series) Varicella Vaccines (1 of 1941 2 - 2-dose childhood series) DTaP,Tdap,and Td Vaccines 1949 (1 - Tdap) Zoster Vaccines (1 of 2) 1992 Osteoporosis Screening 2 2007 yr Pneumococcal Vaccine: 65+ 2007 Years (1 of 1 - PPSV23) Influenza Vaccine Completed 12/09/2019 HIB Vaccines Aged Out No longer eligible based on patient's age to complete this topic Hepatitis A Vaccines Aged Out No longer eligibl e based on patient's age to complete this topic Hepatitis B Vaccines Aged Out No longer eligibl e based on patient's age to complete this topic IPV Vaccines Aged Out No longer eligible based on patient's age to complete this topic Pneumococcal Vaccine: Aged Out No longer eligib le based on patient's age to Pediatrics (0 to 5 Years) complete this topic and At-Risk Patients (6 to 64 Years) documented as of this encounter Implants Device Identifier Shelf Expiration Date Model / Serial / L ot Implanted Type Area Manufactur er 2019 [id number] / / [id number] Recorder Loop Reveal Linqlinqsys - Loop Left: Chest [employer] [id number] Recorder Wall VASCULAR Implanted: Qty: 1 on 07/09/2018 by Keira Bergman MD at OR [facility] documented as of this encounter Results Not on filedocumented in this encounter
--- OUTSIDE RECORDS SUMMARY | 2020-04-24 14:34 | CCD | Continuity of Care Document ---
Author Author Laura EVERETT PA Organization Unknown Address [address] [place] [address] Phone [phone] Care Team Providers Care Pipe Line Repairer Name Role Phone Pentecostal Gastro - Gastroenterology AUTM [facility] AUTM [phone] Jaye Beck MD AUTM [phone] David Mayorga AUTM [phone] Ben Harrison AUTM [phone] Problems Description No Information Available Social History [...] 20mg Capsules 1 by mouth every day Betty Ring M.D. 020 Amlodipine Besylate 5mg Tablets take [...] day Unknown Vitamin D3 Ultra Potency 1.25mg (15204 Ut) Tablets take one capsule by mouth once a week x 12 weeks Jaye Beck MD Calcium 500 MG one po bid Unknown History Medications Macrobid 100mg Capsules 1 by mouth twice a day 14caps N39.0 Betty Armstrong M.D. 020 - 02/05/2020 Immunizations CPT Code Status Date Vaccine Lot # [id number] Given 12/09/2019 Influenza Virus Vaccine, Quadrivalent,age 3 and up,multidose vial [id number] Given 12/09/2019 Influenza Virus Vaccine, Quadrivalent,age 3 and up,multidose vial [id number] Vital Signs Date Vital Result Comment 02/20/2020 2:01pm BP Systolic 138 mmHg BP Diastolic 75 mmHg Heart Rate 55 /min Body Temperature 96.5 F Respiratory Rate 15 /min Height 67.0 inches 5'7" Weight 163.38 lb O2 % BldC Oximetry 97 % Peak Expiratory Flow Rate 338 Estimated Peak Flow Rate [place] Body Weight 135 lb BMI (Body Mass [...] Flow Rate 338 Estimated Peak Flow Rate [place] Body Weight 135 lb BMI (Body Mass Index) 25.7 kg/m2 Results Test Acquired Date Facility Test Result H/L Range Note Basic Metabolic Profile 01/28/2020 [place] [address] [phone] Glucose, Fasting 92 mg/dL Normal 70-100 Blood [...] 8.8-10.2 Laboratory test finding 01/28/2020 [place] [address] [phone] Total 25(Oh) Vitamin D 33.7 NG/ML Normal 30.0-100. 0 CBC With Differential 01/22/2020 [place] [address] [phone] White Blood Count 11.8 10 High 4.0-10.0 [...] 36.0-66.0 Lymph % 11.8 % Low 24.0-44.0 [place] % 6.5 % High 0.0-5.0 Eos % 0.6 % Normal 0.0-3.0 Baso % 0.4 % Normal 0.0-1.0 Immature Granulocyte % 0.6 % Normal 0-3.0 Nucleated Red Blood Cell % 0.0 % Normal 0-0 Neutrophils # 9.4 10 High 1.5-8.5 Lymph # 1.4 10 Low 1.5-5.0 [place] # 0.8 10 Normal 0.0-0.8 Eos # 0.1 10 Normal 0.0-0.5 Baso # 0.1 10 Normal 0.0-0.2 Liver Profile 01/22/2020 [place] [address] [phone] Ast/Sgot 13 U/L Normal 7-37 Alt/SGPT 19 U/L Normal 12-78 Alkaline Phosphatase 100 U/L Normal 45-117 Bilirubin,Total 1.0 mg/dL Normal 0.2-1.0 Bilirubin,Direct 0.2 mg/dL Normal 0.0-0.2 Total Protein 6.0 GM/DL Low 6.4-8.2 Albumin 3.3 GM/DL Normal 3.2-5.2 Albumin/Globulin Ratio 1.2 Normal 1.2-2.2 Laboratory test finding 01/22/2020 [place] [address] [phone] Blood Urea Nitrogen 18 mg/dL Normal 7-18 Creatinine With GFR 01/22/2020 [place] [address] [phone] Creatinine For GFR 1.24 mg/dL Normal 0.55-1.30 Glomerular Filtration Rate 44.7 Normal >39 2 Laboratory test finding 01/22/2020 [place] [address] [phone] Carcinoembryonic Antigen 1.4 NG/ML Normal <2.5 3 Laboratory test finding 12/30/2019 [facility] [phone] Urine Culture FULL REPORT IN L <SEE NOTE> Normal 4 Ua Routine 12/30/2019 [facility] [address] [place] [address] [phone] Ua Specific [place] 1.030 Ua PH 5 Ua Color yellow Ua Appera hazy Ua WBC 2+ Ua Protein 1+ Ua Glucose neg. Ua Ketones neg. Ua Bilirubin 1+ Ua Urobilinogen trace Ua Nitrite positive Ua Occult Blood neg. Basic Metabolic Profile 12/23/2019 [place] [address] [phone] Glucose, Fasting 93 mg/dL Normal 70-100 Blood [...] Laboratory test finding 12/23/2019 [place] [address] [phone] Total 25(Oh) Vitamin D 10.9 NG/ML Low 30.0-100. 0 Total Iron Binding Capacit 10/07/2019 [facility] [place], [place] [address] [phone] Iron (Fe) 42 g/dL Low 50-170 Total Iron Binding Capacity 255 g/dL Normal 250-450 Percent Saturation 16.5 % Normal 13.2-45.0 Laboratory test finding 10/07/2019 [place] [address] [phone] Ferritin 18 NG/ML Normal 8-252 CBC With Differential 10/07/2019 [facility] [phone] White Blood Count 6.2 10 Normal 4.0-10.0 [...] 36.0-66.0 Lymph % 21.4 % Low 24.0-44.0 [place] % 11.0 % High 0.0-5.0 Eos % 2.1 % Normal 0.0-3.0 Baso % 0.8 % Normal 0.0-1.0 Immature Granulocyte % 0.3 % Normal 0-3.0 Nucleated Red Blood Cell % 0.0 % Normal 0-0 Neutrophils # 4.0 10 Normal 1.5-8.5 Lymph # 1.3 10 Low 1.5-5.0 [place] # 0.7 10 Normal 0.0-0.8 Eos # 0.1 10 Normal 0.0-0.5 Baso # 0.1 10 Normal 0.0-0.2 1 Units are mL/min/1.73 m2 Chronic Kidney Disease Staging per NKF: Stage I & II GFR >=60 Normal to Mildly Decreased Stage III GFR 30-59 Moderately Decreased Stage IV GFR 15-29 Severely Decreased Stage V GFR <15 Very Little GFR Left ESRD GFR <15 on TRAVELING SALES REPRESENTATIVE 2 Units are mL/min/1.73 m2 Chronic Kidney Disease Staging per NKF: Stage I & II GFR >=60 Normal to Mildly Decreased Stage III GFR 30-59 Moderately Decreased Stage IV GFR 15-29 Severely Decreased Stage V GFR <15 Very Little GFR Left ESRD GFR <15 on TRAVELING SALES REPRESENTATIVE 3 THE CEA ASSAY IS PERFORMED O N THE [place] BY CHEMILUMINESCENCE AND SHOULD NOT BE COMPARED [...] Little GFR Left ESRD GFR <15 on TRAVELING SALES REPRESENTATIVE Procedures Description No Information Available Medical Devices [...] 02/20/2020 D50.9 Iron deficiency anemia, unspecif ied Clemencia Everetta Derick, PA 02/05/2020 Z01.818 Encounter for other preprocedura l examination Petrancosta Bruna [place], PA 02/05/2020 C18.2 Malignant neoplasm of ascending colon Petrancosta, Bruna [place], PA 02/05/2020 D50.9 Iron deficiency anemia, unspecif ied Petrancosta, Bruna [place], PA 02/05/2020 I10 Essential (primary) hypertension Petrancosta, Bruna [place], PA 02/05/2020 E78.2 Mixed hyperlipidemia Petrancosta , Bruna [place], PA 02/05/2020 K21.9 Gastro-esophageal reflux disease without esophagitis Marnieosta Bruna [place], PA 12/30/2019 N39.0 Urinary tract infection, site no t specified Marnieosta Bruna [place], PA 12/30/2019 M72.2 Plantar fascial fibromatosis Pet rancostaBruna, PA 12/09/2019 Z00.00 Encounter for genera l adult medical examination without abnormal findings Betty Armstrong M.D. 12/09/2019 Z00.00 Encounter for genera l adult medical examination without abnormal findings Marnieosta Bruna [place], PA 12/09/2019 I10 Essential (primary) hypertension Betty Armstrong M.D. 12/09/2019 I10 Essential (primary) hypertension Marnieosta Bruna [place], PA 12/09/2019 I63.9 Cerebral infarction, unspecified Betty Armstrong M.D. 12/09/2019 I63.9 Cerebral infarction, unspecified Marnieosta Bruna [place], PA 12/09/2019 E78.2 Mixed hyperlipidemia Forrest Armstrong M.D. 12/09/2019 E78.2 Mixed hyperlipidemia Petrancosta , Bruna [place], PA 12/09/2019 D50.9 Iron deficiency anemia, unspecif ied Betty Armstrong M.D. 12/09/2019 D50.9 Iron deficiency anemia, unspecif ied Marnieosta, Bruna [place], PA 12/09/2019 M81.8 Other osteoporosis without curre [...] disorder Bruna Everett PA Plan of Treatment 02/20/2020 - Bruna Everett PA* C18.2 Malignant neoplasm of ascending colon* Comments:* doing well post operativelyhas follow up scheduled with cancer center and with Dr Barajas * I10 Essential (primary) hypertension* Comments:* BP at goal, continue to monitor at home * Follow up:* 6 months * E78.2 Mixed hyperlipidemia* Comments:* continue lipitor * D50.9 Iron deficiency anemia, unspecified* Comments:* continue iron daily * All * Comments:* Hospital notes, imaging and labs reviewedTCM notes reviewed in the chartPatient was contact within 2 days of discharge Functional Status Functional Condition Comment Date Status [...] for Referral Status Appt Date Ben Harrison fascitis Closed 02/10/2020 [address] [place] [address] [phone] Jaye Beck MD treatment of osteoporosis. oral meds contraindicated due to hx of GI bleed Closed 12/30/2019 [facility] [address] [place] [address] [phone] Pentecostal Gastro abrupt onset anemia post hospital admission Cl osed 10/25/2019 [address] [place] [address] [phone]
--- OUTSIDE RECORDS SUMMARY | 2020-04-24 14:34 | CCD | Continuity of Care Document ---
Author Organization Unknown Address Unknown Phone Unavailable Care Team Providers Care Operator Maintainer Name Role Phone [facility] AUTM [facility] AUTM [phone] Jaye Beck MD AUTM [phone] David Mayorga AUTM [phone] Ben Harrison AUTM [phone] Problems Description No Information Available Social History Type Date Description Comments Sex Unknown Tobacco Use Start: Unknown Never Used Smokeless Tobacco ETOH Use Denies alcohol use Tobacco Use Start: Unknown End: Patient is a former smoker 20+ years 1/4- 03/07 ppd Recreational Drug Use Denies Drug Use Smoking Status Reviewed: 12/30/19 Patient is a former smoker 20 + [...] SIG Qnty Indications Ordering Provide r Date Macrobid 100mg Capsules 1 by mouth twice a day 14caps N39.0 Betty Armstrong M.D. 020 Fluoxetine HCL 20mg Capsules 1 by mouth every day 90caps Betty Armstrong M.D. 020 Amlodipine Besylate 5mg Tablets take one tablet by mouth every day for blood pressure 90tabs Betty Morton M.D. Ferrous Sulfate 325(65Fe) mg Table ts 1 by mouth twice a day 180tabs Betty Armstrong M.D. Probiotic Acidophilus Capsules 1 by mouth tid Unknown Metoprolol Tartrate 25mg Tablets take one tablet by mouth twice a day 180tabs Betty Armstrong M.D. Sucralfate 1gm Tablets take 1 tablet by mouth before meals and at bedtime up to four times a day 120tabs Betty Armstrong M.D. Atorvastatin Calcium 40mg Tablets take one tablet by mouth every day for cholesterol 90tabs Betty Lerner ms, M.D. Baclofen 10mg Tablets take 1 tablet by mouth twice a day prn 60tabs Betty Armstrong M.D. 0 Pantoprazole Sodium 40mg Tablets D R take one tablet by mouth twice a day 180tabs Betty Armstrong M.D. Xarelto 15mg Tablets 1 by mouth every day 90tabs Betty Armstrong M.D. Tylenol 325mg Capsules one tabs by mouth every 4-6 hour daily as needed for pain Unknown Vitamin D3 5000Unit Tablets 1 by mouth every day Unknown Vitamin D3 Ultra Potency 1.25mg (04478 Ut) Tablets take one capsule by mouth once a week x 12 weeks Jaye Beck MD Calcium 500 MG one po bid Unknown Immunizations CPT Code Status Date Vaccine Lot # [id number] Given 12/09/2019 Influenza Virus Vaccine, Quadrivalent,age 3 and up,multidose vial [id number] Given 12/09/2019 Influenza Virus Vaccine, Quadrivalent,age 3 and up,multidose vial [id number] Vital Signs Date Vital Result Comment 12/30/2019 3:07pm BP Systolic 111 mmHg BP Diastolic 65 mmHg Heart Rate 53 /min Body Temperature 97.3 F Respiratory Rate 16 /min Height 67.0 inches 5'7" Weight 163.00 lb Peak Expiratory Flow Rate 338 Estimated Peak Flow Rate [place] Body Weight 135 lb BMI (Body Mass Index) 25.5 kg/m2 12/09/2019 1:26pm BP Systolic 126 mmHg BP Diastolic 66 mmHg Heart Rate 53 /min Body Temperature 97.0 F Respiratory Rate 16 /min Height 67.0 inches 5'7" Weight 163.25 lb O2 % BldC Oximetry 98 % Peak Expiratory Flow Rate 338 Estimated Peak Flow Rate Right Visual Acuity Distance 20/30 uncorrected Left Visual Acuity Distance 20/40 Both Visual Acuity Distance 20/25 [place] Body Weight 135 lb BMI (Body Mass Index) 25.6 kg/m2 Results Test Acquired Date Facility Test Result H/L Range Note Basic Metabolic Profile 01/28/2020 Patient Service [place], [place] [id number] [phone] Glucose, Fasting 92 mg/dL Normal 70-100 Blood [...] 8.8-10.2 Laboratory test finding 01/28/2020 Patient Service [place], [place] 8972744 [phone] Total 25(Oh) Vitamin D 33.7 NG/ML Normal 30.0-100. 0 CBC With Differential 01/22/2020 Patient Service nter [place], [place] [id number] [phone] White Blood Count 11.8 10 High 4.0-10.0 [...] 36.0-66.0 Lymph % 11.8 % Low 24.0-44.0 [place] % 6.5 % High 0.0-5.0 Eos % 0.6 % Normal 0.0-3.0 Baso % 0.4 % Normal 0.0-1.0 Immature Granulocyte % 0.6 % Normal 0-3.0 Nucleated Red Blood Cell % 0.0 % Normal 0-0 Neutrophils # 9.4 10 High 1.5-8.5 Lymph # 1.4 10 Low 1.5-5.0 [place] # 0.8 10 Normal 0.0-0.8 Eos # 0.1 10 Normal 0.0-0.5 Baso # 0.1 10 Normal 0.0-0.2 Liver Profile 01/22/2020 [place] [address] [phone] Ast/Sgot 13 U/L Normal 7-37 Alt/SGPT 19 U/L Normal 12-78 Alkaline Phosphatase 100 U/L Normal 45-117 Bilirubin,Total 1.0 mg/dL Normal 0.2-1.0 Bilirubin,Direct 0.2 mg/dL Normal 0.0-0.2 Total Protein 6.0 GM/DL Low 6.4-8.2 Albumin 3.3 GM/DL Normal 3.2-5.2 Albumin/Globulin Ratio 1.2 Normal 1.2-2.2 Laboratory test finding 01/22/2020 [place] [address] [phone] Blood Urea Nitrogen 18 mg/dL Normal 7-18 Creatinine With GFR 01/22/2020 [place] [address] [phone] Creatinine For GFR 1.24 mg/dL Normal 0.55-1.30 Glomerular Filtration Rate 44.7 Normal >39 2 Laboratory test finding 01/22/2020 [place] [address] [phone] Carcinoembryonic Antigen 1.4 NG/ML Normal <2.5 3 Laboratory test finding 12/30/2019 [facility] [phone] Urine Culture FULL REPORT IN L <SEE NOTE> Normal 4 Ua Routine 12/30/2019 [facility] [address] [place] [address] [phone] Ua Specific [place] 1.030 Ua PH 5 Ua Color yellow Ua Appera hazy Ua WBC 2+ Ua Protein 1+ Ua Glucose neg. Ua Ketones neg. Ua Bilirubin 1+ Ua Urobilinogen trace Ua Nitrite positive Ua Occult Blood neg. Basic Metabolic Profile 12/23/2019 [place] [address] [phone] Glucose, Fasting 93 mg/dL Normal 70-100 Blood [...] Laboratory test finding 12/23/2019 [facility] [place], [place] [address] [phone] Total 25(Oh) Vitamin D 10.9 NG/ML Low 30.0-100. 0 Total Iron Binding Capacit 10/07/2019 [place] [address] [phone] Iron (Fe) 42 g/dL Low 50-170 Total Iron Binding Capacity 255 g/dL Normal 250-450 Percent Saturation 16.5 % Normal 13.2-45.0 Laboratory test finding 10/07/2019 [place] [address] [phone] Ferritin 18 NG/ML Normal 8-252 CBC With Differential 10/07/2019 [facility] [phone] White Blood Count 6.2 10 Normal 4.0-10.0 [...] 36.0-66.0 Lymph % 21.4 % Low 24.0-44.0 [place] % 11.0 % High 0.0-5.0 Eos % 2.1 % Normal 0.0-3.0 Baso % 0.8 % Normal 0.0-1.0 Immature Granulocyte % 0.3 % Normal 0-3.0 Nucleated Red Blood Cell % 0.0 % Normal 0-0 Neutrophils # 4.0 10 Normal 1.5-8.5 Lymph # 1.3 10 Low 1.5-5.0 [place] # 0.7 10 Normal 0.0-0.8 Eos # 0.1 10 Normal 0.0-0.5 Baso # 0.1 10 Normal 0.0-0.2 1 Units are mL/min/1.73 m2 Chronic Kidney Disease Staging per NKF: Stage I & II GFR >=60 Normal to Mildly Decreased Stage III GFR 30-59 Moderately Decreased Stage IV GFR 15-29 Severely Decreased Stage V GFR <15 Very Little GFR Left ESRD GFR <15 on APARTMENT MAINTENANCE TECHNICIAN 2 Units are mL/min/1.73 m2 Chronic Kidney Disease Staging per NKF: Stage I & II GFR >=60 Normal to Mildly Decreased Stage III GFR 30-59 Moderately Decreased Stage IV GFR 15-29 Severely Decreased Stage V GFR <15 Very Little GFR Left ESRD GFR <15 on APARTMENT MAINTENANCE TECHNICIAN 3 THE CEA ASSAY IS PERFORMED O N THE [employer] BY CHEMILUMINESCENCE AND SHOULD NOT BE [...] Little GFR Left ESRD GFR <15 on APARTMENT MAINTENANCE TECHNICIAN Procedures Description No Information Available Medical Devices Description No Information Available Encounters Type Date Location Provider Dx Diagnosis Office Visit 12/30/2019 3:15p Main Office Bruna [...] Office Visit 09/05/2019 2:30p Main Office Bruna Koroma PA I10 Essential (primary) hypertension I63.9 Cerebral infarction, unspeci fied E78.2 Mixed hyperlipidemia D50.9 Iron deficiency anemia, unsp ecified N95.8 Other specified menopausal a nd perimenopausal disorders F43.23 Adjustment disorder with mix ed anxiety and depressed mood Z13.89 Encounter for screening for other disorder Assessments Date Code Description Provider 12/30/2019 N39.0 Urinary tract infection, site no t specified Bruna Koroma PA 12/30/2019 M72.2 Plantar fascial fibromatosis Pet rancostBruna olvera PA 12/09/2019 Z00.00 Encounter for genera l adult medical examination without abnormal findings Betty Armstrong M.D. 12/09/2019 Z00.00 Encounter for genera l adult medical examination without abnormal findings Bruna Koroma PA 12/09/2019 I10 Essential (primary) hypertension Betty Armstrong M.D. 12/09/2019 I10 Essential (primary) hypertension Bruna Koroma PA 12/09/2019 I63.9 Cerebral infarction, unspecified Betty Armstrong M.D. 12/09/2019 I63.9 Cerebral infarction, unspecified Bruna Koroma PA 12/09/2019 E78.2 Mixed hyperlipidemia Forrest Armstrong M.D. 12/09/2019 E78.2 Mixed hyperlipidemia Bruna Koroma [...] M.D. 09/05/2019 I10 Essential (primary) hypertension Bruna Koroma PA 09/05/2019 I63.9 Cerebral infarction, unspecified Bruna Koroma PA 09/05/2019 E78.2 Mixed hyperlipidemia Bruna Koroma PA 09/05/2019 D50.9 Iron deficiency anemia, unspecif ied Bruna Koroma PA 09/05/2019 N95.8 Other specified menopausal and p erimenopausal disorders Bruna Koroma PA 09/05/2019 F43.23 Adjustment disorder with mixed a nxiety and depressed mood Bruna Koroma PA 09/05/2019 Z13.89 Encounter for screening for othe r disorder Bruna Koroma PA Plan of Treatment Future Appointment(s):* 02/05/2020 2:15 pm - Bruna Koroma PA at Main Office [...] Referral Status Appt Date Ben Harrison fascitis Scheduled 02/10/2020 [address] [place] [address] [phone] Jaye Beck MD treatment of osteoporosis. oral meds contraindicated due to hx of GI bleed Sent [facility] [address] [address] [phone] [facility] abrupt onset anemia post hospital admission Cl osed 10/25/2019 [address] [place] [address] [phone]
--- OUTSIDE RECORDS SUMMARY | 2020-04-24 14:34 | CCD | Continuity of Care Document ---
Author Author BETTINA AMADO, Laura BUENO Organization Unknown Address [address] [place] [address] [address] [place] [address] Phone [phone] Care Team Providers Care Entertainment Centre Manager Name Role Phone Bruna Koroma AUTM Betty Armstrong M.D. AUTM [phone] David Mayorga M.D. AUTM Problems Active Problems [...] three times a day Unknown OS-Jean Paul [id number] Chewtabs 1 twice a day Unknown Fluoxetine HCL 20mg Capsules 1 every day 90caps Unknown Vitamin D 125mcg (5000 Ut) Capsule s 1 every day Unknown Vitamin D (Ergocalciferol) 1.25mg (89773 Ut) Capsules Take One Capsule By Mouth [...] Tablets 1tab po bid Unknown History Medications Clenpiq 10-3.5-12mg-GM -GM/160ML S olution follow pre-procedure [...] Available Vital Signs Date Vital Result Comment 01/28/2020 2:48pm BP Systolic 120 mmHg BP Diastolic 58 mmHg Height 67 inches 5'7" Weight 164.00 lb BMI (Body Mass Index) 25.7 kg/m2 [place] Body Weight 135 lb Weight 74.390 kg BSA (Body Surface Area) 1.86 m2 01/23/2020 10:15am BP Systolic 120 mmHg BP Diastolic 62 mmHg Height 67 inches 5'7" Weight 164.00 lb BMI (Body Mass Index) 25.7 kg/m2 [place] Body Weight 135 lb Weight 74.390 kg BSA (Body Surface Area) 1.86 m2 Results Test Acquired Date Facility Test Result H/L Range Note CBC With Differential 01/22/2020 [facility] Main Lab [address] [place] [address] [phone] White Blood Count 11.8 10 High 4.0-10.0 [...] 36.0-66.0 Lymph % 11.8 % Low 24.0-44.0 [place] % 6.5 % High 0.0-5.0 Eos % 0.6 % Normal 0.0-3.0 Baso % 0.4 % Normal 0.0-1.0 Immature Granulocyte % 0.6 % Normal 0-3.0 Nucleated Red Blood Cell % 0.0 % Normal 0-0 Neutrophils # 9.4 10 High 1.5-8.5 Lymph # 1.4 10 Low 1.5-5.0 [place] # 0.8 10 Normal 0.0-0.8 Eos # 0.1 10 Normal 0.0-0.5 Baso # 0.1 10 Normal 0.0-0.2 Laboratory test finding 01/22/2020 [facility] Main Lab [address] [place], [place] [address] [phone] Carcinoembryonic Antigen 1.4 NG/ML Normal <2.5 1 BUN & Creatinine ([facility]) 01/22/2020 [facility] Main Lab [address] [place], [place] [address] [phone] Blood Urea Nitrogen 18 mg/dL Normal 7-18 Creatinine With GFR 01/22/2020 [facility] Main Lab [address] [place] [address] [phone] Creatinine For GFR 1.24 mg/dL Normal 0.55-1.30 Glomerular Filtration Rate 44.7 Normal >39 2 Liver Profile 01/22/2020 [facility] Main Lab [address] [place] [address] [phone] Ast/Sgot 13 U/L Normal 7-37 Alt/SGPT 19 U/L Normal 12-78 Alkaline Phosphatase 100 U/L Normal 45-117 Bilirubin,Total 1.0 mg/dL Normal 0.2-1.0 Bilirubin,Direct 0.2 mg/dL Normal 0.0-0.2 Total Protein 6.0 GM/DL Low 6.4-8.2 Albumin 3.3 GM/DL Normal 3.2-5.2 Albumin/Globulin Ratio 1.2 Normal 1.2-2.2 Laboratory test finding 01/13/2020 [facility] Main Lab [address] [place] [address] [phone] Pathology Request For Service (SEE NOTE) 3 1 THE CEA ASSAY IS PERFORMED O N THE [employer] BY CHEMILUMINESCENCE AND SHOULD NOT BE COMPARED [...] Little GFR Left ESRD GFR <15 on PHARMACEUTICAL SALES SPECIALIST 3 FINAL DIAGNOSIS A - Stomach, biopsy: Fragments of gastric mucosa with reactive gastropathy. No evidence for H. pylori-like organisms on H&E stain. B - Colon, ascending mass, biopsy: Adenocarcinoma, moderately differentiated. -4/TR C - Colon, polyps, snare polypectomy: Fragments of tubular adenoma. 01/15/2020726 CLINICAL DIAGNOSIS New onset anemia, blood in stool 01/14/2020716 GROSS DIAGNOSIS A - Received in formalin [...] cm. in aggregate. All in one. -SV 01/14/2020716 Signed INÉS PERKINS MD 01/15/2020 1405 Procedures Date Code Description Status 01/13/2020 66147 Colonoscopy W/ Poly Completed 01/13/2020 22068 Colonoscopy Flexible Proximal To Splenic Flexure W/Biopsy Single/ Completed 01/13/2020 61006 Endoscopy Upper GI Biopsy Comple david Medical Devices Description No Information Available Encounters Type Date Location Provider Dx Diagnosis Office Visit 10/25/2019 8:30a [facility] Wayne Mayorga M.D. 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 10/25/2019 D62 Acute posthemorrhagic anemia Ashleigh Mayorga M.D. 10/25/2019 K62.5 Hemorrhage of anus and rectum Kim Mayorga M.D. Plan of Treatment Future Appointment(s):* 02/12/2020 9:45 am - Virgil Barajas MD at [facility] Functional Status Description No Information Available Mental Status Description No Information Available Referrals Refer to Reason for Referral Status Appt Date Virgil Barajas MD ASCEDNDING COLON CANCER Scheduled 1 03/24/[address] [place] [address] [phone] Virgil Barajas MD 79 year old female patient w ith Ascending colon cancer. Please evaluate for further management ( Staging CT scans and CEA level are ordered from GI clinic). thank you. Created [address] [place] [id number] [phone] Serjio Sigala U. M.Mayank 79 year old female patient w ith Ascending colon cancer. Please evaluate for further management ( Staging CT scans and CEA level are ordered from GI clinic). thank you. Created [facility] [address] [place] [phone] David Mayorga M.D. abrupt onset anemia post hospital admission Scheduled 10/25/[address] [place] [address] [phone]
--- OUTSIDE RECORDS SUMMARY | 2020-04-24 14:34 | CCD | Continuity of Care Document ---
Author Author Laura BECK MD Organization Unknown Address [address] [place] [address], [address] [address] Phone [phone] Care Team Providers Care Photoengraving Sketch Maker Name Role Phone Bruna Koroma PA-C AUTM Problems Active Problems Provider Date Pure hypercholesterolemia Jaye Beck MD Onset: 020 Essential hypertension Jaye Beck MD Onset: 12/20/2019 Osteoporosis Jaye Beck MD Onset: 12/20/2019 Dietary calcium deficiency Jaye Beck MD Onset: 2019 Vitamin D deficiency Jaye Beck MD Onset: 12/20/2019 Social History Type Date Description Comments Sex Unknown Cigarette Use Former Cigarette Smoker 1/2 Pack Daily quit 2018 ETOH Use Rarely consumes alcohol Allergies, Adverse Reactions, Alerts Active Allergies Reaction Severity Comments Date Lactose Abdominal pain 12/20/2019 Penicillins Hives 12/20/2019 Medications Active Medications SIG Qnty Indications Ordering Provide r Date Calcium Carbonate-Vitamin D [id number] Tablets 1 by 2 x a day 30tabs E58 Jaye Beck MD 2019 Ergocalciferol 1.25mg (11046 Ut) C apsules 1 tablet every week with dinner for 12 weeks 12caps E55.9 Cla anam Beck MD 12/30/2019 Fluoxetine HCL 20mg Capsules 1 po qd 90caps Betty Armstrong MD 09/16/2019 Amlodipine Besylate 5mg Tablets 1 po qd 90tabs Betty Armstrong MD Ferrous Sulfate 325(65Fe) mg Table ts 1 po bid 180tabs Betty Armstrong MD Probiotic Acidophilus Capsules 1 by mouth tid Unknown Metoprolol Tartrate 25mg Tablets 1 po bid 180tabs Betty Armstrong MD Sucralfate 1gm Tablets 1 po t id 120tabs Betty Armstrong MD Atorvastatin Calcium 40mg Tablets 1 po qd 90tabs Betty Armstrong MD Baclofen 10mg Tablets 1 po bi d 60tabs Betty Armstrong MD Pantoprazole Sodium 40mg Tablets D R 1 po bid 180tabs Betty Armstrong MD Xarelto 15mg Tablets 1 po qd 90tabs Betty Armstrong MD Tylenol 325mg Capsules prn Unknown Immunizations Description No Information Available Vital Signs Date Vital Result Comment 12/30/2019 12:59pm Heart Rate 96 /min Body Temperature 96.6 F 12/20/2019 3:00pm BP Systolic 126 mmHg BP Diastolic 74 mmHg Heart Rate 50 /min Body Temperature 96.6 F Height 67 inches 5'7" Weight 165.38 lb BMI (Body Mass Index) 25.9 kg/m2 O2 % BldC Oximetry 97 % Results Test Acquired Date Facility Test Result H/L Range Note Basic Metabolic Profile 01/28/2020 [facility] [address] [place] [phone] Glucose, Fasting 92 mg/dL Normal 70-100 Blood [...] mg/dL Normal 8.8-10.2 Laboratory test finding 01/28/2020 [facility] [address] [place] [phone] Total 25(Oh) Vitamin D 33.7 NG/ML Normal 30.0-100.0 Basic Metabolic Profile 12/23/2019 [facility] [address] [place] [address] [phone] Glucose, Fasting 93 mg/dL Normal 70-100 Blood Urea Nitrogen 22 mg/dL High 7-18 Creatinine For GFR 0.84 mg/dL Normal 0.55-1.30 Glomerular Filtration Rate > 60.0 Normal >39 2 Sodium Level 144 mEq/L Normal 136-145 Potassium Serum 4.1 mEq/L Normal 3.5-5.1 Chloride Level 115 mEq/L High 98-107 Carbon Dioxide Level 25 mEq/L Normal 21-32 Anion Gap 4 mEq/L Low 8-16 Calcium Level 9.2 mg/dL Normal 8.8-10.2 Laboratory test finding 12/23/2019 [facility] [facility] [address] [place] [address] [phone] Total 25(Oh) Vitamin D 10.9 NG/ML Low 30.0-100.0 Total Iron Binding Capacit 10/07/2019 N2N/CCD Impor t Iron (Fe) 42 g/dL Low 50-170 Total Iron Binding Capacity 255 g/dL 250-450 Percent Saturation 16.5 % 13.2-45.0 CBC With Differential 10/07/2019 N2N/CCD Import White Blood Count 6.2 10 4.0-10.0 Red Blood Count 4.20 10 4.00-5.40 Hemoglobin 11.8 g/dL Low 12.0-15.5 Hematocrit 38.5 % 36.0-47.0 Mean Corpuscular Volume 91.7 fl 80.0-96.0 Mean Corpuscular Hemoglobin 28.1 pg 27.0-33.0 Mean Corpuscular HGB Conc 30.6 g/dL Low 32.0-36.5 Red Cell Distribution Width 15.1 % High 11.5-14.5 Platelet Count, Automated 350 10 150-450 Neutrophils % 64.4 % 36.0-66.0 Lymph % 21.4 % Low 24.0-44.0 Frio % 11.0 % High 0.0-5.0 Eos % 2.1 % 0.0-3.0 Baso % 0.8 % 0.0-1.0 Immature Granulocyte % 0.3 % 0-3.0 Nucleated Red Blood Cell % 0.0 % 0-0 Neutrophils # 4.0 10 1.5-8.5 Lymph # 1.3 10 Low 1.5-5.0 Frio # 0.7 10 0.0-0.8 Eos # 0.1 10 0.0-0.5 Baso # 0.1 10 0.0-0.2 1 Units are mL/min/1.73 m2 Chronic Kidney Disease Staging per NKF: Stage I & II GFR >=60 Normal to Mildly Decreased Stage III GFR 30-59 Moderately Decreased Stage IV GFR 15-29 Severely Decreased Stage V GFR <15 Very Little GFR Left ESRD GFR <15 on PARTITION MAKING MACHINE OPERATOR 2 Units are mL/min/1.73 m2 Chronic Kidney Disease Staging per NKF: Stage I & II GFR >=60 Normal to Mildly Decreased Stage III GFR 30-59 Moderately Decreased Stage IV GFR 15-29 Severely Decreased Stage V GFR <15 Very Little GFR Left ESRD GFR <15 on PARTITION MAKING MACHINE OPERATOR Procedures Description No Information Available Medical Devices Description No Information Available Encounters Type Date Location Provider Dx Diagnosis Office Visit 12/30/2019 12:45p DR. Jaye Beck MD M 81.0 Age- related osteoporosis w/o current pathological fracture E55.9 Vitamin D deficiency, unspec ified E58 Dietary calcium deficiency Office Visit 12/20/2019 2:45p DR. Jaye Beck MD M 81.0 Age- related osteoporosis w/o current pathological fracture E55.9 Vitamin D deficiency, unspec ified E58 Dietary calcium deficiency Assessments Date Code Description Provider 12/30/2019 M81.0 Age-related osteoporosis without current pathological fracture Jaye Beck MD 12/30/2019 E55.9 Vitamin D deficiency, unspecifie d Jaye Beck MD 12/30/2019 E58 Dietary calcium deficiency Ramiro Beck MD 12/20/2019 M81.0 Age-related osteoporosis without current pathological fracture Jaye Beck MD 12/20/2019 E55.9 Vitamin D deficiency, unspecifie d Jaye Beck MD 12/20/2019 E58 Dietary calcium deficiency Ramiro Beck MD Plan of Treatment Future Appointment(s):* 04/27/2020 10:45 am - Jaye Beck MD at DR. Jaye Beck 12/30/2019 - Jaye Beck MD* M81.0 Age-related osteoporosis without current pathological fracture* New Labs:* Vitamin D 25-Hydroxy, Scheduled: 03/31/20 * Basic Metabolic Profile, Scheduled: 03/31/20 * Comments:* Fall 2019: Dexa scan results show T score spine= -2.5T score Right FN=-3.1Results obtained of NRI synapseMeets criteria for osteoporosis per above.Not a candidate for oral bisphosphonate due to GI bleed.Difficulty with appointment- needs wheelchair.Good candidate for once yearly IV zoledronic acid.Will check preprocedure BMP/Calcium- kidney function unknown---results obtained off [facility] wedbiteGFR> 60 August 2019Educated about the importance of calcium and Vitamin D along with prescription therapies. EDU sheet provided * Follow up:* apr - vit d recheck- jorge/cbf * E55.9 Vitamin D deficiency, unspecified* New Medication:* Ergocalciferol 1.25 mg (66526 Ut) - 1 tablet every week with dinner for 12 weeks * Comments:* Start OTC D3, 5000 IU daily. Check levels NEW problem- patient called due to severely low Vit d 25 OHD= 10 She has just started [id number] vitamin D, 5000 units at dinner.Recommendations: Start high- dose vitamin D, 50,000 units once a week for 12 weeks. Recheck in April.We'll hold off on IV zoledronic acid for one month so that she gets some vitamin D prior to infusion. * E58 Dietary calcium deficiency* New Medication:* Calcium Carbonate-Vitamin D 500-400 mg-Unit - 1 by 2 x a day * Comments:* Was instructed to take in a minimum of 1000 mg of calcium in divided doses with food. calcium obtained off [facility] synapse- has been low but albumin also low last normal calcium/albumin 02/21 calcium=9.0corrected calcium are in normal range Functional Status Description No Information Available Mental Status Description No Information Available Referrals Refer to Reason for Referral Status Appt Date Jaye Beck MD RECLAST NO AUTH REQUIRED. BASED ON MEDIC AL NECESSITY. LS Created [facility], [address] [place] [address] [phone]
--- OUTSIDE RECORDS SUMMARY | 2020-04-24 14:36 | CCD ---
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 Name Role Phone CASS SORIANO Unavailable Unavailable Flori DUNBAR MD Unavailable Unavailable Flori DUNBAR MD Unavailable Unavailable Flori DUNBAR MD Unavailable Unavailable Flori DUNBAR MD Unavailable Unavailable Flori DUNBAR MD Unavailable Unavailable Flori DUNBAR MD Unavailable Unavailable Flori DUNBAR MD Unavailable Unavailable Flori DUNBAR MD Unavailable Unavailable Flori DUNBAR MD Unavailable Unavailable Flori DUNBAR MD Unavailable Unavailable Flori DUNBAR MD Unavailable Unavailable Flori DUNBAR MD Unavailable Unavailable Flori DUNBAR MD Unavailable Unavailable Flori DUNBAR MD Unavailable Unavailable Flori DUNBAR MD Unavailable Unavailable Flori DUNBAR MD Unavailable Unavailable Flori DUNBAR MD Unavailable Unavailable Flori DUNBAR MD Unavailable Unavailable Flori DUNBAR MD Unavailable Unavailable Flori DUNBAR MD Unavailable Unavailable Flori DUNBAR MD Unavailable Unavailable Flori DUNBAR MD Unavailable Unavailable Flori DUNBAR MD Unavailable Unavailable Flori DUNBAR MD Unavailable Unavailable Flori DUNBAR MD Unavailable Unavailable Flori DUNBAR MD Unavailable Unavailable Flori DUNBAR MD Unavailable Unavailable Flori DUNBAR MD Unavailable Unavailable Flori DUNBAR MD Unavailable Unavailable Flori DUNBAR MD Unavailable Unavailable Flori DUNBAR MD Unavailable Unavailable Flori DUNBAR MD Unavailable Unavailable Flori DUNBAR MD Unavailable Unavailable Flori DUNBAR MD Unavailable Unavailable Flori DUNBAR MD Unavailable Unavailable Marisol ABRAMS DPM Unavailable Unavailable Marisol ABRAMS DPM Unavailable Unavailable Marisol ABRAMS DPM Unavailable Unavailable Marisol ABRAMS DPM Unavailable Unavailable Marisol ABRAMS DPM Unavailable Unavailable Marisol ABRAMS DPM Unavailable Unavailable Marisol ABRAMS DPM Unavailable Unavailable ALIZA R JOSE ROBERTO DPM Unavailable Unavailable ALIZA R JOSE ROBERTO DPM Unavailable Unavailable ALIZA R JOSE ROBERTO DPM Unavailable Unavailable ALIZA R JOSE ROBERTO DPM Unavailable Unavailable Marisol ABRAMS DPM Unavailable Unavailable Marisol ABRAMSW DPM Unavailable Unavailable ALIZA R JOSE ROBERTO DPM Unavailable Unavailable ALIZA R JOSE ROBERTO DPM Unavailable Unavailable ALIZA R JOSE ROBERTO DPM Unavailable Unavailable Marisol ABRAMS DPM Unavailable Unavailable Marisol ABRAMS DPM Unavailable Unavailable MAJAK, R JOSE ROBERTO DPM Unavailable Unavailable MAJAK, R JOSE ROBERTO DPM Unavailable Unavailable MAJAK, R JOSE ROBERTO DPM Unavailable Unavailable MAJAK, R JOSE ROBERTO DPM Unavailable Unavailable MAJAK, R JOSE ROBERTO DPM Unavailable Unavailable MAJAK, R JOSE ROBERTO DPM Unavailable Unavailable MAJAK, R JOSE ROBERTO DPM Unavailable Unavailable MAJAK, R JOSE ROBERTO DPM Unavailable Unavailable MAJAK, R JOSE ROBERTO DPM Unavailable Unavailable MAJAK, R JOSE ROBERTO DPM Unavailable Unavailable MAJAK, R JOSE ROBERTO DPM Unavailable Unavailable MAJAK, R JOSE ROBERTO DPM Unavailable Unavailable Kwaczala, J Girish PA Unavailable Unavailable Kwaczala, J Girish PA Unavailable Unavailable Kwaczala, J Girish PA Unavailable Unavailable Kwaczala, J Girish PA Unavailable Unavailable Kwaczala, J Girish PA Unavailable Unavailable Kwaczala, J Girish PA Unavailable Unavailable Kwaczala, J Girish PA Unavailable Unavailable Kwaczala, J Girish PA Unavailable Unavailable Kiran, Flori Cee MD Unavailable Unavailable Fish, Flori Cee MD Unavailable Unavailable Fish, Flori Cee MD Unavailable Unavailable Fish, Flori Cee MD Unavailable Unavailable Fish, Flori Cee MD Unavailable Unavailable Fish, Flori Cee MD Unavailable Unavailable Fish, Flori Cee MD Unavailable Unavailable Fish, Flori Cee MD Unavailable Unavailable Fish, Flori Cee MD Unavailable Unavailable Fish, Flori Cee MD Unavailable Unavailable Fish, Flori Cee MD Unavailable Unavailable Fish, Flori Cee MD Unavailable Unavailable Fish, Flori Cee MD Unavailable Unavailable Fish, Flori Cee MD Unavailable Unavailable Fish, Flori Cee MD Unavailable Unavailable Fish, Flori Cee MD Unavailable Unavailable Kiran, Flori Cee MD Unavailable Unavailable Kiran, Flori Cee MD Unavailable Unavailable Flori Beck MD Unavailable Unavailable Fish, Flori Cee MD Unavailable Unavailable Fish, Flori Cee MD Unavailable Unavailable Fish, Flori Cee MD Unavailable Unavailable Fish, Flori Cee MD Unavailable Unavailable Fish, Flori Cee MD Unavailable Unavailable Flori Beck MD Unavailable Unavailable FishFlori MD Unavailable Unavailable Flori Beck MD Unavailable Unavailable Flori Beck MD Unavailable Unavailable Fish, Flori Cee MD Unavailable Unavailable Fish, Flori Cee MD Unavailable Unavailable Fish, Flori Cee MD Unavailable Unavailable Fish, Flori Cee MD Unavailable Unavailable Fish, Flori Cee MD Unavailable Unavailable Kiran, Flori Cee MD Unavailable Unavailable Fish, Flori Cee MD Unavailable Unavailable Fish, Flori Cee MD Unavailable Unavailable Fish, Flori Cee MD Unavailable Unavailable Fish, Flori Cee MD Unavailable Unavailable Fish, Flori Cee MD Unavailable Unavailable Fish, B Jaye AMADO Unavailable Unavailable Fish, B Jaye AMADO Unavailable Unavailable Fish, B Jaye AMADO Unavailable Unavailable Fish, B Jaye AMADO Unavailable Unavailable Fish, B Jaye AMADO Unavailable Unavailable Fish, B Jaye AMADO Unavailable Unavailable Fish, B Jaye AMADO Unavailable Unavailable Fish, B Jaye AMADO Unavailable Unavailable Fish, B Jaye AMADO Unavailable Unavailable Fish, B Jaye AMADO Unavailable Unavailable Fish, B Jaye AMADO Unavailable Unavailable Fish, B Jaye AMADO Unavailable Unavailable Fish, B Jaye AMADO Unavailable Unavailable Fish, B Jaye AMADO Unavailable Unavailable Fish, B Jaye AMADO Unavailable Unavailable Fish, B Jaye AMADO Unavailable Unavailable Fish, B Jaye AMADO Unavailable Unavailable Fish, B Jaye AMADO Unavailable Unavailable Fish, B Jaye AMADO Unavailable Unavailable Fish, B Jaye AMADO Unavailable Unavailable Fish, B Jaye AMADO Unavailable Unavailable Fish, B Jaye AMADO Unavailable Unavailable Fish, B Jaye AMADO Unavailable Unavailable Fish, B Jaye AMADO Unavailable Unavailable Fish, B Jaye AMADO Unavailable Unavailable Petrancosta, Calloway Bruna PA-C Unavailable Unavailabl e Petrancosta, Calloway Bruna PA-C Unavailable Unavailabl e Petrancosta, Calloway Bruna PA-C Unavailable Unavailabl e Petrancosta, Calloway Bruna PA-C Unavailable Unavailabl e Petrancosta, Calloway Bruna PA-C Unavailable Unavailabl e Petrancosta, Calloway Bruna PA-C Unavailable Unavailabl e Petrancosta, Calloway Bruna PA-C Unavailable Unavailabl e Petrancosta, Calloway Bruna PA-C Unavailable Unavailabl e Petrancosta, Calloway Bruna PA-C Unavailable Unavailabl e Petrancosta, Calloway Bruna PA-C Unavailable Unavailabl e Petrancosta, Calloway Bruna PA-C Unavailable Unavailabl e Petrancosta, Calloway Bruna PA-C Unavailable Unavailabl e Petrancosta, Calloway Bruna PA-C Unavailable Unavailabl e Petrancosta, Calloway Bruna PA-C Unavailable Unavailabl e Petrancosta, Calloway Bruna PA-C Unavailable Unavailabl e Petrancosta, Calloway Bruna PA-C Unavailable Unavailabl e Petrancosta, Calloway Bruna PA-C Unavailable Unavailabl e Petrancosta, Calloway Bruna PA-C Unavailable Unavailabl e Petrancosta, Calloway Bruna PA-C Unavailable Unavailabl e Petrancosta, Calloway Bruna PA-C Unavailable Unavailabl e Petrancosta, Calloway Bruna PA-C Unavailable Unavailabl e Petrancosta, Calloway Bruna PA-C Unavailable Unavailabl e Petrancosta, Calloway Bruna PA-C Unavailable Unavailabl e TIMMY BATISTA MD, MBBS Unavailable Unavailable TIMMY BATISTA MD, MBBS Unavailable Unavailable TIMMY BATISTA MD, MBBS Unavailable Unavailable TIMMY BATISTA MD, MBBS Unavailable Unavailable TIMMY BATISTA MD, MBBS Unavailable Unavailable BATISTATIMMY MD, MBBS Unavailable Unavailable TIMMY BATISTA MD, MBBS Unavailable Unavailable TIMMY BATISTA MD, MBBS Unavailable Unavailable TIMMY BATISTA MD, MBBS Unavailable Unavailable TIMMY BATISTA MD, MBBS Unavailable Unavailable BATISTATIMMY MD, MBBS Unavailable Unavailable TIMMY BATISTA MD, MBBS Unavailable Unavailable TIMMY BATISTA MD, MBBS Unavailable Unavailable TIMMY BATISTA MD, MBBS Unavailable Unavailable TIMMY BATISTA MD, MBBS Unavailable Unavailable TIMMY BATISTA MD, MBBS Unavailable Unavailable TIMMY BATISTA MD, MBBS Unavailable Unavailable TIMMY BATISTA MD, MBBS Unavailable Unavailable TIMMY BATISTA MD, MBBS Unavailable Unavailable TIMMY BATISTA MD, MBBS Unavailable Unavailable TIMMY BATISTA MD, MBBS Unavailable Unavailable TIMMY BATISTA MD, MBBS Unavailable Unavailable TIMMY BATISTA MD, MBBS Unavailable Unavailable TIMMY BATISTA MD, MBBS Unavailable Unavailable TIMMY BATISTA MD, MBBS Unavailable Unavailable TIMMY BATISTA MD, MBBS Unavailable Unavailable TIMMY BATISTA MD, MBBS Unavailable Unavailable TIMMY BATISTA MD, MBBS Unavailable Unavailable BATISTATIMMY MD, MBBS Unavailable Unavailable TIMMY BATISTA MD, MBBS Unavailable Unavailable TIMMY BATISTA MD, MBBS Unavailable Unavailable Forrest LACY MD Unavailable Unavailable Forrest LACY MD Unavailable Unavailable Forrest LACY MD Unavailable Unavailable Forrest LACY MD Unavailable Unavailable Forrest LACY MD Unavailable Unavailable Forrest LACY MD Unavailable Unavailable Forrest LACY MD Unavailable Unavailable Forrest LACY MD Unavailable Unavailable NATHANAELRALForrest Avendano MD Unavailable Unavailable NATHANAELRALForrest Avendano MD Unavailable Unavailable NATHANAELRALForrest Avendano MD Unavailable Unavailable CHANDRALForrest Avendano MD Unavailable Unavailable CHANDRALForrest Avendano MD Unavailable Unavailable CHANDRALForrest Avendano MD Unavailable Unavailable NATHANAELRALForrest Avendano MD Unavailable Unavailable NATHANAELRALForrest Avendano MD Unavailable Unavailable NATHANAELRALForrest Avendano MD Unavailable Unavailable NATHANAELRALForrest Avendano MD Unavailable Unavailable NATHANAELRALForrest Avendano MD Unavailable Unavailable NATHANAELRALAForrest MD Unavailable Unavailable NATHANAELRALForrest Avendano MD Unavailable Unavailable NATHANAELRALForrest Avendano MD Unavailable Unavailable NATHANAELRALForrest Avendano MD Unavailable Unavailable NATHANAELRALForrest Avendano MD Unavailable Unavailable NATHANAELRALForrest AvendanoYA Unavailable Unavailable NATHANAELRALForrest Avendano MD Unavailable Unavailable NATHANAELRALForrest Avendano MD Unavailable Unavailable NATHANAELRALForrest Avendano MD Unavailable Unavailable NATHANAELRALForrest Avendano MD Unavailable Unavailable NATHANAELRALForrest Avendano MD Unavailable Unavailable NATHANAELRALForrest Avendano MD Unavailable Unavailable NATHANAELRALForrest Avendano MD Unavailable Unavailable NATHANAELRALForrest Avendano MD Unavailable Unavailable Re-disclosure Warning The records that you are about to access may contain information from federally-assisted alcohol or drug abuse programs. If such information is present, then the following federally mandated warning applies: This information has been disclosed to you from records protected by federal confidentiality rules (42 CFR part 2). The federal rules prohibit you from making any further disclosure of this information unless further disclosure is expressly permitted by the written consent of the person to whom it pertains or as otherwise permitted by 42 CFR part 2. A general authorization for the release of medical or other information is NOT sufficient for this purpose. The Federal rules restrict any use of the information to criminally investigate or prosecute any alcohol or drug abuse patient.The records that you are about to access may contain highly sensitive health information, the redisclosure of which is protected by Article 27-F of the [place] State Public Health law. If you continue you may have access to information: Regarding HIV / AIDS; Provided by facilities licensed or operated by the [facility] Office of Mental Health; or Provided by the [facility] Office for People With Developmental Disabilities. If such information is present, then the following [facility] mandated warning applies: This information has been disclosed to you from confidential records which are protected by state law. State law prohibits you from making any further disclosure of this information without the specific written consent of the person to whom it pertains, or as otherwise permitted by law. Any unauthorized further disclosure in violation of state law may result in a fine or senior care sentence or both. A general authorization for the release of medical or other information is NOT sufficient authorization for further disc losure. Allergies and Adverse Reactions Type Description Substance Reaction Status Data Source(s ) Drug allergy Penicillamine Penicillamine rash Active eCW1 ( [facility]) Latex Latex Latex rash Active eCW1 ([facility]) Milk Milk Milk stomach upset Active eCW1 ([facility]) Family History Family Member Name Family Member Gender Family Member Status Date o f Status Description Data Source(s) Unknown Female Problem [facility] ([facility]) Encounters Encounter Providers Location Date Indications Data Source(s ) Outpatient Attender: DONNY MENON MD 08/12/2020 12:0 0:00 AM [facility] Outpatient Attender: DONNY MENON MDReferrer: DONNY MENON MD 03/21/2020 12:00:00 AM [facility] Outpatient Attender: DONNY MENON MD 03/03/2020 12:00:00 AM EST - 03/04/2020 09:35:17 AM EST Cerebral infarction, unspecified [facility] Cerebral infarction, unspecified Outpatient Attender: Bruna Koroma PA-C Main Office 02/20/2020 12:45:00 PM EST [facility] ([facility] Outpatient Admitter: CASS SORIANOReferrer: CASS SORIANO 02/17/2020 12:00:00 AM EST Malignant neoplasm of colon, unspecified [facility] Malignant neoplasm of colon, unspecified Outpatient Attender: JOSE ROBERTO ABRAMS [facility] Office 09/2019 08:15:00 AM EST [facility] ([facility] Outpatient Attender: Bruna Koroma PA-C Main Office 02/05/2020 01:15:00 PM EST [facility] ([facility] Outpatient Attender: MYLES Hall/Dwayne/Valente/ Reindl 01/28/2020 02:00:00 PM EST [facility] ([facility] Outpatient Attender: MYLES Hall/Dwayne/Valente/ Reindl 01/23/2020 08:45:00 AM EST [facility] ([facility] Outpatient Attender: DONNY MENON MD 01/15/2020 12:0 0:00 AM [facility] Outpatient Attender: DONNY MENON MD 01/15/2020 12:0 0:00 AM [facility] Outpatient Attender: Bruna Koroma PA-C Main Office 12/30/2019 03:15:00 PM EDT [facility] ([facility] Outpatient Attender: Jaye Beck MD Physical Therapy 12/29 12:45:00 PM EDT [facility] ([facility]) Outpatient Attender: Jaye Beck MD Physical Therapy 12/19 02:45:00 PM EDT [facility] ([facility]) Outpatient Attender: DONNY MENON MDReferrer: DONNY MENON MD 12/17/2019 12:00:00 AM EDT [facility] Outpatient Attender: Bruna Koroma PA-C Main Office 12/09/2019 01:15:00 PM EDT [facility] ([facility] Outpatient [address] [place] [id number] 10/28/2019 12:00:00 AM EDT [facility] Outpatient Attender: LILIANA Hall/Dwayne/Ang el/Reindl 10/25/2019 08:30:00 AM EDT [facility] ([facility] Outpatient Attender: Bruna Koroma PA-C Main Office 09/05/2019 02:30:00 PM EDT [facility] ([facility] Outpatient Referrer: Girish DOOLEY 08/09/2019 08:58:00 AM EDT [facility] Outpatient Attender: DONNY MENON MDReferrer: TIMMY BATISTA MD, DONNY 07/15/2019 12:00:00 AM [facility] Outpatient Attender: TIMMY BATISTA MD, DONNY [facility] 07/12/2019 12:00:00 AM EDT - 07/12/2019 03:55:54 PM EDT Cerebral infarction, unspecified [facility] Cerebral infarction, unspecified Outpatient Attender: DONNY MENON MD 07/12/2019 12:0 0:00 AM [facility] Outpatient Attender: DONNY MENON MD 07/12/2019 12:0 0:00 AM [facility] Outpatient Attender: DONNY MENON MD 07/12/2019 12:0 0:00 AM [facility] Outpatient Attender: TIMMY BATISTA MD, DONNY 07/12/2019 12:0 0:00 AM [facility] [address] [place] [id number] 04/29/2019 12:00:00 AM EST eCW1 ([facility]) [facility] [address] [place] [address] [address] [place] [address] 04/01/2019 12:00:00 AM EST eCW1 ([facility]) Outpatient Referrer: Girish DOOLEY 03/21/2019 09:34:00 PM EST [facility] Outpatient Attender: DONNY MENON MDReferrer: DONNY MENON MD 03/13/2019 12:00:00 AM [facility] [address] [place] [address] [address] [place] [address] 02/25/2019 12:00:00 AM EST eCW1 ([facility]) Immunizations Vaccine Date Status Description Data Source(s) COVID-19 VACCINE, MRNA-[id number], LNP-S (MODERNA)/PF 04/18/2020 1 2:00:00 AM EST completed [facility] New in 2012. IIV4 12/09/2019 01:34:00 PM EDT completed [facility] ([facility] New in 2012. IIV4 12/09/2019 12:00:00 AM EDT completed [facility] ([facility] Medications Medication Brand Name Start Date Product Form Dose Route Admi nistrative Instructions Pharmacy Instructions Status Indications Reaction Description Data Source(s) 15 mg 04/09/2020 12:00:00 AM EST tablet 90 TAKE ONE TABLET BY MOUTH EVERY DAY TAKE ONE TABLET BY MOUTH EVERY DAY SOLD: 04/11/2020 [facility] 100 mcg/0.5 mL 03/21/2020 12:00:00 AM EST suspension 0 INJECT BY [facility] (FIRST DOSE) INJECT BY [facility] (FIRST DOSE) SOLD: 03/21/2020 [facility] 325 mg (65 mg iron) 03/10/2020 12:00:00 AM EST tablet 180 TAKE ONE TABLET BY MOUTH TWICE A DAY TAKE ONE TABLET BY MOUTH TWICE A DAY SOLD: 03/12/2020 [facility] pantoprazole 40 MG Delayed Release Oral Tablet PANTOPRAZOLE SODIUM 02/21/2020 12:00:00 AM EST tablet,delayed release (DR/EC) 180 T BOB ONE TABLET BY MOUTH TWICE A DAY TAKE ONE TABLET BY MOUTH TWICE A DAY SOLD: 02/29/2020 [facility] 20 mg 02/21/2020 12:00:00 AM EST capsule 90 TAKE ONE CAPSULE BY MOUTH EVERY DAY TAKE ONE CAPSULE BY MOUTH EVERY DAY SOLD: 02/29/2020 [facility] 25 mg 02/21/2020 12:00:00 AM EST tablet 180 TAKE ONE TABLET BY MOUTH TWICE A DAY TAKE ONE TABLET BY MOUTH TWICE A DAY SOLD: 02/29/2020 [facility] 5 mg 02/21/2020 12:00:00 AM EST tablet 90 TAKE ONE TABLET BY MOUTH EVERY DAY FOR BLOOD PRESSURE TAKE ONE TABLET BY MOUTH EVERY DAY FOR BLOOD PRESSURE SOLD: 02/29/2020 [facility] Acetaminophen 500 MG Oral Tablet [Tylenol] Tylenol Extra Str ength 02/17/2020 12:00:00 AM EST ORAL active [facility] ([facility] 10 mg 02/06/2020 12:00:00 AM EST tablet 60 TAKE ONE TABLET BY MOUTH TWO TIMES A DAY TAKE ONE TABLET BY MOUTH TWO TIMES A DAY SOLD: 04/11/2020 [facility] 10 mg 02/06/2020 12:00:00 AM EST tablet 60 TAKE ONE TABLET BY MOUTH TWO TIMES A DAY TAKE ONE TABLET BY MOUTH TWO TIMES A DAY SOLD: 03/12/2020 [facility] 500 mg 02/06/2020 12:00:00 AM EST tablet 6 TAKE TWO TABLETS BY MOUTH AT 2PM. AND 10PM. THE DAY BEFORE SURGERY AND AT 6AM THE MORNING OF SURGERY TAKE TWO TABLETS BY MOUTH AT 2PM. AND 10PM. THE DAY BEFORE SURGERY AND AT 6AM THE MORNING OF SURGERY SOLD: 02/07/2020 [facility] atorvastatin 40 MG Oral Tablet ATORVASTATIN CALCIUM 02/06/2020 1 2:00:00 AM EST tablet 90 TAKE ONE TABLET BY MOUTH EVERY D AY FOR CHOLESTEROL TAKE ONE TABLET BY MOUTH EVERY DAY FOR CHOLESTEROL SOLD: 02/07/2020 [facility] 10 mg 02/06/2020 12:00:00 AM EST tablet 60 TAKE ONE TABLET BY MOUTH TWO TIMES A DAY TAKE ONE TABLET BY MOUTH TWO TIMES A DAY SOLD: 02/07/2020 [facility] Metronidazole 500 MG Oral Tablet [Flagyl] Flagyl 02/05/2020 12:00 :00 AM EST ORAL completed [facility] ([facility], ) Neomycin Sulfate 500 MG Oral Tablet Neomycin Sulfate 02/05/2020 12:00:00 AM EST ORAL completed [facility] ([facility], ) Metronidazole 500 MG Oral Tablet METRONIDAZOLE 02/05/2020 12:0 0:00 AM EST tablet 3 TAKE ONE TABLET BY M OUTH AT 2PM. AND 10PM. THE DAY BEFORE SURGERY AND AT 6AM THE MORNING OF SURGERY TAKE ONE TABLET BY MOUTH AT 2PM. AND 10P M. THE DAY BEFORE SURGERY AND AT 6AM THE MORNING OF SURGERY SOLD: 02/07/2020 [facility] Calcium Carbonate 1250 MG / Cholecalciferol 0.01 MG Or al Tablet Calcium Carbonate-Vitamin D 12/30/2019 12:00:00 AM EDT act isabel [facility] ([facility]) Ergocalciferol 54268 UNT Oral Capsule Ergocalciferol 12/30/2019 12:00:00 AM EDT active [facility] ( [facility] 1,250 mcg (50,000 unit) 12/30/2019 12:00:00 AM EDT capsule 12 TAKE ONE CAPSULE BY MOUTH ONCE WEEKLY WITH DINNER FOR 12 WEEKS TAKE ONE CAPSULE BY MOUTH ONCE WEEKLY WITH DINNER FOR 12 WEEKS SOLD: 12/30/2019 [facility] 100 mg 12/30/2019 12:00:00 AM EDT capsule 14 TAKE ONE CAPSULE BY MOUTH TWICE A DAY TAKE ONE CAPSULE BY MOUTH TWICE A DAY SOLD: 12/30/2019 [facility] NITROFURANTOIN, MACROCRYSTALS 25 MG / Ni trofurantoin, Monohydrate 75 MG Oral Capsule [Macrobid] Macrobid 12/30/2019 12:00:00 AM EDT ORAL completed [facility] ([facility] 420 gram 12/10/2019 12:00:00 AM EDT recon soln 4000 DRINK THE LIQUID PER THE PRE-PROCEDURE INSTRUCTIONS DRINK THE LIQUID PER THE PRE-PROCEDUR E INSTRUCTIONS SOLD: 12/15/2019 [facility] 5 mg 12/10/2019 12:00:00 AM EDT tablet,delayed release (DR/EC) 4 TAKE 4 TABLETS BY MOUTH TOGETHER PER BOWEL PREPARATION INSTRUCTIONS TAKE 4 TABLETS BY MOUTH TOGETHER PER BOWEL PREPARATION INSTRUCTIONS SOLD: 12/15/2019 [facility] Bisacodyl 5 MG Delayed Release Oral Tablet [Dulcolax] Dulcol ax 12/10/2019 12:00:00 AM EDT completed [facility] ([facility], ) POLYETHYLENE GLYCOL 3350 105 MG/ML / Pot assium Chloride 0.93327 MEQ/ML / Sodium Bicarbonate 0.017 MEQ/ML / Sodium Chloride 0.0479 MEQ/ML Oral Solution [GaviLyte-N] Gavilyte-N With Flavor Pack 12/10/2019 12:00:00 AM EDT completed [facility] ([facility] ) Clenpiq Clenpiq 12/10/2019 12:00:00 AM EDT complet ed [facility] ([facility], ) 10 mg 12/04/2019 12:00:00 AM EDT tablet 60 TAKE ONE TABLET BY MOUTH TWICE A DAY NEEDED TAKE ONE TABLET BY MOUTH TWICE A DAY NEEDED SOLD: 01/02/2020 [facility] 10 mg 12/04/2019 12:00:00 AM EDT tablet 60 TAKE ONE TABLET BY MOUTH TWICE A DAY NEEDED TAKE ONE TABLET BY MOUTH TWICE A DAY NEEDED SOLD: 12/07/2019 [facility] atorvastatin 40 MG Oral Tablet ATORVASTATIN CALCIUM 11/18/2019 1 2:00:00 AM EDT tablet 90 TAKE ONE TABLET BY MOUTH EVERY D AY FOR CHOLESTEROL TAKE ONE TABLET BY MOUTH EVERY DAY FOR CHOLESTEROL SOLD: 11/18/2019 [facility] 15 mg 10/14/2019 12:00:00 AM EDT tablet 90 TAKE ONE TABLET BY MOUTH EVERY DAY TAKE ONE TABLET BY MOUTH EVERY DAY SOLD: 10/14/2019 [facility] 15 mg 10/14/2019 12:00:00 AM EDT tablet 90 TAKE ONE TABLET BY MOUTH EVERY DAY TAKE ONE TABLET BY MOUTH EVERY DAY SOLD: 12/28/2019 [facility] 1 gram 09/27/2019 12:00:00 AM EDT tablet 120 TAKE ONE TABLET BY MOUTH FOUR TIMES A DAY, BEFORE MEALS AND AT BEDTIME TAKE ONE TABLET BY MOUTH FOUR TIMES A DAY, BEFORE MEALS AND AT BEDTIME SOLD: 11/14/2019 [facility] 1 gram 09/27/2019 12:00:00 AM EDT tablet 120 TAKE ONE TABLET BY MOUTH FOUR TIMES A DAY, BEFORE MEALS AND AT BEDTIME TAKE ONE TABLET BY MOUTH FOUR TIMES A DAY, BEFORE MEALS AND AT BEDTIME SOLD: 09/27/2019 [facility] 1 gram 09/27/2019 12:00:00 AM EDT tablet 120 TAKE ONE TABLET BY MOUTH FOUR TIMES A DAY, BEFORE MEALS AND AT BEDTIME TAKE ONE TABLET BY MOUTH FOUR TIMES A DAY, BEFORE MEALS AND AT BEDTIME SOLD: 12/28/2019 [facility] pantoprazole 40 MG Delayed Release Oral Tablet PANTOPRAZOLE SODIUM 09/23/2019 12:00:00 AM EDT tablet,delayed release (DR/EC) 180 T BOB ONE TABLET BY MOUTH TWICE A DAY TAKE ONE TABLET BY MOUTH TWICE A DAY SOLD: 12/28/2019 [facility] 40 mg 09/23/2019 12:00:00 AM EDT tablet,delayed release (DR/EC) 180 TAKE ONE TABLET BY MOUTH TWICE A DAY TAKE ONE TABLET BY MOUTH TWICE A DAY SOLD: 09/27/2019 [facility] 20 mg 09/17/2019 12:00:00 AM EDT capsule 90 TAKE ONE CAPSULE BY MOUTH EVERY DAY TAKE ONE CAPSULE BY MOUTH EVERY DAY SOLD: 12/15/2019 [facility] 20 mg 09/17/2019 12:00:00 AM EDT capsule 90 TAKE ONE CAPSULE BY MOUTH EVERY DAY TAKE ONE CAPSULE BY MOUTH EVERY DAY SOLD: 09/18/2019 [facility] Fluoxetine 20 MG Oral Capsule Fluoxetine HCL 09/16/2019 12:00:00 AM E DT ORAL active [facility] ([facility] ) Fluoxetine 20 MG Oral Capsule Fluoxetine HCL 09/16/2019 12:00:00 AM E DT ORAL active [facility] ([facility] 325 mg (65 mg iron) 09/12/2019 12:00:00 AM EDT tablet 180 TAKE ONE TABLET BY MOUTH TWICE A DAY TAKE ONE TABLET BY MOUTH TWICE A DAY SOLD: 09/14/2019 [facility] 25 mg 09/12/2019 12:00:00 AM EDT tablet 180 TAKE ONE TABLET BY MOUTH TWICE A DAY TAKE ONE TABLET BY MOUTH TWICE A DAY SOLD: 09/14/2019 [facility] 5 mg 09/12/2019 12:00:00 AM EDT tablet 90 TAKE ONE TABLET BY MOUTH EVERY DAY FOR BLOOD PRESSURE TAKE ONE TABLET BY MOUTH EVERY DAY FOR BLOOD PRESSURE SOLD: 09/14/2019 [facility] 20 mg 09/12/2019 12:00:00 AM EDT tablet 90 TAKE ONE TABLET BY MOUTH EVERY DAY TAKE ONE TABLET BY MOUTH EVERY DAY SOLD: 09/14/2019 [facility] 5 mg 09/12/2019 12:00:00 AM EDT tablet 90 TAKE ONE TABLET BY MOUTH EVERY DAY FOR BLOOD PRESSURE TAKE ONE TABLET BY MOUTH EVERY DAY FOR BLOOD PRESSURE SOLD: 12/15/2019 [facility] 25 mg 09/12/2019 12:00:00 AM EDT tablet 180 TAKE ONE TABLET BY MOUTH TWICE A DAY TAKE ONE TABLET BY MOUTH TWICE A DAY SOLD: 12/15/2019 [facility] 325 mg (65 mg iron) 09/12/2019 12:00:00 AM EDT tablet 180 TAKE ONE TABLET BY MOUTH TWICE A DAY TAKE ONE TABLET BY MOUTH TWICE A DAY SOLD: 12/15/2019 [facility] 10 mg 09/05/2019 12:00:00 AM EDT tablet 180 TAKE ONE TABLET BY MOUTH TWICE A DAY TAKE ONE TABLET BY MOUTH TWICE A DAY SOLD: 09/05/2019 [facility] 325 mg (65 mg iron) 08/20/2019 12:00:00 AM EDT tablet 60 TAKE ONE TABLET BY MOUTH TWICE A DAY TAKE ONE TABLET BY MOUTH TWICE A DAY SOLD: 08/20/2019 [facility] 20 mg 08/20/2019 12:00:00 AM EDT capsule 30 TAKE ONE CAPSULE BY MOUTH EVERY DAY TAKE ONE CAPSULE BY MOUTH EVERY DAY SOLD: 08/20/2019 [facility] 25 mg 08/20/2019 12:00:00 AM EDT tablet 60 TAKE ONE TABLET BY MOUTH TWICE A DAY TAKE ONE TABLET BY MOUTH TWICE A DAY SOLD: 08/20/2019 [facility] atorvastatin 40 MG Oral Tablet ATORVASTATIN CALCIUM 08/20/2019 1 2:00:00 AM EDT tablet 30 TAKE ONE TABLET BY MOUTH EVERY D AY TAKE ONE TABLET BY MOUTH EVERY DAY SOLD: 08/20/2019 [facility] 1 billion cell- 250 mg 08/20/2019 12:00:00 AM EDT tablet 90 TAKE ONE TABLET BY MOUTH THREE TIMES A DAY TAKE ONE TABLET BY MOUTH THREE TIMES A DAY SOLD: 08/20/2019 [facility] 5 mg 08/20/2019 12:00:00 AM EDT tablet 30 TAKE ONE TABLET BY MOUTH TWICE A DAY TAKE ONE TABLET BY MOUTH TWICE A DAY SOLD: 08/20/2019 [facility] 5 mg 08/20/2019 12:00:00 AM EDT tablet 30 TAKE ONE TABLET BY MOUTH EVERY DAY TAKE ONE TABLET BY MOUTH EVERY DAY SOLD: 08/20/2019 [facility] 1 gram 08/20/2019 12:00:00 AM EDT tablet 120 TAKE 1 TABLET BY MOUTH BEFORE MEALS AND AT BEDTIME TAKE 1 TABLET BY MOUTH BEFORE MEALS AND AT BEDTIME ROHIT [facility] pantoprazole 40 MG Delayed Release Oral Tablet PANTOPRAZOLE SODIUM 08/05/2019 12:00:00 AM EDT tablet,delayed release (DR/EC) 60 T BOB ONE TABLET BY MOUTH TWICE A DAY TAKE ONE TABLET BY MOUTH TWICE A DAY SOLD: 08/20/2019 [facility] 40 mg 06/28/2019 12:00:00 AM EDT tablet 90 TAKE ONE TABLET BY MOUTH EVERY DAY TAKE ONE TABLET BY MOUTH EVERY DAY SOLD: 06/28/2019 [facility] 15 mg 06/24/2019 12:00:00 AM EDT tablet 90 TAKE ONE TABLET BY MOUTH EVERY DAY TAKE ONE TABLET BY MOUTH EVERY DAY SOLD: 06/24/2019 [facility] 5 mg 05/29/2019 12:00:00 AM EDT tablet 60 TAKE ONE TABLET BY MOUTH TWICE A DAY TAKE ONE TABLET BY MOUTH TWICE A DAY SOLD: 06/26/2019 [facility] 5 mg 05/29/2019 12:00:00 AM EDT tablet 60 TAKE ONE TABLET BY MOUTH TWICE A DAY TAKE ONE TABLET BY MOUTH TWICE A DAY SOLD: 05/30/2019 [facility] 5 mg 04/30/2019 12:00:00 AM EST tablet 60 TAKE ONE TABLET BY MOUTH TWICE A DAY TAKE ONE TABLET BY MOUTH TWICE A DAY SOLD: 04/30/2019 [facility] 15 mg 03/20/2019 12:00:00 AM EST tablet 30 TAKE ONE TABLET BY MOUTH EVERY DAY TAKE ONE TABLET BY MOUTH EVERY DAY SOLD: 03/20/2019 [facility] 40 mg 03/20/2019 12:00:00 AM EST tablet 90 TAKE ONE TABLET BY MOUTH EVERY DAY TAKE ONE TABLET BY MOUTH EVERY DAY SOLD: 03/20/2019 [facility] 5 mg 03/20/2019 12:00:00 AM EST tablet 60 TAKE ONE TABLET BY MOUTH TWICE A DAY TAKE ONE TABLET BY MOUTH TWICE A DAY SOLD: 03/20/2019 [facility] 15 mg 03/20/2019 12:00:00 AM EST tablet 30 TAKE ONE TABLET BY MOUTH EVERY DAY TAKE ONE TABLET BY MOUTH EVERY DAY SOLD: 04/20/2019 [facility] 15 mg 03/20/2019 12:00:00 AM EST tablet 30 TAKE ONE TABLET BY MOUTH EVERY DAY TAKE ONE TABLET BY MOUTH EVERY DAY SOLD: 05/21/2019 [facility] 5 mg 02/25/2019 12:00:00 AM EST tablet 60 TAKE ONE TABLET BY MOUTH TWICE A DAY WITH FOOD OR MILK TAKE ONE TABLET BY MOUTH TWICE A DAY WITH FOOD OR MILK SOLD: 02/25/2019 [facility] 40 mg 02/25/2019 12:00:00 AM EST tablet 30 TAKE ONE TABLET BY MOUTH EVERY DAY TAKE ONE TABLET BY MOUTH EVERY DAY SOLD: 02/25/2019 [facility] 15 mg 02/25/2019 12:00:00 AM EST tablet 30 TAKE ONE TABLET BY MOUTH EVERY DAY WITH FOOD TAKE ONE TABLET BY MOUTH EVERY DAY WITH FOOD SOLD: 02/25/2019 [facility] 0.4 ML Enoxaparin sodium 100 MG/ML Prefi lled Syringe enoxaparin sodium (LOVENOX) 40 MG/0.4ML SOLN injection enoxaparin sodium (LOVENOX) 40 MG/0.4ML SOLN injection 07/21/2018 12:00:00 AM EDT 40 mg Subcutaneous ab orted Inject 0.4 mLs into the skin daily Can continue with DVT prophylaxis at [facility] Insurance Providers Payer name Policy type / Coverage type Policy ID Covered constitution party ID Covered constitution party's relationship to strauss Policy [place] Plan Information MEDICARE [id number] SP [id number] MEDICARE A [id number] Self [id number] MEDICARE A [id number] Self [id number] MEDICARE [id number] SP [id number] MEDICARE C [id number] S [id number] SELF PAY ONLY [id number] SP [id number] UNAVAILABLE UNAVAILA BLE MEDICARE [id number] MCRB [id number] S [id number] MEDICARE [id number] S [id number] [facility] [id number] MEDICARE [id number] MCRB [id number] S [id number] MEDICARE [id number] S [id number] ANS-Medicare Part B [id number] ANSI-Medicare Part B [id number] ANSMedicare Part B [id number] No insurance SELF-PAY UNAVAILABLE UNAVAILA BLE SELF-PAY UNAVAILABLE S UNAVAILA BLE SELF PAY O [id number] S [id number] SELF PAY UNAVAILABLE SP UNAVAILA BLE MEDICARE [id number] SP [id number] A MEDICARE [id number] SP [id number] A MEDICARE P [id number] S [id number] A SELF PAY 2 UNAVAILABLE 1 UNAVAILA BLE MEDICARE 4 [id number] A Problems, Conditions, and Diagnoses Code Display Name Description Problem Type Effective Dates Data Source(s) 13669108 Vitamin D deficiency Vitamin D deficiency Problem 12/20/2019 12:00:00 AM EDT [facility] ([facility]) [id number] Dietary calcium deficiency Dietary calcium deficiency Problem 12/20/2019 12:00:00 AM EDT [facility] ([facility]) 47217603 Osteoporosis Osteoporosis Problem 12/20/2019 12:00:00 A M EDT [facility] ([facility]) [id number] Essential hypertension Essential hypertension Problem 12/20/2019 12:00:00 AM EDT [facility] ([facility]) [id number] Pure hypercholesterolemia Pure hypercholesterolemia Pr oblem 12/20/2019 12:00:00 AM EDT [facility] ([facility]) 45327863 Essential hypertension Essential hypertension Problem 10/25/2019 12:00:00 AM EDT [facility] ([facility], ) C18.9 Malignant neoplasm of colon, unspecified Malignant neoplasm of colon, unspecified Diagnosis 02/17/2020 09:28:00 AM [facility] Z95.818 Presence of other cardiac implants and g rafts Presence of other cardiac implants and grafts Diagnosis 07/12/2019 11:59:10 AM [facility] I63.9 Cerebral infarction, unspecified Cerebral infarc tion, unspecified Diagnosis 07/12/2019 11:58:55 AM [facility] Surgeries/Procedures Procedure Description Date Indications Data Source(s) Laparoscopic Hemicolectomy W/ Anastomosis 02/12/2020 1 2:00:00 AM EST [facility] ([facility], ) DEBRIDEMENT NAIL ANY METHOD 6/> 02/10/2020 12:00:00 AM EST [facility] ([facility] Endoscopy Upper GI Biopsy 01/13/2020 12:00:00 AM EST [facility] ([facility], ) Colonoscopy Flexible Proximal To Splenic Flexure W/Biopsy Si ngle/ 01/13/2020 12:00:00 AM EST [facility] ([facility], ) Colonoscopy W/ Poly 01/13/2020 12:00:00 AM EST [facility] ([facility]) Endoscopy Upper GI Biopsy 01/13/2020 12:00:00 AM EST [facility] ([facility]) Colonoscopy Flexible Proximal To Splenic Flexure W/Biopsy Si ngle/ 01/13/2020 12:00:00 AM EST [facility] ([facility]) Colonoscopy W/ Poly 01/13/2020 12:00:00 AM EST [facility] ([facility]) Results ID Date Data Source [id number] 04/16/2020 10:34:00 AM EST [facility] ([facility] Name Value Range Interpretation Code Description Data Whitney rce(s) Supporting Document(s) Red Blood Count 4.99 10 4.00-5.40 [facility] ([facility] White Blood Count 6.9 10 4.0-10.0 [facility] ([facility] Hematocrit 43.8 % 36.0-47.0 [facility] ([facility] Hemoglobin 14.0 g/dL 12.0-15.5 [facility] ([facility] Mean Corpuscular Volume 87.8 fl 80.0-96.0 M [facility] ([facility] Mean Corpuscular Hemoglobin 28.1 pg 27.0-33.0 [facility] ([facility] Red Cell Distribution Width 14.4 % 11.5-14.5 [facility] ([facility] Mean Corpuscular HGB Conc 32.0 g/dL 32.0-36.5 [facility] ([facility] Platelet Count, Automated 255 10 150-450 [facility] ([facility] Neutrophils % 59.8 % 36.0-66.0 [facility] ([facility] Lymph % 27.1 % 24.0-44.0 [facility] ([facility] Citrus % 7.1 % 0.0-5.0 [facility] ([facility] Baso % 0.6 % 0.0-1.0 [facility] ([facility] Eos % 5.1 % 0.0-3.0 [facility] ([facility] Neutrophils # 4.1 10 1.5-8.5 [facility] ([facility] Immature Granulocyte % 0.3 % 0-3.0 [facility] ([facility] Nucleated Red Blood Cell % 0.0 % 0-0 [facility] ([facility] Citrus # 0.5 10 0.0-0.8 [facility] ([facility] Lymph # 1.9 10 1.5-5.0 [facility] ([facility] Eos # 0.4 10 0.0-0.5 [facility] ([facility] Baso # 0.0 10 0.0-0.2 [facility] ([facility] ID Date Data Source [id number] 04/16/2020 10:33:00 AM EST [facility] ([facility] Name Value Range Interpretation Code Description Data Whitney rce(s) Supporting Document(s) Glucose, Fasting 135 mg/dL 70-100 [facility] ([facility] Blood Urea Nitrogen 18 mg/dL 7-18 [facility] ([facility] Glomerular Filtration Rate Laboratory test result [facility] ([facility] <content>Units are mL/min/1.73 m2</content>
<content></content>
<content>Chronic Kidney Disease Staging per NKF:</content>
<content></content>
<content>Stage I & II GFR >=60 Normal to Mildly Decreased</content>
<content>Stage III GFR 30- 59 Moderately Decreased</content>
<content>Stage IV GFR 15-29 Severely Decreased</content>
<content>Stage V GFR <15 Very Little GFR Left</content>
<content>ESRD GFR <15 on [employer] CHIEF</content>
<content></content> Creatinine For GFR 0.88 mg/dL 0.55-1.30 [facility] ([facility] Potassium Serum 3.4 meq/L 3.5-5.1 [facility] ([facility] Sodium Level 143 meq/L 136-145 [facility] ([facility] Chloride Level 110 meq/L 98-107 [facility] ([facility] Carbon Dioxide Level 26 meq/L 21-32 [facility] ([facility] Anion Gap 7 meq/L 8-16 [facility] ([facility] Ast/Sgot 22 U/L 7-37 [facility] ([facility] Calcium Level 8.6 mg/dL 8.8-10.2 [facility] ([facility] Alkaline Phosphatase 85 U/L 45-117 [facility] ([facility] Alt/SGPT 53 U/L 12-78 [facility] ([facility] Bilirubin,Total 1.0 mg/dL 0.2-1.0 [facility] ([facility] Albumin 3.3 GM/DL 3.2-5.2 [facility] ([facility] Total Protein 6.4 GM/DL 6.4-8.2 [facility] ([facility] Albumin/Globulin Ratio 1.1 1.2-2.2 [facility] ([facility] ID Date Data Source [id number] 04/09/2020 11:02:00 AM EST [facility] ([facility] Name Value Range Interpretation Code Description Data Whitney rce(s) Supporting Document(s) Glucose, Fasting 90 mg/dL 70-100 [facility] ([facility] Glomerular Filtration Rate Laboratory test result [facility] ([facility] <content>Units are mL/min/1.73 m2</content>
<content></content>
<content>Chronic Kidney Disease Staging per NKF:</content>
<content></content>
<content>Stage I & II GFR >=60 Normal to Mildly Decreased</content>
<content>Stage III GFR 30- 59 Moderately Decreased</content>
<content>Stage IV GFR 15-29 Severely Decreased</content>
<content>Stage V GFR <15 Very Little GFR Left</content>
<content>ESRD GFR <15 on [employer] CHIEF</content>
<content></content> Blood Urea Nitrogen 16 mg/dL 7-18 [facility] ([facility] Creatinine For GFR 0.81 mg/dL 0.55-1.30 [facility] ([facility] Sodium Level 143 meq/L 136-145 [facility] ([facility] Chloride Level 110 meq/L 98-107 [facility] ([facility] Potassium Serum 3.9 meq/L 3.5-5.1 [facility] ([facility] Carbon Dioxide Level 27 meq/L 21-32 [facility] ([facility] Anion Gap 6 meq/L 8-16 [facility] ([facility] Calcium Level 9.4 mg/dL 8.8-10.2 [facility] ([facility] Alt/SGPT 27 U/L 12-78 [facility] ([facility] Ast/Sgot 13 U/L 7-37 [facility] ([facility] Alkaline Phosphatase 75 U/L 45-117 [facility] ([facility] Bilirubin,Total 1.0 mg/dL 0.2-1.0 [facility] ([facility] Total Protein 6.5 GM/DL 6.4-8.2 [facility] ([facility] Albumin 3.4 GM/DL 3.2-5.2 [facility] ([facility] Albumin/Globulin Ratio 1.1 1.2-2.2 [facility] ([facility] ID Date Data Source [id number] 04/09/2020 11:02:00 AM EST [facility] ([facility] Name Value Range Interpretation Code Description Data Whitney rce(s) Supporting Document(s) White Blood Count 6.8 10 4.0-10.0 [facility] ([facility] Red Blood Count 5.08 10 4.00-5.40 [facility] ([facility] Hemoglobin 14.0 g/dL 12.0-15.5 [facility] ([facility] Mean Corpuscular Volume 88.8 fl 80.0-96.0 M [facility] ([facility] Hematocrit 45.1 % 36.0-47.0 [facility] ([facility] Mean Corpuscular Hemoglobin 27.6 pg 27.0-33.0 [facility] ([facility] Mean Corpuscular HGB Conc 31.0 g/dL 32.0-36.5 [facility] ([facility] Red Cell Distribution Width 14.6 % 11.5-14.5 [facility] ([facility] Neutrophils % 59.3 % 36.0-66.0 [facility] ([facility] Platelet Count, Automated 262 10 150-450 [facility] ([facility] Citrus % 8.3 % 0.0-5.0 [facility] ([facility] Eos % 3.7 % 0.0-3.0 [facility] ([facility] Lymph % 27.6 % 24.0-44.0 [facility] Nucleated Red Blood Cell % 0.0 % 0-0 [facility] ([facility] Baso % 0.7 % 0.0-1.0 [facility] ([facility] Immature Granulocyte % 0.4 % 0-3.0 [facility] ([facility] Lymph # 1.9 10 1.5-5.0 [facility] ([facility] Neutrophils # 4.1 10 1.5-8.5 [facility] ([facility] Citrus # 0.6 10 0.0-0.8 [facility] ([facility] Eos # 0.3 10 0.0-0.5 [facility] ([facility] Baso # 0.1 10 0.0-0.2 [facility] ([facility] ID Date Data Source [id number] 04/09/2020 11:01:00 AM EST [facility] ([facility] Name Value Range Interpretation Code Description Data Whitney rce(s) Supporting Document(s) Carcinoembryonic Ag [Mass/volume] in Serum or Plasma 1.9 ng/mL [facility] ([facility] THE CEA ASSAY IS PERFORMED ON THE [employer] BY CHEMILUMINESCENCE AND SHOULD NOT BE COMPARED INTERCHANGEABLY WITH OTHER METHODS. IT SHOULD NOT BE USED ALONE A SCREENING TEST OR DIAGNOSIS FOR THE PRESENCE OR ABSENCE OF MALIGNANT DISEASE. PREDICTIONS OF DISEASE RECURRENCE SHOULD NOT BE BASED SOLELY ON VALUES OBTAINED FROM SERIAL PATIENT SERUM VALUES. ID Date Data Source [id number] 03/20/2020 03:36:00 PM EST [facility] ([facility] Name Value Range Interpretation Code Description Data Whitney rce(s) Supporting Document(s) Inr 1.66 [facility] ([facility] THERAPUTIC HUMAN INR VALUES INDICATIONS NORMAL RANGES PROPHYLAXIS/TREATMENT OF: VENOUS THROMBOSIS 2.0-3.0 PULMONARY EMBOLISM 2.0-3.0 PREVENTION OF SYSTEMIC EMBOLISM FROM: TISSUE HEART VALVES 2.0-3.0 ACUTE MYOCARDIAL INFARCTION 2.0-3.0 VALVULAR HEART DISEASE 2.0-3.0 ATRIAL FIBRILLATION 2.0-3.0 MECHANICAL VALVES(HIGH RISK) 2.5-3.5 RECURRENT MYOCARDIAL INFARCTION 2.5-3.5 Prothrombin Time 20.0 s 12.5-14.3 [facility] ([facility] Partial Thromboplastin Time 38.6 s 24.2-38.5 [facility] ([facility] ID Date Data Source [id number] 03/20/2020 02:56:00 PM EST [facility] ([facility] Name Value Range Interpretation Code Description Data Whitney rce(s) Supporting Document(s) Ferritin [Mass/volume] in Serum or Plasma 24 ng/mL 8-252 [facility] ([facility] ID Date Data Source [id number] 03/20/2020 02:56:00 PM EST [facility] ([facility] Name Value Range Interpretation Code Description Data Whitney rce(s) Supporting Document(s) Vitamin B12 Level 415 pg/mL [facility] ([facility] VITAMIN B12 NORMAL RANGE NORMAL 247 - 911 PG/ML INDETERMINATE 211 - 246 PG/ML DEFICIENT LESS THAN 211 PG/ML Folate 10.9 ng/mL [facility] ([facility] FOLATE NORMAL RANGE NORMAL GREATER THAN 5.4 NG/ML INDETERMINATE 3.4-5.4 NG/ML DEFICIENT LESS THAN 3.4 NG/ML ID Date Data Source [id number] 03/20/2020 02:56:00 PM EST [facility] ([facility] Name Value Range Interpretation Code Description Data Whitney rce(s) Supporting Document(s) Carcinoembryonic Ag [Mass/volume] in Serum or Plasma 1.6 ng/mL [facility] ([facility] THE CEA ASSAY IS PERFORMED ON THE [employer] BY CHEMILUMINESCENCE AND SHOULD NOT BE COMPARED INTERCHANGEABLY WITH OTHER METHODS. IT SHOULD NOT BE USED ALONE A SCREENING TEST OR DIAGNOSIS FOR THE PRESENCE OR ABSENCE OF MALIGNANT DISEASE. PREDICTIONS OF DISEASE RECURRENCE SHOULD NOT BE BASED SOLELY ON VALUES OBTAINED FROM SERIAL PATIENT SERUM VALUES. ID Date Data Source [id number] 03/20/2020 02:56:00 PM EST [facility] ([facility] Name Value Range Interpretation Code Description Data Whitney rce(s) Supporting Document(s) Iron (Fe) 57 ug/dL 50-170 [facility] ([facility] Percent Saturation 18.9 % 13.2-45.0 [facility] ([facility] Total Iron Binding Capacity 301 ug/dL 250-450 [facility] ([facility] ID Date Data Source [id number] 03/20/2020 02:56:00 PM EST [facility] ([facility] Name Value Range Interpretation Code Description Data [place] campuse(s) Supporting Document(s) Blood Urea Nitrogen 15 mg/dL 7-18 [facility] ([facility] Glucose, Fasting 87 mg/dL 70-100 [facility] ([facility] Sodium Level 144 meq/L 136-145 [facility] ([facility] Glomerular Filtration Rate 57.2 [facility] ([facility] <content>Units are mL/min/1.73 m2</content>
<content></content>
<content>Chronic Kidney Disease Staging per NKF:</content>
<content></content>
<content>Stage I & II GFR >=60 Normal to Mildly Decreased</content>
<content>Stage III GFR 30- 59 Moderately Decreased</content>
<content>Stage IV GFR 15-29 Severely Decreased</content>
<content>Stage V GFR <15 Very Little GFR Left</content>
<content>ESRD GFR <15 on [employer] CHIEF</content>
<content></content> Creatinine For GFR 1.00 mg/dL 0.55-1.30 [facility] ([facility] Carbon Dioxide Level 30 meq/L 21-32 [facility] ([facility] Potassium Serum 4.0 meq/L 3.5-5.1 [facility] ([facility] Chloride Level 110 meq/L 98-107 [facility] ([facility] Alt/SGPT 25 U/L 12-78 [facility] ([facility] Calcium Level 8.9 mg/dL 8.8-10.2 [facility] ([facility] Anion Gap 4 meq/L 8-16 [facility] ([facility] Ast/Sgot 16 U/L 7-37 [facility] ([facility] Total Protein 6.2 GM/DL 6.4-8.2 [facility] ([facility] Alkaline Phosphatase 92 U/L 45-117 [facility] ([facility] Bilirubin,Total 1.1 mg/dL 0.2-1.0 [facility] ([facility] Albumin 3.4 GM/DL 3.2-5.2 [facility] ([facility] Albumin/Globulin Ratio 1.2 1.2-2.2 [facility] ([facility] ID Date Data Source [id number] 03/20/2020 02:56:00 PM EST [facility] ([facility] Name Value Range Interpretation Code Description Data Whitney rce(s) Supporting Document(s) White Blood Count 6.5 10 4.0-10.0 [facility] ([facility] Red Blood Count 4.88 10 4.00-5.40 [facility] ([facility] Mean Corpuscular Volume 89.3 fl 80.0-96.0 M [facility] ([facility] Hematocrit 43.6 % 36.0-47.0 [facility] ([facility] Hemoglobin 13.3 g/dL 12.0-15.5 [facility] ([facility] Mean Corpuscular Hemoglobin 27.3 pg 27.0-33.0 [facility] ([facility] Red Cell Distribution Width 14.3 % 11.5-14.5 [facility] ([facility] Mean Corpuscular HGB Conc 30.5 g/dL 32.0-36.5 [facility] ([facility] Neutrophils % 50.9 % 36.0-66.0 [facility] ([facility] Lymph % 30.7 % 24.0-44.0 [facility] ([facility] Platelet Count, Automated 272 10 150-450 [facility] ([facility] Eos % 3.5 % 0.0-3.0 [facility] ([facility] Citrus % 13.4 % 0.0-5.0 [facility] ([facility] Baso % 0.9 % 0.0-1.0 [facility] ([facility] Nucleated Red Blood Cell % 0.6 % 0-0 [facility] ([facility] Immature Granulocyte % 0.6 % 0-3.0 [facility] ([facility] Neutrophils # 3.3 10 1.5-8.5 [facility] ([facility] Citrus # 0.9 10 0.0-0.8 [facility] ([facility] Eos # 0.2 10 0.0-0.5 [facility] ([facility] Lymph # 2.0 10 1.5-5.0 [facility] ([facility] Baso # 0.1 10 0.0-0.2 [facility] ([facility] ID Date Data Source [id number] 02/26/2020 09:11:00 AM [facility] Anatomic Molecular Pathology ReportName: YAKOV CORONAMRN: [id number] Number: [id number] Date: 02/17/2020 00:00Received Date: 02/24/2020 11:59Physician(s): CASS SORIANO MD ADJAPONG, OPOKU, MDSpecimen(s) ReceivedA: SPECIMEN ACCESSIONED IN ERRORDiagnosisThe MLH1 promoter methylation was ordered in error. See case [id number] for BRAF V600E results previously reported. Electronically Signed By Romina Parsons Pathology [employer] 02/26/202009:11:41This report may include one or more immunohistochemical stain results thatuse analyte specific reagents. All positive and negative controls havebeen reviewed by the attending pathologist and are satisfactory. The testswere developed and their performance characteristics determined by [facility] Pathology department. They have not been cleared or approved by the USFood and Drug Administration. The FDA has determined that such clearanceor approval is not necessary. 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 Mutations at codon 12, 13 or 61 of NRAS gene may predict responsiveness totherapy targeting the MAP kinase pathway in many types of tumor.Interpretation of NRAS result depends on the tissue tested. In colorectalcarcinoma, the mutations may indicate lack of response to EGFR inhibition.In melanoma, however, the mutations may indicate whether a tumor is likelyto respond to therapy that targets the MAP kinase pathway. These resultsare adjuncts to other clinical and pathologic information for evaluationof therapeutic response. kz/jajElectronically Signed By Gigi Carrizales M.D. 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 The tumorarea is identified by the attending pathologist and manuallymicrodissected. An amplicon of 255bp containing codons 12 and 13, and anamplicon of 278bp containing codon 61 were amplified using PCR and, ifneeded, VP OF MARKETING (locked nucleic acid) PCR technique. The amplicon was directlysequenced using the BigDye XTerminator cycle sequencing kit ([employer]) and analyzed on TYRESE 3500 Genetic Analyzer in duplicates. Theanalytical sensitivity (low limit of detection) of the assay isapproximately 25% of cells with mutation. Test development and its performance characteristics were determined bythe [facility], and have beenauthorized for clinical use by [facility]. Thetest has not been cleared or approved by the U.S. Food and DrugAdministration. The analyte specific reagents used in this assay do notrequire FDA approval. REFERENCES:1. Ventura W, Manolo B, Devin D, De Giuliana J, Theodore B,Maximino G, Dimitri GURROLA, et al. (2010) Effects of KRAS, BRAF, NRAS, xvcGUE1PL mutations on the efficacy of cetuximab plus chemotherapy inchemotherapy-refractory metastatic colorectal cancer: a retrospectiveconsortium analysis. Lancet Oncol. 11(8):753-62. 2. Linda Kramer.,Aleks,Renata Bravo AlvaradoGC,et al.(2011) NRAS mutation status is an independent prognostic factor inmetastatic melanoma.Cancer 118:383721.This report may include one or more immunohistochemical stain results thatuse analyte specific reagents. All positive and negative controls havebeen reviewed by the attending pathologist and are satisfactory. The testswere developed and their performance characteristics determined by [facility] Pathology department. They have not been cleared or approved by the USFood and Drug Administration. The FDA has determined that such clearanceor approval is not necessary. Name Value Range Interpretation Code Description Data Whitney rce(s) Supporting Document(s) ID Date Data Source [id number] 02/26/2020 07:44:00 AM [facility] Anatomic Molecular Pathology ReportName: YAKOV CORONAMRN: [id number] Number: [id number] Date: 02/17/2020 00:00Received Date: 02/18/2020 13:39Physician(s): CASS SORIANO MD ADJAPONG, OPOKU, MDSpecimen(s) ReceivedA: Blocks received for consultation, Formalin Block [id number] [facility] in [place], [place] KRAS Mutation AnalysisDiagnosisTEST:KRAS gene mutations by therascreene RGQ real-time PCR (polymerase chainreaction).RESULTS:No KRAS mutations were detected.INTERPRETATION: NEGATIVE FOR KRAS GENE MUTATION.The assay is intended to aid in the identification of patients withcolorectal carcinoma (CRC) for anti-EGFR therapy with Erbituxe (cetuximab)or Vectibix (panitumumab). The patients with KRAS mutations, identifiablein approximately 40% CRC, show resista nce to the anti-EGFR therapy. Theseven mutations (G12S, G12R, G12C, G12D, G12A, G12V, G13D) detected bythis assay account for >97% of all reported KRAS mutations in CRCpatients. Less than 7% mutant in wild-type DNA may not be de tected. Theresults are adjuncts to other clinical and pathologic information forevaluating the therapeutic response. kz/ kgElectronically Signed By Gigi Carrizales M.D. Attending Pathologist 02/26/2020 07:44:21Gross DescriptionMETHODOLOGY: The therascreen KRAS RGQ PCR Kit is a real-time qualitative PCR assayused on the [employer] instrument for the detection of seven somaticmutations in the human KRAS oncogene, using DNA extracted fromformalin-fixed paraffin-embedded (FFPE) colorectal cancer (CRC) tissue. The tumor area is identified by the pathologist and is manuallymicrodissected.The assay uses Scorpionse and ARMSe (Allele RefractoryMutation System) technologies, and is FDA-approved for clinical patientcare. Allele-specific amplification is achieved by ARMS which exploitsthe ability of Taq DNA polymerase to distinguish between a matched and amismatched base at the 3' end of a PCR primer. Detection of amplificationis performed using Scorpions, bifunctional molecules containing a PCRprimer covalently linked to a probe.REFERENCES:1. ARLENE Ruiz, Jean JM, Somerashida MR, et al. [place] Societyof Clinical Oncology provisional clinical opinion: testing for KRAS genemutations in patients with metastatic colorectal carcinoma to predictresponse to anti-epidermal growth factor receptor monoclonal antibodytherapy. J Clin Oncol 27:6529-7825, 2009. 2. Keli S , Juan Alberto Toussaint , ROSEMARIE Aranda, et al.Biomarkers predicting clinical outcome of epidermal growth factor receptortargeted therapy in metastatic colorectal cancer. J Natl Cancer Xfmy434:13613660, 2009.This report may include one or more immunohistochemical stain results thatuse analyte specific reagents. All positive and negative controls havebeen reviewed by the attending pathologist and are satisfactory. The testswere developed and their performance characteristics determined by [facility] Pathology department. They have not been cleared or approved by the USFood and Drug Administration. The FDA has determined that such clearanceor approval is not necessary. 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 BRAF V600E in colon adenocarcinoma is associatedwith resistance to anti-EGFR targeted therapy, and can be used as abiomarker to exclude Pepe syndrome (HNPCC) as well. The test result isconsidered positive if the Ct value (mutant probe) is less than 45 and theEPF is higher than cut-off value. If the percentage of mutant DNA is lessthan 10% in a background of wild-type DNA, the mutation may not bedetected by this assay. This result is an adjunct to other clinical andpathologic information for appropriate patient management.elizabeth/lillyElectronically Signed By Lanie Shah M.D. Attending Pathologist 02/24/2020 08:55:18Reported at [address] [place] [id number]. Gross DescriptionMETHODOLOGY:BRAF V600E(1799 T>A) mutation at exon 15 is detected by real time PCRusing allele-specific TaqMan probes and performed on paraffin embeddedtissues. The tumor area is identified by the pathologist and is manuallymicrodissected. The mutant probe was labeled with a FAM-fluorophore whilethe wild-type probe with a FRANCHESCA-fluorophore. The amount of fluorescentemissions rendered by specific probe hybridization was associated the amounts of PCR products, and analyzed by [employer] real timeinstrument. The analytical sensitivity (or minimum percentage of mutantDNA needed) is approximately 10% given sufficient DNA input. Test development and its performance characteristics were determined bythe [facility], and has beenauthorized for clinical use by [facility]. Thetest has not been cleared or approved by the U.S. Food and DrugAdministration. The analyte specific reagents used in this assay do notrequire FDA approval. REFERENCES: 1. Jonel S, Sergio Jane, et al. Detection of BRAF L325Wzshjbqnb in colorectal cancer-comparison of automatic sequencing and realtime chemistry methodology. J Mol Diagn. 2006; 8:152480.2. Serge L, Kathi TJ, Jayden N, et al. BRAF mutation analysis in fineneedle aspiration (FNA) cytology of the thyroid. Diagn Mol Pathol.2006;15:058857.3. Barbara PK, Trista ME, Sandra M, et al. Clinical characteristics ofpatients with lung adenocarcinomas harboring BRAF mutations. J Clin Oncol.2011;29:0633-4505.This report may include one or more immunohistochemical stain results thatuse analyte specific reagents. All positive and negative controls havebeen reviewed by the attending pathologist and are satisfactory. The testswere developed and their performance characteristics determined by [facility] Pathology department. They have not been cleared or approved by the USFood and Drug Administration. The FDA has determined that such clearanceor approval is not necessary. Name Value Range Interpretation Code Description Data Whitney rce(s) Supporting Document(s) ID Date Data Source [id number] 02/20/2020 02:11:00 PM [facility] Surgical Pathology ReportName: Eitan CORONA Juan AlbertoBrunildaMRN: [id number] Number: [id number] Date: 02/17/2020 00:00Received Date: 02/17/2020 09:29Physician(s): CASS SORIANO MD ADJAPONG, OPOKU, MDSpecimen(s) ReceivedA: Blocks only received for consultationClinical HistoryPlease do MMR, KRA, NRAS, BRAF.DiagnosisRight colon Adenocarcinoma ([id number], 02/13/20)Results of Immunohistochemistry for Mismatch Repair Protein (MMR): MLH-1: Absent (Abnormal) PMS2: Absent (Abnormal) MSH-2: Expressed(Normal) MSH-6: Expressed (Normal) 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 BRAF mutation and/or MLH1 promoter methylation test pending. See Comment. Comment:Since loss of MLH-1 expression, BRAF mutation and/or MLH1 promotermethylation will be tested and, if both negative, genetic counseling forLynch Syndrome is recommended. Electronically Signed By Lanie Shah M.D., Attending Ccfwixwbrts78/17/2020 14:11:05 Unless 'gross-only' is specified, the final diagnosis is based on amicroscopic examination of practice representative sections of tissue.Gross DescriptionReceived from [facility] [place] [place], is one paraffinblock, labeled [id number], with the corresponding pathology report.This report may include one or more immunohistochemical stain results thatuse analyte specific reagents. All positive and negative controls havebeen reviewed by the attending pathologist and are satisfactory. The testswere developed and their performance characteristics determined by [facility] Pathology department. They have not been cleared or approved by the USFood and Drug Administration. The FDA has determined that such clearanceor approval is not necessary. Name Value Range Interpretation Code Description Data Whitney rce(s) Supporting Document(s) ID Date Data Source [id number] 02/07/2020 12:30:00 PM EST [place] Name Value Range Interpretation Code Description Data Whitney rce(s) Supporting Document(s) [facility] 2 [facility] by [facility] and reported by [facility]. ID Date Data Source [id number] 01/28/2020 02:12:00 PM EST [facility] ([facility] Name Value Range Interpretation Code Description Data Whitney rce(s) Supporting Document(s) Glucose, Fasting 92 mg/dL 70-100 [facility] ([facility] Blood Urea Nitrogen 14 mg/dL 7-18 [facility] ([facility] Creatinine For GFR 0.86 mg/dL 0.55-1.30 [facility] ([facility] Glomerular Filtration Rate Laboratory test result [facility] ([facility] <content>Units are mL/min/1.73 m2</content>
<content></content>
<content>Chronic Kidney Disease Staging per NKF:</content>
<content></content>
<content>Stage I & II GFR >=60 Normal to Mildly Decreased</content>
<content>Stage III GFR 30- 59 Moderately Decreased</content>
<content>Stage IV GFR 15-29 Severely Decreased</content>
<content>Stage V GFR <15 Very Little GFR Left</content>
<content>ESRD GFR <15 on [employer] CHIEF</content>
<content></content> Chloride Level 110 meq/L 98-107 [facility] ([facility] Potassium Serum 3.3 meq/L 3.5-5.1 [facility] ([facility] Sodium Level 144 meq/L 136-145 [facility] ([facility] Anion Gap 6 meq/L 8-16 [facility] ([facility] Calcium Level 9.3 mg/dL 8.8-10.2 [facility] ([facility] Carbon Dioxide Level 28 meq/L 21-32 [facility] ([facility] ID Date Data Source [id number] 01/28/2020 02:12:00 PM EST [facility] ([facility] Name Value Range Interpretation Code Description Data Whitney rce(s) Supporting Document(s) Calcidiol [Mass/volume] in Serum or Plasma 33.7 ng/mL 30.0-100.0 [facility] ([facility] ID Date Data Source [id number] 01/28/2020 02:12:00 PM EST [facility] ([facility]) Name Value Range Interpretation Code Description Data Whitney rce(s) Supporting Document(s) Calcidiol [Mass/volume] in Serum or Plasma 33.7 ng/mL 30.0-100.0 [facility] ([facility]) ID Date Data Source [id number] 01/28/2020 02:12:00 PM EST [facility] ([facility]) Name Value Range Interpretation Code Description Data Whitney rce(s) Supporting Document(s) Glucose, Fasting 92 mg/dL 70-100 [facility] ([facility]) Blood Urea Nitrogen 14 mg/dL 7-18 [facility] ([facility]) Glomerular Filtration Rate Laboratory test result [facility] ([facility]) <content>Units are mL/min/1.73 m2</content>
<content></content>
<content>Chronic Kidney Disease Staging per NKF:</content>
<content></content>
<content>Stage I & II GFR >=60 Normal to Mildly Decreased</content>
<content>Stage III GFR 30- 59 Moderately Decreased</content>
<content>Stage IV GFR 15-29 Severely Decreased</content>
<content>Stage V GFR <15 Very Little GFR Left</content>
<content>ESRD GFR <15 on [employer] CHIEF</content>
<content></content> Creatinine For GFR 0.86 mg/dL 0.55-1.30 [facility] ([facility]) Chloride Level 110 meq/L 98-107 [facility] ([facility]) Sodium Level 144 meq/L 136-145 [facility] Potassium Serum 3.3 meq/L 3.5-5.1 [facility] ([facility]) Anion Gap 6 meq/L 8-16 [facility] ([facility] Calcium Level 9.3 mg/dL 8.8-10.2 [facility] ([facility]) Carbon Dioxide Level 28 meq/L 21-32 [facility] ([facility]) ID Date Data Source [id number] 01/22/2020 01:06:00 PM EST [facility] ([facility] Name Value Range Interpretation Code Description Data Whitney rce(s) Supporting Document(s) Carcinoembryonic Ag [Mass/volume] in Serum or Plasma 1.4 ng/mL [facility] ([facility] THE CEA ASSAY IS PERFORMED ON THE [employer] BY CHEMILUMINESCENCE AND SHOULD NOT BE COMPARED INTERCHANGEABLY WITH OTHER METHODS. IT SHOULD NOT BE USED ALONE A SCREENING TEST OR DIAGNOSIS FOR THE PRESENCE OR ABSENCE OF MALIGNANT DISEASE. PREDICTIONS OF DISEASE RECURRENCE SHOULD NOT BE BASED SOLELY ON VALUES OBTAINED FROM SERIAL PATIENT SERUM VALUES. ID Date Data Source [id number] 01/22/2020 01:06:00 PM EST [facility] ([facility] Name Value Range Interpretation Code Description Data Whitney rce(s) Supporting Document(s) Glomerular Filtration Rate 44.7 [facility] ([facility] <content>Units are mL/min/1.73 m2</content>
<content></content>
<content>Chronic Kidney Disease Staging per NKF:</content>
<content></content>
<content>Stage I & II GFR >=60 Normal to Mildly Decreased</content>
<content>Stage III GFR 30- 59 Moderately Decreased</content>
<content>Stage IV GFR 15-29 Severely Decreased</content>
<content>Stage V GFR <15 Very Little GFR Left</content>
<content>ESRD GFR <15 on [employer]YING [employer]Y CHIEF</content>
<content></content> Creatinine For GFR 1.24 mg/dL 0.55-1.30 [facility] ([facility] ID Date Data Source [id number] 01/22/2020 01:06:00 PM EST [facility] ([facility] Name Value Range Interpretation Code Description Data Whitney rce(s) Supporting Document(s) Urea nitrogen [Mass/volume] in Serum or Plasma 18 mg/dL 7-18 [facility] ([facility] ID Date Data Source [id number] 01/22/2020 01:06:00 PM EST [facility] ([facility] Name Value Range Interpretation Code Description Data Whitney rce(s) Supporting Document(s) Ast/Sgot 13 U/L 7-37 [facility] Bilirubin,Total 1.0 mg/dL 0.2-1.0 [facility] ([facility] Alt/SGPT 19 U/L 12-78 [facility] Alkaline Phosphatase 100 U/L 45-117 [facility] ([facility] Bilirubin,Direct 0.2 mg/dL 0.0-0.2 [facility] ([facility] Total Protein 6.0 GM/DL 6.4-8.2 [facility] ([facility] Albumin/Globulin Ratio 1.2 1.2-2.2 [facility] ([facility] Albumin 3.3 GM/DL 3.2-5.2 [facility] ID Date Data Source [id number] 01/22/2020 01:06:00 PM EST [facility] ([facility] Name Value Range Interpretation Code Description Data Whitney rce(s) Supporting Document(s) White Blood Count 11.8 10 4.0-10.0 [facility] ([facility] Hematocrit 39.0 % 36.0-47.0 [facility] Hemoglobin 12.1 g/dL 12.0-15.5 [facility] Red Blood Count 4.23 10 4.00-5.40 [facility] ([facility] Mean Corpuscular Hemoglobin 28.6 pg 27.0-33.0 [facility] ([facility] Mean Corpuscular Volume 92.2 fl 80.0-96.0 M [facility] ([facility] Mean Corpuscular HGB Conc 31.0 g/dL 32.0-36.5 [facility] ([facility] Red Cell Distribution Width 13.8 % 11.5-14.5 [facility] ([facility] Platelet Count, Automated 339 10 150-450 [facility] ([facility] Neutrophils % 80.1 % 36.0-66.0 [facility] ([facility] Citrus % 6.5 % 0.0-5.0 [facility] Lymph % 11.8 % 24.0-44.0 [facility] Eos % 0.6 % 0.0-3.0 [facility] Immature Granulocyte % 0.6 % 0-3.0 [facility] ([facility] Baso % 0.4 % 0.0-1.0 [facility] Nucleated Red Blood Cell % 0.0 % 0-0 [facility] ([facility] Neutrophils # 9.4 10 1.5-8.5 [facility] ([facility] Citrus # 0.8 10 0.0-0.8 [facility] Lymph # 1.4 10 1.5-5.0 [facility] Baso # 0.1 10 0.0-0.2 [facility] Eos # 0.1 10 0.0-0.5 [facility] ID Date Data Source [id number] 01/22/2020 01:06:00 PM EST [facility] Name Value Range Interpretation Code Description Data Whitney rce(s) Supporting Document(s) Alkaline Phosphatase 100 U/L 45-117 Normal (applies to non-num maryellen results) [facility] ([facility]) Alt/SGPT 19 U/L 12-78 Normal (applies to non-numeric resul ts) [facility] ([facility]) Ast/Sgot 13 U/L 7-37 Normal (applies to non-numeric resul ts) [facility] ([facility]) Bilirubin,Direct 0.2 mg/dL 0.0-0.2 Normal (applies to non-numeric results) [facility] ([facility], ) Total Protein 6.0 GM/DL 6.4-8.2 Below low normal [facility]) Bilirubin,Total 1.0 mg/dL 0.2-1.0 Normal (applies to non-numeric results) [facility] ([facility]) Albumin/Globulin Ratio 1.2 1.2-2.2 Normal (applies to non-n umeric results) [facility]) Albumin 3.3 GM/DL 3.2-5.2 Normal (applies to non-numeric resul ts) [facility]) ID Date Data Source [id number] 01/22/2020 01:06:00 PM EST [facility] ([facility]) Name Value Range Interpretation Code Description Data Whitney rce(s) Supporting Document(s) Creatinine For GFR 1.24 mg/dL 0.55-1.30 Normal (applies to non -numeric results) [facility]) Glomerular Filtration Rate 44.7 Normal (applies to n on-numeric results) [facility]) <content>Units are mL/min/1.73 m2</content>
<content></content>
<content>Chronic Kidney Disease Staging per NKF:</content>
<content></content>
<content>Stage I & II GFR >=60 Normal to Mildly Decreased</content>
<content>Stage III GFR 30- 59 Moderately Decreased</content>
<content>Stage IV GFR 15-29 Severely Decreased</content>
<content>Stage V GFR <15 Very Little GFR Left</content>
<content>ESRD GFR <15 on [employer] CHIEF</content>
<content></content> ID Date Data Source [id number] 01/22/2020 01:06:00 PM EST [facility]) Name Value Range Interpretation Code Description Data Whitney rce(s) Supporting Document(s) Urea nitrogen [Mass/volume] in Serum or Plasma 18 mg/dL 7 -18 Normal (applies to non-numeric results) [facility]) ID Date Data Source [id number] 01/22/2020 01:06:00 PM EST [facility]) Name Value Range Interpretation Code Description Data Whitney rce(s) Supporting Document(s) Carcinoembryonic Ag [Mass/volume] in Serum or Plasma 1.4 ng/mL Normal (applies to non-numeric results) [facility]) THE CEA ASSAY IS PERFORMED ON THE [employer] BY CHEMILUMINESCENCE AND SHOULD NOT BE COMPARED INTERCHANGEABLY WITH OTHER METHODS. IT SHOULD NOT BE USED ALONE A SCREENING TEST OR DIAGNOSIS FOR THE PRESENCE OR ABSENCE OF MALIGNANT DISEASE. PREDICTIONS OF DISEASE RECURRENCE SHOULD NOT BE BASED SOLELY ON VALUES OBTAINED FROM SERIAL PATIENT SERUM VALUES. ID Date Data Source [id number] 01/22/2020 01:06:00 PM EST [facility] ([facility]) Name Value Range Interpretation Code Description Data Whitney rce(s) Supporting Document(s) White Blood Count 11.8 10 4.0-10.0 Above high normal [facility]) Hemoglobin 12.1 g/dL 12.0-15.5 Normal (applies to non-numeric resul ts) [facility]) Hematocrit 39.0 % 36.0-47.0 Normal (applies to non-numeric resul ts) [facility]) Red Blood Count 4.23 10 4.00-5.40 Normal (applies to non-numeric results) [facility] ([facility]) Mean Corpuscular HGB Conc 31.0 g/dL 32.0-36.5 Below low normal [facility] ([facility]) Mean Corpuscular Volume 92.2 fl 80.0-96.0 Normal ( applies to non-numeric results) [facility] ([facility]) Mean Corpuscular Hemoglobin 28.6 pg 27.0-33.0 Norm al (applies to non-numeric results) [facility] ([facility]) Platelet Count, Automated 339 10 150-450 Normal (applies to non-numeric results) [facility] ([facility]) Red Cell Distribution Width 13.8 % 11.5-14.5 Norm al (applies to non-numeric results) [facility]) Neutrophils % 80.1 % 36.0-66.0 Above high normal [facility] NT ([facility]) Eos % 0.6 % 0.0-3.0 Normal (applies to non-numeric resul ts) [facility] Citrus % 6.5 % 0.0-5.0 Above high normal [facility]) Lymph % 11.8 % 24.0-44.0 Below low normal [facility] ( [facility]) Nucleated Red Blood Cell % 0.0 % 0-0 Normal (applies to n on-numeric results) [facility] ([facility]) Baso % 0.4 % 0.0-1.0 Normal (applies to non-numeric resul ts) [facility] ([facility]) Immature Granulocyte % 0.6 % 0-3.0 Normal (applies to non-n umeric results) [facility] ([facility]) Citrus # 0.8 10 0.0-0.8 Normal (applies to non-numeric resul ts) [facility] ([facility]) Neutrophils # 9.4 10 1.5-8.5 Above high normal MEDE NT ([facility]) Lymph # 1.4 10 1.5-5.0 Below low normal [facility] ( [facility]) Eos # 0.1 10 0.0-0.5 Normal (applies to non-numeric resul ts) [facility] ([facility]) Baso # 0.1 10 0.0-0.2 Normal (applies to non-numeric resul ts) [facility] ([facility]) ID Date Data Source [id number] 01/13/2020 10:48:00 AM EST [facility] ([facility]) Name Value Range Interpretation Code Description Data Whitney rce(s) Supporting Document(s) Surgical pathology study Laboratory test result [facility] ([facility]) <content>FINAL DIAGNOSIS</content>
< content></content>
<content>A - Stomach, biopsy:</content>
<content>Fragments of gastric mucosa with reactive gastropathy.</content>
<content>No evidence for H. pylori-like organisms on H&E stain.</content>
<content></content>
<content>B - Colon, ascending mass, biopsy:</content>
<content>Adenocarcinoma, moderately differentiated. -4/TR</content>
<content></content>
<content>C - Colon, polyps, snare polypectomy:</content>
<content>Fragments of tubular adenoma.</content>
<content>01/15/2020726</content>
<content></content>
<content>CLINICAL DIAGNOSIS</content>
<content></content>
<content>New onset anemia, blood in stool</content>
<content>01/14/2020716</content>
<content></content>
<content>GROSS DIAGNOSIS</content>
<content></content>
<content>A - Received in formalin labeled "gastric biopsy R/O H. pylori" is one</content>
<content>fragment of mccormick tissue 0.2 x 0.2 x 0.2 cm. All in one.</content>
<content></content>
<content>B - Received in formalin labeled "ascending colon mass" and are multiple</content>
<content>fragments of mccormick tissue 0.5 x 0.5 x 0.3 cm. in aggregate. All in one.</content>
<content></content>
<content>C - Received in formalin labeled "snare colon polyps" and are multiple</content>
<content>fragments of mccormick tissue 0.6 x 0.5 x 0.3 cm. in aggregate. All in one.</content>
<content>-SV</content>
<content>01/14/2020716</content>
<content></content>
<content>Signed INÉS PERKINS MD 01/15/2020 3514</content>
<content></content> ID Date Data Source [id number] 01/08/2020 10:00:00 AM EST [facility] Name Value Range Interpretation Code Description Data Whitney rce(s) Supporting Document(s) SARS coronavirus 2 RNA [facility] This lab was ordered by [facility] and reported by [facility]. ID Date Data Source [id number] 12/30/2019 03:11:00 PM EDT [facility] ([facility] Name Value Range Interpretation Code Description Data Whitney rce(s) Supporting Document(s) Bacteria identified in Urine by Culture Laboratory test result [facility] ([facility] FULL REPORT IN LAB NOTES ([facility] and [facility] ). SPECIMEN APPEARS CONTAMINATED ID Date Data Source [id number] 12/30/2019 03:03:00 PM EDT [facility] ([facility] Name Value Range Interpretation Code Description Data Whitney rce(s) Supporting Document(s) Specific gravity of Urine 1.030 MEDE NT ([facility] Color of Urine Laboratory test result [facility] ([facility] pH of Urine by Test strip 5 MEDE NT ([facility] Leukocytes [#/area] in Urine sediment by Microscopy hi gh power field Laboratory test result [facility] ([facility] Protein [Presence] in Urine by Test strip Laboratory test result [facility] ([facility] Appearance of Urine Laboratory test result [facility] ([facility] Ketones [Presence] in Urine by Test strip Laboratory test result [facility] ([facility] Bilirubin.total [Presence] in Urine by Test strip Laboratory test res ult [facility] ([facility] Glucose [Presence] in Urine Laboratory test result [facility] ([facility] Urobilinogen [Mass/volume] in Urine by Test strip Laboratory test res ult [facility] ([facility] Nitrite [Presence] in Urine by Test strip Laboratory test result [facility] ([facility] Hemoglobin [Presence] in Urine by Test strip Laboratory test result [facility] ([facility] ID Date Data Source [id number] 12/23/2019 11:03:00 AM EDT [facility] ([facility] Name Value Range Interpretation Code Description Data Whitney rce(s) Supporting Document(s) Calcidiol [Mass/volume] in Serum or Plasma 10.9 ng/mL 30.0-100.0 [facility] ([facility] ID Date Data Source [id number] 12/23/2019 11:03:00 AM EDT [facility] ([facility] Name Value Range Interpretation Code Description Data Whitney rce(s) Supporting Document(s) Glucose, Fasting 93 mg/dL 70-100 [facility] ([facility] Glomerular Filtration Rate Laboratory test result [facility] ([facility] <content>Units are mL/min/1.73 m2</content>
<content></content>
<content>Chronic Kidney Disease Staging per NKF:</content>
<content></content>
<content>Stage I & II GFR >=60 Normal to Mildly Decreased</content>
<content>Stage III GFR 30- 59 Moderately Decreased</content>
<content>Stage IV GFR 15-29 Severely Decreased</content>
<content>Stage V GFR <15 Very Little GFR Left</content>
<content>ESRD GFR <15 on [employer] CHIEF</content>
<content></content> Blood Urea Nitrogen 22 mg/dL 7-18 [facility] ([facility] Creatinine For GFR 0.84 mg/dL 0.55-1.30 [facility] ([facility] Sodium Level 144 meq/L 136-145 [facility] ([facility] Potassium Serum 4.1 meq/L 3.5-5.1 [facility] ([facility] Anion Gap 4 meq/L 8-16 [facility] ([facility] Chloride Level 115 meq/L 98-107 [facility] ([facility] Carbon Dioxide Level 25 meq/L 21-32 [facility] ([facility] Calcium Level 9.2 mg/dL 8.8-10.2 [facility] ([facility] ID Date Data Source [id number] 12/23/2019 11:03:00 AM EDT [facility] ([facility]) Name Value Range Interpretation Code Description Data Whitney rce(s) Supporting Document(s) Calcidiol [Mass/volume] in Serum or Plasma 10.9 ng/mL 30.0-100.0 [facility] ([facility]) ID Date Data Source [id number] 12/23/2019 11:03:00 AM EDT [facility] ([facility]) Name Value Range Interpretation Code Description Data Whitney rce(s) Supporting Document(s) Glucose, Fasting 93 mg/dL 70-100 [facility] ([facility]) Blood Urea Nitrogen 22 mg/dL 7-18 [facility] ([facility]) Sodium Level 144 meq/L 136-145 [facility] ([facility]) Creatinine For GFR 0.84 mg/dL 0.55-1.30 [facility] ([facility]) Glomerular Filtration Rate Laboratory test result [facility] ([facility]) <content>Units are mL/min/1.73 m2</content>
<content></content>
<content>Chronic Kidney Disease Staging per NKF:</content>
<content></content>
<content>Stage I & II GFR >=60 Normal to Mildly Decreased</content>
<content>Stage III GFR 30- 59 Moderately Decreased</content>
<content>Stage IV GFR 15-29 Severely Decreased</content>
<content>Stage V GFR <15 Very Little GFR Left</content>
<content>ESRD GFR <15 on [employer] CHIEF</content>
<content></content> Anion Gap 4 meq/L 8-16 [facility] ([facility]) Potassium Serum 4.1 meq/L 3.5-5.1 [facility] ([facility]) Chloride Level 115 meq/L 98-107 [facility] Carbon Dioxide Level 25 meq/L 21-32 [facility] ([facility]) Calcium Level 9.2 mg/dL 8.8-10.2 [facility] ([facility]) ID Date Data Source [id number] 10/07/2019 01:45:00 PM EDT [facility] ([facility] Name Value Range Interpretation Code Description Data Whitney rce(s) Supporting Document(s) Ferritin [Mass/volume] in Serum or Plasma 18 ng/mL 8-252 [facility] ([facility] ID Date Data Source [id number] 10/07/2019 01:45:00 PM EDT [facility] ([facility] Name Value Range Interpretation Code Description Data Whitney rce(s) Supporting Document(s) Iron (Fe) 42 ug/dL 50-170 [facility] ([facility] Total Iron Binding Capacity 255 ug/dL 250-450 [facility] ([facility] Percent Saturation 16.5 % 13.2-45.0 [facility] ([facility] ID Date Data Source [id number] 10/07/2019 01:45:00 PM EDT [facility] ([facility]) Name Value Range Interpretation Code Description Data Whitney rce(s) Supporting Document(s) Iron (Fe) 42 ug/dL 50-170 [facility] ([facility]) Percent Saturation 16.5 % 13.2-45.0 [facility] ([facility]) Total Iron Binding Capacity 255 ug/dL 250-450 [facility] ([facility]) ID Date Data Source [id number] 10/07/2019 08:00:00 AM EDT [facility] ([facility] Name Value Range Interpretation Code Description Data Whitney rce(s) Supporting Document(s) White Blood Count 6.2 10 4.0-10.0 [facility] ([facility] Red Blood Count 4.20 10 4.00-5.40 [facility] ([facility] Hematocrit 38.5 % 36.0-47.0 [facility] ([facility] Hemoglobin 11.8 g/dL 12.0-15.5 [facility] ([facility] Mean Corpuscular Volume 91.7 fl 80.0-96.0 M EDENT ([facility] Mean Corpuscular Hemoglobin 28.1 pg 27.0-33.0 [facility] ([facility] Mean Corpuscular HGB Conc 30.6 g/dL 32.0-36.5 [facility] ([facility] Platelet Count, Automated 350 10 150-450 [facility] ([facility] Red Cell Distribution Width 15.1 % 11.5-14.5 [facility] ([facility] Neutrophils % 64.4 % 36.0-66.0 [facility] ([facility] Eos % 2.1 % 0.0-3.0 [facility] ([facility] Lymph % 21.4 % 24.0-44.0 [facility] ([facility] Citrus % 11.0 % 0.0-5.0 [facility] ([facility] Baso % 0.8 % 0.0-1.0 [facility] ([facility] Immature Granulocyte % 0.3 % 0-3.0 [facility] ([facility] Nucleated Red Blood Cell % 0.0 % 0-0 MED ENT ([facility] Lymph # 1.3 10 1.5-5.0 [facility] ([facility] Neutrophils # 4.0 10 1.5-8.5 [facility] ([facility] Eos # 0.1 10 0.0-0.5 [facility] ([facility] Baso # 0.1 10 0.0-0.2 [facility] ([facility] Citrus # 0.7 10 0.0-0.8 [facility] ([facility] ID Date Data Source [id number] 10/07/2019 08:00:00 AM EDT [facility] ([facility]) Name Value Range Interpretation Code Description Data Whitney rce(s) Supporting Document(s) White Blood Count 6.2 10 4.0-10.0 [facility] ([facility] Red Blood Count 4.20 10 4.00-5.40 [facility] ([facility]) Hemoglobin 11.8 g/dL 12.0-15.5 [facility] ([facility] Hematocrit [Volume Fraction] of Blood by Automated count 38.5 % 3 6.0-47.0 [facility] ([facility]) Mean Corpuscular Volume 91.7 fl 80.0-96.0 M EDENT ([facility]) Mean Corpuscular Hemoglobin 28.1 pg 27.0-33.0 [facility] ([facility]) Red Cell Distribution Width 15.1 % 11.5-14.5 [facility] ([facility]) Mean Corpuscular HGB Conc 30.6 g/dL 32.0-36.5 [facility] ([facility]) Neutrophils % 64.4 % 36.0-66.0 [facility] ([facility]) Lymphocytes/100 leukocytes in Blood by Automated count 21.4 % 24. 0-44.0 [facility] ([facility]) Platelet Count, Automated 350 10 150-450 [facility] ([facility]) Citrus % 11.0 % 0.0-5.0 [facility] Baso % 0.8 % 0.0-1.0 [facility] Eos % 2.1 % 0.0-3.0 [facility] Lymph # 1.3 10 1.5-5.0 [facility] Neutrophils # 4.0 10 1.5-8.5 [facility] ([facility]) Nucleated Red Blood Cell % 0.0 % 0-0 MED ENT ([facility]) Immature Granulocyte % 0.3 % 0-3.0 [facility] ([facility]) Baso # 0.1 10 0.0-0.2 [facility] ([facility] Eos # 0.1 10 0.0-0.5 [facility] ([facility]) Citrus # 0.7 10 0.0-0.8 [facility] ([facility] ID Date Data Source [id number] 07/12/2019 12:38:38 PM EDT [facility] Name Value Range Interpretation Code Description Data Whitney rce(s) Supporting Document(s) Progress Note [facility] BINGNs6vRjUOBeXt12/CPTqiWQOrj0BxAEefNIv6OSqwXAVhU4KjJVT8mO6fJKM3SXxJOaFrWwKgAWT7 lbm [file] Seng/bwQocpmI9WyX6J+9DKo2AUz+aue3DqzZ6nZ9VcHBBGGmvNYJ2lhQWHq/ikLPMuzktg5+B4N4nvtd 3YsjhxmY/ypHNaxQF3eF6bS3DM1mtKk9x92TKDXT8J Browning+hEyoyNLEFZXROEyLTTIJZn9GYHCLWZYudLDBUgoiDOxvNELJEW9gUJNYJJMgKMHG0GDYkmjNUfIuB DOoQYBECFPRKNEC1TPXHMKNuhdGylbgCRPsJfGSYNNMv6GPKKUFrXgECLKNujmhAsdcEZFGV7ehQCBUM Uv1fPAPKMJMacDPwAwkGKrmCFBVWDW1XNVOWDXLYAW DmcSTfbfpKNjBcTSTPKTPzTEYSLCFGrUHZJZJrbaasbecUAZUatnXRRZDUs0GSUFBQRHncLKKZbbaTPa lZXZYGL8uCJIIVIQvUQUI5DCBxxoZQmKhGKQqEUEPEPLXLCRR9DURPQGDjbvSinvcQKTrCoHOURTAe8x tHFvOtOGKZ1IcLFUSTIAcJuVPOLxXHrMHZWYwnwIBc AFYENOYNOFGLGDeTTRNPHMJUo5lIWTUVRGcdiTXDCXCQsYRQSOeHESMYJFOFb/GdY5WEPGsEtGRtRZOE BwMAMAAAALBzMAAACwcDADAAAACwczAAAAsHAwAwAAAAsHMwAAALBwMAMAAAALBzMAAACwcDADAAAAC+ uoYcA6WQNJLzo2fjGDQPEF9LOVKOUZULXQvj+age0G JXMEVz1haHLEXNR6hYADSURIrQPYC8BQNxamXUxSqIYAeYUDSXUWMVUY81/NAAAAADwJmAEAAICFgxkA ONUJATuKSWVFhOVIVEYIJIeGKTHTdWTTVQZNLAk2dZBMAOXXfngBCXLNXHtVPNKMsSWYGBVJJEuZDECT qSSVXNAJGXg0CjRYt3nvAzUTvVdZFTTJEOy0HzICcE FEIKNiWkRTQCSanEWXLDXAUlcdKJMGiMYiWtROXCcpY3FPYpIILAM3YBWQRNYGQlGZIKAu2BXCMOFCUm 9eJIJMDLKmNkQLBUvOg9qYsHLDTPVBffWhYfMYHKYP88xcMXyDYOXC8FNXY6LAKkxwHQtUsWCHxLO9/a EZAAAAgCcBMwAAALBwRNmOGQAAAFgymAEAAICFgxkA IIHBDR94MrcCEGGHUsPhKITQiEXmSaXYIFvUKlTKCGBcCPORQFRRYaBDGVCykMVEMWDLPzpeKVCCfDJi AwAAAAsHMwAAALBwMAMAAAALBzMAAACwcDADAAAACwczAAAAP[facility]AAAsHB[facility] SystemAALfmAGcAMAAADP xE/XQI6ZFGRjmlARTVHSHLikfHNwOYXWnNGEDYAPSJ r5HsTVro9apDJF1CwYSCURJLQNTkQECOFBLLAILGCMJVHOHIYDZLMGDLBGDBDNXBZFQFJQDDMJCHZDLR AAAAAAAAAAAAAAAAAAAAAAAAAAAAAAAAAAAAAAAAAAAAAAAAAAAAAAAAAAAAAAAAAAAAAAAAAAAAAAAA AAAAAAAAAAAAAAAAAAAAAAAAAAAAAAAAAAAAAAAAAA AAAAAAAAAAAAAAAAAAAAAAAAAAAAAAAAAAAAAAAAAAAAAAAAAAAAAAAAAAAAAAAAAAAAAAAAAAAAAAAA PXPQTTBLEDNDKFBDVYZCWJLQFWYCDYFAACTVGDNRLQEFXGLTBEKLODHJOKCYAEQVVKNCDQJCHQFEB6lk [file] 4MV36U2SxAp+Luz Maria/1GTPmyqFbA8svW1GtzL9KBVwwfwlys4BmWcfoGZAi96RXX8uJezS6AdwOE74jZ+I [file] mPZprSmThlykm41h97C4v98AhB4Sjn9RLPVKEVOLIGZXVPTKETGIQMLHWGNTWMBFGQFBTETPJGAUYEDW RNLMYFTFJYNn2n52D4PAa84Gw/Cqs65ts7jUh6aUanvzABCl+AEASCWpHwN941PbzZxVxFkOtY96N3x0 XJpRhp96BFj2wex8+5Y+jG4Xn7y/zN/I3OE7/f3+7/ GQEcCzrlmRE971jpieoEbj4yj9vSEHEdWNMR8S8of2zTx9d6FggFpZUhYJ0tNdn1wMiZQqt8LSyy49wf QQ+BJd85l7Jgnomw9kAKXixPgDkZPr46f3c1l/Jx8fk8X4ql/Rmwlo99wbkJIKmWlTEiTLAQZVwkdbYY 3fqUYbU2erVbVyq4H1VclEHOtr/T91v1KXuz8u35fI /NIMiXd7aY2zW2eOOjaxo6FK2/jzRybmv90X8mYAqfgpCEzfv6cPpGMnWyOJGDK3/Iz4y+DSVLy/mJfN 47o4NmXWq/92T55S5giWpeHUF6/nOq0tnde+1C5yv1WCRE0kEDNk27yE598zzL36j6OR2uA6Z1OGcDyS AAC+l58R/3reGxXJb105f4V/hwNCsa4M4po6b2wMYc 6raj/M8+Pz5Tbg8fr55+lbpe6JXyBA5gMYMIDvtHsH0/51EnEK+y49BDmO71y6uL/xncch/DeUJp5mv4 /metaGG4kxaV/LSi7cGWot0/PCME/jth/rMvbDmL8/Dc75+tvUb18wBwVvcM4tBGOPJVPAWIOEFBVZLO AAAAAAAAAAAAAAAAAAAAAAAAAAAAAAAAAAAAAAAAAA AAAAAAAAAAAAAAAAAAAAAAAAAAC+hX8A4G/8OL4GYK5bg8ZqAKBxYSckeiJzOxnEKkK7GWFnq9WpLHgb CF7FCB6gu3ZqGWhbZFFad0TcZJu0RQ4WYJAqNREcR3HuyFTbI9HMTy6VOSz1R3irJWboUe3OtFOdXGEr DBjxEV2Ld007RAl3TD5HKPYkIbLhFDVRMsGsERQbNk OpLZhxFSXTCZmiGMDrU0XnBBL9JZHsLo6APOFxJZ4JBnCmVHMzGATZRuFePYPiPxVwQkHbGWSYMx9VGr MnM1bYGxxyV9CkROzcK4wlFdQaZrLrZLEBPQoaKCOeM7ywYlXjUhFqSGNVLEaaFBMzN2foFeErEyDxAZ VXLAyuWQOtP1ezEvUkPbKhWBTOXh8GGuPvH9V9uYnF lMU9QAF8GB5NBjEKYtGxNSi2G3A3lVTnO3S1yHbRgCK8ST3TNP9GDIAeYP7+XaItR8PPBFgSQEK7OI1K pKJtRD6TxUYSI2FogARfKr4tRMZmkCtseKe+PcNnI4VXSFMJEVS0IF3VbPJgTU2EgYYRY0GxaWPpFt5j KEhbEtKjYZ6jNM0+OH3JTEZTByTAUlYgECvoAAivVU SnDMx5E2Y5XRGuT7QQI4T6A3l5j7iyvk3+FO2ZQDGdF6SABKRRPoPjXTqkGFejKXMzGOz4E3W2KZCiK6 NAX2vqJ0o9UD3+PiANCiAgID4+DQo+En2MGW6fe9XxWOzkZYYoLH0jqq4TJLqcERUqW9JmYKYxGLrgS3 PxgJgsSJ5MHAhhYUboIT0JRYJtMDP0XN2+DQpzdHJl AR0ICwz/dYWwP4nerZZwSTxunt5i85q/QdYzOR5zQuOIJI7fY9DslNz5jrKIig1VF3hvKarePq1+DQog RSo5YalrgZ9biXBlwRc1dJU5ho9lUs4nQRrqRNqyfN0jhkV1cQ1qLVBdWhT8xvV6rEP8MZ5lWg0EAONe FTetKFG6EdEXLOynqC8rLbEeVg1dxYC7xMexU2c2cm 77Uc9qyohkHZj2SN5wBo2zXq5zJGFwy5ravIW0WT8kPfz+SGcpWFNlGP8mCHS0PpBXLc2XDOD2F0h2tL 0xqAT2JP2NTpAcEONtAQZjZLRyHZBjDJLzEOOpWTUeTSEuDBJhMSDeOJRlRSLqRQRnXLSoBELuFBQfNN AgICAgICAgICAgICAgICAgICAgICAgICAgICAgICAg ICAgICAgICAgICAgICAgICANCiAgICAgICAgICAgICAgICAgICAgICAgICAgICAgICAgICAgICAgICAg ICAgICAgICAgICAgICAgICAgICAgICAgICAgICAgICAgICAgICAgICAgICAgICAgICAgICAgICAgICAN CiAgICAgICAgICAgICAgICAgICAgICAgICAgICAgIC AgICAgICAgICAgICAgICAgICAgICAgICAgICAgICAgICAgICAgICAgICAgICAgICAgICAgICAgICAgIC AgICAgICAgICANCiAgICAgICAgICAgICAgICAgICAgICAgICAgICAgICAgICAgICAgICAgICAgICAgIC AgICAgICAgICAgICAgICAgICAgICAgICAgICAgICAg ICAgICAgICAgICAgICAgICAgICANCiAgICAgICAgICAgICAgICAgICAgICAgICAgICAgICAgICAgICAg ICAgICAgICAgICAgICAgICAgICAgICAgICAgICAgICAgICAgICAgICAgICAgICAgICAgICAgICAgICAg ICANCiAgICAgICAgICAgICAgICAgICAgICAgICAgIC AgICAgICAgICAgICAgICAgICAgICAgICAgICAgICAgICAgICAgICAgICAgICAgICAgICAgICAgICAgIC AgICAgICAgICAgICANCiAgICAgICAgICAgICAgICAgICAgICAgICAgICAgICAgICAgICAgICAgICAgIC AgICAgICAgICAgICAgICAgICAgICAgICAgICAgICAg ICAgICAgICAgICAgICAgICAgICAgICANCiAgICAgICAgICAgICAgICAgICAgICAgICAgICAgICAgICAg ICAgICAgICAgICAgICAgICAgICAgICAgICAgICAgICAgICAgICAgICAgICAgICAgICAgICAgICAgICAg ICAgICANCiAgICAgICAgICAgICAgICAgICAgICAgIC AgICAgICAgICAgICAgICAgICAgICAgICAgICAgICAgICAgICAgICAgICAgICAgICAgICAgICAgICAgIC AgICAgICAgICAgICAgICANCiAgICAgICAgICAgICAgICAgICAgICAgICAgICAgICAgICAgICAgICAgIC AgICAgICAgICAgICAgICAgICAgICAgICAgICAgICAg ICAgICAgICAgICAgICAgICAgICAgICAgICANCjw/eWZbW8xofBLtlsU9A9plKr8DZz8DNO0hc2XjTTSw WLtkhuBqCceLVhOnIASlJgeMVfs3ZQupWZ1SqHOrX6WeF7DoSBbiEM7RADWxJDOpqVAmBBXmBPQxZxV2 FUZtVGucVC1TyYAbMFjzKODkNCKrDrZlBUGxYRPoBA AeOXIqNCFCIOBpLMAqIoXxJJjrLL8Tn9SgzOK9NQe+Oe0BPW2sl3OvEDepHEJwUZ5wkx4HSAaKPeIrR1 JnofB1KSKkUKUrWo7MUPBqUTOgwAU1OHWgWFKAGoGkK3NcoT04QSLPUv0+DQplbmRvYmoNCjQwIDAgb2 IlZNa1PO9TTZThGKb7pPTsTQKrB2Hdp7ZrKu55QLUq FbqaERBlOAI1PQDyziulYUJRAFWgiYL5FsezRrOjSEAiYFabHFTEVVcLSgWsO7Jvp3TgUjN1DKPoGnBp DJpxHVXwGzL1CE97sZjoRN9BFTUiZVTxLA92MID3SUVfSr3SEr3NSfChBA9teh3NYFXqBCUqOsrTQwt6 SMstHD2BiECaL6YxaKQpq5rAZcWqX1CSDYC2QUZdHj 5IVCRpZwLbYODsPMkyCZ1vGKIqTZKYvPrzlhK3CJ4ZCZ7qazYeMA2UPoGoMu5iXg9HNrZjQ9SbI9KdUX IpIRFEBChhLD0CVQnrLA8lQJ7Cj8PIrVDbdD0lxp0DCNJtBKZqInhgsl3AKugeC4Z4yIewQXXeJoztAH BRMIovRV6RXHCqUKA1XPVmNWRaKKVILvLiM08kXC7H P5Qkc55mMmH0WBHsOsApBAdaIB27fLjhhyLwgUCvsJvaUY8FNv9+DQplbmRvYmoNCnhyZWYNCjAgNDIN RaEhMUJkOMJuMPNxOdD3QzVpDi5AZKDeVEEqMYNgPhRsVFGxBSPrGSlsHIPtXOtmMojkHOMhISSsUN9L WiAaVILfEsP8LPztLFTxUKAsbb6THYCkAXJaUBT1Ti JwHSLbMMRuGXlcKDMgGGA7ZYd2GNDtIQKnLA3NAmZfGQBxMMDcIQtzVJQfWGIoil7XJLSlUOVuGmA4JZ JzONWbLTBeQZpsXCHzHEZ6CJccXXCzRWVyDL2ZNnTiINCoHRF6IHDyOYTkOCKaax9GWXSeWXDcGUwnTP KxRRCvNPLbBDinNTFeWGIlIgB0NZRtOONyHE4MQvLu UQUzZQZ3ItUkORDhGDLwdp6DRSZwFNFuXfA7TNJnEYCvXVBxVCcdSEJiCMFkHkt9TKHyCSHcPF9TWmLe LIJoVIH2GLFjBKRuTZEjak9CGDZfBYJhOzu8EESpOVRwZKAnRUroVKQkQVM3HGG4UDFfUXYxKP4FBpKz XNCaKBO1FXEcPSUdQMPzkg0YGWXjEGCrOFN2GWGmJZ FrMFDyBWpeVCSaYVA1OfzxLTOjZWFmML6RWcXfQSPcCdS3CRFkMDOyWGWggc6FYAAcQUMtLzYmRRVuLW SjZGSrCSpfTLXdHHQ3EzL8OCAqECZjHY3PDdOaOMRhWly6KAzgTZHaMBGobb9POBQsZRIoNcstKrWmGL XvKZLpGXhqSGInNMFjLSX4WBXhOGNpTI8YUqWcWHNr ECTsTgtaGZRwPMQwpn4VLEWwNAR9RDZ5BCAyJQVlYFRcXFkpTPVgHMHuOAC5IEZrSDIaJQ0WKiJdHFQa EMR7AjZaAREaZWHtbw1ETYCwKQE7TCbzALMsNFJuSCRsZPmoDZXkJAKrJJG9YSDqYDCzDE6VXuDaCOZh QTGaMLKfESRtOFZfgp5WCLXzUBN6FuJ8GwRtHZVzAZ PwTJvzTPWhITwuTxgeBEFfRQTrPH9SSrZhIKGaOTE9CJJqXJGtCOWqxg4BHPBzEBI6VtE4SXOzERPhDI OaBHtcLILyPQj4THC6VOTyHWDiQE0XWnGwNTXnNlK8VrRoSRHvYBAwgb9GTURdOFN3HFunHpNwQIGrKJ SwJQvwAZUhTLf5NSI0XIKuICPrQV5XBcCeKTyoIGUH Kqe8BNqqU5q5RLX9Ib8QU8Bfm8DmEOFgNKDHQApkCV6tohFeNKJhKu7NK7uMLic3LvO5VTZ2IZGbBMTx DLDpYyUrQzI2D9JjJJN4REDuCa6wQQOqFVYtIChjINB4A2LbDGN4BWG4DNj6JUBpVAQ6SRM0AkNnKK0Q Kd6VXaI5CGK8uYBgVk3KKXk4OGeyWLziSYJPCo8K Procedure Social History Code Duration Value Status Description Data Source(s ) Smoking 02/20/2020 12:00:00 AM EST Patient is a former smoker completed Patient is a former smoker [facility] ([facility] Smoking 10/28/2019 12:00:00 AM EDT Former Smoker completed Former Smoker [email or web address] ([facility]) Vital Signs ID Date Data Source UNK Name Value Range Interpretation Code Description Data Source(s) Body surface area Derived from formula 1.86 m2 1.86 m2 [facility] ([facility], ) Body weight 74.107 kg 74.107 kg [facility] ([facility]) [place] body weight 135 [lb_av] 135 [lb_av] MEDEN T ([facility]) Body mass index (BMI) [Ratio] 25.6 kg/m2 25.6 k g/m2 [facility] ([facility]) Body weight 163.38 [lb_av] 163.38 [lb_av] MEDEN T ([facility]) Body height 67 [in_i] 67 [in_i] [facility] 5'7" Diastolic blood pressure 58 mm[Hg] 58 mm[Hg] [facility] ([facility]) Systolic blood pressure 125 mm[Hg] 125 mm[Hg] [facility] ([facility]) Body mass index (BMI) [Ratio] 25.6 kg/m2 25.6 k g/m2 [facility] ([facility] [place] body weight 135 [lb_av] 135 [lb_av] MEDEN T ([facility] Oxygen saturation in Arterial blood by Pulse oximetry 97 % 97 % [facility] ([facility] Body weight 163.38 [lb_av] 163.38 [lb_av] [facility] T ([facility] Body height 67.0 [in_i] 67.0 [in_i] [facility] ([facility] 5'7" Respiratory rate 15 /min 15 /min [facility] ( [facility] Body temperature 96.5 [degF] 96.5 [degF] [facility] ([facility] Heart rate 55 /min 55 /min [facility] ([facility] Diastolic blood pressure 75 mm[Hg] 75 mm[Hg] [facility] ([facility] Systolic blood pressure 138 mm[Hg] 138 mm[Hg] [facility] ([facility] Body mass index (BMI) [Ratio] 25.5 kg/m2 25.5 k g/m2 [facility] Heart rate 53 /min 53 /min [facility] ([facility] Diastolic blood pressure 65 mm[Hg] 65 mm[Hg] [facility] ([facility] Systolic blood pressure 111 mm[Hg] 111 mm[Hg] M ED[facility] ([facility] Body weight 163.00 [lb_av] 163.00 [lb_av] MEDEN T ([facility] Body height 67 [in_i] 67 [in_i] [facility] ([facility] 5'7" Body mass index (BMI) [Ratio] 25.7 kg/m2 25.7 k g/m2 [facility] ([facility] [place] body weight 135 [lb_av] 135 [lb_av] MED[facility] T ([facility] Oxygen saturation in Arterial blood by Pulse oximetry 95 % 95 % [facility] ([facility] Body weight 164.00 [lb_av] 164.00 [lb_av] MED[facility] T ([facility] stated wt Body height 67.0 [in_i] 67.0 [in_i] [facility] ([facility] 5'7" Respiratory rate 17 /min 17 /min [facility] ( [facility] Body temperature 97.6 [degF] 97.6 [degF] [facility] ([facility] Heart rate 69 /min 69 /min [facility] ([facility] Diastolic blood pressure 43 mm[Hg] 43 mm[Hg] [facility] ([facility] Systolic blood pressure 90 mm[Hg] 90 mm[Hg] [facility] Diastolic blood pressure 40 mm[Hg] 40 mm[Hg] [facility] ([facility] Systolic blood pressure 80 mm[Hg] 80 mm[Hg] [facility] Body surface area Derived from formula 1.86 m2 1.86 m2 [facility] ([facility]) Body weight 74.390 kg 74.390 kg [facility] ([facility]) [place] body weight 135 [lb_av] 135 [lb_av] MED[facility] T ([facility]) Body mass index (BMI) [Ratio] 25.7 kg/m2 25.7 k g/m2 [facility] ([facility]) Body weight 164.00 [lb_av] 164.00 [lb_av] MEDEN T ([facility]) Body height 67 [in_i] 67 [in_i] [facility] ([facility]) 5'7" Diastolic blood pressure 58 mm[Hg] 58 mm[Hg] [facility] ([facility]) Systolic blood pressure 120 mm[Hg] 120 mm[Hg] [facility] Body surface area Derived from formula 1.86 m2 1.86 m2 [facility] ([facility]) Body weight 74.390 kg 74.390 kg [facility] [place] body weight 135 [lb_av] 135 [lb_av] MEDEN T ([facility]) Body mass index (BMI) [Ratio] 25.7 kg/m2 25.7 k g/m2 [facility] ([facility]) Body weight 164.00 [lb_av] 164.00 [lb_av] MED[facility] T ([facility]) Body height 67 [in_i] 67 [in_i] [facility] ([facility]) 5'7" Diastolic blood pressure 62 mm[Hg] 62 mm[Hg] [facility] ([facility]) Systolic blood pressure 120 mm[Hg] 120 mm[Hg] [facility] Body mass index (BMI) [Ratio] 25.5 kg/m2 25.5 k g/m2 [facility] ([facility] [place] body weight 135 [lb_av] 135 [lb_av] MED[facility] T ([facility] Body weight 163.00 [lb_av] 163.00 [lb_av] [facility] T ([facility] Heart rate 53 /min 53 /min [facility] ([facility] Diastolic blood pressure 65 mm[Hg] 65 mm[Hg] [facility] ([facility] Systolic blood pressure 111 mm[Hg] 111 mm[Hg] [facility] Body height 67.0 [in_i] 67.0 [in_i] [facility] ([facility] 5'7" Respiratory rate 16 /min 16 /min [facility] ( [facility] Body temperature 97.3 [degF] 97.3 [degF] [facility] ([facility] Body temperature 96.6 [degF] 96.6 [degF] [facility] ([facility]) Heart rate 96 /min 96 /min [facility] ([facility]) Oxygen saturation in Arterial blood by Pulse oximetry 97 % 97 % [facility] ([facility]) Body mass index (BMI) [Ratio] 25.9 kg/m2 25.9 k g/m2 [facility] ([facility]) Body weight 165.38 [lb_av] 165.38 [lb_av] [facility] T ([facility]) Body height 67 [in_i] 67 [in_i] [facility] ([facility]) 5'7" Body temperature 96.6 [degF] 96.6 [degF] [facility] ([facility]) Heart rate 50 /min 50 /min [facility] ([facility]) Diastolic blood pressure 74 mm[Hg] 74 mm[Hg] [facility] ([facility]) Systolic blood pressure 126 mm[Hg] 126 mm[Hg] M [facility]ENT ([facility]) Body mass index (BMI) [Ratio] 25.6 kg/m2 25.6 k g/m2 [facility] ([facility] [place] body weight 135 [lb_av] 135 [lb_av] MED[facility] T ([facility] Oxygen saturation in Arterial blood by Pulse oximetry 98 % 98 % [facility] ([facility] Body weight 163.25 [lb_av] 163.25 [lb_av] [facility] T ([facility] Body height 67.0 [in_i] 67.0 [in_i] [facility] ([facility] 5'7" Respiratory rate 16 /min 16 /min [facility] ( [facility] Body temperature 97.0 [degF] 97.0 [degF] [facility] ([facility] Heart rate 53 /min 53 /min [facility] ([facility] Diastolic blood pressure 66 mm[Hg] 66 mm[Hg] [facility] ([facility] Systolic blood pressure 126 mm[Hg] 126 mm[Hg] M EDENT ([facility] Diastolic blood pressure mm[Hg] eCW1 ([facility]) Systolic blood pressure 104 mm[Hg] 104 mm[Hg] e CW1 ([facility]) Oxygen saturation in Arterial blood by Pulse oximetry 94 % 94 % eCW1 ([facility]) Heart rate 50 /min 50 /min eCW1 ([facility]) Body mass index (BMI) [Ratio] 27.25 kg/m2 27.25 kg/m2 eCW1 ([facility]) Body weight 174 [lb_av] 174 [lb_av] eCW1 ([facility]) Body height 67 [in_i] 67 [in_i] eCW1 ([facility]) Body surface area Derived from formula 1.91 m2 1.91 m2 [facility] ([facility]) Body weight 78.926 kg 78.926 kg [facility] ([facility]) [place] body weight 135 [lb_av] 135 [lb_av] MED[facility] T ([facility]) Body mass index (BMI) [Ratio] 27.2 kg/m2 27.2 k g/m2 [facility] ([facility]) Body weight 174.00 [lb_av] 174.00 [lb_av] [facility] T ([facility]) Body height 67 [in_i] 67 [in_i] [facility] ([facility]) 5'7" Diastolic blood pressure 64 mm[Hg] 64 mm[Hg] [facility] ([facility]) Systolic blood pressure 122 mm[Hg] 122 mm[Hg] M EDENT ([facility]) Body mass index (BMI) [Ratio] 26.7 kg/m2 26.7 k g/m2 [facility] [place] body weight 135 [lb_av] 135 [lb_av] MED[facility] T ([facility] Oxygen saturation in Arterial blood by Pulse oximetry 95 % 95 % [facility] Body weight 170.38 [lb_av] 170.38 [lb_av] MED[facility] T ([facility] Body height 67.0 [in_i] 67.0 [in_i] [facility] ([facility] 5'7" Respiratory rate 17 /min 17 /min [facility] ( [facility] Body temperature 98.9 [degF] 98.9 [degF] [facility] ([facility] Heart rate 56 /min 56 /min [facility] ([facility] Diastolic blood pressure 58 mm[Hg] 58 mm[Hg] [facility] ([facility] Systolic blood pressure 115 mm[Hg] 115 mm[Hg] M EDENT ([facility] Diastolic blood pressure 77 mm[Hg] 77 mm[Hg] eCW1 ([facility]) Systolic blood pressure 117 mm[Hg] 117 mm[Hg] e CW1 ([facility]) Deprecated Oxygen saturation in Capillary blood by Oximetry 96 % 96 % eCW1 ([facility]) Heart rate 76 /min 76 /min eCW1 ([facility]) Body height 67 [in_us] 67 [in_us] eCW1 ([facility]) ID Date Data Source [id number] 03/04/2020 09:35:37 AM [facility] Name Value Range Interpretation Code Description Data Source(s) WEIGHT RECORDED 153 lb 153 lb [facility] Patient Treatment Plan of Care Planned Activity Planned Date Details Description Data Source (s) 0.4 ML Enoxaparin sodium 100 MG/ML Prefilled Syringe 019 12:00:00 AM [facility]
[2020-04-24 15:01] LABS: BASO % 0.6 % (0.0-1.0); EOS # 0.3 10^3/uL (0.0-0.5); EOS % 3.7 % (0.0-3.0); HEMATOCRIT 43.6 % (36.0-47.0); HEMOGLOBIN 13.8 g/dl (12.0-15.5); LYMPH # 1.9 10^3/uL (1.5-5.0); LYMPH % 25.6 % (24.0-44.0); MEAN CORPUSCULAR HEMOGLOBIN 27.6 pg (27.0-33.0); MEAN CORPUSCULAR HGB CONC 31.7 g/dl (32.0-36.5); MEAN CORPUSCULAR VOLUME 87.2 fl (80.0-96.0); MONO # 0.6 10^3/uL (0.0-0.8); MONO % 8.6 % (2.0-8.0); NEUTROPHILS # 4.4 10^3/uL (1.5-8.5); NEUTROPHILS % 60.9 % (36.0-66.0); PLATELET COUNT, AUTOMATED 234 10^3/uL (150-450); WHITE BLOOD COUNT 7.2 10^3/uL (4.0-10.0)
[2020-04-24] MEDS ORDERED: POTASSIUM CHLORIDE 10 MEQ SR TABLET PO ONE (16:00)
[2020-04-24 17:00] VITALS: BP 145/71
== END 2020-04-24 17:14 | disposition home or self-care (01) ==
LOC: M ED 13:51
DX: R19.7 Diarrhea, unspecified (principal); I10 Essential (primary) hypertension; I25.10 Atherosclerotic heart disease of native coronary artery without angina pectoris; M81.0 Age-related osteoporosis without current pathological fracture; Z86.73 Personal history of transient ischemic attack (TIA), and cerebral infarction without residual deficits; Z79.01 Long term (current) use of anticoagulants; Z88.0 Allergy status to penicillin; Z91.018 Allergy to other foods

== ENCOUNTER → 2020-04-24 | Outpatient (CLI) | payer MEDICARE ==
[2020-04-24 14:49] LABS: BLOOD UREA NITROGEN 19 MG/DL (7-18); CALCIUM LEVEL 8.5 MG/DL (8.8-10.2); CARBON DIOXIDE LEVEL 23 MEQ/L (21-32); CHLORIDE LEVEL 112 MEQ/L (98-107); CREATININE FOR GFR 0.93 MG/DL (0.55-1.30); GLOMERULAR FILTRATION RATE > 60.0 (>39); GLUCOSE, FASTING 102 MG/DL (70-100); POTASSIUM SERUM 3.3 MEQ/L (3.5-5.1); SODIUM LEVEL 145 MEQ/L (136-145)
[2020-04-24 15:01] LABS: TOTAL 25(OH) VITAMIN D 66.4 NG/ML (30.0-100.0)
== END ==
LOC: M LAB 13:15
PROVIDERS: ATTEND Internal Medicine Endocrinology, Diabetes & Metabolism
DX: M81.0 Age-related osteoporosis without current pathological fracture (principal)

== ENCOUNTER → 2020-05-14 | Outpatient (CLI) | payer MEDICARE ==
[~2020-05-14] MED LIST changes: +FLUO20CA20 PO; +METO25TA4 PO; +PANT-23 PO
[2020-05-14 14:19] LABS: BLOOD UREA NITROGEN 15 MG/DL (7-18); CALCIUM LEVEL 8.4 MG/DL (8.8-10.2); CARBON DIOXIDE LEVEL 28 MEQ/L (21-32); CHLORIDE LEVEL 111 MEQ/L (98-107); CREATININE FOR GFR 0.84 MG/DL (0.55-1.30); GLOMERULAR FILTRATION RATE > 60.0 (>39); GLUCOSE, FASTING 99 MG/DL (70-100); POTASSIUM SERUM 3.3 MEQ/L (3.5-5.1); SODIUM LEVEL 143 MEQ/L (136-145)
[2020-05-15 09:13] LABS: ALBUMIN 3.2 GM/DL (3.2-5.2)
== END ==
LOC: M LAB 13:05
PROVIDERS: ATTEND Internal Medicine Endocrinology, Diabetes & Metabolism
DX: E58 Dietary calcium deficiency (principal); M81.0 Age-related osteoporosis without current pathological fracture

== ENCOUNTER 2020-05-15 20:21 | Inpatient (IN) | payer MEDICARE ==
[~2020-05-15] VITALS: Ht 170.2 cm; Wt 69.4 kg
[~2020-05-15 20:21] MED LIST changes: -FLUO20CA20 PO; -METO25TA4 PO; -PANT-23 PO
[2020-05-15 21:40] LABS: BASO % 0.9 % (0.0-1.0); EOS % 0.9 % (0.0-3.0); HEMATOCRIT 47.2 % (36.0-47.0); HEMOGLOBIN 15.3 g/dl (12.0-15.5); LYMPH # 0.8 10^3/uL (1.5-5.0); LYMPH % 32.3 % (24.0-44.0); MEAN CORPUSCULAR HEMOGLOBIN 28.2 pg (27.0-33.0); MEAN CORPUSCULAR HGB CONC 32.4 g/dl (32.0-36.5); MEAN CORPUSCULAR VOLUME 87.1 fl (80.0-96.0); MONO # 0.4 10^3/uL (0.0-0.8); NEUTROPHILS # 1.1 10^3/uL (1.5-8.5); NEUTROPHILS % 48.5 % (36.0-66.0); PLATELET COUNT, AUTOMATED 235 10^3/uL (150-450); RED BLOOD COUNT 5.42 10^6/uL (4.00-5.40); WHITE BLOOD COUNT 2.4 10^3/uL (4.0-10.0)
[2020-05-15 22:10] LABS: ALBUMIN 3.2 GM/DL (3.2-5.2); ALT/SGPT 24 U/L (12-78); BILIRUBIN,DIRECT 0.2 MG/DL (0.0-0.2); BILIRUBIN,TOTAL 3.2 MG/DL (0.2-1.0); BLOOD UREA NITROGEN 19 MG/DL (7-18); CALCIUM LEVEL 8.4 MG/DL (8.8-10.2); CARBON DIOXIDE LEVEL 22 MEQ/L (21-32); CHLORIDE LEVEL 112 MEQ/L (98-107); CK-MB VALUE MASS < 1.0 NG/ML (<3.6); CPK CREATINE PHOSPHOKINASE 58 U/L (26-192); GLOMERULAR FILTRATION RATE 35.8 (>39); GLUCOSE, FASTING 168 MG/DL (70-100); LIPASE 20 U/L (73-393); MB/CK RELATIVE INDEX 1.72 (< OR =4); POTASSIUM SERUM 3.9 MEQ/L (3.5-5.1); SODIUM LEVEL 144 MEQ/L (136-145); TROPONIN I < 0.02 NG/ML (< 0.10)
[2020-05-15] MEDS ORDERED: FLUO20CA20 PO (23:52)
[2020-05-15] MEDS ORDERED: XARE15TA PO (23:52)
[2020-05-15] MEDS ORDERED: AMLO1TAB24 PO (23:52)
[2020-05-15] MEDS ORDERED: PANT-23 PO (23:52)
[2020-05-15] MEDS ORDERED: ATOR40TA75 PO (23:52)
[2020-05-15] MEDS ORDERED: FERR325T18 PO (23:52)
[2020-05-15] MEDS ORDERED: METO25TA4 PO (23:52)
--- NOTE | 2020-05-16 | REPVR ---
PROCEDURE INFORMATION: Exam: XR Chest Exam date and time: 05/15/2020 10:00 PM Age: 80 years old Clinical indication: Other: Weakness TECHNIQUE: Imaging protocol: XR of the chest Views: 2 views. COMPARISON: 1. CT Chest with contrast 2020-01-22 14:39 2. [place] PORTABLE CHEST X-RAY 2019-07-30 18:18 3. TN Chest, 2 view PA, Lat 2019-03-04 12:12 FINDINGS: Tubes, catheters and devices: Right IJ Port-A-Cath in good position. Lungs: No focal airspace consolidation. Pleural spaces: Unremarkable. No pleural effusion. No pneumothorax. Heart/Mediastinum: Unremarkable. No cardiomegaly. Bones/joints: Unremarkable. IMPRESSION: No focal airspace consolidation. Electronically signed by: Eddie Lundy On 05/16/2020 00:00:35 AM
--- NOTE | 2020-05-16 00:02 | HPEPDOC ---
[facility] Medical History & Physical Date of Admission May 15, 2020 Date of Service: May 15, 2020 Attending Physician: JALEN LONDONO MD History and Physical CHIEF COMPLAINT: diarrhea HISTORY OF PRESENT ILLNESS: 80 year old female who presented with 3 day history of diarrhea with nausea and vomiting. Patient states her symptoms came on suddenly with episodes of watery stool about 5-6 per day. She notes nausea when she tries to eat along with abdominal pain that radiated from the left side of her abdomen across to the right side after eating or drinking. She denies change in the pain with bowel movements. She denies blood in stool. She states the vomiting typically occurs when she tries to eat and consists of food matter. She denies bloody vomitus. She also notes generalized weakness and fatigue since her symptoms started. PAST MEDICAL HISTORY: 1. Colon cancer T3N0 stage 3 on weekly 5FU and leucovorin 6 weeks on and 2 weeks off 2. HTN 3. CVA of unknown etiology, on Xarelto 4. Depression 5. GERD PAST SURGICAL HISTORY: 1. 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 Left hip surgery after fracture 3. Tonsillectomy 4. Colon resection 5. Port placement 6. Loop recorder placement SOCIAL HISTORY: Former smoker, quit August 2019, 1ppd for 50-60 years. Denies alcohol use. Denies IV drug or illicit substance use. FAMILY HISTORY: Mother had a history of cancer, unsure of type. Grandmother had a history of stroke. ALLERGIES: Please see below. REVIEW OF SYSTEMS: CONSTITUTIONAL: Denies fevers, chills, night sweats, fatigue, unexpected change in weight. HEENT: Denies change in vision, change in hearing. CARDIOVASCULAR: Denies chest pain, palpitations, shortness of breath, l ightheadedness. RESPIRATORY: Denies dyspnea, cough, wheezing. GASTROINTESTINAL: As per HPI GENITOURINARY: Denies dysuria, urinary frequency, urinary urgency. SKIN: Denies rash, lesions. MUSCULOSKELETAL: Denies joint pain or muscle aches. NEUROLOGICAL: Denies headache, dizziness. PSYCHIATRIC: Denies change in mood. HOME MEDICATIONS: Please see below. PHYSICAL EXAMINATION: VITAL SIGNS: see below GENERAL: Alert, comfortable, in no acute distress HEENT: Normocephalic, atraumatic, sclera anicteric, somewhat dry mucous membranes NECK: Supple, trachea midline, no lymphadenopathy, no JVD CARDIOVASCULAR: Regular rate and rhythm, normal S1 and S2. No murmurs, rubs, or gallops RESPIRATORY: Clear to auscultation bilaterally with equal air entry bilaterally. No wheezing, rhonchi, or rales. ABDOMEN: Soft, nontender, nondistended, bowel sounds present EXTREMITIES: No cyanosis or edema. Pulses 2+/4 in bilateral upper and lower extremities SKIN: [place], warm, dry NEUROLOGIC: Alert and oriented x3 to person, place and time. Weakness of the left upper and lower extremity compared to the right, consistent with hx of deficit after CVA. PSYCHIATRIC: Mood and affect appropriate LABORATORY DATA: See below. IMAGING: - CXR No focal airspace consolidation. MICROBIOLOGY: Please see below. ASSESSMENT: 80 year old female with PMHx of CVA, HTN, and colon cancer currently undergoing chemotherapy presented with 3 days of nausea, vomiting, and diarrhea along with generalized weakness, found to have new T-wave inversions on EKG, admitted for supportive care, monitoring of troponin level, and PT evaluation PLAN: 1. Diarrhea secondary to chemotherapy side effect vs gastroenteritis - Poor oral intake. Will start on clear liquid diet and advance as tolerated. - Consider IV fluids if not tolerating orals in the AM - IV zofran as needed for nausea 2. New T-wave inversions on EKG - initial troponin negative. trend troponin q6h x3 3. Generalized weakness - fall risk precautions - PT/OT eval ordered 4. Prior CVA with left sided weakness - continue home atorvastatin and xarelto - pt currently has a loop recorder to evaluate for arrhythmia 5. HTN - continue home amlodipine and metoprolol 6. Depression - continue home fluoxetine 7. GERD - continue home protonix DVT prophylaxis: on Xarelto Disposition: admitted inpatient to med/surg expect greater than two midnights stay Vital Signs Vital Signs Date Time Temp Pulse Resp B/P (MAP) Pulse Ox O2 Delivery O2 Flow Rate FiO2 05/15/20 23:00 86 18 132/60 (84) 96 Room Air 05/15/20 20:22 97.7 Laboratory Data Labs 24H Laboratory Tests 2 05/15/20 21:31: Immature Granulocyte % (Auto) 0.4, Neutrophils (%) (Auto) 48.5, Lymphocytes (%) (Auto) 32.3, Monocytes (%) (Auto) 17.0H, Eosinophils (%) (Auto) 0.9, Basophils (%) (Auto) 0.9, Neutrophils # (Auto) 1.1L, Lymphocytes # (Auto) 0.8L, Monocytes # (Auto) 0.4, Eosinophils # (Auto) 0.0, Basophils # (Auto) 0.0, Nucleated Red Blood Cells % (auto) 0.0, Anion Gap 10, Glomerular Filtration Rate 35.8L, Calcium Level 8.4L, Total Bilirubin 3.2H, Direct Bilirubin 0.2, Aspartate Amino Transf (AST/SGOT) 18, Alanine Aminotransferase (ALT/SGPT) 24, Alkaline Phosphatase 67, Total Creatine Kinase 58, Creatine Kinase MB < 1.0, Creatine Kinase MB Relative Index 1.72, Troponin I < 0.02, Total Protein 6.0L, Albumin 3.2, Albumin/Globulin Ratio 1.1L, Lipase 20L CBC/BMP Laboratory Tests 05/15/20 21:31 Home Medications Scheduled Amlodipine Besylate (Amlodipine Besylate) 5 Mg Tablet, 5 MG PO DAILY Atorvastatin Calcium (Atorvastatin Calcium) 40 Mg Tablet, 40 MG PO QPM Baclofen (Baclofen) 10 Mg Tablet, 10 MG PO BID Calcium Carbonate/Vitamin D3 (Os-[place] 500-Vit D3 200 [place]) 1 Each Tablet, 1 TAB PO TID Cholecalciferol (Vitamin D3) (Vitamin D3) 1,000 Unit Tablet, 5,000 UNITS PO DAILY Ferrous Sulfate (Ferrous Sulfate) 325 Mg Tablet, 325 MG PO BID Fluoxetine Hcl (Fluoxetine HCl) 20 Mg Capsule, 20 MG PO DAILY Metoprolol Tartrate (Metoprolol Tartrate) 25 Mg Tablet, 25 MG PO BID Pantoprazole Sodium (Pantoprazole Sodium) 40 Mg Tablet.dr, 40 MG PO BID Rivaroxaban (Xarelto) 15 Mg Tablet, 15 MG PO DAILY Scheduled PRN Acetaminophen (Acetaminophen) 500 Mg Tablet, 1,000 MG PO Q6H PRN for PAIN Allergies Coded Allergies: Penicillins (Verified Allergy, Unknown, hives, 02/12/20) Protein Milk (Verified Adverse Reaction, Unknown, upset stomach , 02/12/20) GME ATTESTATION GME ATTESTATION My faculty preceptor for this patient encounter was physically present during the encounter and was fully available. All aspects of the patient interview, examination, medical decision making process, and medical care plan development were reviewed and approved by the faculty preceptor. The faculty preceptor is aware and concurs with the plan as stated in the body of this note and will attest to such by his/her cosignature. ATTENDING NOTE Patient seen 05/15/2020.IJuan Alberto, have independently examined this patient and performed my own physical exam, as well as reviewed the documentation and edited where necessary. I have discussed in detail with the resident / student the findings and plan of treatment as documented by the resident / student and edited their note. I agree with their findings and treatment plan and have edited their documentation. I will continue to follow the patient during this hospital stay. Patient is chest pain-free. Some new T-wave inversions. Trend troponins to rule out ACS. DORIS ALLISON D.O. May 16, 2020 00:02 JALEN LONDONO MD May 16, 2020 05:48
[2020-05-16] MEDS ORDERED: MAALOX 30 ML SUSP *UDC PO PRN (00:30)
[2020-05-16] MEDS ORDERED: ONDANSETRON 4MG/2ML VIAL IV PRN (00:30)
[2020-05-16 00:47] LABS: RSV AMPLIFICATION NEGATIVE (NEGATIVE)
[2020-05-16 02:09] VITALS: BP 102/57
--- NOTE | 2020-05-16 05:51 | ECGEPIP ---
[facility] - ED Test Date: 2020-05-15 Pat Name: YAKOV CORONA Department: Room: - Gender: Female [employer]: ANDI : 1940 Requested By: DANIEL Talley Order Number: [id number] Reading MD: Scott Garza Measurements Intervals [place] Rate: 80 P: 55 KS: 136 QRS: 63 QRSD: 90 T: 263 QT: 424 QTc: 489 Interpretive Statements Sinus rhythm with premature atrial complexes with aberrant conduction ST & T wave abnormality, consider inferior ischemia ST & T wave abnormality, consider anterolateral ischemia Prolonged QT Electronically Signed on 05-16-2020 5:51:22 EST by Scott Garza
[2020-05-16 06:00] VITALS: BP 113/68
[2020-05-16] MEDS: PANTOPRAZOLE 40MG TAB (PROTONIX) PO SCH ×2 (09:05→20:29)
[2020-05-16] MEDS ORDERED: NS 1,000 ML IV SCH (09:05)
[2020-05-16] MEDS: RIVAROXABAN 15 MG TAB (XARELTO) PO SCH (09:05)
[2020-05-16] MEDS: FLUoxetine 20 MG CAP PO SCH (09:05)
[2020-05-16] MEDS: BACLOFEN 10 MG TAB PO SCH ×2 (09:05→20:29)
[2020-05-16] MEDS: VITAMIN D 1,000 INTERNATIONAL UNITS TABLET PO SCH (09:05)
[2020-05-16] MEDS: FERROUS SULFATE 325MG TAB PO SCH ×2 (09:05→20:29)
[2020-05-16] MEDS: METOPROLOL TART 25 MG TABLET PO SCH ×2 (09:06→20:31)
[2020-05-16] MEDS: amLODIPine 5 MG TAB PO SCH (09:06)
[2020-05-16] MEDS: SIMETHICONE 80MG CHEW TAB PO PRN (09:40)
[2020-05-16 10:58] LABS: ALBUMIN 2.9 GM/DL (3.2-5.2); ALT/SGPT 19 U/L (12-78); BILIRUBIN,TOTAL 3.3 MG/DL (0.2-1.0); BLOOD UREA NITROGEN 20 MG/DL (7-18); CALCIUM LEVEL 8.2 MG/DL (8.8-10.2); CARBON DIOXIDE LEVEL 18 MEQ/L (21-32); CHLORIDE LEVEL 111 MEQ/L (98-107); CREATININE FOR GFR 1.36 MG/DL (0.55-1.30); GLUCOSE, FASTING 136 MG/DL (70-100); POTASSIUM SERUM 2.9 MEQ/L (3.5-5.1); SODIUM LEVEL 141 MEQ/L (136-145); TOTAL PROTEIN 5.5 GM/DL (6.4-8.2); TROPONIN I < 0.02 NG/ML (< 0.10)
[2020-05-16] MEDS: POTASSIUM CHLORIDE 10 MEQ SR TABLET PO SCH ×3 (11:10→20:30)
[2020-05-16 11:21] LABS: HEMATOCRIT 46.7 % (36.0-47.0); HEMOGLOBIN 15.1 g/dl (12.0-15.5); MEAN CORPUSCULAR HEMOGLOBIN 28.2 pg (27.0-33.0); MEAN CORPUSCULAR HGB CONC 32.3 g/dl (32.0-36.5); MEAN CORPUSCULAR VOLUME 87.1 fl (80.0-96.0); PLATELET COUNT, AUTOMATED 216 10^3/uL (150-450); RED BLOOD COUNT 5.36 10^6/uL (4.00-5.40); WHITE BLOOD COUNT 4.1 10^3/uL (4.0-10.0)
--- NOTE | 2020-05-16 11:52 | REP ---
INDICATION: abd pain, diarrhea, on chemo, r/o colitis COMPARISON: 01/22/2020 TECHNIQUE: Axial noncontrast images from the lung bases to the pubic symphysis with coronal and sagittal reformations. This CT examination was performed using the following dose reduction techniques: Automated exposure control, adjustment of mA and/or kv according to the patient's size, and use of iterative reconstruction technique. FINDINGS: Patient is noted to be status post right hemicolectomy. The residual colon appears normal. The small bowel appears mildly prominent and fluid-filled and also demonstrates mild mucosal thickening and very subtle pericolonic stranding primarily noted in the right lower quadrant. Findings suggest enteritis without definite evidence for obstruction. No ascites. No free air. Liver, spleen, pancreas, bilateral adrenal glands are normal. Cholelithiasis noted without evidence for acute cholecystitis. Kidneys demonstrate stable chronic changes without acute perinephric stranding or hydronephrosis. Pelvis demonstrates normal bladder and age-appropriate uterus/adnexa. No pelvic fluid. No ascites. No free air. No obvious adenopathy by noncontrast evaluation. Abdominal aorta without aneurysm. Musculoskeletal structures demonstrate degenerative changes and prior left femur fixation. Lung bases are clear. IMPRESSION: 1. Findings related to the small bowel as described above suggest enteritis. No evidence for obstruction based on current exam. Residual colon appears normal. 2. Cholelithiasis. <Electronically signed by Elie Jordan > 05/16/20 [id number]
[2020-05-16 16:58] LABS: CALCIUM LEVEL 7.7 MG/DL (8.8-10.2); CREATININE FOR GFR 1.34 MG/DL (0.55-1.30); GLOMERULAR FILTRATION RATE 40.7 (>39); POTASSIUM SERUM 2.9 MEQ/L (3.5-5.1)
--- NOTE | 2020-05-16 18:09 | IPNPDOC ---
Date Seen The patient was seen on 05/16/20. Progress Note SUBJECTIVE: 6 incontinent BM today, loose and watery, GI panel neg. CT abd/pelvis: enteritis only. WBC low. K low despite 60 mEq PO, K still low at 2.9. Patient denies chest pain, incr SOB just discomfort from incr diarrhea. OBJECTIVE: PHYSICAL EXAMINATION: VITAL SIGNS: see below GENERAL: Alert, comfortable, NAD in bed HEENT: Normocephalic, atraumatic, sclera anicteric, somewhat dry mucous membranes. Left facial droop-chronic NECK: Supple, trachea midline, no lymphadenopathy, no JVD CARDIOVASCULAR: Regular rate and rhythm, normal S1 and S2. No murmurs, rubs, or gallops RESPIRATORY: Clear to auscultation bilaterally with equal air entry bilaterally. No wheezing, rhonchi, or rales. ABDOMEN: Soft, nontender, nondistended, bowel sounds present EXTREMITIES: No cyanosis or edema. Pulses 2+/4 in bilateral upper and lower extremities SKIN: [place], warm, dry NEUROLOGIC: Alert and oriented x3 to person, place and time. Weakness of the left upper and lower extremity compared to the right, consistent with hx of deficit after CVA. PSYCHIATRIC: Mood and affect appropriate LABORATORY DATA: See below. IMAGING: CXR: No focal airspace consolidation. MICROBIOLOGY: Please see below. ASSESSMENT: 80 year old female with PMHx of CVA, HTN, and colon cancer currently undergoing chemotherapy presented with 3 days of nausea, vomiting, and diarrhea along with generalized weakness, found to have new T-wave inversions on EKG, admitted for supportive care, monitoring of troponin level, and PT evaluation PLAN: Diarrhea likely 2/2 to chemotherapy, enteritis -GI panel: neg -6 BM today alone -Started on more formed 2 gm diet -At this time with no fevers, WBC not increased no abx are not started -Discussed with Dr. Mayorga (GI ) who recommended immodium, fluid hydration, supportive care -To discuss type of IVFs as acidosis is present, may require bicarb gtt Acute acidosis likely 2/2 to GI losses -LA pending -CO2 less than earlier with many stools since AM -To discuss with nephrology -F/u labs this evening Acute kidney injury likely 2/2 to prerenal causes, fluid loss from diarrhea -Cr improving to 1.36 today with IVFs -Baseline wnl -C/w fluids -Daily labs Acute hypokalemia likely 2/2 to GI loss, diarrhea -2.9, given 60 mEq PO and repeat BMP still low at 2.9 -Starting loperamide -Will start on fluids appropriate for acidosis, K supplement -Labs will repeat tonight T-wave inversions on EKG -Trop neg x 3 -Denies chest pain, SOB -Monitor closely Acute on chronic physical deconditioning likely 2/2 to illness above and chronic illness -Fall risk precautions -PT: Patient would benefit from continued rehab at this time, she may progress to baseline quickly. -Optimization of nutrition when diarrhea resolves. t left seated in chair with call Prior CVA with left sided weakness -No new focal deficits - continue home atorvastatin and xarelto - pt currently has a loop recorder to evaluate for arrhythmia HTN -Stable -On amlodipine and metoprolol Depression - continue home fluoxetine GERD - continue home protonix DVT prophylaxis: -Xarelto DISPOSITION: To discuss case with nephrology. PT/OT until discharge, Plan is discharge home when improved. VS, I&O, 24H[facility] Vital Signs/I&O Vital Signs Date Time Temp Pulse Resp B/P (MAP) Pulse Ox O2 Delivery O2 Flow Rate FiO2 05/16/20 14:00 97.2 67 18 95 Room Air 05/16/20 09:06 125/67 I&O- Last 24 Hours up to 6 AM 05/16/20 06:00 Intake Total 300 ml Output Total 0 ml Balance 300 ml Laboratory Data 24H LABS Laboratory Tests 2 05/15/20 21:31: Immature Granulocyte % (Auto) 0.4, Neutrophils (%) (Auto) 48.5, Lymphocytes (%) (Auto) 32.3, Monocytes (%) (Auto) 17.0H, Eosinophils (%) (Auto) 0.9, Basophils (%) (Auto) 0.9, Neutrophils # (Auto) 1.1L, Lymphocytes # (Auto) 0.8L, Monocytes # (Auto) 0.4, Eosinophils # (Auto) 0.0, Basophils # (Auto) 0.0, Nucleated Red Blood Cells % (auto) 0.0, Anion Gap 10, Glomerular Filtration Rate 35.8L, Calcium Level 8.4L, Total Bilirubin 3.2H, Direct Bilirubin 0.2, Aspartate Amino Transf (AST/SGOT) 18, Alanine Aminotransferase (ALT/SGPT) 24, Alkaline Phosphatase 67, Total Creatine Kinase 58, Creatine Kinase MB < 1.0, Creatine Kinase MB Relative Index 1.72, Troponin I < 0.02, Total Protein 6.0L, Albumin 3.2, Albumin/Globulin Ratio 1.1L, Lipase 20L 05/16/20 00:03: Coronavirus (COVID-19)(PCR) NEGATIVE, Influenza Type A (RT-PCR) NEGATIVE, Influenza Type B (RT-PCR) NEGATIVE, Respiratory Syncytial Virus (PCR) NEGATIVE 05/16/20 03:10: Troponin I < 0.02 05/16/20 10:07: Anion Gap 12, Glomerular Filtration Rate 40.0, Calcium Level 8.2L, Total Bilirubin 3.3H, Aspartate Amino Transf (AST/SGOT) 8, Alanine Aminotransferase (ALT/SGPT) 19, Alkaline Phosphatase 61, Troponin I < 0.02, Total Protein 5.5L, Albumin 2.9L, Albumin/Globulin Ratio 1.1L 05/16/20 11:14: Nucleated Red Blood Cells % (auto) 0.0 05/16/20 16:09: Anion Gap 11, Glomerular Filtration Rate 40.7, Calcium Level 7.7L CBC/BMP Laboratory Tests 05/15/20 21:31 05/16/20 10:07 05/16/20 11:14 05/16/20 16:09 Microbiology Microbiology 05/16/20 Gastrointestinal Tract Panel (PCR) - Final, Complete Current Medications Current Medications Medications (Trade) Dose Ordered Sig/Odell Route PRN Reason Start Time Stop Time Status Last Admin Dose Admin Acetaminophen (Tylenol Tab) 650 mg Q4H PRN PO PAIN OR FEVER 05/16/20 00:30 Al Hydrox/Mg Hydrox/Simethicone (Mylanta) 30 ml DAILY PRN PO DYSPEPSIA 05/16/20 00:30 Amlodipine Besylate (Norvasc) 5 mg DAILY PO 05/16/20 09:00 05/16/20 09:06 Atorvastatin Calcium (Lipitor) 40 mg DAILY@1800 PO 05/16/20 18:00 Baclofen (Lioresal) 10 mg BID PO 05/16/20 09:00 05/16/20 09:05 Ferrous Sulfate (Ferrous Sulfate) 325 mg BID PO 05/16/20 09:00 05/16/20 09:05 Fluoxetine HCl (PROzac) 20 mg DAILY PO 05/16/20 09:00 05/16/20 09:05 Home Med (Med Rec Complete!) ASDIRECTED XX 05/15/20 23:55 05/15/20 23:57 DC Metoprolol Tartrate (Lopressor) 25 mg BID PO 05/16/20 09:00 05/16/20 09:06 Ondansetron HCl (ZOFRAN INJection) 4 mg Q4HP PRN IV NAUSEA OR VOMITING 05/16/20 00:30 Pantoprazole Sodium (Protonix) 40 mg BID PO 05/16/20 09:00 05/16/20 09:05 Potassium Chloride (Micro-K Extencaps) 30 meq Q1H PO 05/16/20 11:00 05/16/20 12:01 DC 05/16/20 12:15 Rivaroxaban (Xarelto) 15 mg DAILY PO 05/16/20 09:00 05/16/20 09:05 Simethicone (Mylicon) 80 mg TIDP PRN PO GAS PAIN 05/16/20 09:05 05/16/20 09:40 Sodium Chloride 1,000 ml @ 100 mls/hr Q10H IV 05/16/20 09:05 05/16/20 09:40 Vitamin D (Vitamin D) 5,000 units DAILY PO 05/16/20 09:00 05/16/20 09:05 Allergies Coded Allergies: Penicillins (Verified Allergy, Unknown, hives, 02/12/20) Protein Milk (Verified Adverse Reaction, Unknown, upset stomach , 02/12/20) Kamilla Thorpe MD May 16, 2020 18:09
[2020-05-16] MEDS: KCL 20MEQ IN D5/NS 1000ML 1,000 ML IV SCH (18:18)
[2020-05-16] MEDS: LOPERAMIDE 2 MG CAPLET PO PRN (18:18)
[2020-05-16] MEDS: ATORVASTATIN 20 MG TAB PO SCH (18:19)
[2020-05-16 22:00] VITALS: BP 129/89
[2020-05-17 00:05] LABS: CALCIUM LEVEL 8.2 MG/DL (8.8-10.2); CREATININE FOR GFR 1.28 MG/DL (0.55-1.30); GLOMERULAR FILTRATION RATE 42.9 (>39); POTASSIUM SERUM 3.3 MEQ/L (3.5-5.1)
[2020-05-17] MEDS: SODIUM CHLORIDE 0.9% INJ 10 ML SYR IV PRN ×3 (01:49→13:42)
[2020-05-17 06:00] VITALS: BP 131/68
[2020-05-17 06:50] LABS: HEMATOCRIT 37.8 % (36.0-47.0); HEMOGLOBIN 12.5 g/dl (12.0-15.5); MEAN CORPUSCULAR HEMOGLOBIN 28.3 pg (27.0-33.0); MEAN CORPUSCULAR HGB CONC 33.1 g/dl (32.0-36.5); MEAN CORPUSCULAR VOLUME 85.7 fl (80.0-96.0); PLATELET COUNT, AUTOMATED 206 10^3/uL (150-450); RED BLOOD COUNT 4.41 10^6/uL (4.00-5.40); WHITE BLOOD COUNT 3.2 10^3/uL (4.0-10.0)
[2020-05-17 07:23] LABS: ALBUMIN 2.3 GM/DL (3.2-5.2); ALT/SGPT 14 U/L (12-78); BILIRUBIN,TOTAL 2.3 MG/DL (0.2-1.0); BLOOD UREA NITROGEN 17 MG/DL (7-18); CALCIUM LEVEL 7.5 MG/DL (8.8-10.2); CARBON DIOXIDE LEVEL 17 MEQ/L (21-32); CHLORIDE LEVEL 116 MEQ/L (98-107); CREATININE FOR GFR 0.98 MG/DL (0.55-1.30); GLOMERULAR FILTRATION RATE 58.4 (>39); GLUCOSE, FASTING 126 MG/DL (70-100); SODIUM LEVEL 144 MEQ/L (136-145); TOTAL PROTEIN 4.4 GM/DL (6.4-8.2)
[2020-05-17] MEDS: KCL 20MEQ IN D5/NS 1000ML 1,000 ML IV SCH (08:01)
[2020-05-17] MEDS ORDERED: KCL 20MEQ IN D5/0.45NS 1000ML 1,000 ML IV SCH (09:00)
[2020-05-17] MEDS: FLUoxetine 20 MG CAP PO SCH (09:30)
[2020-05-17] MEDS: POTASSIUM CHLORIDE 10 MEQ SR TABLET PO SCH ×2 (09:30→20:38)
[2020-05-17] MEDS: FERROUS SULFATE 325MG TAB PO SCH ×2 (09:31→20:38)
[2020-05-17] MEDS: PANTOPRAZOLE 40MG TAB (PROTONIX) PO SCH ×2 (09:31→20:38)
[2020-05-17] MEDS: BACLOFEN 10 MG TAB PO SCH ×2 (09:31→20:38)
[2020-05-17] MEDS: amLODIPine 5 MG TAB PO SCH (09:32)
[2020-05-17] MEDS: METOPROLOL TART 25 MG TABLET PO SCH ×2 (09:33→20:39)
[2020-05-17] MEDS: RIVAROXABAN 15 MG TAB (XARELTO) PO SCH (09:33)
[2020-05-17] MEDS: VITAMIN D 1,000 INTERNATIONAL UNITS TABLET PO SCH (09:35)
[2020-05-17] MEDS: SODIUM CHLORIDE 0.9% INJ 10 ML SYR IV SCH (09:40)
[2020-05-17] MEDS: ACETAMINOPHEN TAB 650MG DOSE (2X325MG) PO PRN ×2 (12:56→17:22)
[2020-05-17] MEDS: LOPERAMIDE 2 MG CAPLET PO PRN ×2 (12:56→15:56)
[2020-05-17] MEDS: SIMETHICONE 80MG CHEW TAB PO PRN (13:42)
--- NOTE | 2020-05-17 13:43 | IPNPDOC ---
Date Seen The patient was seen on 05/17/20. Progress Note SUBJECTIVE: Total of 10 BM documented 05/16/20. CT abd/pelvis: enteritis, GI panel neg. Today improved with immodium, IVFs. Ate 50% of breakfast. UA +, ceftriaxone started. LA improving. Some mild lower L and R abd discomfort but denies chest pain, incr SOB. OBJECTIVE: PHYSICAL EXAMINATION: VITAL SIGNS: see below GENERAL: Alert, comfortable, NAD in bed HEENT: Normocephalic, atraumatic, sclera anicteric, somewhat dry mucous membranes. Left facial droop-chronic NECK: Supple, trachea midline, no lymphadenopathy, no JVD CARDIOVASCULAR: Regular rate and rhythm, normal S1 and S2. No murmurs, rubs, or gallops RESPIRATORY: Clear to auscultation bilaterally with equal air entry bilaterally. No wheezing, rhonchi, or rales. ABDOMEN: Soft, R and L lower abdomen discomfort 2/10 on palpation, nondistended, bowel sounds present- not hyperactive EXTREMITIES: No cyanosis or edema. Pulses 2+/4 in bilateral upper and lower extremities SKIN: [place], warm, dry NEUROLOGIC: Alert and oriented x3 to person, place and time. Weakness of the left upper and lower extremity compared to the right, consistent with hx of deficit after CVA. PSYCHIATRIC: Mood and affect appropriate LABORATORY DATA: See below. IMAGING: CT abd/pelvis without contrast: 1. Findings related to the small bowel as described above suggest enteritis. No evidence for obstruction based on current exam. Residual colon appears normal. 2. Cholelithiasis. CXR: No focal airspace consolidation. MICROBIOLOGY: Please see below. ASSESSMENT: 80 year old female with PMHx of CVA, HTN, and colon cancer currently undergoing chemotherapy for the past 2 weeks admitted for diarrhea, acute weakness. PLAN: Diarrhea likely 2/2 to chemotherapy, enteritis -GI panel: neg, afebrile, WBC low -10 BM 05/16/20, improving today but still having some oozing, 1 more formed BM -LA elevated, improving also -Will see how she tolerates more formed 2 gm diet -Discussed with Dr. Mayorga (GI) who recommended immodium, fluid hydration, s upportive care -Switched to 20 mEq KCL in D5/0.45 NS Lactic acidosis, acute -Improving, not suspecting sepsis but is immunocompromised with cancer, chemo -BCx pending, UA mildly pos with UCx pending -CO2 improving slowly with current treatment -F/u LA this afternoon -C/w IVFs, ceftriaxone + UA -UCx pending, F/u BCx -Ceftriaxone Acute hypokalemia likely 2/2 to GI loss, diarrhea -3.0 this AM -Diarrhea currently being controlled with loperamide, IVFS -C/w IVFs 20 mEq KCl in D5W0.45 NS, 40 mEq PO BID. Consider switching to 40 mEq in fluids if this does not keep K up today T-wave inversions on EKG -Trop neg x 3 -Pt currently has a loop recorder to evaluate for arrhythmia -Denies chest pain, SOB -Monitor closely Acute on chronic physical deconditioning likely 2/2 to illness above and chronic illness -Fall risk precautions -PT: Patient would benefit from continued rehab at this time, she may progress to baseline quickly. -Optimization of nutrition when diarrhea resolves. Prior CVA with left sided weakness -No new focal deficits -Continue home atorvastatin and xarelto HTN -Stable -C/w amlodipine and metoprolol Depression - continue home fluoxetine GERD - continue home protonix DVT prophylaxis: -Xarelto Resolved issues: Acute kidney injury likely 2/2 to prerenal causes, fluid loss from diarrhea DISPOSITION: PT/OT until discharge, Plan is discharge home when improved. VS, I&O, 24H, Fishbone Vital Signs/I&O Vital Signs Date Time Temp Pulse Resp B/P (MAP) Pulse Ox O2 Delivery O2 Flow Rate FiO2 05/17/20 09:32 76 111/78 05/17/20 06:00 97.1 18 97 Room Air I&O- Last 24 Hours up to 6 AM 05/17/20 06:00 Intake Total 3060 ml Output Total 0 ml Balance 3060 ml Laboratory Data 24H LABS Laboratory Tests 2 05/16/20 16:09: Anion Gap 11, Glomerular Filtration Rate 40.7, Calcium Level 7.7L 05/16/20 18:25: Lactic Acid Level 4.3*H 05/16/20 20:14: Procalcitonin 3.90 05/16/20 23:04: Anion Gap 9, Glomerular Filtration Rate 42.9, Calcium Level 8.2L 05/17/20 00:25: Lactic Acid Followup at 4 Hours 3.0*H 05/17/20 05:52: Nucleated Red Blood Cells % (auto) 0.0, Anion Gap 11, Glomerular Filtration Rate 58.4, Calcium Level 7.5L, Total Bilirubin 2.3H, Aspartate Amino Transf (AST/SGOT) < 3L, Alanine Aminotransferase (ALT/SGPT) 14, Alkaline Phosphatase 50, Total Protein 4.4L, Albumin 2.3#L, Albumin/Globulin Ratio 1.1L 05/17/20 12:27: Urine Color THUY, Urine Appearance HAZY, Urine pH 5.0, Urine Specific [place] 1.021, Urine Protein 2+H, Urine Glucose (UA) NEGATIVE, Urine Ketones NEGATIVE, Urine Blood 2+H, Urine Nitrite POSITIVEH, Urine Bilirubin NEGATIVE, Urine Urobilinogen 0.2, Urine Leukocyte Esterase NEGATIVE, Urine WBC (Auto) 3, Urine RBC (Auto) 0, Urine Hyaline Casts (Auto) 0, Urine Bacteria (Auto) 3+H, Urine Squamous Epithelial Cells 1, Urine Sperm (Auto) CBC/BMP Laboratory Tests 05/16/20 16:09 05/16/20 23:04 05/17/20 05:52 Microbiology Microbiology 05/17/20 Urine Culture, Received Pending 05/16/20 Blood Culture, Received Pending 05/16/20 Blood Culture, Received Pending 05/16/20 Gastrointestinal Tract Panel (PCR) - Final, Complete Current Medications Current Medications Medications (Trade) Dose Ordered Sig/Odell Route PRN Reason Start Time Stop Time Status Last Admin Dose Admin Acetaminophen (Tylenol Tab) 650 mg Q4H PRN PO PAIN OR FEVER 05/16/20 00:30 05/17/20 12:56 Al Hydrox/Mg Hydrox/Simethicone (Mylanta) 30 ml DAILY PRN PO DYSPEPSIA 05/16/20 00:30 Amlodipine Besylate (Norvasc) 5 mg DAILY PO 05/16/20 09:00 05/17/20 09:32 Atorvastatin Calcium (Lipitor) 40 mg DAILY@1800 PO 05/16/20 18:00 05/16/20 18:19 Baclofen (Lioresal) 10 mg BID PO 05/16/20 09:00 05/17/20 09:31 Ferrous Sulfate (Ferrous Sulfate) 325 mg BID PO 05/16/20 09:00 05/17/20 09:31 Fluoxetine HCl (PROzac) 20 mg DAILY PO 05/16/20 09:00 05/17/20 09:30 Heparin Sodium (Heparin (Flush)) 500 units ASDIRECTED PRN IV SEE LABEL COMMENTS 05/17/20 01:05 05/17/20 05:53 Heparin Sodium (Heparin (Flush)) 500 units DAILY IV 05/17/20 09:00 05/17/20 09:40 Home Med (Med Rec Complete!) ASDIRECTED XX 05/15/20 23:55 05/15/20 23:57 DC Loperamide HCl (Imodium) 2 mg ASDIRECTED PRN PO DIARRHEA 05/16/20 17:50 05/17/20 12:56 Metoprolol Tartrate (Lopressor) 25 mg BID PO 05/16/20 09:00 05/17/20 09:33 Ondansetron HCl (ZOFRAN INJection) 4 mg Q4HP PRN IV NAUSEA OR VOMITING 05/16/20 00:30 Pantoprazole Sodium (Protonix) 40 mg BID PO 05/16/20 09:00 05/17/20 09:31 Potassium Chloride/Dextrose/ Sod Cl 1,000 ml @ 120 mls/hr Q8H20M IV 05/16/20 18:30 05/17/20 08:32 DC 05/17/20 08:01 Potassium Chloride/Dextrose/ Sod Cl 1,000 ml @ 125 mls/hr Q8H IV 05/17/20 09:00 05/17/20 09:25 Potassium Chloride (Micro-K Extencaps) 30 meq Q1H PO 05/16/20 11:00 05/16/20 12:01 DC 05/16/20 12:15 Potassium Chloride (Micro-K Extencaps) 40 meq BID PO 05/16/20 21:00 05/17/20 09:30 Rivaroxaban (Xarelto) 15 mg DAILY PO 05/16/20 09:00 05/17/20 09:33 Simethicone (Mylicon) 80 mg TIDP PRN PO GAS PAIN 05/16/20 09:05 05/16/20 09:40 Sodium Chloride 1,000 ml @ 100 mls/hr Q10H IV 05/16/20 09:05 05/16/20 18:07 DC 05/16/20 09:40 Sodium Chloride (Saline Lock Flush) 10 ml ASDIRECTED PRN IV SEE LABEL COMMENTS 05/17/20 01:05 05/17/20 05:53 Sodium Chloride (Saline Lock Flush) 10 ml DAILY IV 05/17/20 09:00 05/17/20 09:40 Vitamin D (Vitamin D) 5,000 units DAILY PO 05/16/20 09:00 05/17/20 09:35 Allergies Coded Allergies: Penicillins (Verified Allergy, Unknown, hives, 02/12/20) Protein Milk (Verified Adverse Reaction, Unknown, upset stomach , 02/12/20) Current Medications Current Medications Medications (Trade) Dose Ordered Sig/Odell Route PRN Reason Start Time Stop Time Status Last Admin Dose Admin Acetaminophen (Tylenol Tab) 650 mg Q4H PRN PO PAIN OR FEVER 05/16/20 00:30 05/17/20 12:56 Al Hydrox/Mg Hydrox/Simethicone (Mylanta) 30 ml DAILY PRN PO DYSPEPSIA 05/16/20 00:30 Amlodipine Besylate (Norvasc) 5 mg DAILY PO 05/16/20 09:00 05/17/20 09:32 Atorvastatin Calcium (Lipitor) 40 mg DAILY@1800 PO 05/16/20 18:00 05/16/20 18:19 Baclofen (Lioresal) 10 mg BID PO 05/16/20 09:00 05/17/20 09:31 Ferrous Sulfate (Ferrous Sulfate) 325 mg BID PO 05/16/20 09:00 05/17/20 09:31 Fluoxetine HCl (PROzac) 20 mg DAILY PO 05/16/20 09:00 05/17/20 09:30 Heparin Sodium (Heparin (Flush)) 500 units ASDIRECTED PRN IV SEE LABEL COMMENTS 05/17/20 01:05 05/17/20 05:53 Heparin Sodium (Heparin (Flush)) 500 units DAILY IV 05/17/20 09:00 05/17/20 09:40 Home Med (Med Rec Complete!) ASDIRECTED XX 05/15/20 23:55 05/15/20 23:57 DC Loperamide HCl (Imodium) 2 mg ASDIRECTED PRN PO DIARRHEA 05/16/20 17:50 05/17/20 12:56 Metoprolol Tartrate (Lopressor) 25 mg BID PO 05/16/20 09:00 05/17/20 09:33 Ondansetron HCl (ZOFRAN INJection) 4 mg Q4HP PRN IV NAUSEA OR VOMITING 05/16/20 00:30 Pantoprazole Sodium (Protonix) 40 mg BID PO 05/16/20 09:00 05/17/20 09:31 Potassium Chloride/Dextrose/ Sod Cl 1,000 ml @ 120 mls/hr Q8H20M IV 05/16/20 18:30 05/17/20 08:32 DC 05/17/20 08:01 Potassium Chloride/Dextrose/ Sod Cl 1,000 ml @ 125 mls/hr Q8H IV 05/17/20 09:00 05/17/20 09:25 Potassium Chloride (Micro-K Extencaps) 30 meq Q1H PO 05/16/20 11:00 05/16/20 12:01 DC 05/16/20 12:15 Potassium Chloride (Micro-K Extencaps) 40 meq BID PO 05/16/20 21:00 05/17/20 09:30 Rivaroxaban (Xarelto) 15 mg DAILY PO 05/16/20 09:00 05/17/20 09:33 Simethicone (Mylicon) 80 mg TIDP PRN PO GAS PAIN 05/16/20 09:05 05/16/20 09:40 Sodium Chloride 1,000 ml @ 100 mls/hr Q10H IV 05/16/20 09:05 05/16/20 18:07 DC 05/16/20 09:40 Sodium Chloride (Saline Lock Flush) 10 ml ASDIRECTED PRN IV SEE LABEL COMMENTS 05/17/20 01:05 05/17/20 05:53 Sodium Chloride (Saline Lock Flush) 10 ml DAILY IV 05/17/20 09:00 05/17/20 09:40 Vitamin D (Vitamin D) 5,000 units DAILY PO 05/16/20 09:00 05/17/20 09:35 Kamilla Thorpe MD May 17, 2020 13:43
[2020-05-17 14:00] VITALS: BP_SYST 169; BP_DIAS 77; BP_DIAS 82
[2020-05-17 14:32] VITALS: BP 143/68
[2020-05-17 15:02] LABS: ALBUMIN 2.3 GM/DL (3.2-5.2); ALT/SGPT 15 U/L (12-78); BILIRUBIN,TOTAL 2.3 MG/DL (0.2-1.0); BLOOD UREA NITROGEN 13 MG/DL (7-18); CALCIUM LEVEL 7.2 MG/DL (8.8-10.2); CARBON DIOXIDE LEVEL 16 MEQ/L (21-32); CHLORIDE LEVEL 114 MEQ/L (98-107); CREATININE FOR GFR 0.88 MG/DL (0.55-1.30); GLOMERULAR FILTRATION RATE > 60.0 (>39); GLUCOSE, FASTING 128 MG/DL (70-100); POTASSIUM SERUM 3.1 MEQ/L (3.5-5.1); SODIUM LEVEL 140 MEQ/L (136-145); TOTAL PROTEIN 4.5 GM/DL (6.4-8.2)
[2020-05-17] MEDS: cefTRIAXone SOD 1 GM in D5W MINI-BAG PLUS 50 ML IV SCH (15:05)
[2020-05-17] MEDS ORDERED: NS 1,000 ML IV ONE (15:15)
[2020-05-17] MEDS: ATORVASTATIN 20 MG TAB PO SCH (17:22)
[2020-05-17] MEDS: SODIUM BICARBONATE 100 MEQ, POTASSIUM CHLORIDE INJ 40 MEQ in D5W 1,000 ML IV SCH (17:23)
[2020-05-17 22:00] VITALS: BP 140/79
[2020-05-17 23:10] LABS: ALBUMIN 2.1 GM/DL (3.2-5.2); BLOOD UREA NITROGEN 8 MG/DL (7-18); CALCIUM LEVEL 7.1 MG/DL (8.8-10.2); CARBON DIOXIDE LEVEL 17 MEQ/L (21-32); CHLORIDE LEVEL 113 MEQ/L (98-107); CREATININE FOR GFR 0.63 MG/DL (0.55-1.30); GLOMERULAR FILTRATION RATE > 60.0 (>39); GLUCOSE, FASTING 89 MG/DL (70-100); PHOSPHORUS LEVEL 0.7 MG/DL (2.5-4.9); POTASSIUM SERUM 3.3 MEQ/L (3.5-5.1); SODIUM LEVEL 140 MEQ/L (136-145)
[2020-05-18] MEDS: SODIUM BICARBONATE 100 MEQ, POTASSIUM CHLORIDE INJ 40 MEQ in D5W 1,000 ML IV SCH ×3 (02:47→21:58)
[2020-05-18 03:27] LABS: CREATININE,RANDOM URINE 35.4 MG/DL; POTASSIUM RANDOM URINE 30.1 MEQ/L
[2020-05-18 06:00] VITALS: BP 118/70
[2020-05-18 06:00] LABS: HEMATOCRIT 34.6 % (36.0-47.0); HEMOGLOBIN 11.8 g/dl (12.0-15.5); MEAN CORPUSCULAR HEMOGLOBIN 28.6 pg (27.0-33.0); MEAN CORPUSCULAR HGB CONC 34.1 g/dl (32.0-36.5); PLATELET COUNT, AUTOMATED 147 10^3/uL (150-450); RED BLOOD COUNT 4.12 10^6/uL (4.00-5.40); WHITE BLOOD COUNT 3.5 10^3/uL (4.0-10.0)
[2020-05-18 06:43] LABS: ALBUMIN 1.9 GM/DL (3.2-5.2); ALT/SGPT 14 U/L (12-78); BILIRUBIN,TOTAL 2.6 MG/DL (0.2-1.0); BLOOD UREA NITROGEN 8 MG/DL (7-18); CALCIUM LEVEL 7.3 MG/DL (8.8-10.2); CARBON DIOXIDE LEVEL 20 MEQ/L (21-32); CHLORIDE LEVEL 113 MEQ/L (98-107); GLUCOSE, FASTING 100 MG/DL (70-100); POTASSIUM SERUM 3.5 MEQ/L (3.5-5.1); SODIUM LEVEL 141 MEQ/L (136-145); TOTAL PROTEIN 4.1 GM/DL (6.4-8.2)
[2020-05-18 06:44] LABS: CREATININE FOR GFR 0.65 MG/DL (0.55-1.30); GLOMERULAR FILTRATION RATE > 60.0 (>39)
[2020-05-18 07:31] LABS: MAGNESIUM LEVEL 1.2 MG/DL (1.8-2.4); PHOSPHORUS LEVEL 0.5 MG/DL (2.5-4.9)
[2020-05-18] MEDS ORDERED: MAG SULF 1GM/100ML (MAG RUN) 1 GM in IV 1 EA IV ONE ×2 (08:25→22:00)
[2020-05-18] MEDS ORDERED: POTASSIUM PHOSPHATE INJ 15 MMOL in D5W 250 ML IV ONE (09:00)
[2020-05-18] MEDS ORDERED: POTASSIUM PHOSPHATE INJ 20 MMOL in D5W 250 ML IV ONE (10:00)
[2020-05-18] MEDS: RIVAROXABAN 15 MG TAB (XARELTO) PO SCH (10:02)
[2020-05-18] MEDS: FLUoxetine 20 MG CAP PO SCH (10:02)
[2020-05-18] MEDS: VITAMIN D 1,000 INTERNATIONAL UNITS TABLET PO SCH (10:02)
[2020-05-18] MEDS: SODIUM CHLORIDE 0.9% INJ 10 ML SYR IV SCH (10:03)
[2020-05-18] MEDS: POTASSIUM CHLORIDE 10 MEQ SR TABLET PO SCH ×2 (10:03→21:26)
[2020-05-18] MEDS: BACLOFEN 10 MG TAB PO SCH ×2 (10:03→21:27)
[2020-05-18] MEDS: PANTOPRAZOLE 40MG TAB (PROTONIX) PO SCH ×2 (10:03→21:27)
[2020-05-18] MEDS: FERROUS SULFATE 325MG TAB PO SCH (10:03)
[2020-05-18] MEDS: METOPROLOL TART 25 MG TABLET PO SCH ×2 (10:15→21:30)
[2020-05-18] MEDS: amLODIPine 5 MG TAB PO SCH (10:15)
[2020-05-18] MEDS ORDERED: NS 1,000 ML IV ONE (12:30)
[2020-05-18 14:00] VITALS: BP 119/63
[2020-05-18] MEDS: cefTRIAXone SOD 1 GM in D5W MINI-BAG PLUS 50 ML IV SCH (14:17)
--- NOTE | 2020-05-18 15:36 | IPNPDOC ---
Date Seen The patient was seen on 05/18/20. Progress Note SUBJECTIVE: Total of 6 BM documented 05/17/20. Low mag, phos replaced. Lactic acid increased again to 3.5 from 2.9 despite improvement in diarrhea and and on bicarb gtt. Continues on bicarb gtt and given additional fluids for lactic acidosis per nephrology. Abdominal discomfort improved. Patient denies chest pain, incr SOB. OBJECTIVE: PHYSICAL EXAMINATION: VITAL SIGNS: see below GENERAL: Alert, comfortable, NAD in bed HEENT: Normocephalic, atraumatic, sclera anicteric, somewhat dry mucous membranes. Left facial droop-chronic NECK: Supple, trachea midline, no lymphadenopathy, no JVD CARDIOVASCULAR: Regular rate and rhythm, normal S1 and S2. No murmurs, rubs, or gallops RESPIRATORY: Clear to auscultation bilaterally with equal air entry bilaterally. No wheezing, rhonchi, or rales. ABDOMEN: Soft, nontender, nondistended, bowel sounds present- not hyperactive EXTREMITIES: No cyanosis or edema. Pulses 2+/4 in bilateral upper and lower extremities SKIN: [place], warm, dry NEUROLOGIC: Alert and oriented x3 to person, place and time. Weakness of the left upper and lower extremity compared to the right, consistent with hx of deficit after CVA. PSYCHIATRIC: Mood and affect appropriate LABORATORY DATA: See below. IMAGING: CT abd/pelvis without contrast: 1. Findings related to the small bowel as described above suggest enteritis. No evidence for obstruction based on current exam. Residual colon appears normal. 2. Cholelithiasis. CXR: No focal airspace consolidation. MICROBIOLOGY: Please see below. ASSESSMENT: 80 year old female with PMHx of CVA, HTN, and colon cancer currently undergoing chemotherapy for the past 2 weeks admitted for diarrhea, acute weakness. PLAN: Diarrhea likely 2/2 to chemotherapy, enteritis -GI panel: neg, afebrile, WBC low -6 BM 05/17/20 -LA elevated and continues to wax and wane, improving also -C/w 2 gm diet -Discussed with Dr. Mayorga (GI) who recommended immodium, fluid hydration, supportive care -C/w electrolyte replacement, fluids below Lactic acidosis, acute likely 2/2 to dehydration from diarrhea -LA increased again this AM despite IVF hydration, waxing and waning -At this time not suspecting sepsis but is immunocompromised with cancer, chemo -BCx NG, UCx contaminated, CXR neg -CO2 improving slowly with current treatment -F/u LA this afternoon -C/w sodium bicarb gtt at 125 cc/hr, + NSS 1 L bolus for additional hydration, stopping ceftriaxone -Nephrology consulted and following Hypomagnesemia, acute -Mag low at 1.2 -Mag run x 1 given -F/u repeat mag level later today -Replace PRN Hypophosphatemia, acute -Mag level 0.5 -To receive a total of 65 mmoL potassium phosphate IV per nephrology -F/u phosphorous level later today -Replace PRN Elevated Bilirubin -Denies abdominal pain -CT abd/pelvis above -AST/ALT and alk phos wnl -Stopped statin -F/u CMP and monitor for worsening s/s Acute hypokalemia likely 2/2 to GI loss, diarrhea -Wnl this AM -C/w 40 mEq PO BID T-wave inversions on EKG -Trop neg x 3 -Pt currently has a loop recorder to evaluate for arrhythmia -Denies chest pain, SOB -Monitor closely Acute on chronic physical deconditioning likely 2/2 to illness above and chronic illness -Fall risk precautions -PT: Patient would benefit from continued rehab at this time, she may progress to baseline quickly. -Optimization of nutrition when diarrhea resolves. Prior CVA with left sided weakness -No new focal deficits -C/w atorvastatin and xarelto HTN -Stable -C/w amlodipine and metoprolol Depression - continue home fluoxetine GERD - continue home protonix DVT prophylaxis: -Xarelto Resolved issues: Acute kidney injury likely 2/2 to prerenal causes, fluid loss from diarrhea DISPOSITION: PT/OT until discharge. Nephrology now consulted and following. Plan is discharge home when improved. VS, I&O, 24H, Fishbone Vital Signs/I&O Vital Signs Date Time Temp Pulse Resp B/P (MAP) Pulse Ox O2 Delivery O2 Flow Rate FiO2 05/18/20 14:00 98.0 69 18 119/63 (81) 99 Room Air I&O- Last 24 Hours up to 6 AM 05/18/20 05:59 Intake Total 3982.5 ml Output Total 1290 ml Balance 2692.5 ml Laboratory Data 24H LABS Laboratory Tests 2 05/17/20 22:25: Anion Gap 10, Glomerular Filtration Rate > 60.0, Lactic Acid Level 2.9*H, Calcium Level 7.1L, Phosphorus Level 0.7L, Albumin 2.1L 05/18/20 02:30: Urine Random Creatinine 35.4, Urine Random Sodium 83, Urine Random Potassium 30.1, Urine Random Chloride 149 05/18/20 05:50: Anion Gap 8, Glomerular Filtration Rate > 60.0, Calcium Level 7.3L, Phosphorus Level 0.5#L, Albumin 1.9L, Nucleated Red Blood Cells % (auto) 0.0, Magnesium Lev el 1.2L, Total Bilirubin 2.6H, Aspartate Amino Transf (AST/SGOT) 3L, Alanine Aminotransferase (ALT/SGPT) 14, Alkaline Phosphatase 57, Total Protein 4.1L, Albumin/Globulin Ratio 0.9L 05/18/20 07:59: Lactic Acid Followup at 4 Hours 3.5*H CBC/BMP Laboratory Tests 05/17/20 22:25 05/18/20 05:50 Microbiology Microbiology 05/17/20 Urine Culture - Final, Complete 05/16/20 Blood Culture - Preliminary, Resulted No growth after 24 hours . All specim... 05/16/20 Blood Culture - Preliminary, Resulted No growth after 24 hours . All specim... 05/16/20 Gastrointestinal Tract Panel (PCR) - Final, Complete Current Medications Current Medications Medications (Trade) Dose Ordered Sig/Odell Route PRN Reason Start Time Stop Time Status Last Admin Dose Admin Acetaminophen (Tylenol Tab) 650 mg Q4H PRN PO PAIN OR FEVER 05/16/20 00:30 05/17/20 17:22 Al Hydrox/Mg Hydrox/Simethicone (Mylanta) 30 ml DAILY PRN PO DYSPEPSIA 05/16/20 00:30 Amlodipine Besylate (Norvasc) 5 mg DAILY PO 05/16/20 09:00 05/18/20 10:15 Atorvastatin Calcium (Lipitor) 40 mg DAILY@1800 PO 05/16/20 18:00 05/18/20 07:13 DC 05/17/20 17:22 Baclofen (Lioresal) 10 mg BID PO 05/16/20 09:00 05/18/20 10:03 Ceftriaxone Sodium 1 gm/ Dextrose 50 ml @ 100 mls/hr Q24H IV 05/17/20 14:00 05/18/20 14:17 Ferrous Sulfate (Ferrous Sulfate) 325 mg BID PO 05/16/20 09:00 05/18/20 10:03 Fluoxetine HCl (PROzac) 20 mg DAILY PO 05/16/20 09:00 05/18/20 10:02 Heparin Sodium (Heparin (Flush)) 500 units ASDIRECTED PRN IV SEE LABEL COMMENTS 05/17/20 01:05 05/17/20 13:42 Heparin Sodium (Heparin (Flush)) 500 units DAILY IV 05/17/20 09:00 05/17/20 09:40 Home Med (Med Rec Complete!) ASDIRECTED XX 05/15/20 23:55 05/15/20 23:57 DC Loperamide HCl (Imodium) 2 mg ASDIRECTED PRN PO DIARRHEA 05/16/20 17:50 05/17/20 15:56 Metoprolol Tartrate (Lopressor) 25 mg BID PO 05/16/20 09:00 05/18/20 10:15 Ondansetron HCl (ZOFRAN INJection) 4 mg Q4HP PRN IV NAUSEA OR VOMITING 05/16/20 00:30 Pantoprazole Sodium (Protonix) 40 mg BID PO 05/16/20 09:00 05/18/20 10:03 Potassium Chloride/Dextrose/ Sod Cl 1,000 ml @ 120 mls/hr Q8H20M IV 05/16/20 18:30 05/17/20 08:32 DC 05/17/20 08:01 Potassium Chloride/Dextrose/ Sod Cl 1,000 ml @ 125 mls/hr Q8H IV 05/17/20 09:00 05/17/20 14:51 DC 05/17/20 09:25 Potassium Chloride (Micro-K Extencaps) 30 meq Q1H PO 05/16/20 11:00 05/16/20 12:01 DC 05/16/20 12:15 Potassium Chloride (Micro-K Extencaps) 40 meq BID PO 05/16/20 21:00 05/18/20 10:03 Rivaroxaban (Xarelto) 15 mg DAILY PO 05/16/20 09:00 05/18/20 10:02 Simethicone (Mylicon) 80 mg TIDP PRN PO GAS PAIN 05/16/20 09:05 05/17/20 13:42 Sodium Bicarbonate 100 meq/Potassium Chloride 40 meq/ Dextrose/Water 1,120 ml @ 125 mls/hr Q8H58M IV 05/17/20 17:00 05/18/20 09:00 DC 05/18/20 02:47 Sodium Bicarbonate 100 meq/Potassium Chloride 40 meq/ Dextrose/Water 1,120 ml @ 125 mls/hr Q8H58M IV 05/18/20 14:00 05/19/20 06:00 05/18/20 14:17 Sodium Chloride 1,000 ml @ 100 mls/hr Q10H IV 05/16/20 09:05 05/16/20 18:07 DC 05/16/20 09:40 Sodium Chloride (Saline Lock Flush) 10 ml ASDIRECTED PRN IV SEE LABEL COMMENTS 05/17/20 01:05 05/17/20 13:42 Sodium Chloride (Saline Lock Flush) 10 ml DAILY IV 05/17/20 09:00 05/17/20 09:40 Vitamin D (Vitamin D) 5,000 units DAILY PO 05/16/20 09:00 05/18/20 10:02 Allergies Coded Allergies: Penicillins (Verified Allergy, Unknown, hives, 02/12/20) Protein Milk (Verified Adverse Reaction, Unknown, upset stomach , 02/12/20) Kamilla Thorpe MD May 18, 2020 15:36
[2020-05-18] MEDS ORDERED: POTASSIUM PHOSPHATE INJ 30 MMOL in D5W 500 ML IV ONE (16:00)
[2020-05-18 16:49] LABS: MAGNESIUM LEVEL 1.6 MG/DL (1.8-2.4); PHOSPHORUS LEVEL 0.6 MG/DL (2.5-4.9)
[2020-05-18] MEDS: LOPERAMIDE 2 MG CAPLET PO PRN (21:26)
[2020-05-18 22:00] VITALS: BP 124/63
--- NOTE | 2020-05-18 23:16 | CR ---
CONSULTATION DATE: 05/18/2020 REQUESTING PHYSICIAN: Kamilla Thorpe MD CONSULTING PHYSICIAN: Vitaly Adams MD REASON FOR CONSULTATION: Management of acute renal failure, metabolic acidosis and multiple electrolyte abnormalities. CHIEF COMPLAINT: The patient presented to the hospital on May 15, 2020 with persistent diarrhea. HISTORY OF PRESENT ILLNESS: Laura Oquendo is a 80-year-old female with past medical history of colon cancer, currently on weekly F5U and leucovorin. She presented to the hospital three days ago with diarrhea, nausea and vomiting that was ongoing for three days before she presented to the hospital. She had watery stools that were 5 or 6 times in a day. She was nauseated. She was unable to keep anything down. It was associated with abdominal pain. The pain in the abdomen got worse after she ate any food. She denies any hematemesis. She also had generalized weakness and fatigue when she presented to the hospital. She was admitted under the hospitalist service with acute renal failure, hypokalemia and metabolic acidosis. Her creatinine on arrival was 1.5. She was started on IV fluid hydration, that helped improve her creatinine a little bit. However, she remained acidotic and hypokalemic. Nephrology service was called for further help in the management of the patient. I saw and evaluated the patient today morning at the bedside. She still complained of mild persistent diarrhea when I saw her in the morning. I had already started the patient on bicarbonate containing fluid yesterday when I was called for the consult. PAST MEDICAL HISTORY: 1. Colon cancer stage III on weekly F5U and leucovorin, 6 weeks on and 2 weeks off. 2. Hypertension. 3. Cerebrovascular accident (CVA) on Xarelto. 4. Depression. 5. Gastroesophageal reflux disease. 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 ALLERGIES: She is allergic to PENICILLINS AND MILK PROTEIN. FAMILY HISTORY: No significant family history of end-stage renal disease requiring hemodialysis. SOCIAL HISTORY: She is a former smoker. She quit last year. She denies any illicit drug abuse or alcohol abuse. REVIEW OF SYSTEMS: Constitutional: She denies any fevers or chills. Eyes: She denies any blurry vision, double vision. ENT: She denies any dysphagia, odynophagia. Cardiovascular: She denies any chest pain or palpitations. Respiratory: She denies any shortness of breath. Gastrointestinal (GI): She came in with diarrhea, nausea and vomiting. Genitourinary (): She denies any dysuria or hematuria. Musculoskeletal: She had muscle aches and pains when she presented. Skin: She denies any rashes or ulcers. Hematological/oncological: She is being treated for CA of the colon. She denies any easy bleeding or bruising. DRUM TENDER: She denies any strokes or seizures or weakness. All other review of systems is negative. PHYSICAL EXAMINATION: General: The patient is awake, alert, oriented x3. Vital signs:: Temperature is 98 degrees Fahrenheit, blood pressure 119/63, pulse is 69, respiratory rate of 18, saturating 99% on room air. Head and neck examination: Extraocular muscles are intact. Pupils equally round and reactive to light. Mucus membranes are moist. Neck is supple. There is no jugular venous distention (JVD). Cardiovascular: S1, S2 regular rate. No edema of the bilateral lower extremities. Respiratory: Chest is clear to auscultation bilaterally. Bilateral equal air entry. No rales or rhonchi. Abdomen: Soft, positive bowel sounds, nontender. No organomegaly. Musculoskeletal: No clubbing or cyanosis. Pulses are 2+. DRUM TENDER: No focal deficit. Power is 5/5 in all extremities. LABORATORY REVIEW: Complete blood count (CBC) showed a WBC of 3.5, hemoglobin 11.8, platelets of 147. Urine random creatinine is 35, sodium is 83, potassium 30.1, chloride is 149. Basic metabolic panel (BMP) showed sodium 141, potassium 3.5, chloride 113, bicarbonate 20, BUN is 8, creatinine is 0.6. Lactic acid is 3.5. Phosphorus is 0.5. Magnesium is 1.2. Total bilirubin 2.6. Gastrointestinal (GI) panel is negative. Blood cultures are negative. Urine cultures are negative. IMAGING DATA: CAT scan of abdomen and pelvis on May 16, 2020 showed small bowel enteritis, no evidence of obstruction. CURRENT INPATIENT MEDICATIONS: The patient's medications were all reviewed by myself. The patient was started on ceftriaxone on admission, which has been stopped. Her IV fluids were changed to bicarbonate with potassium at 125 ml an hour. She got a dose of magnesium sulfate 1 gm IV in the morning. She was also given a dose of normal saline bolus 1 liter. The patient was given a dose of K-phos 15 mmol IV times 1 dose. She is on amlodipine 5 mg by mouth daily, Lipitor has been stopped. She is on baclofen 10 mg twice a day, iron tablet 325 mg by mouth twice a day which I am stopping right now because of diarrhea. Fluoxetine 20 mg by mouth daily. Imodium by mouth as needed for diarrhea. Metoprolol 25 mg by mouth twice a day. Zofran as needed. Protonix 40 mg by mouth twice a day. Potassium chloride 40 mEq by mouth twice a day. Xarelto 15 mg by mouth daily. Vitamin D 5000 units by mouth daily. ASSESSMENT AND PLAN: 1. Acute renal failure, it was secondary to dehydration and volume depletion. The patient is getting IV fluid hydration. Creatinine is improving back to baseline. 2. Hypokalemia. It is secondary to gastrointestinal (GI) losses of potassium. Continue potassium and the IV fluids and oral potassium as well. 3. Metabolic acidosis. It is secondary to persistent diarrhea. Continue bicarbonate containing IV fluids. 4. Hypophosphatemia. Continue K-phos supplementation. Another dose will be given the evening. 5. Hypomagnesemia. The patient was give magnesium one dose in the morning. Magnesium level is still low. 1 gm of magnesium will be given in the evening as well. 6. Hypertension. Blood pressure is controlled with current dose of amlodipine 5 mg daily. 7. Elevated total bilirubin. Lipitor is being stopped at this time. Thank you for involving me in the care of this patient, I shall be happy to follow the patient along with you tomorrow morning
[2020-05-19 06:00] VITALS: BP 113/62
[2020-05-19 06:00] LABS: HEMATOCRIT 34.2 % (36.0-47.0); HEMOGLOBIN 11.7 g/dl (12.0-15.5); MEAN CORPUSCULAR HEMOGLOBIN 28.4 pg (27.0-33.0); MEAN CORPUSCULAR HGB CONC 34.2 g/dl (32.0-36.5); PLATELET COUNT, AUTOMATED 172 10^3/uL (150-450); RED BLOOD COUNT 4.12 10^6/uL (4.00-5.40); WHITE BLOOD COUNT 6.2 10^3/uL (4.0-10.0)
[2020-05-19 06:29] LABS: ALBUMIN 1.9 GM/DL (3.2-5.2); ALT/SGPT 14 U/L (12-78); BILIRUBIN,TOTAL 2.2 MG/DL (0.2-1.0); BLOOD UREA NITROGEN 3 MG/DL (7-18); CARBON DIOXIDE LEVEL 23 MEQ/L (21-32); CHLORIDE LEVEL 110 MEQ/L (98-107); CREATININE FOR GFR 0.58 MG/DL (0.55-1.30); GLOMERULAR FILTRATION RATE > 60.0 (>39); GLUCOSE, FASTING 90 MG/DL (70-100); MAGNESIUM LEVEL 1.8 MG/DL (1.8-2.4); PHOSPHORUS LEVEL 0.6 MG/DL (2.5-4.9); POTASSIUM SERUM 4.7 MEQ/L (3.5-5.1); SODIUM LEVEL 140 MEQ/L (136-145); TOTAL PROTEIN 4.1 GM/DL (6.4-8.2)
[2020-05-19] MEDS: SODIUM CHLORIDE 0.9% INJ 10 ML SYR IV PRN (06:30)
[2020-05-19] MEDS: OCTREOTIDE ACETATE 100MCG/ML VIAL (J2354 PER 25MCG) SC SCH ×3 (09:02→22:03)
[2020-05-19] MEDS: FLUoxetine 20 MG CAP PO SCH (09:02)
[2020-05-19] MEDS: RIVAROXABAN 15 MG TAB (XARELTO) PO SCH (09:03)
[2020-05-19] MEDS: PANTOPRAZOLE 40MG TAB (PROTONIX) PO SCH ×2 (09:03→22:05)
[2020-05-19] MEDS: BACLOFEN 10 MG TAB PO SCH ×2 (09:03→22:05)
[2020-05-19] MEDS: VITAMIN D 1,000 INTERNATIONAL UNITS TABLET PO SCH (09:03)
[2020-05-19] MEDS: SODIUM CHLORIDE 0.9% INJ 10 ML SYR IV SCH (09:04)
[2020-05-19] MEDS: amLODIPine 5 MG TAB PO SCH (09:06)
[2020-05-19] MEDS: METOPROLOL TART 25 MG TABLET PO SCH ×2 (09:07→22:05)
[2020-05-19] MEDS ORDERED: SODIUM PHOSPHATE INJ 20 MMOL in D5W 250 ML IV ONE (10:00)
[2020-05-19] MEDS: SODIUM BICARBONATE 100 MEQ, POTASSIUM CHLORIDE INJ 40 MEQ in D5W 1,000 ML IV SCH ×2 (10:23→18:37)
--- NOTE | 2020-05-19 11:28 | IPNPDOC ---
Text Note Date of Service The patient was seen on 05/19/20. NOTE SUBJECTIVE: -Diarrhea has improved, 1 BM so far today, 3 total yesterday -Continues on bicarb gtt and per nephrology. -Abdominal discomfort improved. -No chest pain, incr SOB. OBJECTIVE: PHYSICAL EXAMINATION: VITAL SIGNS: see below GENERAL: Alert, comfortable, NAD in bed HEENT: Normocephalic, atraumatic, sclera anicteric, somewhat dry mucous membranes. Left facial droop-chronic NECK: Supple, trachea midline, no lymphadenopathy, no JVD CARDIOVASCULAR: Regular rate and rhythm, normal S1 and S2. No murmurs, rubs, or gallops RESPIRATORY: Clear to auscultation bilaterally with equal air entry bilaterally. No wheezing, rhonchi, or rales. ABDOMEN: Soft, nontender, nondistended, normoactive bowel sounds present EXTREMITIES: No cyanosis or edema. Pulses 2+/4 in bilateral upper and lower extremities SKIN: [place], warm, dry NEUROLOGIC: Alert and oriented x3 to person, place and time. Weakness of the left upper and lower extremity compared to the right, consistent with hx of deficit after CVA. PSYCHIATRIC: Mood and affect appropriate LABORATORY DATA: See below. IMAGING: CT abd/pelvis without contrast: 1. Findings related to the small bowel as described above suggest enteritis. No evidence for obstruction based on current exam. Residual colon appears normal. 2. Cholelithiasis. CXR: No focal airspace consolidation. MICROBIOLOGY: Please see below. ASSESSMENT: 80 year old W with PMHx of CVA, HTN, and colon cancer currently undergoing chemotherapy for the past 2 weeks admitted for diarrhea, acute weakness. PLAN: Diarrhea likely chemotherapy induced enteritis -GI panel: neg, afebrile, WBC low -improving diarrhea -Discussed with Dr. Mayorga (GI) who recommended immodium, fluid hydration, supportive care -C/w electrolyte replacement, bicarb, octreotide below per nephrology Lactic acidosis, acute likely 2/2 to dehydration from diarrhea -At this time not suspecting sepsis but is immunocompromised with cancer, chemo -BCx NG, UCx contaminated, CXR neg -CO2 improving with current treatment bicarb gtt at 125 cc/hr, -No abx -Nephrology consulted and following Hypomagnesemia, acute -check AM mag -Replace PRN Hypophosphatemia -Replace PRN Elevated Bilirubin -Denies abdominal pain -CT abd/pelvis above -AST/ALT and alk phos wnl -Stopped statin -F/u daily CMP Acute hypokalemia likely 2/2 to GI loss, diarrhea -Wnl this AM -C/w 40 mEq PO BID T-wave inversions on EKG -Trop neg x 3 -Pt currently has a loop recorder to evaluate for arrhythmia -Denies chest pain, SOB -Monitor closely Acute on chronic physical deconditioning likely 2/2 to illness above and chronic illness -Fall risk precautions -PT: Patient would benefit from continued rehab at this time, she may progress to baseline quickly. -Optimization of nutrition when diarrhea resolves. Prior CVA with left sided weakness -No new focal deficits -C/w atorvastatin and xarelto HTN -Stable -C/w amlodipine and metoprolol Depression - continue home fluoxetine GERD - continue home protonix DVT prophylaxis: -Xarelto Resolved issues: Acute kidney injury likely 2/2 to prerenal causes, fluid loss from diarrhea DISPOSITION: PT/OT until discharge. Nephrology now consulted and following. Plan is discharge home when improved. VS,Fishbone, I+O VS, Fishbone, I+O Laboratory Tests 05/19/20 05:30 Vital Signs Date Time Temp Pulse Resp B/P (MAP) Pulse Ox O2 Delivery O2 Flow Rate FiO2 05/19/20 09:06 78 114/62 05/19/20 06:00 98.6 20 95 Room Air I&O- Last 24 Hours up to 6 AM 05/19/20 05:59 Intake Total 1430 ml Balance 1430 ml GRIS LUJAN MD May 19, 2020 09:41
[2020-05-19 14:00] VITALS: BP_SYST 100; BP_SYST 146; BP_DIAS 59; BP_DIAS 68
[2020-05-19] MEDS: LOPERAMIDE 2 MG CAPLET PO PRN (15:14)
[2020-05-19] MEDS: ACETAMINOPHEN TAB 650MG DOSE (2X325MG) PO PRN ×2 (18:38→22:06)
[2020-05-19 22:00] VITALS: BP 125/66
--- NOTE | 2020-05-19 22:12 | IPN ---
NEPHROLOGY PROGRESS NOTE DATE: 05/19/2020 SUBJECTIVE: The patient was seen and examined at the bedside today morning. She was started on Octreotide injections by myself because of persistent diarrhea after chemotherapy with 5-FU and Leucovorin. Her electrolytes and renal function are improving. Acidosis is also getting better with IV bicarbonate containing fluids. OBJECTIVE: VITAL SIGNS: Temperature is 98.3 degrees Fahrenheit, blood pressure 100/59, pulse is 61, respiratory rate of 16, saturating 95% on room air. INTAKE AND OUTPUT: Urine output recorded as 400 mL yesterday. She has had 3 bowel movements so far since overnight. Weight in the bed scale is not available. PHYSICAL EXAMINATION: GENERAL APPEARANCE: The patient is awake, alert, oriented x3, sitting up in the bed, in no apparent distress. HEAD AND NECK: Extraocular muscles intact. Pupils are equally round and reactive to light. Mucous membranes are moist. Neck is supple. There is no jugular venous distention. CARDIOVASCULAR: S1, S2, regular rate. EXTREMITIES: No edema of the bilateral lower extremities. RESPIRATORY: Chest is clear to auscultation bilaterally. Bilaterally currently no rales or rhonchi. ABDOMEN: Soft, positive bowel sounds, nontender, no organomegaly. MUSCULOSKELETAL: No clubbing, no cyanosis. Pulses are 2+. FOAM CUTTING SUPERVISOR: No focal deficits. Power is 5/5 in all extremities. LAB REVIEW: CBC showed a WBC of 6.2, hemoglobin 11.7, platelet count 172. BMP showed sodium 140, potassium 4.7, chloride 110, bicarbonate 23, BUN 3, creatinine is 0.5, calcium 7, phosphorous is 0.6, magnesium 1.8, total bilirubin 2.2, albumin is 1.9. CURRENT INPATIENT MEDICATIONS: The patient's medications were all reviewed by myself. The patient continues to be on d5w with potassium at 125 mL an hour. She was given a dose of sodium phosphate 20 millimole IV times one dose. Iron tablets were stopped yesterday because of diarrhea. Imodium dose was increased today. She was also started on Octreotide 100 mcg subcutaneously q. 8 hourly. Oral potassium has been stopped. ASSESSMENT AND PLAN: 1. Acute renal failure it has resolved with aggressive IV fluid hydration. Continue d5w containing fluid at this time. 2. Hypokalemia - potassium level is better with oral and IV potassium repletion. Potassium has been added to IV fluids. Oral potassium has been stopped now. 3. Metabolic acidosis it is secondary to persistent diarrhea. She continues to be on bicarbonate containing fluids. Serum bicarbonate level is improving now. 4. Hypophosphatemia - The patient was given a dose of sodium phosphate today morning. 5. Hypomagnesemia she was given IV magnesium. Magnesium level is within the normal range now. 6. Hypertension - blood pressure is controlled with Amlodipine. 7. Elevated total bilirubin statins are on hold. Bilirubin level is improving. 8. Diarrhea associated with 5-FU and Leucovorin chemotherapy - The patient did not get better with Loperamide and IV fluid hydration. Sandostatin has been started at 100 mcg subcutaneously q. 8 hourly.
[2020-05-20] MEDS: SODIUM CHLORIDE 0.9% INJ 10 ML SYR IV PRN (03:14)
[2020-05-20] MEDS: LOPERAMIDE 2 MG CAPLET PO PRN ×5 (03:23→21:19)
[2020-05-20] MEDS: OCTREOTIDE ACETATE 100MCG/ML VIAL (J2354 PER 25MCG) SC SCH ×3 (05:34→21:18)
[2020-05-20] MEDS: ACETAMINOPHEN TAB 650MG DOSE (2X325MG) PO PRN ×2 (05:35→21:19)
[2020-05-20 06:00] VITALS: BP 124/68
[2020-05-20 06:04] LABS: HEMATOCRIT 34.2 % (36.0-47.0); HEMOGLOBIN 11.4 g/dl (12.0-15.5); MEAN CORPUSCULAR HEMOGLOBIN 28.6 pg (27.0-33.0); MEAN CORPUSCULAR HGB CONC 33.3 g/dl (32.0-36.5); MEAN CORPUSCULAR VOLUME 85.7 fl (80.0-96.0); PLATELET COUNT, AUTOMATED 182 10^3/uL (150-450); RED BLOOD COUNT 3.99 10^6/uL (4.00-5.40); WHITE BLOOD COUNT 8.9 10^3/uL (4.0-10.0)
[2020-05-20 06:35] LABS: ALT/SGPT 14 U/L (12-78); BILIRUBIN,TOTAL 1.6 MG/DL (0.2-1.0); BLOOD UREA NITROGEN 3 MG/DL (7-18); CALCIUM LEVEL 7.1 MG/DL (8.8-10.2); CARBON DIOXIDE LEVEL 28 MEQ/L (21-32); CHLORIDE LEVEL 109 MEQ/L (98-107); GLOMERULAR FILTRATION RATE > 60.0 (>39); GLUCOSE, FASTING 82 MG/DL (70-100); MAGNESIUM LEVEL 1.7 MG/DL (1.8-2.4); POTASSIUM SERUM 4.8 MEQ/L (3.5-5.1); SODIUM LEVEL 140 MEQ/L (136-145)
[2020-05-20] MEDS ORDERED: NS 1,000 ML IV ONE ×3 (07:20→11:50)
[2020-05-20] MEDS: amLODIPine 5 MG TAB PO SCH (08:01)
[2020-05-20] MEDS: VITAMIN D 1,000 INTERNATIONAL UNITS TABLET PO SCH (08:01)
[2020-05-20] MEDS: RIVAROXABAN 15 MG TAB (XARELTO) PO SCH (08:01)
[2020-05-20] MEDS: FLUoxetine 20 MG CAP PO SCH (08:02)
[2020-05-20] MEDS: METOPROLOL TART 25 MG TABLET PO SCH ×2 (08:02→21:20)
[2020-05-20] MEDS: BACLOFEN 10 MG TAB PO SCH ×2 (08:03→21:21)
[2020-05-20] MEDS: PANTOPRAZOLE 40MG TAB (PROTONIX) PO SCH ×2 (08:03→21:21)
--- NOTE | 2020-05-20 09:06 | IPNPDOC ---
Text Note Date of Service The patient was seen on 05/20/20. NOTE SUBJECTIVE: -Diarrhea persists, 2 episodes so far this morning -Continues on bicarb containing fluids and now Sandostatin per nephrology. -Abdominal discomfort resolved -No chest pain, incr SOB. OBJECTIVE: PHYSICAL EXAMINATION: VITAL SIGNS: see below GENERAL: Alert, comfortable, NAD in bed HEENT: Normocephalic, atraumatic, sclera anicteric, somewhat dry mucous membra zoë. Left facial droop-chronic NECK: Supple, trachea midline, no lymphadenopathy, no JVD CARDIOVASCULAR: Regular rate and rhythm, normal S1 and S2. No murmurs, rubs, or gallops RESPIRATORY: Clear to auscultation bilaterally with equal air entry bilaterally. No wheezing, rhonchi, or rales. ABDOMEN: Soft, nontender, nondistended, normoactive bowel sounds present EXTREMITIES: No cyanosis or edema. Pulses 2+/4 in bilateral upper and lower extremities SKIN: [place], warm, dry NEUROLOGIC: Alert and oriented x3 to person, place and time. Weakness of the left upper and lower extremity compared to the right, consistent with hx of deficit after CVA. PSYCHIATRIC: Mood and affect appropriate LABORATORY DATA: Reviewed WBC 8.9 Hgb 11.4 platelets 182 Na 140 K 4.8 bicarb 28 BUN 3 Cr 0.6 Lactate 3 Mag 1.7 IMAGING: CT abd/pelvis without contrast: 1. Findings related to the small bowel as described above suggest enteritis. No evidence for obstruction based on current exam. Residual colon appears normal. 2. Cholelithiasis. CXR: No focal airspace consolidation. MICROBIOLOGY: Please see below. ASSESSMENT: 80 year old W with PMHx of CVA, HTN, and colon cancer currently undergoing chemotherapy for the past 2 weeks admitted for diarrhea, acute weakness. PLAN: 5FU and leucovorin induced diarrhea -GI panel: neg, afebrile, WBC wnl -Persistent diarrhea -Discussed with Dr. Mayorga (GI) who recommended immodium, fluid hydration, supportive care -C/w electrolyte replacement, bicarb, octreotide and loperamide below per nephrology.Increased loperamide dose to 4mg per dose, and spoke with nursing about PRN use and NOT 2mg daily as has been given in the last 2 days as she can have up to 16mg/24h. Lactic acidosis, acute 2/2 to dehydration from diarrhea: -At this time not suspecting sepsis but is immunocompromised with cancer, chemo -BCx NG, UCx contaminated, CXR neg -CO2 improving with current treatment bicarb gtt at 125 cc/hr, got fluid bolus this AM -No abx -Nephrology following Hypomagnesemia, acute -Replace PRN Hypophosphatemia -Replace PRN Elevated Bilirubin -Denies abdominal pain -CT abd/pelvis above -AST/ALT and alk phos wnl -Stopped statin -F/u daily CMP Acute hypokalemia likely 2/2 to GI loss, diarrhea -C/w 40 mEq PO BID T-wave inversions on EKG -Trop neg x 3 -Pt currently has a loop recorder to evaluate for arrhythmia -Denies chest pain, SOB -Monitor closely Acute on chronic physical deconditioning likely 2/2 to illness above and chronic illness -Fall risk precautions -PT: Patient would benefit from continued rehab at this time, she may progress to baseline quickly. -Optimization of nutrition when diarrhea resolves. Prior CVA with left sided weakness -No new focal deficits -C/w atorvastatin and xarelto HTN -Stable -C/w amlodipine and metoprolol Depression - continue home fluoxetine GERD - continue home protonix DVT prophylaxis: -Xarelto Resolved issues: Acute kidney injury likely 2/2 to prerenal causes, fluid loss from diarrhea DISPOSITION: PT/OT until discharge. Nephrology now consulted and following. Plan is discharge home when improved. VS,Fishbone, I+O VS, Fishbone, I+O Laboratory Tests 05/20/20 05:40 Vital Signs Date Time Temp Pulse Resp B/P (MAP) Pulse Ox O2 Delivery O2 Flow Rate FiO2 05/20/20 08:01 68 111/59 05/20/20 06:00 97.2 18 94 Room Air I&O- Last 24 Hours up to 6 AM 05/20/20 06:00 Intake Total 2990 ml Balance 2990 ml GRIS LUJAN MD May 20, 2020 09:06
[2020-05-20] MEDS ORDERED: MAG SULF 1GM/100ML (MAG RUN) 1 GM in IV 1 EA IV ONE (09:30)
[2020-05-20] MEDS: SODIUM CHLORIDE 0.9% INJ 10 ML SYR IV SCH (09:33)
[2020-05-20 09:49] LABS: PHOSPHORUS LEVEL 1.1 MG/DL (2.5-4.9)
[2020-05-20] MEDS: KCL 20MEQ IN D5/0.45NS 1000ML 1,000 ML IV SCH ×2 (13:50→21:21)
[2020-05-20] MEDS: CIPROFLOXACIN 400 MG in IV 1 EA IV SCH ×2 (13:51→23:33)
[2020-05-20 14:00] VITALS: BP 106/71
[2020-05-20] MEDS ORDERED: SODIUM PHOSPHATE INJ 30 MMOL in D5W 500 ML IV ONE (14:00)
[2020-05-20] MEDS: metroNIDAZOLE 500 MG in IV 1 EA IV SCH ×2 (15:26→21:21)
[2020-05-20 22:00] VITALS: BP 114/70
--- NOTE | 2020-05-20 22:05 | IPN ---
NEPHROLOGY PROGRESS NOTE DATE: 05/20/2020 SUBJECTIVE: The patient was seen and examined at the bedside today morning. She continues to have loose stools and diarrhea at least 4-5 episodes every day. She just had a large liquidy stool this morning. She still has elevated lactic acid level in the morning. She reports the abdominal pain is better. She continues to be on Loperamide and subcutaneous Sandostatin injections. OBJECTIVE: VITAL SIGNS: Temperature is 98.2 degrees Fahrenheit, blood pressure 106/71, pulse is 64, respiratory rate of 17, saturating 94% on room air. INTAKE AND OUTPUT: Urine output recorded as 300 mL since overnight. She has had four bowel movements since last night. Weight in the bed scale is not available. PHYSICAL EXAMINATION: GENERAL APPEARANCE: The patient is awake, alert, oriented x3, sitting up in bed in no apparent distress. HEAD AND NECK: Extraocular muscles intact. Pupils are equally round and reactive to light. Mucous membranes are moist. Neck is supple. There is no jugular venous distention. CARDIOVASCULAR: S1, S2, regular rate. EXTREMITIES: No edema of the bilateral lower extremities. RESPIRATORY: Chest is clear to auscultation bilaterally. Bilaterally currently no rales or rhonchi. ABDOMEN: Soft, positive bowel sounds, mild tenderness to deep palpation in the right lower quadrant. MUSCULOSKELETAL: No clubbing, no cyanosis. Pulses are 2+. MAKEUP SALES ADVISOR: No focal deficits on the right side. She has a mild weakness on the left side. LAB REVIEW: CBC showed a WBC of 8.9, hemoglobin is 11.4, platelet count 182. BMP showed sodium 140, potassium 4.8, chloride 109, bicarbonate 28, BUN 3, creatinine is 0.6, lactic acid is 3. Phosphorous was 1.1, calcium 7.1, total bilirubin is 1.6. CURRENT INPATIENT MEDICATIONS: The patient's medications were all reviewed by myself. The patient has been started on IV Cipro and Flagyl. The patient was given 2 liters of normal saline bolus today morning and she has been started on KCL 20 mEq and D5 half normal saline at 120 mL an hour. She was also given a dose of sodium phosphate 30 millimole IV times one dose. ASSESSMENT AND PLAN: 1. Acute renal failure it has resolved after IV fluid hydration. Creatinine is within the normal range. 2. Metabolic acidosis it has improved with IV bicarbonate containing fluids. The fluids have been changed to half normal saline plus KCL now. 3. Hypophosphatemia - The patient was given 30 millimole of sodium phos today morning. 4. Hypertension - blood pressure is controlled with Amlodipine. 5. Lactic acidosis it is still persistently high. The patient was given 2 liters normal saline bolus. Continue IV fluid hydration. 6. Diarrhea associated with 5-FU and leucovorin chemotherapy - continue Loperamide and Sandostatin injections. I have also started the patient on Cipro and Flagyl today.
[2020-05-21] MEDS: LOPERAMIDE 2 MG CAPLET PO PRN ×4 (01:12→23:54)
[2020-05-21 06:00] VITALS: BP 115/69
[2020-05-21] MEDS: metroNIDAZOLE 500 MG in IV 1 EA IV SCH ×3 (06:22→21:16)
[2020-05-21] MEDS: ACETAMINOPHEN TAB 650MG DOSE (2X325MG) PO PRN (06:22)
[2020-05-21] MEDS: OCTREOTIDE ACETATE 100MCG/ML VIAL (J2354 PER 25MCG) SC SCH ×3 (06:22→23:31)
[2020-05-21 07:31] LABS: ALT/SGPT 15 U/L (12-78); BILIRUBIN,TOTAL 0.9 MG/DL (0.2-1.0); BLOOD UREA NITROGEN 5 MG/DL (7-18); CALCIUM LEVEL 7.4 MG/DL (8.8-10.2); CARBON DIOXIDE LEVEL 25 MEQ/L (21-32); CHLORIDE LEVEL 113 MEQ/L (98-107); CREATININE FOR GFR 0.62 MG/DL (0.55-1.30); GLOMERULAR FILTRATION RATE > 60.0 (>39); GLUCOSE, FASTING 93 MG/DL (70-100); MAGNESIUM LEVEL 1.9 MG/DL (1.8-2.4); POTASSIUM SERUM 4.8 MEQ/L (3.5-5.1); SODIUM LEVEL 142 MEQ/L (136-145); TOTAL PROTEIN 4.1 GM/DL (6.4-8.2)
[2020-05-21] MEDS: SODIUM CHLORIDE 0.9% INJ 10 ML SYR IV SCH (09:00)
[2020-05-21] MEDS: RIVAROXABAN 15 MG TAB (XARELTO) PO SCH (09:03)
[2020-05-21] MEDS: BACLOFEN 10 MG TAB PO SCH ×2 (09:03→21:16)
[2020-05-21] MEDS: PANTOPRAZOLE 40MG TAB (PROTONIX) PO SCH ×2 (09:03→21:16)
[2020-05-21] MEDS: VITAMIN D 1,000 INTERNATIONAL UNITS TABLET PO SCH (09:03)
[2020-05-21] MEDS: amLODIPine 5 MG TAB PO SCH (09:04)
[2020-05-21] MEDS: METOPROLOL TART 25 MG TABLET PO SCH ×2 (09:04→21:17)
[2020-05-21] MEDS: FLUoxetine 20 MG CAP PO SCH (09:04)
[2020-05-21] MEDS: KCL 20MEQ IN D5/0.45NS 1000ML 1,000 ML IV SCH ×3 (09:04→20:51)
[2020-05-21 10:20] LABS: PHOSPHORUS LEVEL 1.8 MG/DL (2.5-4.9)
[2020-05-21] MEDS ORDERED: NS 1,000 ML IV ONE (11:15)
[2020-05-21] MEDS: CIPROFLOXACIN 400 MG in IV 1 EA IV SCH ×2 (11:37→23:31)
[2020-05-21] MEDS ORDERED: SODIUM PHOSPHATE INJ 20 MMOL in D5W 250 ML IV ONE (13:00)
[2020-05-21 14:00] VITALS: BP 107/56
[2020-05-21] MEDS ORDERED: methylPREDNISolone 125MG 2ML VIAL IV ONE (14:00)
--- NOTE | 2020-05-21 14:09 | IPNPDOC ---
Text Note Date of Service The patient was seen on 05/21/20. NOTE SUBJECTIVE: -Diarrhea persists, despite loperamide, sandostatin and now also cipro/flagyl -No chest pain or abdominal pain OBJECTIVE: PHYSICAL EXAMINATION: VITAL SIGNS: see below GENERAL: Alert, comfortable, NAD in bed HEENT: Normocephalic, atraumatic, sclera anicteric, somewhat dry mucous membranes. Left facial droop-chronic NECK: Supple, trachea midline, no lymphadenopathy, no JVD CARDIOVASCULAR: Regular rate and rhythm, normal S1 and S2. No murmurs, rubs, or gallops RESPIRATORY: Clear to auscultation bilaterally with equal air entry bilaterally. No wheezing, rhonchi, or rales. ABDOMEN: Soft, nontender, nondistended, normoactive bowel sounds present EXTREMITIES: No cyanosis or edema. Pulses 2+/4 in bilateral upper and lower extremities SKIN: [place], warm, dry NEUROLOGIC: Alert and oriented x3 to person, place and time. Weakness of the left upper and lower extremity compared to the right, consistent with hx of deficit after CVA. PSYCHIATRIC: Mood and affect appropriate LABORATORY DATA: Reviewed IMAGING: CT abd/pelvis without contrast: 1. Findings related to the small bowel as described above suggest enteritis. No evidence for obstruction based on current exam. Residual colon appears normal. 2. Cholelithiasis. CXR: No focal airspace consolidation. MICROBIOLOGY: Please see below. ASSESSMENT: 80 year old W with PMHx of CVA, HTN, and colon cancer currently undergoing chemotherapy for the past 2 weeks admitted for diarrhea, acute weakness. PLAN: 5FU and leucovorin induced diarrhea -GI panel: neg, afebrile, WBC wnl -Diarrhea persists, despite loperamide, sandostatin and now also cipro/flagyl started on 05/20 by nephrology -Previously discussed with Dr. Mayorga (GI) who recommended immodium, fluid hydration, supportive care -will now escalate to steroids, so will give solumedrol 125mg IV once and monitor Lactic acidosis, acute 2/2 to dehydration from diarrhea: -Not suspecting sepsis but is immunocompromised with cancer, chemo -BCx NG, UCx contaminated, CXR neg -CO2 wnl s/p bicarb gtt and PRN fluids. Currently on 20meqK/0.45%NaCl -empiric ciprol/flagyl since 05/20 -Nephrology following Hypomagnesemia, acute -Replace PRN Hypophosphatemia -Replace PRN Elevated Bilirubin -Denies abdominal pain -CT abd/pelvis above -AST/ALT and alk phos wnl -Stopped statin -F/u daily CMP Acute hypokalemia likely 2/2 to GI loss, diarrhea -on 20meqKcl in fluids T-wave inversions on EKG -Trop neg x 3 -Pt currently has a loop recorder to evaluate for arrhythmia -Denies chest pain, SOB -Monitor closely Acute on chronic physical deconditioning likely 2/2 to illness above and chronic illness -Fall risk precautions -PT: Patient would benefit from continued rehab at this time, she may progress to baseline quickly. -Optimization of nutrition when diarrhea resolves. Prior CVA with left sided weakness -No new focal deficits -C/w atorvastatin and xarelto HTN -Stable -C/w amlodipine and metoprolol Depression - continue home fluoxetine GERD - continue home protonix DVT prophylaxis: -Xarelto Resolved issues: Acute kidney injury likely 2/2 to prerenal causes, fluid loss from diarrhea DISPOSITION: PT/OT until discharge. Nephrology now consulted and following. Plan is discharge home when diarrhea improves. VS,Fishbone, I+O VS, Fishbone, I+O Laboratory Tests 05/21/20 06:30 Vital Signs Date Time Temp Pulse Resp B/P (MAP) Pulse Ox O2 Delivery O2 Flow Rate FiO2 05/21/20 09:04 88 115/64 05/21/20 06:00 99.3 18 93 Room Air I&O- Last 24 Hours up to 6 AM 05/21/20 06:00 Intake Total 4360 ml Output Total 1100 ml Balance 3260 ml GRIS LUJAN MD May 21, 2020 14:09
[2020-05-21 22:00] VITALS: BP 115/56
--- NOTE | 2020-05-22 05:19 | IPN ---
PROGRESS NOTE DATE: 05/21/2020 SUBJECTIVE: The patient was seen and examined at the bedside today morning. She continues to be on IV fluid hydration and Sandostatin and despite that the patient continues to have loose stools. She still had elevated lactic acid level in the morning. With the IV fluid hydration, her renal function has improved, but she is still requiring IV fluids because of persistent loose stools. OBJECTIVE: Vital signs: Temperature is 97.2 degrees Fahrenheit, blood pressure 107/56, pulse is 59, respiratory rate of 16, saturating 94% on room air. Intake and output: Urine output recorded as 600 ml. She has had 7 bowel movements so far today since overnight. Weight in the bed scale is not available. PHYSICAL EXAMINATION: General: The patient is awake, alert and oriented times 3, sitting up in the bed in no apparent distress. Head and neck examination: Extraocular muscles are intact. Pupils equally round and reactive to light. Mucous membranes are moist. Neck is supple. There is no jugular venous distention (JVD). Cardiovascular: S1, S2 regular rate. No edema of the bilateral lower extremities. Respiratory: Chest is clear to auscultation bilaterally. Bilateral equal air entry. No rales or rhonchi. Abdomen: Soft, positive bowel sounds. Nontender, no organomegaly. Musculoskeletal: No clubbing or cyanosis. Pulses are 2+. 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 She has weakness of the left arm. She is able to walk with the help of a walker. LABORATORY REVIEW: Complete blood count (CBC) showed a WBC of 8.9, hemoglobin is 11.4, platelets of 182. Basic metabolic panel (BMP) showed sodium 142, potassium 4.8, chloride 113, bicarbonate 35, BUN 5, creatinine is 0.6. Lactic acid is 2.5, calcium is 7.4, phosphorous is 1.8, albumin is 2. CURRENT INPATIENT MEDICATIONS: The patient's medications were all reviewed by myself. She continues to be on IV Cipro and Flagyl, which was started yesterday. She is on KCl 20 mEq and D5 half normal saline at 125 ml an hour. She was also given a normal saline bolus and 20 mmol of IV sodium phosphate. A dose of Solu-Medrol 125 mg was given by the hospitalist team today. ASSESSMENT AND PLAN: 1. Lactic acidosis and persistent diarrhea. The patient was given 1 liter of normal saline. Continue IV half normal saline with KCl. 2. Diarrhea associated with 5-Fluorouracil and leucovorin. The patient is on loperamide, Sandostatin injections, Cipro and Flagyl, despite that she is still having diarrhea. A repeat stool for Clostridium difficile has been ordered by myself. 3. Hypertension. It is controlled with amlodipine at this time. I am going to hold the amlodipine for now. This patient is persistently having lactic acidosis. 4. Acute renal failure, it is has resolved with the IV fluid hydration. Continue the IV fluids for now because the patient is still having persistent diarrhea.
[2020-05-22 06:00] VITALS: BP 116/55
[2020-05-22] MEDS: OCTREOTIDE ACETATE 100MCG/ML VIAL (J2354 PER 25MCG) SC SCH ×3 (06:25→21:57)
[2020-05-22] MEDS: metroNIDAZOLE 500 MG in IV 1 EA IV SCH ×3 (06:26→21:57)
[2020-05-22 06:50] LABS: HEMATOCRIT 33.4 % (36.0-47.0); HEMOGLOBIN 11.1 g/dl (12.0-15.5); MEAN CORPUSCULAR HEMOGLOBIN 29.3 pg (27.0-33.0); MEAN CORPUSCULAR HGB CONC 33.2 g/dl (32.0-36.5); MEAN CORPUSCULAR VOLUME 88.1 fl (80.0-96.0); PLATELET COUNT, AUTOMATED 226 10^3/uL (150-450); RED BLOOD COUNT 3.79 10^6/uL (4.00-5.40); WHITE BLOOD COUNT 10.4 10^3/uL (4.0-10.0)
[2020-05-22 07:08] LABS: ATYPICAL LYMPH 3 % (0-5); EOSINOPHILS 2 % (0-3); LYMPHOCYTES 21 % (16-44); MONOCYTES 4 % (0-5); MYELOCYTES 1 % (0-0); NEUTROPHILS 67 % (28-66)
[2020-05-22 07:09] LABS: PLATELET ESTIMATE NORMAL (NORMAL)
[2020-05-22 07:20] LABS: ALBUMIN 2.2 GM/DL (3.2-5.2); BLOOD UREA NITROGEN 6 MG/DL (7-18); CALCIUM LEVEL 7.9 MG/DL (8.8-10.2); CARBON DIOXIDE LEVEL 25 MEQ/L (21-32); CHLORIDE LEVEL 109 MEQ/L (98-107); CREATININE FOR GFR 0.64 MG/DL (0.55-1.30); GLOMERULAR FILTRATION RATE > 60.0 (>39); GLUCOSE, FASTING 130 MG/DL (70-100); MAGNESIUM LEVEL 1.8 MG/DL (1.8-2.4); PHOSPHORUS LEVEL 2.4 MG/DL (2.5-4.9); POTASSIUM SERUM 4.7 MEQ/L (3.5-5.1); SODIUM LEVEL 139 MEQ/L (136-145)
[2020-05-22] MEDS: KCL 20MEQ IN D5/0.45NS 1000ML 1,000 ML IV SCH ×3 (08:39→21:57)
[2020-05-22] MEDS ORDERED: MAG SULF 1GM/100ML (MAG RUN) 1 GM in IV 1 EA IV ONE (08:40)
[2020-05-22] MEDS: SODIUM CHLORIDE 0.9% INJ 10 ML SYR IV SCH (09:00)
[2020-05-22] MEDS: methylPREDNISolone 125MG 2ML VIAL IV SCH (09:25)
[2020-05-22] MEDS: VITAMIN D 1,000 INTERNATIONAL UNITS TABLET PO SCH (09:26)
[2020-05-22] MEDS: LOPERAMIDE 2 MG CAPLET PO PRN ×3 (09:27→21:57)
[2020-05-22] MEDS: PANTOPRAZOLE 40MG TAB (PROTONIX) PO SCH ×2 (09:27→21:56)
[2020-05-22] MEDS: RIVAROXABAN 15 MG TAB (XARELTO) PO SCH (09:28)
[2020-05-22] MEDS: BACLOFEN 10 MG TAB PO SCH ×2 (09:28→21:56)
[2020-05-22] MEDS: FLUoxetine 20 MG CAP PO SCH (09:28)
[2020-05-22] MEDS: METOPROLOL TART 25 MG TABLET PO SCH ×2 (09:29→21:56)
[2020-05-22] MEDS ORDERED: NS 1,000 ML IV ONE ×3 (09:30→12:15)
[2020-05-22] MEDS ORDERED: SODIUM PHOSPHATE INJ 20 MMOL in D5W 250 ML IV ONE (11:00)
[2020-05-22] MEDS: CIPROFLOXACIN 400 MG in IV 1 EA IV SCH (12:03)
--- NOTE | 2020-05-22 13:03 | IPNPDOC ---
Text Note Date of Service The patient was seen on 05/22/20. NOTE SUBJECTIVE: -Diarrhea persists, despite loperamide, sandostatin, cipro/flagyl and steroids -No chest pain or abdominal pain OBJECTIVE: PHYSICAL EXAMINATION: VITAL SIGNS: see below GENERAL: Alert, comfortable, NAD in bed HEENT: Normocephalic, atraumatic, sclera anicteric, somewhat dry mucous membranes. Left facial droop-chronic NECK: Supple, trachea midline, no lymphadenopathy, no JVD CARDIOVASCULAR: Regular rate and rhythm, normal S1 and S2. No murmurs, rubs, or gallops RESPIRATORY: Clear to auscultation bilaterally with equal air entry bilaterally. No wheezing, rhonchi, or rales. ABDOMEN: Soft, nontender, nondistended, normoactive bowel sounds present EXTREMITIES: No cyanosis or edema. Pulses 2+/4 in bilateral upper and lower extremities SKIN: [place], warm, dry NEUROLOGIC: Alert and oriented x3 to person, place and time. Weakness of the left upper and lower extremity compared to the right, consistent with hx of deficit after CVA. PSYCHIATRIC: Mood and affect appropriate LABORATORY DATA: Reviewed WBC 10.4 Hgb 11.1 platelets 226 Na 137 K 4.7 bicarb 25 Cr 0.64 mag 1.8 phos 2.4 IMAGING: CT abd/pelvis without contrast: 1. Findings related to the small bowel as described above suggest enteritis. No evidence for obstruction based on current exam. Residual colon appears normal. 2. Cholelithiasis. CXR: No focal airspace consolidation. MICROBIOLOGY: Please see below. ASSESSMENT: 80 year old W with PMHx of CVA, HTN, and colon cancer currently undergoing chemotherapy for the past 2 weeks admitted for diarrhea, acute weakness. PLAN: 5FU and leucovorin induced diarrhea -GI panel: neg, afebrile, WBC wnl -Diarrhea persists, despite loperamide, sandostatin, cipro/flagyl started on 05/20 by nephrology, and now solumedrol 125mg IV daily -Previously discussed with Dr. Mayorga (GI) who recommended immodium, fluid hydration, supportive care -f/u Cdiff testing ordered yesterday, prior GI panel was negative Lactic acidosis, acute 2/2 to dehydration from diarrhea: -Not suspecting sepsis but is immunocompromised with cancer, chemo -BCx NG, UCx contaminated, CXR neg -CO2 wnl s/p bicarb gtt and PRN fluids. Currently on 20meqK/0.45%NaCl -empiric ciprol/flagyl since 05/20 -Nephrology following Hypomagnesemia, acute -Replace PRN Hypophosphatemia -Replace PRN Elevated Bilirubin -Denies abdominal pain -CT abd/pelvis above -AST/ALT and alk phos wnl -Stopped statin -F/u daily CMP Acute hypokalemia likely 2/2 to GI loss, diarrhea -on 20meqKcl in fluids T-wave inversions on EKG -Trop neg x 3 -Pt currently has a loop recorder to evaluate for arrhythmia -Denies chest pain, SOB -Monitor closely Acute on chronic physical deconditioning likely 2/2 to illness above and chronic illness -Fall risk precautions -PT: Patient would benefit from continued rehab at this time, she may progress to baseline quickly. -Optimization of nutrition when diarrhea resolves. Prior CVA with left sided weakness -No new focal deficits -C/w atorvastatin and xarelto HTN -Stable -C/w amlodipine and metoprolol Depression - continue home fluoxetine GERD - continue home protonix DVT prophylaxis: -Xarelto Resolved issues: Acute kidney injury likely 2/2 to prerenal causes, fluid loss from diarrhea DISPOSITION: PT/OT until discharge. Nephrology now consulted and following. Plan is discharge home when diarrhea improves. VS,Fishbone, I+O VS, Fishbone, I+O Laboratory Tests 05/22/20 06:24 Vital Signs Date Time Temp Pulse Resp B/P (MAP) Pulse Ox O2 Delivery O2 Flow Rate FiO2 05/22/20 06:00 98.1 61 19 116/55 (75) 95 Room Air I&O- Last 24 Hours up to 6 AM 05/22/20 06:00 Intake Total 2990.0 ml Output Total 800 ml Balance 2190.0 ml GRIS LUJAN MD May 22, 2020 08:41
[2020-05-22 14:00] VITALS: BP 106/58
[2020-05-22] MEDS: POLYVINYL ALCOHOL OPHTH SOLN 15 ML(LIQUITEARS) OU SCH ×2 (14:30→21:58)
[2020-05-22] MEDS: ACETAMINOPHEN TAB 650MG DOSE (2X325MG) PO PRN (17:58)
[2020-05-22 22:00] VITALS: BP 134/61
[2020-05-23] MEDS: CIPROFLOXACIN 400 MG in IV 1 EA IV SCH ×2 (00:15→12:32)
[2020-05-23 00:39] LABS: CLOSTRIDIUM DIFFICILE PCR NEGATIVE (NEGATIVE)
[2020-05-23 06:00] VITALS: BP 132/64
[2020-05-23] MEDS: OCTREOTIDE ACETATE 100MCG/ML VIAL (J2354 PER 25MCG) SC SCH ×3 (06:09→22:18)
[2020-05-23] MEDS: metroNIDAZOLE 500 MG in IV 1 EA IV SCH ×3 (06:09→22:18)
[2020-05-23] MEDS: ACETAMINOPHEN TAB 650MG DOSE (2X325MG) PO PRN ×2 (06:10→22:17)
[2020-05-23 06:43] LABS: BASO % 0.2 % (0.0-1.0); EOS % 0.1 % (0.0-3.0); HEMATOCRIT 33.5 % (36.0-47.0); HEMOGLOBIN 10.7 g/dl (12.0-15.5); LYMPH # 1.9 10^3/uL (1.5-5.0); LYMPH % 11.6 % (24.0-44.0); MEAN CORPUSCULAR HEMOGLOBIN 28.6 pg (27.0-33.0); MEAN CORPUSCULAR HGB CONC 31.9 g/dl (32.0-36.5); MEAN CORPUSCULAR VOLUME 89.6 fl (80.0-96.0); MONO # 2.5 10^3/uL (0.0-0.8); MONO % 14.9 % (2.0-8.0); NEUTROPHILS # 8.8 10^3/uL (1.5-8.5); NEUTROPHILS % 52.7 % (36.0-66.0); PLATELET COUNT, AUTOMATED 305 10^3/uL (150-450); RED BLOOD COUNT 3.74 10^6/uL (4.00-5.40)
[2020-05-23 06:59] LABS: WHITE BLOOD COUNT 16.7 10^3/uL (4.0-10.0)
[2020-05-23 07:06] LABS: ALBUMIN 2.3 GM/DL (3.2-5.2); BLOOD UREA NITROGEN 7 MG/DL (7-18); CALCIUM LEVEL 7.9 MG/DL (8.8-10.2); CARBON DIOXIDE LEVEL 24 MEQ/L (21-32); CHLORIDE LEVEL 112 MEQ/L (98-107); CREATININE FOR GFR 0.66 MG/DL (0.55-1.30); GLOMERULAR FILTRATION RATE > 60.0 (>39); GLUCOSE, FASTING 129 MG/DL (70-100); MAGNESIUM LEVEL 2.1 MG/DL (1.8-2.4); PHOSPHORUS LEVEL 2.1 MG/DL (2.5-4.9); POTASSIUM SERUM 4.3 MEQ/L (3.5-5.1); SODIUM LEVEL 142 MEQ/L (136-145)
[2020-05-23] MEDS: LOMOTIL 2.5MG/0.025MG TABLET PO SCH ×3 (09:00→22:17)
[2020-05-23] MEDS: SODIUM CHLORIDE 0.9% INJ 10 ML SYR IV SCH (09:00)
[2020-05-23] MEDS ORDERED: CHOLESTYRAMINE 4 GM PWD PKT PO SCH (09:00)
[2020-05-23] MEDS: KCL 20MEQ IN D5/0.45NS 1000ML 1,000 ML IV SCH ×3 (09:48→21:07)
[2020-05-23] MEDS: METOPROLOL TART 25 MG TABLET PO SCH ×2 (09:48→22:19)
[2020-05-23] MEDS: methylPREDNISolone 125MG 2ML VIAL IV SCH (09:49)
[2020-05-23] MEDS: POLYVINYL ALCOHOL OPHTH SOLN 15 ML(LIQUITEARS) OU SCH ×2 (09:49→22:18)
[2020-05-23] MEDS: RIVAROXABAN 15 MG TAB (XARELTO) PO SCH (09:49)
[2020-05-23] MEDS: BACLOFEN 10 MG TAB PO SCH ×2 (09:49→22:18)
[2020-05-23] MEDS: VITAMIN D 1,000 INTERNATIONAL UNITS TABLET PO SCH (09:49)
[2020-05-23] MEDS: LOPERAMIDE 2 MG CAPLET PO PRN (09:49)
[2020-05-23] MEDS: PANTOPRAZOLE 40MG TAB (PROTONIX) PO SCH ×2 (09:49→22:17)
[2020-05-23] MEDS: FLUoxetine 20 MG CAP PO SCH (09:49)
[2020-05-23] MEDS ORDERED: NS 1,000 ML IV ONE (10:00)
--- NOTE | 2020-05-23 10:17 | IPNPDOC ---
Text Note Date of Service The patient was seen on 05/23/20. NOTE SUBJECTIVE: -Diarrhea persists, despite loperamide, sandostatin, cipro/flagyl and steroids. 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 Dr. Clayton recommended trial of cholestyramine as well given recent R hemicolectomy. -No chest pain or abdominal pain OBJECTIVE: PHYSICAL EXAMINATION: VITAL SIGNS: see below GENERAL: Alert, comfortable, NAD in bed HEENT: Normocephalic, atraumatic, sclera anicteric, somewhat dry mucous membranes. Left facial droop-chronic NECK: Supple, trachea midline, no lymphadenopathy, no JVD CARDIOVASCULAR: Regular rate and rhythm, normal S1 and S2. No murmurs, rubs, or gallops RESPIRATORY: Clear to auscultation bilaterally with equal air entry bilaterally. No wheezing, rhonchi, or rales. ABDOMEN: Soft, nontender, nondistended, normoactive bowel sounds present EXTREMITIES: No cyanosis or edema. Pulses 2+/4 in bilateral upper and lower extremities SKIN: [place], warm, dry NEUROLOGIC: Alert and oriented x3 to person, place and time. Weakness of the left upper and lower extremity compared to the right, consistent with hx of deficit after CVA. PSYCHIATRIC: Mood and affect appropriate LABORATORY DATA: Reviewed IMAGING: CT abd/pelvis without contrast: 1. Findings related to the small bowel as described above suggest enteritis. No evidence for obstruction based on current exam. Residual colon appears normal. 2. Cholelithiasis. CXR: No focal airspace consolidation. MICROBIOLOGY: Please see below. ASSESSMENT: 80 year old W with PMHx of CVA, HTN, and colon cancer currently undergoing chemotherapy for the past 2 weeks admitted for diarrhea, acute weakness. PLAN: 5FU and leucovorin induced diarrhea -GI panel: neg, afebrile, WBC wnl -Diarrhea persists, despite loperamide, sandostatin, cipro/flagyl started on 05/20 by nephrology, and now solumedrol 125mg IV daily -Previously discussed with Dr. Mayorga (GI) who recommended immodium, fluid hydration, supportive care -Cdiff testing ordered 05/21 was negative, admission GI panel was negative -Spoke with Dr. 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 He also noted the recent R hemicolectomy and potential loss of terminal ileum and that she might benefit from some cholestyramine. So I started it at 2g QID. Also discontinuing PRN loperamide to scheduled TID Lomotil. -Spoke with pharmacy about acquiring uridine triacetate 5FU antidote per onc, pharmacy will look into it on Monday. Lactic acidosis, acute 2/2 to dehydration from diarrhea: -Not suspecting sepsis but is immunocompromised with cancer, chemo -BCx NG, UCx contaminated, CXR neg -CO2 wnl s/p bicarb gtt and PRN fluids. Currently on 20meqK/0.45%NaCl -empiric ciprol/flagyl since 05/20 -Nephrology following Hypomagnesemia, acute -Replace PRN Hypophosphatemia -Replace PRN Elevated Bilirubin -Denies abdominal pain -CT abd/pelvis above -AST/ALT and alk phos wnl -Stopped statin -F/u daily CMP Acute hypokalemia likely 2/2 to GI loss, diarrhea -on 20meqKcl in fluids T-wave inversions on EKG -Trop neg x 3 -Pt currently has a loop recorder to evaluate for arrhythmia -Denies chest pain, SOB -Monitor closely Acute on chronic physical deconditioning likely 2/2 to illness above and chronic illness -Fall risk precautions -PT: Patient would benefit from continued rehab at this time, she may progress to baseline quickly. -Optimization of nutrition when diarrhea resolves. Prior CVA with left sided weakness -No new focal deficits -C/w atorvastatin and xarelto HTN -Stable -C/w amlodipine and metoprolol Depression - continue home fluoxetine GERD - continue home protonix DVT prophylaxis: -Xarelto Resolved issues: Acute kidney injury likely 2/2 to prerenal causes, fluid loss from diarrhea DISPOSITION: PT/OT until discharge. Nephrology now consulted and following. Plan is discharge home when diarrhea improves. VS,Fishbone, I+O VS, Fishbone, I+O Laboratory Tests 05/23/20 06:15 Vital Signs Date Time Temp Pulse Resp B/P (MAP) Pulse Ox O2 Delivery O2 Flow Rate FiO2 05/23/20 06:00 98.4 68 18 132/64 (86) 96 Room Air I&O- Last 24 Hours up to 6 AM 05/23/20 06:00 Intake Total 4096.6667 ml Output Total 3025 ml Balance 1071.6667 ml GRIS LUJAN MD May 23, 2020 08:58
[2020-05-23] MEDS: SODIUM CHLORIDE 0.9% INJ 10 ML SYR IV PRN ×2 (11:10→15:48)
[2020-05-23] MEDS: CHOLESTYRAMINE 4 GM PWD PKT PO SCH ×4 (11:10→20:38)
[2020-05-23] MEDS ORDERED: SODIUM PHOSPHATE INJ 20 MMOL in D5W 250 ML IV ONE (13:00)
[2020-05-23 14:00] VITALS: BP 145/65
[2020-05-23 22:00] VITALS: BP 131/65
--- NOTE | 2020-05-23 22:47 | IPN ---
NEPHROLOGY PROGRESS NOTE DATE: 05/23/2020 SUBJECTIVE: Patient was seen and examined at the bedside today morning. She is afebrile. She continues to be on intravenous (IV) fluid hydration. She still had mildly elevated lactic acid level today morning. Patient is still having diarrhea, but reports her stools are more formed now. Her renal function is stable. OBJECTIVE: VITAL SIGNS: Temperature 97.7 degrees Fahrenheit, blood pressure 145/65, pulse 53, respiratory rate 17, saturating 98% on room air. INTAKE AND OUTPUT: Urine output recorded as 1.7 L yesterday, 2.2 L so far today since overnight. So far she has had 7 bowel movements today. Weight in the bed scale is not available. PHYSICAL EXAMINATION: GENERAL: Patient is awake, alert, oriented times three, laying in bed, no apparent distress. HEAD AND NECK EXAM: Extraocular muscles intact. Pupils equally round and reactive to light. Mucous membranes are moist. Neck is supple. No jugular venous distention (JVD). Right chest wall Port-A-Cath is noted. CARDIOVASCULAR: S1, S2. Regular rate. No significant edema of the bilateral lower extremities. RESPIRATORY: Chest is clear to auscultation bilaterally. Bilateral equal air entry. No rales or rhonchi. ABDOMEN: Soft. Positive bowel sounds. Nontender. Palpable mass in the right lower quadrant is noted. MUSCULOSKELETAL: No clubbing or cyanosis. Pulses are 2+. CENTRAL NERVOUS SYSTEM (MANAGER MOBILE): Patient has left hemiparesis because of a previous cerebrovascular accident (CVA). LABORATORY REVIEW: CBC showed a WBC 16.7, hemoglobin 10.7, platelets 305. BMP showed sodium 142, potassium 4.3, chloride 112, bicarbonate 24, BUN 7, creatinine 0.6, glucose 128. Lactic acid is 2.9, phosphorus 2.1, albumin 2.3. CURRENT INPATIENT MEDICATIONS: Patient's medications were all reviewed by myself. She continues to be on IV Cipro and Flagyl. She is also on potassium chloride 20 mEq and half-normal saline at 125 mL/hour. She was given another normal saline bolus 1 liter today morning. Sodium phosphate 20 mmol IV was given today morning. Cholestyramine2 gram by mouth four times a day has been started. Is also on Solu-Medrol 125 mg IV daily and on Sandostatin injections 100 mcg subcutaneous every 8 hours. ASSESSMENT AND PLAN: 1. Diarrhea after 5-Fluorouracil and leucovorin chemotherapy. GI panel was negative. She continues to require loperamide, Sandostatin, Flagyl, Cipro and Solu-Medrol as well. Patient has been started on cholestyramine as well. 2. Lactic acidosis. Patient has persistent lactic acidosis. She continues to be on Cipro and Flagyl. Another bolus of normal saline was given today morning. 3. Hypophosphatemia. 20 mmol IV was ordered today morning. 4. Hypertension. Blood pressure is stable. Amlodipine was stopped. She is currently on metoprolol.
[2020-05-24] MEDS: CIPROFLOXACIN 400 MG in IV 1 EA IV SCH (00:23)
[2020-05-24] MEDS: metroNIDAZOLE 500 MG in IV 1 EA IV SCH (04:20)
[2020-05-24] MEDS: OCTREOTIDE ACETATE 100MCG/ML VIAL (J2354 PER 25MCG) SC SCH ×3 (05:20→22:34)
[2020-05-24] MEDS: ACETAMINOPHEN TAB 650MG DOSE (2X325MG) PO PRN ×2 (05:21→15:24)
[2020-05-24 06:00] VITALS: BP 129/65
[2020-05-24] MEDS ORDERED: NS 1,000 ML IV ONE ×2 (08:00→17:00)
[2020-05-24] MEDS: SODIUM CHLORIDE 0.9% INJ 10 ML SYR IV SCH (09:00)
[2020-05-24] MEDS: KCL 20MEQ IN D5/0.45NS 1000ML 1,000 ML IV SCH ×2 (09:14→16:42)
[2020-05-24 09:27] LABS: HEMATOCRIT 31.9 % (36.0-47.0); HEMOGLOBIN 10.3 g/dl (12.0-15.5); MEAN CORPUSCULAR HEMOGLOBIN 28.6 pg (27.0-33.0); MEAN CORPUSCULAR HGB CONC 32.3 g/dl (32.0-36.5); MEAN CORPUSCULAR VOLUME 88.6 fl (80.0-96.0); PLATELET COUNT, AUTOMATED 297 10^3/uL (150-450); WHITE BLOOD COUNT 17.6 10^3/uL (4.0-10.0)
--- NOTE | 2020-05-24 09:34 | IPNPDOC ---
Text Note Date of Service The patient was seen on 05/24/20. NOTE SUBJECTIVE: -Diarrhea persists, despite sandostatin, cipro/flagyl, IV steroids and now cholestyramine. Spoke with onc and Dr. Smith suggested uridine triacetate and when I called pharmacy I found out that we do not carry it and it is only available from the business systems consultant and will call tomorrow. -In the mean time, she remains asymptomatic without abdominal pain. Overnight lactate was 5 and nursing alerted resident who acknowledged the lactic acidosis but did not foreign exchange position clerk. OBJECTIVE: PHYSICAL EXAMINATION: VITAL SIGNS: see below GENERAL: Alert, comfortable, NAD in bed HEENT: Normocephalic, atraumatic, sclera anicteric, somewhat dry mucous membranes. Left facial droop-chronic NECK: Supple, trachea midline, no lymphadenopathy, no JVD CARDIOVASCULAR: Regular rate and rhythm, normal S1 and S2. No murmurs, rubs, or gallops RESPIRATORY: Clear to auscultation bilaterally with equal air entry bilaterally. No wheezing, rhonchi, or rales. ABDOMEN: Soft, nontender, nondistended, normoactive bowel sounds present EXTREMITIES: No cyanosis or edema. Pulses 2+/4 in bilateral upper and lower extremities SKIN: [place], warm, dry NEUROLOGIC: Alert and oriented x3 to person, place and time. Weakness of the left upper and lower extremity compared to the right, consistent with hx of deficit after CVA. PSYCHIATRIC: Mood and affect appropriate LABORATORY DATA: Reviewed Lactate 5.1 AM labs pending IMAGING: CT abd/pelvis without contrast: 1. Findings related to the small bowel as described above suggest enteritis. No evidence for obstruction based on current exam. Residual colon appears normal. 2. Cholelithiasis. CXR: No focal airspace consolidation. MICROBIOLOGY: Please see below. ASSESSMENT: 80 year old W with PMHx of CVA, HTN, and colon cancer currently undergoing chemotherapy for the past 2 weeks admitted for diarrhea, acute weakness. PLAN: 5FU and leucovorin induced diarrhea -GI panel: neg, afebrile, WBC wnl -Diarrhea persists, despite sandostatin, cipro/flagyl started on 05/20 by nephrology, solumedrol 125mg IV daily, and Lomotil. Will dc abx at this time with no evidence of bacterial infection and potential exacerbation from cipro. Dc'd immodium on 05/23 as it had no effect. -Previously discussed with Dr. Mayorga (GI) who recommended immodium, fluid hydration, supportive care -Cdiff testing ordered 05/21 was negative, admission GI panel was negative -Spoke with Dr. 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 He also noted the recent R hemicolectomy and potential loss of terminal ileum and that she might benefit from some cholestyramine. So I started it at 2g QID on 05/23 and discontinued PRN loperamide to scheduled TID Lomotil on 05/23. -Spoke with pharmacy about acquiring uridine triacetate 5FU antidote per onc,unfortunately it is available only directly from the business systems consultant and I will call them on Thursday 05/25. Lactic acidosis, acute 2/2 to dehydration from diarrhea: -Not suspecting sepsis but is immunocompromised with cancer, chemo -BCx NG, UCx contaminated, CXR neg -CO2 wnl s/p bicarb gtt and PRN fluids. Currently on 20meqK/0.45%NaCl. will give 1L NS now and recheck lactate in 4 hours. -empiric ciprol/flagyl since 05/20 -Nephrology following Hypomagnesemia, acute -Replace PRN Hypophosphatemia -Replace PRN Elevated Bilirubin -Denies abdominal pain -CT abd/pelvis above -AST/ALT and alk phos wnl -Stopped statin -F/u daily CMP Acute hypokalemia likely 2/2 to GI loss, diarrhea -on 20meqKcl in fluids T-wave inversions on EKG -Trop neg x 3 -Pt currently has a loop recorder to evaluate for arrhythmia -Denies chest pain, SOB -Monitor closely Acute on chronic physical deconditioning likely 2/2 to illness above and chronic illness -Fall risk precautions -PT: Patient would benefit from continued rehab at this time, she may progress to baseline quickly. -Optimization of nutrition when diarrhea resolves. Prior CVA with left sided weakness -No new focal deficits -C/w atorvastatin and xarelto HTN -Stable -C/w amlodipine and metoprolol Depression - continue home fluoxetine GERD - continue home protonix DVT prophylaxis: -Xarelto Resolved issues: Acute kidney injury likely 2/2 to prerenal causes, fluid loss from diarrhea DISPOSITION: PT/OT until discharge. Nephrology now consulted and following. Plan is discharge home when diarrhea improves. VS,Fishbone, I+O VS, Fishbone, I+O Vital Signs Date Time Temp Pulse Resp B/P (MAP) Pulse Ox O2 Delivery O2 Flow Rate FiO2 05/24/20 06:00 97.3 58 16 129/65 (86) 95 Room Air I&O- Last 24 Hours up to 6 AM 05/24/20 06:00 Intake Total 1970 ml Output Total 3175 ml Balance -1205 ml GRIS LUJAN MD May 24, 2020 08:15
[2020-05-24] MEDS: CHOLESTYRAMINE 4 GM PWD PKT PO SCH ×4 (09:41→22:34)
[2020-05-24 10:03] LABS: BLOOD UREA NITROGEN 6 MG/DL (7-18); CALCIUM LEVEL 7.3 MG/DL (8.8-10.2); CARBON DIOXIDE LEVEL 25 MEQ/L (21-32); CHLORIDE LEVEL 113 MEQ/L (98-107); CREATININE FOR GFR 0.72 MG/DL (0.55-1.30); GLOMERULAR FILTRATION RATE > 60.0 (>39); GLUCOSE, FASTING 120 MG/DL (70-100); MAGNESIUM LEVEL 1.8 MG/DL (1.8-2.4); PHOSPHORUS LEVEL 1.2 MG/DL (2.5-4.9); POTASSIUM SERUM 4.1 MEQ/L (3.5-5.1); SODIUM LEVEL 143 MEQ/L (136-145)
[2020-05-24] MEDS: FLUoxetine 20 MG CAP PO SCH (10:51)
[2020-05-24] MEDS: PANTOPRAZOLE 40MG TAB (PROTONIX) PO SCH ×2 (10:51→20:26)
[2020-05-24] MEDS: RIVAROXABAN 15 MG TAB (XARELTO) PO SCH (10:51)
[2020-05-24] MEDS: LOMOTIL 2.5MG/0.025MG TABLET PO SCH ×3 (10:51→20:26)
[2020-05-24] MEDS: VITAMIN D 1,000 INTERNATIONAL UNITS TABLET PO SCH (10:51)
[2020-05-24] MEDS: METOPROLOL TART 25 MG TABLET PO SCH ×3 (10:54→20:26)
[2020-05-24] MEDS: BACLOFEN 10 MG TAB PO SCH ×2 (10:55→20:26)
[2020-05-24] MEDS: POLYVINYL ALCOHOL OPHTH SOLN 15 ML(LIQUITEARS) OU SCH ×2 (11:01→20:26)
[2020-05-24] MEDS ORDERED: CALCIUM GLUCONATE 1,000 MG in D5W MINI-BAG PLUS 100 ML IV ONE (12:00)
[2020-05-24 14:00] VITALS: BP 134/66
[2020-05-24] MEDS ORDERED: SODIUM PHOSPHATE INJ 20 MMOL in D5W 250 ML IV ONE (16:00)
--- NOTE | 2020-05-24 18:49 | IPN ---
NEPHROLOGY PROGRESS NOTE DATE: 05/24/2020 SUBJECTIVE: Patient was seen and examined at the bedside today morning. She reports that her diarrhea is getting better now. The frequency of the stools is better; however, she had elevated lactic acid level last night and today morning. She was given normal saline bolus 1 liter in the morning. Renal function is stable. OBJECTIVE: VITAL SIGNS: Temperature 96.9 degrees Fahrenheit, blood pressure 134/66, pulse 51, respiratory rate 16, saturating 98% on room air. INTAKE AND OUTPUT: Urine output recorded as 2.9 liters yesterday, 1.4 liters so far today since overnight. She has had two bowel movements so far today since overnight. PHYSICAL EXAMINATION: GENERAL: Patient is awake, alert, oriented times three, laying in bed, in no apparent distress. HEAD AND NECK EXAM: Extraocular muscles intact. Pupils equally round and reactive to light. Mucous membranes are moist. Neck is supple. She has a right side anterior chest wall Port-A-Cath. CARDIOVASCULAR: S1, S2. Regular rate. No edema of the bilateral lower extremities. RESPIRATORY: Chest is clear to auscultation bilaterally. Bilateral equal air entry. No rales or rhonchi. ABDOMEN: Soft. Positive bowel sounds. Nontender. MUSCULOSKELETAL: No clubbing or cyanosis. Pulses are 2+. CENTRAL NERVOUS SYSTEM (FORESTRY PROFESSOR): Patient has left hemiparesis. LABORATORY REVIEW: CBC showed a WBC 17.6, hemoglobin 10.3, platelets 297. BMP showed sodium 143, potassium 4.1, chloride 113, bicarbonate 25, BUN 6, creatinine 0.7. Lactic acid was 2.2 in the morning. CURRENT INPATIENT MEDICATIONS: Patient's medications were all reviewed by myself. She was given one dose of calcium gluconate intravenous (IV) today morning. She was given 1 liter normal saline bolus in the morning. She continues to be on potassium chloride 20 mEq and D5 half-normal saline at 125 mL/hour. She also received sodium phosphate 20 mmol today morning. IV Solu-Medrol has been stopped. Cipro and Flagyl has also been stopped today. ASSESSMENT AND PLAN: 1. Persistent diarrhea associated with 5-FU and leucovorin. Patient was on Cipro and Flagyl. She has finished five days of antibiotic. She is on Sandostatin. Solu-Medrol was given. She is on Lomotil. She is getting cholestyramine. The rest of the management is as per GI recommendations and hematology/oncology. 2. Dehydration and lactic acidosis secondary to diarrhea. Patient got one more liter of normal saline bolus. Empiric antibiotics have been stopped. 3. Hypomagnesemia. Patient was given IV magnesium sulfate. Magnesium level is stable. 4. Hypophosphatemia. 20 mmol of IV phosphate was given. 5. Leukocytosis. It is most likely secondary to use of Solu-Medrol. Solu-Medrol has been stopped now.
[2020-05-24 22:00] VITALS: BP 160/74
[2020-05-25] MEDS: KCL 20MEQ IN D5/0.45NS 1000ML 1,000 ML IV SCH ×2 (00:39→08:44)
[2020-05-25 06:00] VITALS: BP 156/72
[2020-05-25 06:07] LABS: HEMATOCRIT 35.8 % (36.0-47.0); HEMOGLOBIN 11.2 g/dl (12.0-15.5); MEAN CORPUSCULAR HGB CONC 31.3 g/dl (32.0-36.5); MEAN CORPUSCULAR VOLUME 89.5 fl (80.0-96.0); PLATELET COUNT, AUTOMATED 309 10^3/uL (150-450); WHITE BLOOD COUNT 19.2 10^3/uL (4.0-10.0)
[2020-05-25] MEDS: OCTREOTIDE ACETATE 100MCG/ML VIAL (J2354 PER 25MCG) SC SCH ×3 (06:08→23:27)
[2020-05-25 06:18] LABS: BLOOD UREA NITROGEN 7 MG/DL (7-18); CARBON DIOXIDE LEVEL 24 MEQ/L (21-32); CHLORIDE LEVEL 117 MEQ/L (98-107); CREATININE FOR GFR 0.81 MG/DL (0.55-1.30); GLOMERULAR FILTRATION RATE > 60.0 (>39); GLUCOSE, FASTING 127 MG/DL (70-100); MAGNESIUM LEVEL 1.7 MG/DL (1.8-2.4); PHOSPHORUS LEVEL 1.8 MG/DL (2.5-4.9); POTASSIUM SERUM 4.2 MEQ/L (3.5-5.1); SODIUM LEVEL 145 MEQ/L (136-145)
[2020-05-25] MEDS: METOPROLOL TART 25 MG TABLET PO SCH ×2 (09:00→23:28)
[2020-05-25] MEDS ORDERED: CALCIUM GLUCONATE 1,000 MG in D5W MINI-BAG PLUS 100 ML IV ONE (09:00)
[2020-05-25] MEDS: VITAMIN D 1,000 INTERNATIONAL UNITS TABLET PO SCH (09:22)
[2020-05-25] MEDS: PANTOPRAZOLE 40MG TAB (PROTONIX) PO SCH ×2 (09:22→23:27)
[2020-05-25] MEDS: D5W/0.45% SODIUM CHLORIDE 1,000 ML IV SCH ×3 (09:22→23:25)
[2020-05-25] MEDS: FLUoxetine 20 MG CAP PO SCH (09:22)
[2020-05-25] MEDS: BACLOFEN 10 MG TAB PO SCH ×2 (09:22→23:27)
[2020-05-25] MEDS: RIVAROXABAN 15 MG TAB (XARELTO) PO SCH (09:22)
[2020-05-25] MEDS: SODIUM CHLORIDE 0.9% INJ 10 ML SYR IV SCH (09:23)
[2020-05-25] MEDS: POLYVINYL ALCOHOL OPHTH SOLN 15 ML(LIQUITEARS) OU SCH ×2 (09:23→23:27)
[2020-05-25] MEDS: LOMOTIL 2.5MG/0.025MG TABLET PO SCH ×3 (09:32→23:27)
--- NOTE | 2020-05-25 09:34 | IPN ---
NEPHROLOGY PROGRESS NOTE DATE: 05/22/2020 SUBJECTIVE: Patient was seen and examined at the bedside today morning. She is afebrile, however, she continues to have loose bowel movements. She had nine bowel movements yesterday and one by the time I saw her in the morning. She had an elevated lactic acid level with a lactate of 3. She continues to be on I.V. fluid hydration. Her renal function is stable. OBJECTIVE: VITAL SIGNS: Temperature 97.4 degrees Fahrenheit, blood pressure 106/58, pulse 66, respiratory rate 19, saturating 99% on room air. INTAKE AND OUTPUT: Urine output recorded as 1325 mL. Weight in the bed scale is not available. PHYSICAL EXAMINATION: GENERAL: Patient is awake, alert, oriented x3, lying in bed in no apparent distress. HEAD/NECK: Extraocular muscles intact. Pupils equally round and reactive to light. Mucous membranes are moist. Neck is supple. There is no JVD. CARDIOVASCULAR: S1, S2, regular rate. No edema of the bilateral lower extremities. RESPIRATORY: Chest is clear to auscultation bilaterally. Bilateral equal air entry. No rales or rhonchi. ABDOMEN: Soft, positive bowel sounds, nontender. No organomegaly. MUSCULOSKELETAL: No cyanosis or clubbing. Pulses are 2+. COOLING MACHINE OPERATOR: Patient has weakness of the left arm. LABORATORY REVIEW: CBC showed WBC 10.4, hemoglobin 11.1, platelets 226,000. BMP showed sodium 139, potassium 4.7, chloride 109, bicarb 25, BUN 6, creatinine 0.6. Lactic acid 3 in the morning and 4.1 in the afternoon. Calcium 7.9. Phosphorus 2.4. CURRENT INPATIENT MEDICATIONS: Patient's medications were all reviewed by myself. She was given 1 liter of normal saline bolus in the morning and another liter at noon time. She continues to be on Cipro and Flagyl. She continues to be on KCl 20 mEq and D5 half normal saline at 125 cc an hour. She was also given a dose of sodium phosphate 20 mmol I.V. times one dose. She is also getting Solu-Medrol 125 mg I.V. daily. No other significant change in the medications today as compared with yesterday. ASSESSMENT AND PLAN: 1. Diarrhea associated with 5FU and Leucovorin use: Patient continues to have loose stools. She is currently on Cipro, Flagyl, I.V. fluids, Sandostatin injections and Imodium tablets. Continue aggressive I.V. fluid hydration. 2. Lactic acidosis secondary to diarrhea and dehydration: Patient was given 2 liters of normal saline boluses, continue I.V. fluid hydration as well. Continue daily lactic acid level check. 3. Hypophosphatemia: Patient was given I.V. sodium phosphate in the morning. 4. Hypertension: Control Metoprolol, Amlodipine has been stopped.
[2020-05-25] MEDS ORDERED: MAG SULF 1GM/100ML (MAG RUN) 1 GM in IV 1 EA IV ONE (10:00)
--- NOTE | 2020-05-25 10:29 | IPNPDOC ---
Text Note Date of Service The patient was seen on 05/25/20. NOTE SUBJECTIVE: -Diarrhea persists, despite sandostatin, IV steroids, cholestyramine. Spoke with onc over the weekend and Dr. Smith suggested uridine triacetate and when I called pharmacy I found out that we do not carry it and it is only available from the chucking machine set up operator tool and will call this morning. -In the mean time, she remains asymptomatic without abdominal pain. OBJECTIVE: VITAL SIGNS: see below GENERAL: Alert, comfortable, NAD in bed HEENT: Normocephalic, atraumatic, sclera anicteric, somewhat dry mucous membranes. Left facial droop-chronic NECK: Supple, trachea midline, no lymphadenopathy, no JVD CARDIOVASCULAR: Regular rate and rhythm, normal S1 and S2. No murmurs, rubs, or gallops RESPIRATORY: Clear to auscultation bilaterally with equal air entry bilaterally. No wheezing, rhonchi, or rales. ABDOMEN: Soft, nontender, nondistended, normoactive bowel sounds present EXTREMITIES: No cyanosis or edema. Pulses 2+/4 in bilateral upper and lower extremities SKIN: [place], warm, dry NEUROLOGIC: Alert and oriented x3 to person, place and time. Weakness of the le ft upper and lower extremity compared to the right, consistent with hx of deficit after CVA. PSYCHIATRIC: Mood and affect appropriate LABORATORY DATA: Reviewed IMAGING: CT abd/pelvis without contrast: 1. Findings related to the small bowel as described above suggest enteritis. No evidence for obstruction based on current exam. Residual colon appears normal. 2. Cholelithiasis. CXR: No focal airspace consolidation. MICROBIOLOGY: Please see below. ASSESSMENT: 80 year old W with PMHx of CVA, HTN, and colon cancer currently undergoing chemotherapy for the past 2 weeks admitted for diarrhea, acute weakness. PLAN: 5FU and leucovorin induced diarrhea -GI panel: neg, afebrile, WBC wnl -Diarrhea persists, despite sandostatin, solumedrol 125mg IV daily, Lomotil and cholestyramine. Dc'd abx on 05/25 with no evidence of bacterial infection and potential exacerbation from cipro. Dc'd immodium on 05/23 as it had no effect. -Previously discussed with Dr. Mayorga (GI) who recommended immodium, fluid hydration, supportive care -Cdiff testing ordered 05/21 was negative, admission GI panel was negative -Spoke with Dr. Clayton who is concerned that she might have DPD deficiency that makes 5FU mediated diarrhea severe. He also noted the recent R hemicolectomy and potential loss of terminal ileum and that she might benefit from some cholestyramine. So I started it at 2g QID on 05/23 and discontinued PRN loperamide to scheduled TID Lomotil on 05/23. -Spoke with pharmacy about acquiring uridine triacetate 5FU antidote per onc,unfortunately it is available only directly from the chucking machine set up operator tool and I will call them today Lactic acidosis, acute 2/2 to dehydration from diarrhea: -Not suspecting sepsis but is immunocompromised with cancer, chemo -BCx NG, UCx contaminated, CXR neg -CO2 wnl s/p bicarb gtt and PRN fluids. Currently on 20meqK/0.45%NaCl. will give 1L NS now and recheck lactate in 4 hours. -empiric ciprol/flagyl since 05/20 -Nephrology following Hypomagnesemia, acute -Replace PRN Hypophosphatemia -Replace PRN Elevated Bilirubin -Denies abdominal pain -CT abd/pelvis above -AST/ALT and alk phos wnl -Stopped statin -F/u daily CMP Acute hypokalemia likely 2/2 to GI loss, diarrhea -on 20meqKcl in fluids T-wave inversions on EKG -Trop neg x 3 -Pt currently has a loop recorder to evaluate for arrhythmia -Denies chest pain, SOB -Monitor closely Acute on chronic physical deconditioning likely 2/2 to illness above and chronic illness -Fall risk precautions -PT: Patient would benefit from continued rehab at this time, she may progress to baseline quickly. -Optimization of nutrition when diarrhea resolves. Prior CVA with left sided weakness -No new focal deficits -C/w atorvastatin and xarelto HTN -Stable -C/w amlodipine and metoprolol Depression - continue home fluoxetine GERD - continue home protonix DVT prophylaxis: -Xarelto Resolved issues: Acute kidney injury likely 2/2 to prerenal causes, fluid loss from diarrhea DISPOSITION: PT/OT until discharge. Nephrology now consulted and following. Plan is discharge home when diarrhea improves. VS,Fishbone, I+O VS, Fishbone, I+O Laboratory Tests 05/25/20 05:48 Vital Signs Date Time Temp Pulse Resp B/P (MAP) Pulse Ox O2 Delivery O2 Flow Rate FiO2 05/25/20 06:00 98.9 49 18 156/72 (100) 98 Room Air I&O- Last 24 Hours up to 6 AM 05/25/20 06:00 Intake Total 6065 ml Output Total 1900 ml Balance 4165 ml GRIS LUJAN MD May 25, 2020 08:45
[2020-05-25] MEDS: CHOLESTYRAMINE 4 GM PWD PKT PO SCH ×3 (10:56→18:56)
[2020-05-25] MEDS ORDERED: SODIUM PHOSPHATE INJ 20 MMOL in D5W 250 ML IV ONE (11:00)
[2020-05-25 14:00] VITALS: BP 130/75
--- NOTE | 2020-05-25 17:35 | IPN ---
NEPHROLOGY PROGRESS NOTE DATE: 05/25/2020 SUBJECTIVE: Laura is seen and examined this morning at the bedside. She reports she feels much better; states her diarrhea is lessening. She had six bowel movements yesterday and ten bowel movements the day before that and today thus far she has had two bowel movements. OBJECTIVE: VITAL SIGNS: Temperature 98.1, pulse 63, respiratory rate 20, blood pressure 130/75, saturating 94% on room air. INTAKE AND OUTPUT: Intake yesterday was 5.3 liters. Urine output was 1.9 liters. There were 6 bowel movements yesterday. Weight in the bed scale today is not recorded. PHYSICAL EXAMINATION: GENERAL APPEARANCE: The patient is seen lying in bed, elderly female, appears comfortably and in no distress, oriented x3, awake, alert, interactive. HEENT: The extraocular muscles are intact. Pupils are equal, round and reactive to light. Mucous membranes are moist. NECK: Supple. The jugular veins are not distended. HEART: Regular. S1, S2. There is no leg edema and no dependent edema. LUNGS: Clear to auscultation bilaterally. No rales or rhonchi. ABDOMEN: Soft and nontender. There are bowel sounds. EXTREMITIES: No cyanosis or edema. SKIN: Warm and dry. NEUROLOGIC: Oriented x3, interactive and conversational. There is weakness of the left extremities as compared to the right. LABORATORY STUDIES: Today's laboratory studies show a sodium of 145, potassium 4.2, chloride 117, BUN 7, creatinine 0.8, calcium 7.0, magnesium 1.7, phosphorous 1.8, white count 19.2, hemoglobin 11.2. CURRENT INPATIENT MEDICATIONS: I discontinued her present fluids and I switched her over to D5 half normal saline at 100 mL an hour. She received one gram of IV calcium gluconate and one gram of IV magnesium sulfate, and she also received 20 millimoles of IV sodium phosphate today. Her remainder medications are unchanged as compared to yesterday. Notably, she continues on Lomotil, Cholestyramine and Octreotide subcutaneously. PROBLEMS: 1. Multiple electrolyte abnormalities in the setting of 5-FU and Leucovorin induced diarrhea. I have discontinued the patient's present IV fluid and switched her over to D5 half normal saline to run at 100 mL an hour. Her sodium levels are slowly drifting up and up to 145 today, and if her sodium rises any further, I would switch her to d5w. In term of electrolytes; She received IV magnesium. Her corrected calcium is likely in normal range when adjusted for albumin, and overall her phosphorous is improving, and she received another dose of sodium phosphate today. Hold off on further sodium-phos as it may cause hypernatremia (Na = 145 today prior to sodium-phos infusion). 2. Lactic acidosis secondary to diarrhea - Lactic is only mildly elevated now. Normal bicarbonate on the labs today. No need for bicarbonate containing fluids at this time. Her blood pressures are likewise stable without hypotension. Continue with D5 half normal saline at 100 mL an hour. 3. Diarrhea associated with 5-FU and Leucovorin use - The patient continues on Lomotil, Sandostatin, Cholestyramine, IV fluids and Primary Team is in discussion with Hematology for any further treatment that can be done. Her number of bowel movements is decreasing over the past 3 days. Symptomatically she seems to be improving. She is no longer on IV steroids nor antibiotics. Her white count is still rising but there are no signs of infection with negative GI panel, blood cultures and urine culture. MTDD
[2020-05-25 22:00] VITALS: BP 144/73
[2020-05-26] MEDS: CHOLESTYRAMINE 4 GM PWD PKT PO SCH ×4 (00:37→17:59)
[2020-05-26 06:00] VITALS: BP 140/66
[2020-05-26] MEDS: OCTREOTIDE ACETATE 100MCG/ML VIAL (J2354 PER 25MCG) SC SCH ×3 (06:35→22:49)
[2020-05-26 06:49] LABS: HEMATOCRIT 33.7 % (36.0-47.0); HEMOGLOBIN 10.8 g/dl (12.0-15.5); MEAN CORPUSCULAR VOLUME 90.3 fl (80.0-96.0); PLATELET COUNT, AUTOMATED 271 10^3/uL (150-450); RED BLOOD COUNT 3.73 10^6/uL (4.00-5.40); WHITE BLOOD COUNT 18.7 10^3/uL (4.0-10.0)
[2020-05-26 08:54] LABS: BLOOD UREA NITROGEN 6 MG/DL (7-18); CALCIUM LEVEL 7.5 MG/DL (8.8-10.2); CARBON DIOXIDE LEVEL 24 MEQ/L (21-32); CHLORIDE LEVEL 113 MEQ/L (98-107); CREATININE FOR GFR 0.81 MG/DL (0.55-1.30); GLOMERULAR FILTRATION RATE > 60.0 (>39); GLUCOSE, FASTING 122 MG/DL (70-100); MAGNESIUM LEVEL 2.1 MG/DL (1.8-2.4); PHOSPHORUS LEVEL 2.5 MG/DL (2.5-4.9); POTASSIUM SERUM 4.1 MEQ/L (3.5-5.1); SODIUM LEVEL 144 MEQ/L (136-145)
[2020-05-26] MEDS: SODIUM CHLORIDE 0.9% INJ 10 ML SYR IV SCH (09:00)
[2020-05-26] MEDS: POLYVINYL ALCOHOL OPHTH SOLN 15 ML(LIQUITEARS) OU SCH ×2 (09:35→22:51)
[2020-05-26] MEDS: BACLOFEN 10 MG TAB PO SCH ×2 (09:35→22:50)
[2020-05-26] MEDS: FLUoxetine 20 MG CAP PO SCH (09:35)
[2020-05-26] MEDS: RIVAROXABAN 15 MG TAB (XARELTO) PO SCH (09:35)
[2020-05-26] MEDS: VITAMIN D 1,000 INTERNATIONAL UNITS TABLET PO SCH (09:35)
[2020-05-26] MEDS: LOMOTIL 2.5MG/0.025MG TABLET PO SCH ×3 (09:35→22:49)
[2020-05-26] MEDS: PANTOPRAZOLE 40MG TAB (PROTONIX) PO SCH ×2 (09:35→22:50)
[2020-05-26] MEDS: METOPROLOL TART 25 MG TABLET PO SCH ×2 (09:36→22:50)
[2020-05-26] MEDS: D5W/0.45% SODIUM CHLORIDE 1,000 ML IV SCH ×2 (09:36→18:01)
[2020-05-26 14:00] VITALS: BP 119/66
--- NOTE | 2020-05-26 16:15 | IPN ---
PROGRESS NOTE DATE: 05/26/2020 SUBJECTIVE: Laura is seen and examined this morning at the bedside. She continues to have ongoing watery diarrhea with six bowel movements recorded yesterday. She continues on hypotonic intravenous (IV) fluids. She denies any abdominal cramping or pain. She denies any shortness of breath. VITAL SIGNS: Temperature 98.6, pulse 63, respiratory rate 18, blood pressure 119/66, saturating 95%-97% on room air. Intake yesterday was 2.8 liters. Urine output was 1.4 liters. There were six bowel movements. Weight in the bed scale today is not recorded. GENERAL: Patient is seen lying in bed, elderly female, awake, alert, oriented times three, comfortable in no apparent distress, interactive and conversational. Extraocular muscles are intact. Pupils are equal, round, and reactive to light. Her mucous membranes are moist. Her neck is supple. The jugular veins are not elevated. HEART: Sounds are regular. There is a port in the right chest wall. S1, S2. There is no leg edema. There is no dependent edema. LUNGS: Clear to auscultation bilaterally. She is seen comfortable on room air. No crackles or rhonchi. ABDOMEN: Soft and nontender to palpation. There are bowel sounds. EXTREMITIES: Negative for clubbing or cyanosis. SKIN: Warm and dry. NEUROLOGIC: Oriented times three. At baseline mentation. LABORATORY STUDIES: Show white count 18.7, hemoglobin 10.8, platelets 271. Sodium 144, potassium 4.1, bicarbonate 24, creatinine 0.8, phosphorus 2.5, calcium 7.5, magnesium 2.1. INPATIENT MEDICATIONS: Reviewed by myself. She continues on D5 half-normal saline at 100 mL an hour. I am cutting the rate down to 70 mL an hour. Her remainder of medications is all unchanged as compared to yesterday. PROBLEMS: 1. 5-FU and leucovorin-induced diarrhea. Patient continues to have persistent diarrhea despite having received IV steroids previously, and presently she is on Lomotil, Sandostatin, cholestyramine. Her gastrointestinal (GI) panel and infectious workup were negative. She continues on hypotonic fluids at this time, and I have cut the rate of D5 half-normal saline down to 70 mL an hour. There are no signs of acidosis on her latest labs, and indeed her electrolyte imbalances have improved as compared to prior days. 2. Hypertension. Blood pressures are acceptably controlled, and she is on metoprolol twice daily. 3. Electrolyte imbalance. Patient's sodium, potassium, corrected calcium, magnesium, phosphorus, and blood glucose are all acceptable today. Continue D5 half-normal saline at 70 mL an hour.
--- NOTE | 2020-05-26 16:25 | IPNPDOC ---
Subjective Date Seen The patient was seen on 05/26/20. Subjective Chief Complaint/HPI Mrs. Oquendo is a 80 year old female with colon cancer on 5FU and leucovorin here with JAN 2/2 persistent diarrhea. Yesterday, she had [address] Lr had reached out to try to obtain Vistogard (uridine triacetate) for the patient. Unable to obtain since it has been more than 48 hours after the 5FU. Otherwise, this morning, denies chest pain or dyspnea. Had 6 episodes of diarrhea yesterday. Objective Physical Examination General Exam: Positive: Alert, Cooperative Eye Exam: Positive: EOMI; Negative: Sclera icteric Neck Exam: Positive: Supple Chest Exam: Positive: Clear to auscultation Heart Exam: Positive: Rate Normal, Regular Rhythm Abdomen Exam: Positive: Normal bowel sounds, Soft; Negative: Tenderness Extremity Exam: Negative: Edema Neuro Exam: Positive: Normal Speech Psych Exam: Positive: Mental status NL, Mood NL Assessment /Plan Assessment Mrs. Oquendo is a 80 year old female with colon cancer on 5FU and leucovorin here with JAN 2/2 persistent diarrhea. JAN has resolved, but still has frequent diarrhea. GI panel negative. GI recommending Imodium, hydration, and supportive care. Oncology recommended cholestyramine. Pending improvement in diarrhea Plan/VTE VTE Prophylaxis Ordered?: Yes Plan 1. JAN 2/2 diarrhea -Nephrology following, recommendations appreciated -Renal function back at baseline 2. 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 Hypertension -BP stable -Continue Lopressor 5. Depression -Continue fluoxetine 6. GERD -Continue protonix 7. DVT ppx -Xarelto Disposition: Pending improvement in diarrhea frequency VS, I&O, 24H, Fishbone Vital Signs/I&O Vital Signs Date Time Temp Pulse Resp B/P (MAP) Pulse Ox O2 Delivery O2 Flow Rate FiO2 05/26/20 14:00 98.6 63 18 119/66 (83) 95 Room Air I&O- Last 24 Hours up to 6 AM 05/26/20 06:00 Intake Total 1980 ml Output Total 1400 ml Balance 580 ml Laboratory Data 24H LABS Laboratory Tests 2 05/26/20 06:41: Nucleated Red Blood Cells % (auto) 0.5H 05/26/20 07:56: Anion Gap 7L, Glomerular Filtration Rate > 60.0, Calcium Level 7.5L, Phosphorus Level 2.5#, Magnesium Level 2.1 CBC/BMP Laboratory Tests 05/26/20 06:41 05/26/20 07:56 Microbiology Microbiology 05/17/20 Urine Culture - Final, Complete 05/16/20 Blood Culture - Final, Complete NO GROWTH AFTER 5 DAYS 05/16/20 Blood Culture - Final, Complete NO GROWTH AFTER 5 DAYS 05/16/20 Gastrointestinal Tract Panel (PCR) - Final, Complete LUIS ALBERTO CADET 23, 2021 16:25
[2020-05-26 22:00] VITALS: BP 110/53
[2020-05-27] MEDS: CHOLESTYRAMINE 4 GM PWD PKT PO SCH ×6 (00:06→19:33)
[2020-05-27 06:00] VITALS: BP 118/61
[2020-05-27] MEDS: OCTREOTIDE ACETATE 100MCG/ML VIAL (J2354 PER 25MCG) SC SCH ×3 (06:10→21:07)
[2020-05-27 06:29] LABS: HEMATOCRIT 32.4 % (36.0-47.0); HEMOGLOBIN 10.4 g/dl (12.0-15.5); MEAN CORPUSCULAR HGB CONC 32.1 g/dl (32.0-36.5); MEAN CORPUSCULAR VOLUME 90.3 fl (80.0-96.0); PLATELET COUNT, AUTOMATED 254 10^3/uL (150-450); RED BLOOD COUNT 3.59 10^6/uL (4.00-5.40); WHITE BLOOD COUNT 14.8 10^3/uL (4.0-10.0)
[2020-05-27 06:45] LABS: BLOOD UREA NITROGEN 6 MG/DL (7-18); CALCIUM LEVEL 7.6 MG/DL (8.8-10.2); CARBON DIOXIDE LEVEL 26 MEQ/L (21-32); CHLORIDE LEVEL 111 MEQ/L (98-107); CREATININE FOR GFR 0.81 MG/DL (0.55-1.30); GLOMERULAR FILTRATION RATE > 60.0 (>39); GLUCOSE, FASTING 97 MG/DL (70-100); PHOSPHORUS LEVEL 2.4 MG/DL (2.5-4.9); POTASSIUM SERUM 4.1 MEQ/L (3.5-5.1); SODIUM LEVEL 144 MEQ/L (136-145)
[2020-05-27] MEDS: D5W/0.45% SODIUM CHLORIDE 1,000 ML IV SCH (08:05)
[2020-05-27] MEDS: SODIUM CHLORIDE 0.9% INJ 10 ML SYR IV SCH (09:00)
[2020-05-27] MEDS: FLUoxetine 20 MG CAP PO SCH (10:01)
[2020-05-27] MEDS: RIVAROXABAN 15 MG TAB (XARELTO) PO SCH (10:01)
[2020-05-27] MEDS: BACLOFEN 10 MG TAB PO SCH ×2 (10:01→21:07)
[2020-05-27] MEDS: POLYVINYL ALCOHOL OPHTH SOLN 15 ML(LIQUITEARS) OU SCH ×2 (10:01→21:06)
[2020-05-27] MEDS: PANTOPRAZOLE 40MG TAB (PROTONIX) PO SCH ×2 (10:02→21:07)
[2020-05-27] MEDS: LOMOTIL 2.5MG/0.025MG TABLET PO SCH ×3 (10:02→21:07)
[2020-05-27] MEDS: VITAMIN D 1,000 INTERNATIONAL UNITS TABLET PO SCH (10:02)
[2020-05-27] MEDS: METOPROLOL TART 25 MG TABLET PO SCH ×2 (10:05→21:00)
--- NOTE | 2020-05-27 10:41 | IPNPDOC ---
Subjective Date Seen The patient was seen on 05/27/20. Subjective Chief Complaint/HPI Mrs. Oquendo is a 80 year old female with colon cancer on 5FU and leucovorin here with JAN 2/2 persistent diarrhea. Yesterday, she had 5 episodes of diarrhea. This morning, she denies any chest pain, dyspnea, or abdominal pain. Objective Physical Examination General Exam: Positive: Alert, Cooperative Eye Exam: Positive: EOMI; Negative: Sclera icteric Neck Exam: Positive: Supple Chest Exam: Positive: Wheezing (expiratory wheeze, but otherwise clear. Denies dyspnea) Heart Exam: Positive: Rate Normal, Regular Rhythm Abdomen Exam: Positive: Normal bowel sounds, Soft; Negative: Tenderness Extremity Exam: Negative: Edema Neuro Exam: Positive: Normal Speech Psych Exam: Positive: Mental status NL, Mood NL Assessment /Plan Assessment Mrs. Oquendo is a 80 year old female with colon cancer on 5FU and leucovorin here with JAN 2/2 persistent diarrhea. JAN has resolved, but still has frequent diarrhea. GI panel negative. GI recommending Imodium, hydration, and supportive care. Oncology recommended cholestyramine. Pending improvement in diarrhea, ideally down to 3. Plan/VTE VTE Prophylaxis Ordered?: Yes Plan 1. JAN 2/2 diarrhea -Nephrology following, recommendations appreciated -Renal function back at baseline 2. 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 Hypertension -BP stable -Continue Lopressor 5. Depression -Continue fluoxetine 6. GERD -Continue protonix 7. DVT ppx -Xarelto Disposition: Pending improvement in diarrhea frequency VS, I&O, 24H, [facility] Vital Signs/I&O Vital Signs Date Time Temp Pulse Resp B/P (MAP) Pulse Ox O2 Delivery O2 Flow Rate FiO2 05/27/20 10:05 66 05/27/20 06:00 97.2 18 118/61 (80) 99 Room Air I&O- Last 24 Hours up to 6 AM 05/27/20 06:00 Intake Total 1780 ml Output Total 350 ml Balance 1430 ml Laboratory Data 24H LABS Laboratory Tests 2 05/27/20 06:00: Nucleated Red Blood Cells % (auto) 0.3H, Anion Gap 7L, Glomerular Filtration Rate > 60.0, Calcium Level 7.6L, Phosphorus Level 2.4L, Magnesium Level 2.0 CBC/BMP Laboratory Tests 05/27/20 06:00 Microbiology Microbiology 05/17/20 Urine Culture - Final, Complete LUIS ALBERTO CADET DO May 27, 2020 10:41
--- NOTE | 2020-05-27 11:47 | IPN ---
PROGRESS NOTE DATE: 05/27/2020 SUBJECTIVE: The patient is seen and examined this morning sitting out of bed to the chair. She reports that her diarrhea is improving and the stools are now formed and pasty. OBJECTIVE: VITAL SIGNS: Temperature 97.2, pulse 64, respiratory rate 18, blood pressure 118/61, saturating 99% on room air. INTAKE AND OUTPUT: Intake yesterday was 1630, urine output was 1150. There were five bowel movements recorded yesterday. GENERAL APPEARANCE: The patient is seen sitting out of bed to the chair awake, alert, oriented, comfortable, and in no distress. HEENT: Extraocular muscles are intact. Tongue is moist. Pupils are round and reactive to light. Jugular veins are not elevated. HEART: Sounds are regular. S1, S2. There is a port in the right chest wall. EXTREMITIES: There is no leg edema. There is no dependent edema. LUNGS: Clear to auscultation. She is comfortable on room air. No crackle, rale, or rhonchi. ABDOMEN: Soft and nontender. There are bowel sounds. EXTREMITIES: Negative for clubbing, cyanosis, or edema. SKIN: Warm and dry. NEUROLOGIC: Oriented x3 at baseline mentation. LABORATORY DATA: White count is 14.8, hemoglobin 10.4. Sodium 144, potassium 4.1, bicarbonate 26, magnesium 2.0, phosphorus 2.4. INPATIENT MEDICATIONS: I reduced the rate of D5 half NS down to 30 mL/hour. Remainder of medications are unchanged as compared to yesterday. PROBLEMS: 1. 5FU and leucovorin-induced diarrhea. The patient reports bowel movements are now formed to pasty and no longer liquid and watery. I am cutting down the rate of D5 half NS down to 30 mL/hour. She otherwise continues on Lomotil, cholestyramine, and octreotide managed by the primary service. 2. Hypophosphatemia. It is mild; there is no need for phosphorus supplementation. She is encouraged for dietary intake. 3. Hypertension well-controlled with Lopressor.
[2020-05-27 14:00] VITALS: BP 107/61
[2020-05-27 21:00] VITALS: BP 138/72
[2020-05-27 22:00] VITALS: BP 125/62
[2020-05-28] MEDS: OCTREOTIDE ACETATE 100MCG/ML VIAL (J2354 PER 25MCG) SC SCH ×2 (05:06→15:03)
[2020-05-28] MEDS: SODIUM CHLORIDE 0.9% INJ 10 ML SYR IV PRN (05:07)
[2020-05-28 06:00] VITALS: BP 123/64
[2020-05-28 06:36] LABS: HEMATOCRIT 32.7 % (36.0-47.0); HEMOGLOBIN 10.3 g/dl (12.0-15.5); MEAN CORPUSCULAR HEMOGLOBIN 28.6 pg (27.0-33.0); MEAN CORPUSCULAR HGB CONC 31.5 g/dl (32.0-36.5); MEAN CORPUSCULAR VOLUME 90.8 fl (80.0-96.0); PLATELET COUNT, AUTOMATED 246 10^3/uL (150-450)
[2020-05-28 06:46] LABS: BLOOD UREA NITROGEN 8 MG/DL (7-18); CALCIUM LEVEL 7.9 MG/DL (8.8-10.2); CARBON DIOXIDE LEVEL 29 MEQ/L (21-32); CHLORIDE LEVEL 110 MEQ/L (98-107); CREATININE FOR GFR 0.83 MG/DL (0.55-1.30); GLOMERULAR FILTRATION RATE > 60.0 (>39); GLUCOSE, FASTING 90 MG/DL (70-100); MAGNESIUM LEVEL 2.2 MG/DL (1.8-2.4); POTASSIUM SERUM 4.3 MEQ/L (3.5-5.1); SODIUM LEVEL 145 MEQ/L (136-145)
[2020-05-28] MEDS: METOPROLOL TART 25 MG TABLET PO SCH (09:00)
[2020-05-28] MEDS: SODIUM CHLORIDE 0.9% INJ 10 ML SYR IV SCH (09:00)
[2020-05-28] MEDS: BACLOFEN 10 MG TAB PO SCH (09:02)
[2020-05-28] MEDS: LOMOTIL 2.5MG/0.025MG TABLET PO SCH (09:02)
[2020-05-28] MEDS: RIVAROXABAN 15 MG TAB (XARELTO) PO SCH (09:02)
[2020-05-28] MEDS: FLUoxetine 20 MG CAP PO SCH (09:02)
[2020-05-28] MEDS: VITAMIN D 1,000 INTERNATIONAL UNITS TABLET PO SCH (09:02)
[2020-05-28] MEDS: POLYVINYL ALCOHOL OPHTH SOLN 15 ML(LIQUITEARS) OU SCH (09:02)
[2020-05-28] MEDS: PANTOPRAZOLE 40MG TAB (PROTONIX) PO SCH (09:02)
[2020-05-28] MEDS: CHOLESTYRAMINE 4 GM PWD PKT PO SCH ×2 (09:03→12:00)
[2020-05-28] MEDS ORDERED: LOPE2TAB12 PO (10:09)
[2020-05-28 14:00] VITALS: BP 100/64
--- NOTE | 2020-05-28 23:30 | DS.PDOC ---
Discharge Summary General Date of Admission May 15, 2020 at 23:53 Date of Discharge May 28, 2020 Specialist/Consultants [facility], Dr. Adams and Dr. Hartley Discharge Summary PROCEDURES PERFORMED DURING STAY: None ADMITTING DIAGNOSES: 1. Acute kidney injury secondary to diarrhea 2. Diarrhea secondary to chemotherapy 3. History of CVA with residual weakness 4. Hypertension 5. Depression 6. GERD DISCHARGE DIAGNOSES: 1. Acute kidney injury secondary to diarrhea 2. Diarrhea secondary to chemotherapy 3. History of CVA with residual weakness 4. Hypertension 5. Depression 6. GERD COMPLICATIONS/CHIEF COMPLAINT: Nausea, vomiting, and diarrhea HISTORY OF PRESENT ILLNESS: Mrs. Oquendo is a 80 year old female with colon cancer on chemotherapy and CVA with residual left sided weakness who presented for nausea, vomiting, and diarrhea. Symptoms started 3 days prior. She was having 5 to 6 watery stools a day. Nausea would occur with food. It is associated with abdominal pain which radiates from the left side of her abdomen to the right. Patient was admitted for JAN and weakness. HOSPITAL COURSE: GI panel was ordered and was negative. Case was discussed with GI who recommended Imodium and supportive care. Nephrology was consulted for JAN and metabolic acidosis secondary to GI bicarb losses. Patient was given fluids with bicarb and JAN and metabolic acidosis improved. Otherwise diarrhea persisted despite Imodium. Octreotide was added on, but diarrhea would not improve. Case was discussed with oncology who recommended cholestyramine and possibly the reversal agent for the chemotherapy, uridine triacetate. Unfortunately, supervisor trust accounts would not provide since it was more than 48 hours since chemotherapy. Towards the end of her hospital stay, her diarrhea started to be more formed. The day prior to discharge, she only had 2 BM which was firming up. She felt well and felt ready for home. She was subsequently discharged home DISCHARGE MEDICATIONS: Please see below. ALLERGIES: Please see below. PHYSICAL EXAMINATION ON DISCHARGE: VITAL SIGNS: Please see below. GENERAL: Comfortable, in no apparent distress HEENT: Head normocephalic, atraumatic NECK: Supple CARDIOVASCULAR EXAMINATION: Regular rate and rhythm RESPIRATORY EXAMINATION: Lungs clear to auscultation bilaterally ABDOMINAL EXAMINATION: Soft, non-tender, normal bowel sounds EXTREMITIES: No pitting edema bilaterally SKIN: Warm and dry NEUROLOGICAL EXAMINATION: CN 3-12 grossly intact PSYCHIATRIC EXAMINATION: Normal mood and affect LABORATORY DATA: Please see below. IMAGING: radiologist interpretations CT abd/pelvis 1. Findings related to the small bowel as described above suggest enteritis. No evidence for obstruction based on current exam. Residual colon appears normal. 2. Cholelithiasis. PROGNOSIS: Good ACTIVITY: As tolerated. DIET: As tolerated DISCHARGE PLAN: Home DISPOSITION: 01 Home, Self-Care. DISCHARGE INSTRUCTIONS: 1. Follow up with PCP in 1 week 2. Follow up with oncology in 1 week DISCHARGE CONDITION: Stable. Total time spent on discharge planning, discharge summary, and medication reconciliation: 55 minutes Vital Signs/I&Os Vital Signs Date Time Temp Pulse Resp B/P (MAP) Pulse Ox O2 Delivery O2 Flow Rate FiO2 05/28/20 14:00 98.1 87 19 100/64 (76) 97 Room Air I&O- Last 24 Hours up to 6 AM 05/28/20 06:00 Intake Total 1180 ml Output Total 425 ml Balance 755 ml Laboratory Data Labs 24H Laboratory Tests 2 05/28/20 05:20: Nucleated Red Blood Cells % (auto) 0.0, Anion Gap 6L, Glomerular Filtration Rate > 60.0, Calcium Level 7.9L, Phosphorus Level 3.0#, Magnesium Level 2.2 CBC/BMP Laboratory Tests 05/28/20 05:20 Discharge Medications Scheduled Atorvastatin Calcium (Atorvastatin Calcium) 40 Mg Tablet, 40 MG PO QPM, (Reported) Baclofen (Baclofen) 10 Mg Tablet, 10 MG PO BID, (Reported) Calcium Carbonate/Vitamin D3 (Os-[place] 500-Vit D3 200 [place]) 1 Each Tablet, 1 TAB PO TID, (Reported) Cholecalciferol (Vitamin D3) (Vitamin D3) 1,000 Unit Tablet, 5,000 UNITS PO DAILY, (Reported) Ferrous Sulfate (Ferrous Sulfate) 325 Mg Tablet, 325 MG PO BID, (Reported) Fluoxetine Hcl (Fluoxetine HCl) 20 Mg Capsule, 20 MG PO DAILY, (Reported) Metoprolol Tartrate (Metoprolol Tartrate) 25 Mg Tablet, 25 MG PO BID, (Reported) Pantoprazole Sodium (Pantoprazole Sodium) 40 Mg Tablet.dr, 40 MG PO BID, (Reported) Rivaroxaban (Xarelto) 15 Mg Tablet, 15 MG PO DAILY, (Reported) Scheduled PRN Acetaminophen (Acetaminophen) 500 Mg Tablet, 1,000 MG PO Q6H PRN for PAIN, (Reported) Loperamide HCl (Imodium A-D) 2 Mg Tablet, 2 MG PO Q4HP PRN for DIARRHEA Allergies Coded Allergies: Penicillins (Verified Allergy, Unknown, hives, 02/12/20) Protein Milk (Verified Adverse Reaction, Unknown, upset stomach , 02/12/20) LUIS ALBERTO CADET DO May 28, 2020 23:30
== END 2020-05-28 15:34 | disposition home health service (06) | DRG 394 ==
LOC: M ED 20:21 → M ED INP 23:53 → ENRESERV 05-16 01:02 → M MSPAV 05-16 02:09
PROVIDERS: ADMIT Family Medicine; ATTEND Internal Medicine
DX: K52.1 Toxic gastroenteritis and colitis (principal); C18.9 Malignant neoplasm of colon, unspecified; I69.354 Hemiplegia and hemiparesis following cerebral infarction affecting left non-dominant side; E87.2 Acidosis; N17.9 Acute kidney failure, unspecified; R17 Unspecified jaundice; T45.8X5A Adverse effect of other primarily systemic and hematological agents, initial encounter; F32.9 Major depressive disorder, single episode, unspecified; Z66 Do not resuscitate; R53.1 Weakness; E87.6 Hypokalemia; E83.39 Other disorders of phosphorus metabolism; E86.0 Dehydration; E88.89 Other specified metabolic disorders; I10 Essential (primary) hypertension; E83.42 Hypomagnesemia; K21.9 Gastro-esophageal reflux disease without esophagitis; Z79.01 Long term (current) use of anticoagulants; Z90.49 Acquired absence of other specified parts of digestive tract; Z87.891 Personal history of nicotine dependence; Z79.899 Other long term (current) drug therapy; Z88.0 Allergy status to penicillin; Z91.011 Allergy to milk products

== ENCOUNTER 2020-07-09 13:35 | Emergency (ER) | payer MEDICARE ==
[~2020-07-09] VITALS: Ht 170.2 cm; Wt 70.0 kg
[~2020-07-09 13:35] MED LIST changes: +COVI30VI IM; +FLUO20CA20 PO; +LOPE2TAB12 PO; +METO25TA4 PO; +PANT-23 PO
[2020-07-09] MEDS ORDERED: PANT40TA29 PO (13:46)
[2020-07-09] MEDS ORDERED: NS 1,000 ML IV ONE (16:35)
[2020-07-09 17:51] LABS: BASO % 0.4 % (0.0-1.0); EOS # 0.2 10^3/uL (0.0-0.5); EOS % 2.6 % (0.0-3.0); HEMATOCRIT 41.1 % (36.0-47.0); HEMOGLOBIN 12.8 g/dl (12.0-15.5); LYMPH # 2.2 10^3/uL (1.5-5.0); LYMPH % 30.4 % (24.0-44.0); MEAN CORPUSCULAR HEMOGLOBIN 30.4 pg (27.0-33.0); MEAN CORPUSCULAR HGB CONC 31.1 g/dl (32.0-36.5); MEAN CORPUSCULAR VOLUME 97.6 fl (80.0-96.0); MONO % 13.2 % (2.0-8.0); NEUTROPHILS # 3.8 10^3/uL (1.5-8.5); NEUTROPHILS % 53.1 % (36.0-66.0); PLATELET COUNT, AUTOMATED 233 10^3/uL (150-450); RED BLOOD COUNT 4.21 10^6/uL (4.00-5.40); WHITE BLOOD COUNT 7.2 10^3/uL (4.0-10.0)
[2020-07-09 18:20] LABS: BILIRUBIN,DIRECT 0.4 MG/DL (0.0-0.2); BILIRUBIN,TOTAL 2.1 MG/DL (0.2-1.0); TOTAL PROTEIN 5.7 GM/DL (6.4-8.2)
[2020-07-09] MEDS ORDERED: SIME180C25 PO (18:51)
[2020-07-09] MEDS ORDERED: SIMETHICONE 80MG CHEW TAB PO STA (18:53)
[2020-07-09] MEDS ORDERED: SODIUM CHLORIDE 0.9% INJ 10 ML SYR IV PRN (18:55)
[2020-07-09 19:11] VITALS: BP 145/70
== END 2020-07-09 19:26 | disposition home or self-care (01) ==
LOC: M ED 13:35
DX: R19.7 Diarrhea, unspecified (principal); E46 Unspecified protein-calorie malnutrition; Z79.899 Other long term (current) drug therapy; Z79.01 Long term (current) use of anticoagulants; Z88.0 Allergy status to penicillin; Z91.018 Allergy to other foods; F17.210 Nicotine dependence, cigarettes, uncomplicated
CPT/HCPCS: 80047; 80076; 83690; 85025; 96360; 96361; 99284; J1642

== ENCOUNTER → 2020-08-13 | Outpatient (CLI) | payer MEDICARE ==
[~2020-08-13] MED LIST changes: +SIME180C25 PO
--- NOTE | 2020-08-13 10:27 | REPVR ---
PROCEDURE INFORMATION: Exam: MR Head Without Contrast Exam date and time: 08/13/2020 9:51 AM Age: 80 years old Clinical indication: Weakness, extremity and other: Hemiplga following cerebral infrc affecting left n; Bilateral TECHNIQUE: Imaging protocol: MR of the head without contrast. COMPARISON: MRI-Brain without Contrast 07/31/2019 6:06 PM FINDINGS: Brain: Stable chronic right MCA infarction with chronic hemosiderin noted in the right basal ganglia, unchanged since the previous study. There is mild patchy increased T2 signal intensity within the bilateral cerebral periventricular white matter, consistent with chronic microvascular ischemic changes. There are few small focal areas of chronic ischemia in bilateral frontal, parietal and periatrial white matter. There is no abnormal diffusion weighted signal intensity to suggest an acute ischemic event. There is mild diffuse cerebral atrophy present, consistent with this patient's age. Cerebral ventricles: The ventricular system demonstrates moderate diffuse compensatory enlargement. There is ex vacuo dilatation of the right lateral ventricle. Bones/joints: Unremarkable. Paranasal sinuses: Normal as visualized. No acute sinusitis. Mastoid air cells: Normal as visualized. No mastoid effusion. Orbital cavity: Unremarkable. Soft tissues: Unremarkable. IMPRESSION: 1. No acute infarction, masses or hemorrhage is seen. No acute intracranial abnormality is identified. 2. Diffuse age-related cerebral atrophy and mild chronic microvascular white matter ischemic changes, without evidence of an acute intracranial abnormality. 3. There has been no adverse interval change since the previous study. 4. Stable chronic right MCA infarction with chronic hemosiderin noted in the right basal ganglia, unchanged since the previous study. Electronically signed by: Rubén Rodriguez On 08/13/2020 10:26:37 AM
== END ==
LOC: M RAD 09:00
PROVIDERS: ATTEND Psychiatry & Neurology Neurology
DX: I69.354 Hemiplegia and hemiparesis following cerebral infarction affecting left non-dominant side (principal)

== ENCOUNTER → 2020-11-26 | Outpatient (CLI) | payer MEDICARE ==
[~2020-11-26] MED LIST changes: +ERGO500029 PO; -VITA50005 PO
[2020-11-26 16:46] LABS: BASO # 0.1 10^3/uL (0.0-0.2); BASO % 0.8 % (0.0-1.0); EOS # 0.2 10^3/uL (0.0-0.5); EOS % 2.6 % (0.0-3.0); HEMATOCRIT 46.6 % (36.0-47.0); LYMPH # 2.3 10^3/uL (1.5-5.0); LYMPH % 30.7 % (24.0-44.0); MEAN CORPUSCULAR HEMOGLOBIN 29.8 pg (27.0-33.0); MEAN CORPUSCULAR HGB CONC 32.2 g/dl (32.0-36.5); MEAN CORPUSCULAR VOLUME 92.6 fl (80.0-96.0); MONO # 0.7 10^3/uL (0.0-0.8); MONO % 8.7 % (2.0-8.0); NEUTROPHILS # 4.3 10^3/uL (1.5-8.5); NEUTROPHILS % 56.8 % (36.0-66.0); PLATELET COUNT, AUTOMATED 240 10^3/uL (150-450); RED BLOOD COUNT 5.03 10^6/uL (4.00-5.40); WHITE BLOOD COUNT 7.6 10^3/uL (4.0-10.0)
[2020-11-26 17:17] LABS: ALBUMIN 3.2 GM/DL (3.2-5.2); ALT/SGPT 31 U/L (12-78); BILIRUBIN,TOTAL 1.3 MG/DL (0.2-1.0); BLOOD UREA NITROGEN 19 MG/DL (7-18); CALCIUM LEVEL 8.7 MG/DL (8.8-10.2); CARBON DIOXIDE LEVEL 26 MEQ/L (21-32); CHLORIDE LEVEL 113 MEQ/L (98-107); CHOLESTEROL LEVEL 138 MG/DL (<200); CREATININE FOR GFR 0.93 MG/DL (0.55-1.30); GLOMERULAR FILTRATION RATE > 60.0 (>39); GLUCOSE, FASTING 85 MG/DL (70-100); HDL CHOLESTEROL 46 MG/DL (>40); LDL CHOLESTEROL 49 MG/DL (<100); NON-HDL-C 92 MG/DL; POTASSIUM SERUM 4.4 MEQ/L (3.5-5.1); SODIUM LEVEL 144 MEQ/L (136-145); TOTAL PROTEIN 5.9 GM/DL (6.4-8.2); TRIGLYCERIDES LEVEL 215 MG/DL (<150)
== END ==
LOC: M LAB 16:02
PROVIDERS: ATTEND Nurse Practitioner Family
DX: C18.2 Malignant neoplasm of ascending colon (principal); I10 Essential (primary) hypertension

== ENCOUNTER → 2021-06-25 | Outpatient (CLI) | payer MEDICARE ==
[~2021-06-25] MED LIST changes: -D31000TA2 PO; +FLUO-96 PO; -FLUO20CA20 PO; +VITA100093 PO
[2021-06-25 11:10] LABS: INR 2.27; PROTHROMBIN TIME 25.4 SECONDS (12.7-14.5)
[2021-06-25 11:11] LABS: PARTIAL THROMBOPLASTIN TIME 54.8 SECONDS (25.9-37.0)
[2021-06-25 11:31] LABS: ALBUMIN 2.8 GM/DL (3.2-5.2); ALT/SGPT 108 U/L (12-78); BILIRUBIN,TOTAL 1.1 MG/DL (0.2-1.0); BLOOD UREA NITROGEN 20 MG/DL (7-18); CALCIUM LEVEL 9.4 MG/DL (8.8-10.2); CARBON DIOXIDE LEVEL 22 MEQ/L (21-32); CHLORIDE LEVEL 114 MEQ/L (98-107); CHOLESTEROL LEVEL 112 MG/DL (<200); CHOLESTEROL RISK RATIO 2.731 (<5); CREATININE FOR GFR 0.87 MG/DL (0.55-1.30); GLOMERULAR FILTRATION RATE > 60.0 (>39); GLUCOSE, FASTING 95 MG/DL (70-100); HDL CHOLESTEROL 41 MG/DL (>40); HEMOGLOBIN A1c 5.5 %; LDL CHOLESTEROL 48 MG/DL (<100); NON-HDL-C 71 MG/DL; POTASSIUM SERUM 3.8 MEQ/L (3.5-5.1); SODIUM LEVEL 144 MEQ/L (136-145); TOTAL PROTEIN 6.1 GM/DL (6.4-8.2); TRIGLYCERIDES LEVEL 114 MG/DL (<150)
[2021-06-29 17:09] LABS: VITAMIN B12 LEVEL 261 PG/ML (247-911)
== END ==
LOC: M LAB 10:11
PROVIDERS: ATTEND Psychiatry & Neurology Neurology
DX: I63.311 Cerebral infarction due to thrombosis of right middle cerebral artery (principal); Z79.899 Other long term (current) drug therapy

== ENCOUNTER → 2021-06-25 | Outpatient (CLI) | payer MEDICARE ==
[2021-06-25 11:33] LABS: ALBUMIN 2.7 GM/DL (3.2-5.2); BILIRUBIN,TOTAL 1.1 MG/DL (0.2-1.0); CHOLESTEROL RISK RATIO 2.842 (<5); CREATININE FOR GFR 0.98 MG/DL (0.55-1.30); GLOMERULAR FILTRATION RATE 58.3 (>39); PERCENT SATURATION 19.3 % (13.2-45.0); POTASSIUM SERUM 3.8 MEQ/L (3.5-5.1); TOTAL PROTEIN 6.1 GM/DL (6.4-8.2)
== END ==
LOC: M LAB 10:07
PROVIDERS: ATTEND Nurse Practitioner Family
DX: E78.2 Mixed hyperlipidemia (principal); I10 Essential (primary) hypertension; D50.9 Iron deficiency anemia, unspecified

== ENCOUNTER → 2021-07-01 | Outpatient (REF) | payer MEDICARE | LOC: M LAB REF 16:50 | PROVIDERS: ATTEND Nurse Practitioner Family | DX: R32 Unspecified urinary incontinence (principal) ==

== ENCOUNTER → 2021-08-03 | Outpatient (CLI) | payer MEDICARE ==
[2021-08-03 16:20] LABS: ALBUMIN 3.3 GM/DL (3.2-5.2); BILIRUBIN,DIRECT 0.2 MG/DL (0.0-0.2); BILIRUBIN,TOTAL 0.9 MG/DL (0.2-1.0); CALCIUM LEVEL 9.6 MG/DL (8.8-10.2); CREATININE FOR GFR 0.96 MG/DL (0.55-1.30); GLOMERULAR FILTRATION RATE 59.7 (>39); POTASSIUM SERUM 4.4 MEQ/L (3.5-5.1); TOTAL PROTEIN 6.5 GM/DL (6.4-8.2)
== END ==
LOC: M LAB 15:16
PROVIDERS: ATTEND Nurse Practitioner Family
DX: R94.5 Abnormal results of liver function studies (principal)

== ENCOUNTER 2021-08-18 01:55 | Emergency (ER) | payer MEDICARE | END 2021-08-18 06:20 | disposition home or self-care (01) | LOC: M ED 01:55 | DX: S01.81XA Laceration without foreign body of other part of head, initial encounter (principal); W06.XXXA Fall from bed, initial encounter; Y92.013 Bedroom of single-family (private) house as the place of occurrence of the external cause; I10 Essential (primary) hypertension; E78.5 Hyperlipidemia, unspecified; I48.91 Unspecified atrial fibrillation; Z86.73 Personal history of transient ischemic attack (TIA), and cerebral infarction without residual deficits; Z79.899 Other long term (current) drug therapy; Z79.01 Long term (current) use of anticoagulants; Z88.0 Allergy status to penicillin; Z91.018 Allergy to other foods; F17.210 Nicotine dependence, cigarettes, uncomplicated ==

== ENCOUNTER → 2021-11-12 | Outpatient (CLI) | payer MEDICARE | LOC: M PLAIMG 11:06 | PROVIDERS: ATTEND Nurse Practitioner Family | DX: M16.12 Unilateral primary osteoarthritis, left hip (principal); R32 Unspecified urinary incontinence; R10.9 Unspecified abdominal pain ==

== ENCOUNTER → 2021-12-01 | Outpatient (CLI) | payer MEDICARE | LOC: M WHC 12:50 | PROVIDERS: ATTEND Nurse Practitioner Family | DX: Z13.820 Encounter for screening for osteoporosis (principal); M85.88 Other specified disorders of bone density and structure, other site; M81.0 Age-related osteoporosis without current pathological fracture ==

== ENCOUNTER → 2022-03-31 | Outpatient (CLI) | payer MEDICARE | LOC: M PLARAD 13:58 | PROVIDERS: ATTEND Psychiatry & Neurology Neurology | DX: I63.311 Cerebral infarction due to thrombosis of right middle cerebral artery (principal) ==

== ENCOUNTER → 2022-03-31 | Outpatient (CLI) | payer MEDICARE ==
[2022-03-31 16:08] LABS: BASO # 0.1 10^3/uL (0.0-0.2); BASO % 0.7 % (0.0-1.0); EOS # 0.2 10^3/uL (0.0-0.5); EOS % 2.7 % (0.0-3.0); HEMATOCRIT 49.3 % (36.0-47.0); HEMOGLOBIN 15.6 g/dl (12.0-15.5); LYMPH # 2.1 10^3/uL (1.5-5.0); LYMPH % 27.8 % (24.0-44.0); MEAN CORPUSCULAR HEMOGLOBIN 29.8 pg (27.0-33.0); MEAN CORPUSCULAR HGB CONC 31.6 g/dl (32.0-36.5); MEAN CORPUSCULAR VOLUME 94.3 fl (80.0-96.0); MONO # 0.6 10^3/uL (0.0-0.8); MONO % 8.4 % (2.0-8.0); NEUTROPHILS # 4.6 10^3/uL (1.5-8.5); NEUTROPHILS % 59.9 % (36.0-66.0); PLATELET COUNT, AUTOMATED 239 10^3/uL (150-450); RED BLOOD COUNT 5.23 10^6/uL (4.00-5.40); WHITE BLOOD COUNT 7.7 10^3/uL (4.0-10.0)
[2022-03-31 16:27] LABS: ALBUMIN 3.4 G/DL (3.2-5.2); ALKALINE PHOSPHATASE 74 U/L (46-116); ALT/SGPT 21 U/L (7.0-40); AST/SGOT 17 U/L (<34); BLOOD UREA NITROGEN 23 MG/DL (9-23); CALCIUM LEVEL 9.2 MG/DL (8.3-10.6); CARBON DIOXIDE LEVEL 28 MMOL/L (20-31); CHLORIDE LEVEL 108 MMOL/L (98-107); CHOLESTEROL LEVEL 159 MG/DL (<200); CHOLESTEROL RISK RATIO 3.23 (<5); CREATININE FOR GFR 0.95 MG/DL (0.55-1.30); GLOMERULAR FILTRATION RATE > 60.0 (>39); GLUCOSE, FASTING 81 MG/DL (74-106); HDL CHOLESTEROL 49.1 MG/DL (>40); LDL CHOLESTEROL 81.1 MG/DL (<100); NON-HDL-C 110 MG/DL; POTASSIUM SERUM 4.4 MMOL/L (3.5-5.1); SODIUM LEVEL 143 MMOL/L (136-145); TOTAL PROTEIN 6.2 G/DL (5.7-8.2); TRIGLYCERIDES LEVEL 144 MG/DL (<150)
[2022-03-31 16:29] LABS: TOTAL 25(OH) VITAMIN D 52.6 NG/ML (20.0-100.0)
== END ==
LOC: M LAB 15:06
PROVIDERS: ATTEND Nurse Practitioner Family
DX: I10 Essential (primary) hypertension (principal); E78.2 Mixed hyperlipidemia; E55.9 Vitamin D deficiency, unspecified

== ENCOUNTER → 2022-11-22 | Outpatient (CLI) | payer MEDICARE ==
[2022-11-22 15:02] LABS: HEMATOCRIT 47.7 % (36.0-47.0); HEMOGLOBIN 15.2 g/dl (12.0-15.5); MEAN CORPUSCULAR HEMOGLOBIN 29.6 pg (27.0-33.0); MEAN CORPUSCULAR HGB CONC 31.9 g/dl (32.0-36.5); MEAN CORPUSCULAR VOLUME 92.8 fl (80.0-96.0); PLATELET COUNT, AUTOMATED 236 10^3/uL (150-450); RED BLOOD COUNT 5.14 10^6/uL (4.00-5.40)
[2022-11-22 15:26] LABS: ALBUMIN 3.3 G/DL (3.2-5.2); ALKALINE PHOSPHATASE 70 U/L (46-116); ALT/SGPT 14 U/L (7.0-40); AST/SGOT 10 U/L (<34); BILIRUBIN,TOTAL 1.3 MG/DL (0.3-1.2); BLOOD UREA NITROGEN 19 MG/DL (9-23); CALCIUM LEVEL 9.1 MG/DL (8.3-10.6); CARBON DIOXIDE LEVEL 29 MMOL/L (20-31); CHLORIDE LEVEL 111 MMOL/L (98-107); CREATININE FOR GFR 0.95 MG/DL (0.55-1.30); GLOMERULAR FILTRATION RATE > 60.0 (>32); GLUCOSE, FASTING 87 MG/DL (74-106); POTASSIUM SERUM 4.4 MMOL/L (3.5-5.1); SODIUM LEVEL 144 MMOL/L (136-145); TOTAL PROTEIN 5.8 G/DL (5.7-8.2)
== END ==
LOC: M LAB 14:00
PROVIDERS: ATTEND Surgery
DX: Z85.038 Personal history of other malignant neoplasm of large intestine (principal)

== ENCOUNTER → 2022-11-25 | Outpatient (CLI) | payer MEDICARE ==
[~2022-11-25] MED LIST changes: +GASTROGRAFIN SOLUTION 30ML As Ordered ONE; +ISOVUE-370 76% 100ML VIAL As Ordered ONE
== END ==
LOC: M RAD 12:45
PROVIDERS: ATTEND Surgery
DX: K80.20 Calculus of gallbladder without cholecystitis without obstruction (principal); Z85.038 Personal history of other malignant neoplasm of large intestine; Z90.49 Acquired absence of other specified parts of digestive tract
CPT/HCPCS: 74177; Q9963; Q9967

== ENCOUNTER → 2022-12-26 | Outpatient (CLI) | payer MEDICARE ==
[~2022-12-26] MED LIST changes: -GASTROGRAFIN SOLUTION 30ML As Ordered ONE; -ISOVUE-370 76% 100ML VIAL As Ordered ONE
== END ==
LOC: M PLAIMG 10:25
PROVIDERS: ATTEND Psychiatry & Neurology Neurology
DX: I63.311 Cerebral infarction due to thrombosis of right middle cerebral artery (principal)

== ENCOUNTER → 2023-03-07 | Outpatient (CLI) | payer MEDICARE ==
[~2023-03-07] MED LIST changes: +TRAM50TA2 PO
== END ==
LOC: M WUC 14:29
PROVIDERS: ATTEND Family Medicine
DX: M25.552 Pain in left hip (principal)

== ENCOUNTER 2023-03-09 13:20 | Emergency (ER) | payer MEDICARE ==
[~2023-03-09] VITALS: Ht 170.2 cm; Wt 74.5 kg
[~2023-03-09 13:20] MED LIST changes: -TRAM50TA2 PO
[2023-03-09] MEDS ORDERED: ULTRACET TAB PO STA (16:59)
[2023-03-09] MEDS ORDERED: TRAM50TA2 PO (19:07)
[2023-03-09 19:21] VITALS: BP 170/74; TEMP 98.1; O2SAT 93
== END 2023-03-09 20:22 | disposition home or self-care (01) ==
LOC: M ED 13:20 → EDBD 13:20 → M ED 20:22
DX: M54.50 Low back pain, unspecified (principal); M25.552 Pain in left hip; I10 Essential (primary) hypertension; F32.A Depression, unspecified; M81.0 Age-related osteoporosis without current pathological fracture; Z85.038 Personal history of other malignant neoplasm of large intestine; Z86.73 Personal history of transient ischemic attack (TIA), and cerebral infarction without residual deficits; Z88.0 Allergy status to penicillin; Z91.011 Allergy to milk products; Z91.040 Latex allergy status; F17.200 Nicotine dependence, unspecified, uncomplicated; Z79.899 Other long term (current) drug therapy

== ENCOUNTER 2023-03-10 03:00 | Inpatient (IN) | payer MEDICARE ==
[~2023-03-10] VITALS: Ht 170.2 cm; Wt 81.8 kg
[~2023-03-10 03:00] MED LIST changes: +TRAM50TA2 PO
[2023-03-10 04:14] LABS: BASO # 0.1 10^3/uL (0.0-0.2); BASO % 0.5 % (0.0-1.0); EOS # 0.2 10^3/uL (0.0-0.5); EOS % 1.7 % (0.0-3.0); HEMATOCRIT 45.3 % (36.0-47.0); HEMOGLOBIN 14.8 g/dl (12.0-15.5); LYMPH # 1.4 10^3/uL (1.5-5.0); LYMPH % 13.4 % (24.0-44.0); MEAN CORPUSCULAR HEMOGLOBIN 29.5 pg (27.0-33.0); MEAN CORPUSCULAR HGB CONC 32.7 g/dl (32.0-36.5); MEAN CORPUSCULAR VOLUME 90.4 fl (80.0-96.0); MONO # 0.9 10^3/uL (0.0-0.8); MONO % 8.8 % (2.0-8.0); NEUTROPHILS % 74.8 % (36.0-66.0); PLATELET COUNT, AUTOMATED 262 10^3/uL (150-450); RED BLOOD COUNT 5.01 10^6/uL (4.00-5.40); WHITE BLOOD COUNT 10.7 10^3/uL (4.0-10.0)
[2023-03-10 04:28] LABS: ALBUMIN 3.2 G/DL (3.2-5.2); ALKALINE PHOSPHATASE 109 U/L (46-116); ALT/SGPT 18 U/L (7.0-40); AST/SGOT 16 U/L (<34); BILIRUBIN,DIRECT 0.4 MG/DL (<0.4); BILIRUBIN,TOTAL 1.3 MG/DL (0.3-1.2); CK-MB VALUE MASS < 1.0 NG/ML (<3.6); TOTAL PROTEIN 5.8 G/DL (5.7-8.2)
[2023-03-10 04:30] LABS: THYROID STIMULATING HORMONE 1.957 uIU/ML (0.55-4.78)
[2023-03-10 04:37] LABS: RSV AMPLIFICATION NEGATIVE (NEGATIVE)
[2023-03-10 04:40] LABS: CPK CREATINE PHOSPHOKINASE 55 U/L (34-145); MB/CK RELATIVE INDEX 1.81 (< OR =4)
[2023-03-10 07:38] LABS: BLOOD UREA NITROGEN 20 MG/DL (9-23); CALCIUM LEVEL 9.2 MG/DL (8.3-10.6); CARBON DIOXIDE LEVEL 21 MMOL/L (20-31); CHLORIDE LEVEL 111 MMOL/L (98-107); CREATININE FOR GFR 0.77 MG/DL (0.55-1.30); GLOMERULAR FILTRATION RATE > 60.0 (>32); GLUCOSE, FASTING 128 MG/DL (74-106); POTASSIUM SERUM 3.8 MMOL/L (3.5-5.1); SODIUM LEVEL 142 MMOL/L (136-145)
[2023-03-10] MEDS ORDERED: MED REC IN PROGRESS XX SCH (11:05)
[2023-03-10] MEDS ORDERED: MAALOX 30 ML SUSP *UDC PO PRN (12:50)
[2023-03-10] MEDS ORDERED: MOM 30ML SUSPENSION UDC PO PRN (12:50)
[2023-03-10] MEDS ORDERED: HOME MED LIST COMPLETE! XX SCH (14:00)
[2023-03-10 16:30] VITALS: BP 130/80; TEMP 98.2; O2SAT 94
[2023-03-10] MEDS: ACETAMINOPHEN TAB 650MG DOSE (2X325MG) PO PRN (19:57)
[2023-03-10] MEDS: METOPROLOL TART 25 MG TABLET PO SCH (19:58)
[2023-03-10] MEDS: BACLOFEN 10 MG TAB PO SCH (19:58)
[2023-03-10] MEDS: ATORVASTATIN 20 MG TAB PO SCH (19:58)
[2023-03-10] MEDS: FERROUS SULFATE 325MG TAB PO SCH (19:58)
[2023-03-10 20:15] VITALS: BP 120/68; TEMP 98.6; O2SAT 94
[2023-03-11 05:33] VITALS: BP 160/80; TEMP 97.5; O2SAT 95
[2023-03-11 06:04] VITALS: BP 154/76
[2023-03-11 06:54] LABS: BASO # 0.1 10^3/uL (0.0-0.2); BASO % 0.6 % (0.0-1.0); EOS # 0.3 10^3/uL (0.0-0.5); EOS % 3.2 % (0.0-3.0); HEMATOCRIT 40.8 % (36.0-47.0); HEMOGLOBIN 13.6 g/dl (12.0-15.5); LYMPH # 2.5 10^3/uL (1.5-5.0); LYMPH % 26.1 % (24.0-44.0); MEAN CORPUSCULAR HEMOGLOBIN 29.9 pg (27.0-33.0); MEAN CORPUSCULAR HGB CONC 33.3 g/dl (32.0-36.5); MEAN CORPUSCULAR VOLUME 89.7 fl (80.0-96.0); MONO # 0.9 10^3/uL (0.0-0.8); MONO % 9.7 % (2.0-8.0); NEUTROPHILS # 5.7 10^3/uL (1.5-8.5); NEUTROPHILS % 59.8 % (36.0-66.0); PLATELET COUNT, AUTOMATED 247 10^3/uL (150-450); RED BLOOD COUNT 4.55 10^6/uL (4.00-5.40); WHITE BLOOD COUNT 9.5 10^3/uL (4.0-10.0)
[2023-03-11 07:43] LABS: BLOOD UREA NITROGEN 17 MG/DL (9-23); CALCIUM LEVEL 8.6 MG/DL (8.3-10.6); CARBON DIOXIDE LEVEL 24 MMOL/L (20-31); CHLORIDE LEVEL 113 MMOL/L (98-107); CREATININE FOR GFR 0.72 MG/DL (0.55-1.30); GLOMERULAR FILTRATION RATE > 60.0 (>32); GLUCOSE, FASTING 85 MG/DL (74-106); MAGNESIUM LEVEL 1.9 MG/DL (1.8-2.4); POTASSIUM SERUM 3.6 MMOL/L (3.5-5.1); SODIUM LEVEL 145 MMOL/L (136-145)
[2023-03-11] MEDS: VITAMIN D 1,000 INTERNATIONAL UNITS TABLET PO SCH (08:58)
[2023-03-11] MEDS: FLUoxetine 20MG CAP PO SCH (08:58)
[2023-03-11] MEDS: BACLOFEN 10 MG TAB PO SCH ×2 (08:58→22:10)
[2023-03-11] MEDS: PANTOPRAZOLE 40MG TAB (PROTONIX) PO SCH (08:58)
[2023-03-11] MEDS: FERROUS SULFATE 325MG TAB PO SCH ×2 (08:58→22:10)
[2023-03-11] MEDS: RIVAROXABAN 15MG TAB (XARELTO) PO SCH (08:58)
[2023-03-11] MEDS: METOPROLOL TART 25 MG TABLET PO SCH ×2 (08:59→22:10)
[2023-03-11 14:00] VITALS: BP 144/95; TEMP 98.1; O2SAT 94
[2023-03-11 21:19] VITALS: BP 136/74; TEMP 97.7; O2SAT 92
[2023-03-11] MEDS: ATORVASTATIN 20 MG TAB PO SCH (22:11)
[2023-03-12 06:00] VITALS: BP 138/73; TEMP 97; O2SAT 94
[2023-03-12] MEDS: BACLOFEN 10 MG TAB PO SCH ×2 (09:55→21:03)
[2023-03-12] MEDS: VITAMIN D 1,000 INTERNATIONAL UNITS TABLET PO SCH (09:55)
[2023-03-12] MEDS: FERROUS SULFATE 325MG TAB PO SCH ×2 (09:56→21:03)
[2023-03-12] MEDS: RIVAROXABAN 15MG TAB (XARELTO) PO SCH (09:56)
[2023-03-12] MEDS: FLUoxetine 20MG CAP PO SCH (09:56)
[2023-03-12] MEDS: PANTOPRAZOLE 40MG TAB (PROTONIX) PO SCH (09:56)
[2023-03-12] MEDS: METOPROLOL TART 25 MG TABLET PO SCH ×2 (09:56→21:04)
[2023-03-12 14:00] VITALS: BP 106/61; TEMP 97.5; O2SAT 92
[2023-03-12] MEDS: ACETAMINOPHEN TAB 650MG DOSE (2X325MG) PO PRN (18:41)
[2023-03-12] MEDS: ATORVASTATIN 20 MG TAB PO SCH (21:03)
[2023-03-12 21:40] VITALS: BP 108/61; TEMP 97.5; O2SAT 94
[2023-03-13 05:25] VITALS: BP 145/84; TEMP 97.9; O2SAT 93
[2023-03-13 06:16] LABS: BASO # 0.1 10^3/uL (0.0-0.2); BASO % 0.7 % (0.0-1.0); EOS # 0.4 10^3/uL (0.0-0.5); EOS % 4.2 % (0.0-3.0); HEMATOCRIT 42.4 % (36.0-47.0); HEMOGLOBIN 13.9 g/dl (12.0-15.5); LYMPH # 2.8 10^3/uL (1.5-5.0); LYMPH % 27.3 % (24.0-44.0); MEAN CORPUSCULAR HEMOGLOBIN 29.9 pg (27.0-33.0); MEAN CORPUSCULAR HGB CONC 32.8 g/dl (32.0-36.5); MEAN CORPUSCULAR VOLUME 91.2 fl (80.0-96.0); MONO # 0.9 10^3/uL (0.0-0.8); MONO % 8.9 % (2.0-8.0); NEUTROPHILS # 5.9 10^3/uL (1.5-8.5); PLATELET COUNT, AUTOMATED 285 10^3/uL (150-450); RED BLOOD COUNT 4.65 10^6/uL (4.00-5.40); WHITE BLOOD COUNT 10.1 10^3/uL (4.0-10.0)
[2023-03-13 06:30] LABS: BLOOD UREA NITROGEN 17 MG/DL (9-23); CALCIUM LEVEL 9.1 MG/DL (8.3-10.6); CARBON DIOXIDE LEVEL 24 MMOL/L (20-31); CHLORIDE LEVEL 112 MMOL/L (98-107); CREATININE FOR GFR 0.73 MG/DL (0.55-1.30); GLOMERULAR FILTRATION RATE > 60.0 (>32); GLUCOSE, FASTING 96 MG/DL (74-106); MAGNESIUM LEVEL 1.9 MG/DL (1.8-2.4); POTASSIUM SERUM 3.9 MMOL/L (3.5-5.1); SODIUM LEVEL 144 MMOL/L (136-145)
[2023-03-13] MEDS: RIVAROXABAN 15MG TAB (XARELTO) PO SCH (08:24)
[2023-03-13] MEDS: PANTOPRAZOLE 40MG TAB (PROTONIX) PO SCH (08:24)
[2023-03-13] MEDS: VITAMIN D 1,000 INTERNATIONAL UNITS TABLET PO SCH (08:24)
[2023-03-13] MEDS: BACLOFEN 10 MG TAB PO SCH (08:24)
[2023-03-13] MEDS: FLUoxetine 20MG CAP PO SCH (08:24)
[2023-03-13 08:25] VITALS: BP 145/84
[2023-03-13] MEDS: METOPROLOL TART 25 MG TABLET PO SCH (08:25)
[2023-03-13] MEDS: FERROUS SULFATE 325MG TAB PO SCH (08:25)
[2023-03-13] MEDS: ACETAMINOPHEN TAB 650MG DOSE (2X325MG) PO PRN (08:25)
== END 2023-03-13 13:20 | DRG 884 ==
LOC: EDBD 03:00 → M ED 03:00 → M ED INP 12:50 → M MSPAV 16:25
PROVIDERS: ADMIT Student in an Organized Health Care Education/Training Program; ATTEND Student in an Organized Health Care Education/Training Program
DX: R54 Age-related physical debility (principal); I69.354 Hemiplegia and hemiparesis following cerebral infarction affecting left non-dominant side; I10 Essential (primary) hypertension; M25.552 Pain in left hip; F32.A Depression, unspecified; M81.0 Age-related osteoporosis without current pathological fracture; E78.5 Hyperlipidemia, unspecified; K21.9 Gastro-esophageal reflux disease without esophagitis; Z88.0 Allergy status to penicillin; Z91.011 Allergy to milk products; Z91.040 Latex allergy status; Z79.899 Other long term (current) drug therapy; Z85.038 Personal history of other malignant neoplasm of large intestine; Z87.891 Personal history of nicotine dependence; Z20.822 Contact with and (suspected) exposure to COVID-19; S60.222A Contusion of left hand, initial encounter; S80.11XA Contusion of right lower leg, initial encounter; W01.0XXA Fall on same level from slipping, tripping and stumbling without subsequent striking against object, initial encounter; Y92.009 Unspecified place in unspecified non-institutional (private) residence as the place of occurrence of the external cause

== ENCOUNTER 2023-03-13 12:24 | Inpatient (IN) | payer MEDICARE ==
[~2023-03-13] VITALS: Ht 170.2 cm; Wt 74.7 kg
[2023-03-13 13:25] VITALS: BP 147/67; TEMP 97.6; O2SAT 96
[2023-03-13] MEDS ORDERED: MIRALAX *UNIT DOSE* 17GM PACKET PO PRN (15:25)
[2023-03-13 20:00] VITALS: BP 117/58; TEMP 96.6; O2SAT 95
[2023-03-13] MEDS: FERROUS SULFATE 325MG TAB PO SCH (21:01)
[2023-03-13] MEDS: BACLOFEN 10 MG TAB PO SCH (21:01)
[2023-03-13] MEDS: METOPROLOL TART 25 MG TABLET PO SCH (21:01)
[2023-03-13] MEDS: ATORVASTATIN 20 MG TAB PO SCH (21:03)
[2023-03-14 06:00] VITALS: BP 154/67; TEMP 96.5; O2SAT 94
[2023-03-14] MEDS: ACETAMINOPHEN TAB 650MG DOSE (2X325MG) PO PRN ×2 (08:24→20:25)
[2023-03-14] MEDS: FLUoxetine 20MG CAP PO SCH (08:24)
[2023-03-14] MEDS: PANTOPRAZOLE 40MG TAB (PROTONIX) PO SCH (08:24)
[2023-03-14] MEDS: FERROUS SULFATE 325MG TAB PO SCH ×2 (08:24→20:20)
[2023-03-14] MEDS: METOPROLOL TART 25 MG TABLET PO SCH ×2 (08:25→20:20)
[2023-03-14] MEDS: BACLOFEN 10 MG TAB PO SCH ×2 (08:25→20:20)
[2023-03-14] MEDS: RIVAROXABAN 15MG TAB (XARELTO) PO SCH (08:25)
[2023-03-14] MEDS: VITAMIN D 1,000 INTERNATIONAL UNITS TABLET PO SCH (08:25)
[2023-03-14 14:00] VITALS: BP 105/56; TEMP 98.2; O2SAT 95
[2023-03-14 20:00] VITALS: BP 112/55; TEMP 96.8; O2SAT 93
[2023-03-14] MEDS: ATORVASTATIN 20 MG TAB PO SCH (20:20)
[2023-03-15 06:00] VITALS: BP 112/58; TEMP 97; O2SAT 93
[2023-03-15] MEDS: ACETAMINOPHEN TAB 650MG DOSE (2X325MG) PO PRN (07:41)
[2023-03-15] MEDS: FLUoxetine 20MG CAP PO SCH (09:21)
[2023-03-15] MEDS: RIVAROXABAN 15MG TAB (XARELTO) PO SCH (09:21)
[2023-03-15] MEDS: FERROUS SULFATE 325MG TAB PO SCH ×2 (09:21→20:18)
[2023-03-15] MEDS: BACLOFEN 10 MG TAB PO SCH ×2 (09:21→20:18)
[2023-03-15] MEDS: METOPROLOL TART 25 MG TABLET PO SCH ×2 (09:22→20:18)
[2023-03-15] MEDS: VITAMIN D 1,000 INTERNATIONAL UNITS TABLET PO SCH (09:22)
[2023-03-15] MEDS: AMANTADINE 100MG TABLET PO SCH (09:22)
[2023-03-15] MEDS: PANTOPRAZOLE 40MG TAB (PROTONIX) PO SCH (09:22)
[2023-03-15 14:00] VITALS: BP 120/74; TEMP 96.9; O2SAT 98
[2023-03-15 20:00] VITALS: BP 148/75; TEMP 97.1; O2SAT 93
[2023-03-15] MEDS: ATORVASTATIN 20 MG TAB PO SCH (20:18)
[2023-03-15] MEDS: ACETAMINOPHEN 500 MG TAB PO PRN (20:18)
[2023-03-16 06:00] VITALS: BP 136/73; TEMP 96.5; O2SAT 95
[2023-03-16 07:24] LABS: HEMATOCRIT 42.5 % (36.0-47.0); HEMOGLOBIN 13.9 g/dl (12.0-15.5); MEAN CORPUSCULAR HEMOGLOBIN 29.6 pg (27.0-33.0); MEAN CORPUSCULAR HGB CONC 32.7 g/dl (32.0-36.5); MEAN CORPUSCULAR VOLUME 90.4 fl (80.0-96.0); PLATELET COUNT, AUTOMATED 285 10^3/uL (150-450); WHITE BLOOD COUNT 10.8 10^3/uL (4.0-10.0)
[2023-03-16 08:12] LABS: BLOOD UREA NITROGEN 17 MG/DL (9-23); CALCIUM LEVEL 8.7 MG/DL (8.3-10.6); CARBON DIOXIDE LEVEL 25 MMOL/L (20-31); CHLORIDE LEVEL 110 MMOL/L (98-107); CREATININE FOR GFR 0.75 MG/DL (0.55-1.30); GLOMERULAR FILTRATION RATE > 60.0 (>32); GLUCOSE, FASTING 91 MG/DL (74-106); POTASSIUM SERUM 4.1 MMOL/L (3.5-5.1); SODIUM LEVEL 142 MMOL/L (136-145)
[2023-03-16] MEDS: ACETAMINOPHEN 500 MG TAB PO PRN ×2 (08:12→20:27)
[2023-03-16] MEDS: PANTOPRAZOLE 40MG TAB (PROTONIX) PO SCH (09:06)
[2023-03-16] MEDS: VITAMIN D 1,000 INTERNATIONAL UNITS TABLET PO SCH (09:06)
[2023-03-16] MEDS: FLUoxetine 20MG CAP PO SCH (09:06)
[2023-03-16] MEDS: FERROUS SULFATE 325MG TAB PO SCH ×2 (09:06→20:27)
[2023-03-16] MEDS: AMANTADINE 100MG TABLET PO SCH (09:06)
[2023-03-16] MEDS: RIVAROXABAN 15MG TAB (XARELTO) PO SCH (09:06)
[2023-03-16] MEDS: BACLOFEN 10 MG TAB PO SCH ×2 (09:07→20:27)
[2023-03-16] MEDS: METOPROLOL TART 25 MG TABLET PO SCH ×2 (09:07→20:27)
[2023-03-16 14:00] VITALS: BP 114/58; TEMP 97; O2SAT 95
[2023-03-16 20:00] VITALS: BP 129/60; TEMP 97.2; O2SAT 96
[2023-03-16] MEDS: ATORVASTATIN 20 MG TAB PO SCH (20:27)
[2023-03-17 06:00] VITALS: TEMP 96.6; O2SAT 95
[2023-03-17] MEDS: AMANTADINE 100MG TABLET PO SCH (09:01)
[2023-03-17] MEDS: PANTOPRAZOLE 40MG TAB (PROTONIX) PO SCH (09:01)
[2023-03-17] MEDS: RIVAROXABAN 15MG TAB (XARELTO) PO SCH (09:01)
[2023-03-17] MEDS: FERROUS SULFATE 325MG TAB PO SCH ×2 (09:02→20:33)
[2023-03-17] MEDS: FLUoxetine 20MG CAP PO SCH (09:02)
[2023-03-17] MEDS: VITAMIN D 1,000 INTERNATIONAL UNITS TABLET PO SCH (09:02)
[2023-03-17] MEDS: BACLOFEN 10 MG TAB PO SCH ×2 (09:02→20:33)
[2023-03-17] MEDS: ACETAMINOPHEN 500 MG TAB PO PRN ×2 (09:03→20:34)
[2023-03-17] MEDS: METOPROLOL TART 25 MG TABLET PO SCH ×2 (09:04→20:34)
[2023-03-17 14:00] VITALS: BP 133/62; TEMP 97.7; O2SAT 96
[2023-03-17 19:48] VITALS: BP 140/66; TEMP 98.1; O2SAT 94
[2023-03-17] MEDS: ATORVASTATIN 20 MG TAB PO SCH (20:34)
[2023-03-18 06:00] VITALS: BP 152/67; TEMP 97.7; O2SAT 95
[2023-03-18] MEDS: PANTOPRAZOLE 40MG TAB (PROTONIX) PO SCH (07:42)
[2023-03-18] MEDS: BACLOFEN 10 MG TAB PO SCH ×2 (07:42→19:49)
[2023-03-18] MEDS: RIVAROXABAN 15MG TAB (XARELTO) PO SCH (07:42)
[2023-03-18] MEDS: VITAMIN D 1,000 INTERNATIONAL UNITS TABLET PO SCH (07:42)
[2023-03-18] MEDS: FLUoxetine 20MG CAP PO SCH (07:42)
[2023-03-18] MEDS: ACETAMINOPHEN 500 MG TAB PO PRN ×2 (07:42→19:49)
[2023-03-18] MEDS: FERROUS SULFATE 325MG TAB PO SCH ×2 (07:42→19:48)
[2023-03-18] MEDS: AMANTADINE 100MG TABLET PO SCH (07:42)
[2023-03-18] MEDS: METOPROLOL TART 25 MG TABLET PO SCH ×2 (07:43→19:49)
[2023-03-18] MEDS: methocarbamoL 500 MG TAB PO PRN (10:50)
[2023-03-18 14:00] VITALS: BP 122/62; TEMP 98.2; O2SAT 96
[2023-03-18] MEDS: ATORVASTATIN 20 MG TAB PO SCH (19:48)
[2023-03-18 20:00] VITALS: BP 123/64; TEMP 97.2; O2SAT 96
[2023-03-19 06:00] VITALS: BP 137/64; TEMP 96.9; O2SAT 94
[2023-03-19] MEDS: PANTOPRAZOLE 40MG TAB (PROTONIX) PO SCH (07:36)
[2023-03-19] MEDS: METOPROLOL TART 25 MG TABLET PO SCH ×2 (07:36→20:36)
[2023-03-19] MEDS: FLUoxetine 20MG CAP PO SCH (07:36)
[2023-03-19] MEDS: FERROUS SULFATE 325MG TAB PO SCH ×2 (07:36→20:35)
[2023-03-19] MEDS: VITAMIN D 1,000 INTERNATIONAL UNITS TABLET PO SCH (07:36)
[2023-03-19] MEDS: AMANTADINE 100MG TABLET PO SCH (07:36)
[2023-03-19] MEDS: BACLOFEN 10 MG TAB PO SCH ×2 (07:36→20:35)
[2023-03-19] MEDS: ACETAMINOPHEN 500 MG TAB PO PRN ×2 (07:37→20:35)
[2023-03-19] MEDS: RIVAROXABAN 15MG TAB (XARELTO) PO SCH (07:37)
[2023-03-19 14:15] VITALS: BP 119/55; TEMP 96; O2SAT 95
[2023-03-19 20:00] VITALS: BP 132/61; TEMP 96.6; O2SAT 95
[2023-03-19] MEDS: ATORVASTATIN 20 MG TAB PO SCH (20:35)
[2023-03-20 06:00] VITALS: BP 131/61; TEMP 96.6; O2SAT 94
[2023-03-20] MEDS: FERROUS SULFATE 325MG TAB PO SCH ×2 (08:42→21:15)
[2023-03-20] MEDS: FLUoxetine 20MG CAP PO SCH (08:42)
[2023-03-20] MEDS: RIVAROXABAN 15MG TAB (XARELTO) PO SCH (08:42)
[2023-03-20] MEDS: PANTOPRAZOLE 40MG TAB (PROTONIX) PO SCH (08:42)
[2023-03-20] MEDS: AMANTADINE 100MG TABLET PO SCH (08:42)
[2023-03-20] MEDS: BACLOFEN 10 MG TAB PO SCH ×2 (08:43→21:15)
[2023-03-20] MEDS: VITAMIN D 1,000 INTERNATIONAL UNITS TABLET PO SCH (08:43)
[2023-03-20] MEDS: METOPROLOL TART 25 MG TABLET PO SCH ×2 (08:43→21:15)
[2023-03-20] MEDS: ACETAMINOPHEN 500 MG TAB PO PRN ×2 (08:46→21:16)
[2023-03-20 20:01] VITALS: BP 125/67; TEMP 97.2; O2SAT 97
[2023-03-20] MEDS: ATORVASTATIN 20 MG TAB PO SCH (21:16)
[2023-03-21 06:00] VITALS: BP 136/78; TEMP 97.5; O2SAT 95
[2023-03-21 07:33] LABS: HEMATOCRIT 44.2 % (36.0-47.0); HEMOGLOBIN 14.3 g/dl (12.0-15.5); MEAN CORPUSCULAR HEMOGLOBIN 29.7 pg (27.0-33.0); MEAN CORPUSCULAR HGB CONC 32.4 g/dl (32.0-36.5); MEAN CORPUSCULAR VOLUME 91.7 fl (80.0-96.0); PLATELET COUNT, AUTOMATED 307 10^3/uL (150-450); RED BLOOD COUNT 4.82 10^6/uL (4.00-5.40); WHITE BLOOD COUNT 8.1 10^3/uL (4.0-10.0)
[2023-03-21] MEDS: VITAMIN D 1,000 INTERNATIONAL UNITS TABLET PO SCH (08:57)
[2023-03-21] MEDS: FERROUS SULFATE 325MG TAB PO SCH ×2 (08:57→20:20)
[2023-03-21] MEDS: RIVAROXABAN 15MG TAB (XARELTO) PO SCH (08:57)
[2023-03-21] MEDS: FLUoxetine 20MG CAP PO SCH (08:57)
[2023-03-21] MEDS: AMANTADINE 100MG TABLET PO SCH (08:57)
[2023-03-21] MEDS: BACLOFEN 10 MG TAB PO SCH ×2 (08:57→20:21)
[2023-03-21] MEDS: PANTOPRAZOLE 40MG TAB (PROTONIX) PO SCH (08:57)
[2023-03-21] MEDS: ACETAMINOPHEN 500 MG TAB PO PRN ×2 (08:58→20:21)
[2023-03-21] MEDS: METOPROLOL TART 25 MG TABLET PO SCH ×2 (08:58→20:14)
[2023-03-21 14:00] VITALS: BP 110/54; TEMP 97.2; O2SAT 95
[2023-03-21] MEDS: methocarbamoL 500 MG TAB PO PRN (14:27)
[2023-03-21 20:00] VITALS: BP 130/61; TEMP 97.1; O2SAT 96
[2023-03-21] MEDS: ATORVASTATIN 20 MG TAB PO SCH (20:21)
[2023-03-22 06:00] VITALS: BP 130/76; TEMP 97.2; O2SAT 97
[2023-03-22] MEDS: methocarbamoL 500 MG TAB PO PRN (07:52)
[2023-03-22] MEDS: AMANTADINE 100MG TABLET PO SCH (07:53)
[2023-03-22] MEDS: FLUoxetine 20MG CAP PO SCH (07:53)
[2023-03-22] MEDS: VITAMIN D 1,000 INTERNATIONAL UNITS TABLET PO SCH (07:53)
[2023-03-22] MEDS: RIVAROXABAN 15MG TAB (XARELTO) PO SCH (07:53)
[2023-03-22] MEDS: BACLOFEN 10 MG TAB PO SCH ×2 (07:53→21:24)
[2023-03-22] MEDS: METOPROLOL TART 25 MG TABLET PO SCH ×2 (07:53→21:24)
[2023-03-22] MEDS: PANTOPRAZOLE 40MG TAB (PROTONIX) PO SCH (07:53)
[2023-03-22] MEDS: FERROUS SULFATE 325MG TAB PO SCH ×2 (07:53→21:24)
[2023-03-22] MEDS: ACETAMINOPHEN 500 MG TAB PO PRN ×2 (07:54→21:24)
[2023-03-22 14:00] VITALS: BP 126/59; TEMP 97.6; O2SAT 97
[2023-03-22 20:16] VITALS: BP 131/60; TEMP 97.9; O2SAT 93
[2023-03-22] MEDS: ATORVASTATIN 20 MG TAB PO SCH (21:24)
[2023-03-23 06:21] VITALS: BP 124/59; TEMP 97.9; O2SAT 95
[2023-03-23] MEDS: FERROUS SULFATE 325MG TAB PO SCH (09:41)
[2023-03-23] MEDS: RIVAROXABAN 15MG TAB (XARELTO) PO SCH (09:41)
[2023-03-23] MEDS: AMANTADINE 100MG TABLET PO SCH (09:42)
[2023-03-23] MEDS: methocarbamoL 500 MG TAB PO PRN (09:42)
[2023-03-23] MEDS: FLUoxetine 20MG CAP PO SCH (09:43)
[2023-03-23] MEDS: VITAMIN D 1,000 INTERNATIONAL UNITS TABLET PO SCH (09:43)
[2023-03-23] MEDS: ACETAMINOPHEN 500 MG TAB PO PRN (09:43)
[2023-03-23] MEDS: PANTOPRAZOLE 40MG TAB (PROTONIX) PO SCH (09:43)
[2023-03-23] MEDS: BACLOFEN 10 MG TAB PO SCH (09:43)
[2023-03-23 09:44] VITALS: BP 124/59
[2023-03-23] MEDS: METOPROLOL TART 25 MG TABLET PO SCH (09:44)
[2023-03-23] MEDS ORDERED: AMAN100T4 PO (10:18)
[2023-03-23] MEDS ORDERED: METH-1164 PO (10:18)
== END 2023-03-23 13:30 | DRG 884 ==
LOC: M PM&R 13:25
PROVIDERS: ADMIT Student in an Organized Health Care Education/Training Program; ATTEND Student in an Organized Health Care Education/Training Program
DX: R54 Age-related physical debility (principal); I69.354 Hemiplegia and hemiparesis following cerebral infarction affecting left non-dominant side; R29.6 Repeated falls; I10 Essential (primary) hypertension; E78.5 Hyperlipidemia, unspecified; D50.9 Iron deficiency anemia, unspecified; F32.A Depression, unspecified; K21.9 Gastro-esophageal reflux disease without esophagitis; I69.892 Facial weakness following other cerebrovascular disease; R26.89 Other abnormalities of gait and mobility; R32 Unspecified urinary incontinence; E55.9 Vitamin D deficiency, unspecified; M62.572 Muscle wasting and atrophy, not elsewhere classified, left ankle and foot; R52 Pain, unspecified; F17.200 Nicotine dependence, unspecified, uncomplicated; Z90.49 Acquired absence of other specified parts of digestive tract; Z98.41 Cataract extraction status, right eye; Z98.42 Cataract extraction status, left eye; M24.572 Contracture, left ankle; Z88.0 Allergy status to penicillin; Z91.011 Allergy to milk products; Z91.040 Latex allergy status; Z74.09 Other reduced mobility; Z74.1 Need for assistance with personal care

== ENCOUNTER → 2023-03-27 | Outpatient (REF) ==
[~2023-03-27] MED LIST changes: +AMAN100T4 PO; +METH-1164 PO
[2023-03-27 12:00] LABS: HEMOGLOBIN 15.1 g/dl (12.0-15.5); MEAN CORPUSCULAR HEMOGLOBIN 30.3 pg (27.0-33.0); MEAN CORPUSCULAR HGB CONC 32.1 g/dl (32.0-36.5); MEAN CORPUSCULAR VOLUME 94.2 fl (80.0-96.0); PLATELET COUNT, AUTOMATED 288 10^3/uL (150-450); RED BLOOD COUNT 4.99 10^6/uL (4.00-5.40); WHITE BLOOD COUNT 8.5 10^3/uL (4.0-10.0)
[2023-03-27 12:28] LABS: BLOOD UREA NITROGEN 16 MG/DL (9-23); CALCIUM LEVEL 9.4 MG/DL (8.3-10.6); CARBON DIOXIDE LEVEL 27 MMOL/L (20-31); CHLORIDE LEVEL 110 MMOL/L (98-107); CREATININE FOR GFR 0.87 MG/DL (0.55-1.30); GLOMERULAR FILTRATION RATE > 60.0 (>32); GLUCOSE, FASTING 76 MG/DL (74-106); POTASSIUM SERUM 4.5 MMOL/L (3.5-5.1); SODIUM LEVEL 145 MMOL/L (136-145)
== END ==
PROVIDERS: ATTEND Physician Assistant
DX: I48.91 Unspecified atrial fibrillation (principal)

== ENCOUNTER → 2023-04-03 | Outpatient (REF) ==
[2023-04-03 10:13] LABS: HEMATOCRIT 48.6 % (36.0-47.0); HEMOGLOBIN 15.3 g/dl (12.0-15.5); MEAN CORPUSCULAR HEMOGLOBIN 29.8 pg (27.0-33.0); MEAN CORPUSCULAR HGB CONC 31.5 g/dl (32.0-36.5); MEAN CORPUSCULAR VOLUME 94.7 fl (80.0-96.0); PLATELET COUNT, AUTOMATED 240 10^3/uL (150-450); RED BLOOD COUNT 5.13 10^6/uL (4.00-5.40); WHITE BLOOD COUNT 7.2 10^3/uL (4.0-10.0)
[2023-04-03 10:41] LABS: BLOOD UREA NITROGEN 14 MG/DL (9-23); CALCIUM LEVEL 9.1 MG/DL (8.3-10.6); CARBON DIOXIDE LEVEL 28 MMOL/L (20-31); CHLORIDE LEVEL 110 MMOL/L (98-107); CREATININE FOR GFR 0.95 MG/DL (0.55-1.30); GLOMERULAR FILTRATION RATE > 60.0 (>32); GLUCOSE, FASTING 101 MG/DL (74-106); POTASSIUM SERUM 4.1 MMOL/L (3.5-5.1); SODIUM LEVEL 142 MMOL/L (136-145)
== END ==
PROVIDERS: ATTEND Physician Assistant
DX: I48.91 Unspecified atrial fibrillation (principal)

== ENCOUNTER → 2023-04-12 | Outpatient (REF) ==
[2023-04-12 12:08] LABS: HEMATOCRIT 51.2 % (36.0-47.0); HEMOGLOBIN 15.7 g/dl (12.0-15.5); MEAN CORPUSCULAR HEMOGLOBIN 29.7 pg (27.0-33.0); MEAN CORPUSCULAR HGB CONC 30.7 g/dl (32.0-36.5); MEAN CORPUSCULAR VOLUME 96.8 fl (80.0-96.0); PLATELET COUNT, AUTOMATED 244 10^3/uL (150-450); RED BLOOD COUNT 5.29 10^6/uL (4.00-5.40); WHITE BLOOD COUNT 11.4 10^3/uL (4.0-10.0)
[2023-04-12 12:52] LABS: CALCIUM LEVEL 9.8 MG/DL (8.3-10.6); CREATININE FOR GFR 0.97 MG/DL (0.55-1.30); GLOMERULAR FILTRATION RATE 58.8 (>32)
== END ==
PROVIDERS: ATTEND Physician Assistant
DX: I48.91 Unspecified atrial fibrillation (principal)

== ENCOUNTER → 2023-04-13 | Outpatient (REF) ==
[2023-04-13 17:50] LABS: BLOOD UREA NITROGEN 23 MG/DL (9-23); CALCIUM LEVEL 8.8 MG/DL (8.3-10.6); CARBON DIOXIDE LEVEL 18 MMOL/L (20-31); CHLORIDE LEVEL 111 MMOL/L (98-107); GLOMERULAR FILTRATION RATE > 60.0 (>32); GLUCOSE, FASTING 83 MG/DL (74-106); POTASSIUM SERUM 4.7 MMOL/L (3.5-5.1); SODIUM LEVEL 141 MMOL/L (136-145)
== END ==
PROVIDERS: ATTEND Physician Assistant
DX: R19.7 Diarrhea, unspecified (principal)

== ENCOUNTER → 2023-05-11 | Outpatient (CLI) | payer MEDICARE ==
[2023-05-11 11:30] LABS: BASO # 0.1 10^3/uL (0.0-0.2); BASO % 0.6 % (0.0-1.0); EOS # 0.6 10^3/uL (0.0-0.5); EOS % 7.1 % (0.0-3.0); HEMATOCRIT 44.7 % (36.0-47.0); HEMOGLOBIN 14.4 g/dl (12.0-15.5); LYMPH # 1.6 10^3/uL (1.5-5.0); LYMPH % 19.6 % (24.0-44.0); MEAN CORPUSCULAR HEMOGLOBIN 30.5 pg (27.0-33.0); MEAN CORPUSCULAR HGB CONC 32.2 g/dl (32.0-36.5); MEAN CORPUSCULAR VOLUME 94.7 fl (80.0-96.0); MONO # 0.6 10^3/uL (0.0-0.8); MONO % 6.9 % (2.0-8.0); NEUTROPHILS # 5.5 10^3/uL (1.5-8.5); NEUTROPHILS % 65.4 % (36.0-66.0); PLATELET COUNT, AUTOMATED 240 10^3/uL (150-450); RED BLOOD COUNT 4.72 10^6/uL (4.00-5.40); WHITE BLOOD COUNT 8.4 10^3/uL (4.0-10.0)
[2023-05-11 11:52] LABS: BILIRUBIN,TOTAL 1.2 MG/DL (0.3-1.2); CALCIUM LEVEL 8.3 MG/DL (8.3-10.6); CREATININE FOR GFR 0.97 MG/DL (0.55-1.30); GLOMERULAR FILTRATION RATE 58.7 (>32); POTASSIUM SERUM 4.2 MMOL/L (3.5-5.1); TOTAL PROTEIN 5.5 G/DL (5.7-8.2)
== END ==
LOC: M LAB 11:03
PROVIDERS: ATTEND Nurse Practitioner Family
DX: I10 Essential (primary) hypertension (principal)

== ENCOUNTER → 2024-01-16 | Outpatient (CLI) | payer MEDICARE ==
[~2024-01-16] MED LIST changes: +FLUO-365 PO; -FLUO20CA22 PO; -SIME180C25 PO; +SIME1CAP4 PO
== END ==
LOC: M PLAIMG 13:08
PROVIDERS: ATTEND Psychiatry & Neurology Neurology
DX: I63.311 Cerebral infarction due to thrombosis of right middle cerebral artery (principal)

== ENCOUNTER → 2024-01-26 | Outpatient (CLI) | payer MEDICARE | LOC: M WHC 12:55 | PROVIDERS: ATTEND Nurse Practitioner Family | DX: Z13.820 Encounter for screening for osteoporosis (principal); M81.8 Other osteoporosis without current pathological fracture ==

== ENCOUNTER → 2024-10-28 | Outpatient (CLI) | payer MEDICARE ==
[~2024-10-28] MED LIST changes: -AMAN100T4 PO; +AMAN100T8 PO; -FLOM0.4C39 PO; +TAMS-18 PO
[2024-10-28 16:58] LABS: CALCIUM LEVEL 9.8 MG/DL (8.3-10.6); CARBON DIOXIDE LEVEL 28.0 MMOL/L (20-31); CHLORIDE LEVEL 110.0 MMOL/L (98-107); CREATININE FOR GFR 1.29 MG/DL (0.55-1.30); GLOMERULAR FILTRATION RATE 41.4 (>32); POTASSIUM SERUM 4.7 MMOL/L (3.5-5.1); SODIUM LEVEL 147.0 MMOL/L (136-145)
== END ==
LOC: M LAB 15:22
PROVIDERS: ATTEND Nurse Practitioner Family
DX: N18.30 Chronic kidney disease, stage 3 unspecified (principal)

== ENCOUNTER → 2024-10-28 | Outpatient (CLI) | payer MEDICARE ==
[2024-10-28 17:01] LABS: CHOLESTEROL LEVEL 147.0 MG/DL (<200); CHOLESTEROL RISK RATIO 2.88 (<5); FREE T4 1.33 NG/DL (0.89-1.76); LDL CHOLESTEROL 71.1 MG/DL (<100); NON-HDL-C 96.1 MG/DL; TRIGLYCERIDES LEVEL 125.0 MG/DL (<150)
[2024-10-28 17:04] LABS: VITAMIN B12 LEVEL 221.0 PG/ML (211-911)
== END ==
LOC: M LAB 15:26
PROVIDERS: ATTEND Psychiatry & Neurology Neurology
DX: G81.94 Hemiplegia, unspecified affecting left nondominant side (principal); Z79.899 Other long term (current) drug therapy; N18.30 Chronic kidney disease, stage 3 unspecified

== ENCOUNTER → 2025-02-19 | Outpatient (CLI) | payer MEDICARE | LOC: M WHC 12:35 | PROVIDERS: ATTEND Family Medicine | DX: Z13.820 Encounter for screening for osteoporosis (principal); M81.0 Age-related osteoporosis without current pathological fracture ==